=== PATIENT | female | born 1935 | race Asian ===

== ENCOUNTER → 2016-04-27 | Outpatient (CLI) | payer OTHER ==
[~2016-04-27] MED LIST: ACET325T96 PO; AMLO2.5T PO; ASPEC81 PO; CARB25TA12 PO; CHOL100010 PO; CYAN500T PO; DOCU-94 PO; FLNIN NAE; FLUT0.15 NAE; FURO20TA PO; METO50TA16 PO; MGCUDL400 PO; MULTTAB58 PO; NRN100 PO; OMEP20CA9 PO; PLV75 PO; POTA10CA28 PO; POTA1CAP53 PO; SIMV20TA2 PO; ZNTT/150 PO
== END | disposition home or self-care (01) ==
LOC: C.LAB1850 09:27
PROVIDERS: ATTEND Psychiatry & Neurology Neurology
DX: G20 Parkinson's disease (principal)

== ENCOUNTER → 2016-05-28 | Outpatient (CLI) | payer OTHER ==
[2016-05-28 09:57] LABS: ALT/SGPT 10 U/L (12-78); AST/SGOT 11 U/L (15-37); BLOOD UREA NITROGEN 20 mg/dl (7-18); BUN/CREATININE RATIO 14.3 (10-20); CALCIUM 9.6 mg/dl (8.5-10.1); CARBON DIOXIDE 34 mmol/L (21-32); CHLORIDE 103 mmol/L (98-107); GLUCOSE 124 mg/dl (70-99); POTASSIUM 4.1 mmol/L (3.5-5.1); SODIUM 142 mmol/L (136-145)
[2016-05-28 10:00] LABS: CHOLESTEROL 201 mg/dl (0-200); HDL CHOLESTEROL 101 mg/dl; LDL CHOLESTEROL CALCULATED 80 mg/dl; TRIGLYCERIDES 101 mg/dl (0-150); VERY LOW DENSITY LIPOPROT CALC 20 mg/dl
[2016-05-28 10:24] LABS: ESTIMATED AVERAGE GLUCOSE 140 mg/dl; HA1C FLAG Normal (Normal)
[2016-05-28 13:08] LABS: RATIO 26.7 mcg/mg (0-30.0)
== END | disposition home or self-care (01) ==
LOC: C.LAB1850 08:21
PROVIDERS: ATTEND Internal Medicine
DX: I10 Essential (primary) hypertension (principal); E11.9 Type 2 diabetes mellitus without complications; I25.10 Atherosclerotic heart disease of native coronary artery without angina pectoris

== ENCOUNTER → 2016-06-19 | Outpatient (CLI) | payer OTHER ==
--- NOTE | 2016-06-19 09:24 | DIAGNOSTIC IMAGING REPORT ---
RIGHT HIP 2 VIEWS HISTORY: M25.551 Right hip [id number] Right COMPARISON: Pelvis 05/27/2014. FINDINGS: There is no fracture or dislocation. Soft tissues are unremarkable. The visualized pelvic bones are intact. The bones are osteopenic. Cartilage spaces are maintained for age. Posterior fusion seen at the lumbar sacral spine. 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 IMPRESSION: No fracture or dislocation within the right hip. Osteopenia. Electronically signed by: Pardeep Neville M.D. 06/19/2016 9:23 AM Dictated Date/Time: 06/19/2016 9:21 AM
== END | disposition home or self-care (01) ==
LOC: C.RAD1850 09:10
PROVIDERS: ATTEND Physician Assistant
DX: M25.551 Pain in right hip (principal); M85.88 Other specified disorders of bone density and structure, other site

== ENCOUNTER 2016-07-31 17:34 | Inpatient (IN) | payer OTHER ==
[~2016-07-31] VITALS: Ht 160 cm; Wt 41.9 kg
[~2016-07-31 17:34] MED LIST changes: -AMLO2.5T PO; -CARB25TA12 PO; -CHOL100010 PO; -FLUT0.15 NAE; -MGCUDL400 PO; -NRN100 PO; -POTA1CAP53 PO; -ZNTT/150 PO
[2016-07-31] MEDS ORDERED: ONDANSETRON INJ 2 MG/ML 2 ML VIAL IV STA (18:20)
[2016-07-31] MEDS ORDERED: SODIUM CHLORIDE 0.9% 1000ML 1,000 ML IV STA (18:20)
[2016-07-31 18:39] LABS: BASO % 0.2 %; BASO ABS # 0.01 K/uL (0-0.2); COMPLETE YES; HEMATOCRIT 42.6 % (37-47); IG% 0.2 %; LYMPH % 17.4 %; LYMPH ABS # 1.01 K/uL (1.2-3.4); MEAN CELL VOLUME 92.2 fL (80-100); MEAN CORPUSCULAR HEMOGLOBIN 29.7 pg (25-34); MEAN CORPUSCULAR HGB CONC 32.2 g/dl (32-36); MEAN PLATELET VOLUME 11.2 fL (7.4-10.4); MONO % 5.4 %; NEUT % 75.8 %; PLATELET COUNT 122 K/uL (130-400); RED BLOOD COUNT 4.62 M/uL (4.2-5.4); WHITE BLOOD COUNT 5.79 K/uL (4.8-10.8)
[2016-07-31] MEDS ORDERED: CARB25TA12 PO (18:40)
[2016-07-31] MEDS ORDERED: CHOL100010 PO (18:40)
[2016-07-31] MEDS ORDERED: POTA1CAP53 PO (18:40)
[2016-07-31] MEDS ORDERED: ZNTT/150 PO (18:40)
[2016-07-31] MEDS ORDERED: FLUT0.15 NAE (18:40)
[2016-07-31 18:49] LABS: PARTIAL THROMBOPLASTIN RATIO 0.9; PROTHROMBIN TIME (PATIENT) 10.7 SECONDS (9.0-12.0)
[2016-07-31 18:50] LABS: BLOOD UREA NITROGEN 23 mg/dl (7-18); BUN/CREATININE RATIO 14.6 (10-20); CALCIUM 10.5 mg/dl (8.5-10.1); CARBON DIOXIDE 23 mmol/L (21-32); CHLORIDE 100 mmol/L (98-107); GLUCOSE 71 mg/dl (70-99); SODIUM 137 mmol/L (136-145)
[2016-07-31] MEDS ORDERED: NRN100 PO (18:51)
[2016-07-31] MEDS ORDERED: AMLO2.5T PO (18:51)
--- NOTE | 2016-07-31 18:53 | DIAGNOSTIC IMAGING REPORT ---
CHEST ONE VIEW PORTABLE HISTORY: Generalized ABDOMINAL PAIN/GI COMPARISON: Chest 09/27/2014. FINDINGS: The lungs are clear. Cardiac silhouette is normal in size. No pleural effusions. No pneumothorax. Poststernotomy changes. Lumbar spine fusion hardware. IMPRESSION: No acute process. Electronically signed by: Pardeep Neville M.D. 07/31/2016 6:52 PM Dictated Date/Time: 07/31/2016 6:50 PM
[2016-07-31 18:54] LABS: ALKALINE PHOSPHATASE 60 U/L (45-117); ALT/SGPT 10 U/L (12-78); AST/SGOT 15 U/L (15-37)
--- NOTE | 2016-07-31 19:17 | DIAGNOSTIC IMAGING REPORT ---
ABDOMEN AND PELVIS CT WITHOUT CONTRAST CT DOSE: 253.82 mGy.cm HISTORY: Generalized abdominal pain. TECHNIQUE: Multiaxial CT images of the abdomen and pelvis were performed without contrast. COMPARISON STUDY: Abdominal aortic ultrasound 05/23/2015. FINDINGS: Mild aneurysmal dilatation of the descending thoracic aorta measuring up to 3.1 cm. Poststernotomy changes. There are few punctate calcified granulomas within the left lung base. No pneumoperitoneum. No pneumatosis. L3-S1 posterior decompression and fusion with pedicle screws and rods. A 1.5 cm hypodense focus within the left hepatic lobe. This is incompletely characterize on this noncontrast study but may represent focal fat. The unenhanced gallbladder, pancreas, spleen, and adrenal glands are unremarkable. Atrophic right kidney. Normal left kidney. No hydronephrosis. No retroperitoneal lymphadenopathy. Tortuous abdominal aorta measuring up to 3.8 cm in diameter. A left retroaortic renal vein. Suboptimal evaluation for bowel pathology due to the lack of intravenous and oral contrast. However, there is no definite bowel wall thickening or obstruction. Normal appendix. 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 The bladder, uterus, bilateral adnexa are unremarkable. Colonic diverticulosis. Mild perianal fat stranding. This is best seen on image 374. No perianal abscess identified. IMPRESSION: 1. Mild perianal fat stranding likely due to an infectious or inflammatory process. No evidence for a perianal abscess. 2. Colonic diverticulosis. 3. No bowel wall thickening or obstruction. 4. Normal appendix. 5. Descending thoracic and abdominal aortic aneurysms as described above. Electronically signed by: Pardeep Neville M.D. 07/31/2016 7:16 PM Dictated Date/Time: 07/31/2016 7:05 PM
--- NOTE | 2016-07-31 21:35 | EMERGENCY ROOM VISIT NOTE ---
History Report prepared by Karen: Sheila Carbone Under the Supervision of: Dr. Andrez Hidalgo D.O. First contact with patient: 18:13 Chief Complaint: WEAKNESS Stated Complaint: HASN'T BEEN EATING OR DRINKING, VERY WEAK Nursing Triage Summary: Pt's daughter reports patient is weak, has not eaten or drank in 2 days "This has been going on for weeks" Pt c/o RLQ and epigastric pain History of Present Illness The patient is an 81 year old female who presents to the Emergency Room with complaints of persistent weakness starting 1 week ago. The patient's daughter reports that she has not eaten in the past 2 days and has only been eating a tablespoon of food at a time over the past week. Every time she is offered food she states that she might vomit. She also has not been drinking more than a pint of water a day. She has had intermittent abdominal pain. She has had an ulcer in the past. Source of History: patient, family Onset: 1 week ago Position: other (global) Quality: other (weakness) Timing: other (persistent) Associated Symptoms: + nausea, + abdominal pain Note: Pt is eating less, drinking less. Review of Systems See HPI for pertinent positives & negatives. A total of 10 systems reviewed and were otherwise negative. Past Medical & Surgical Medical Problems: (1) AORTOCORONARY BYPASS (2) CORON ATHEROSCLER NOS TYPE VESSEL, MANZANITA OR GRAFT (3) CVA (cerebral infarction) (4) HYPERLIPIDEMIA NEC/NOS (5) HYPERTENSION NOS (6) SPONDYLOLISTHESIS Family History Noncontributory secondary to age. Social History Smoking Status: Never Smoker Drug Use: none Marital Status: Housing Status: lives with family Current/Historical Medications Scheduled Acetaminophen Tab (Tylenol), 650 MG PO PRN Amlodipine Besylate (Norvasc), 2.5 MG PO QAM Carbidopa/Levodopa (Sinemet 25MG/100MG), 1 TAB PO TID Cholecalciferol (Vitamin D), 1,000 UNIT PO DAILY Clopidogrel Bisulfate (Clopidogrel), 75 MG PO DAILY Cyanocobalamin (Vitamin B-12), 500 MCG PO DAILY Fluticasone Propionate (Nasal) (Flonase Allergy Relief), 1-2 SPRAYS RENE DAILY Gabapentin (Gabapentin), 300 MG PO HS Metoprolol Tartrate (Lopressor) (Lopressor), 50 MG PO BID Omeprazole (Prilosec), 20 MG PO DAILY Potassium Chloride (Klor-Con Sprinkle), 20 MEQ PO BID Ranitidine (Zantac), 150 MG PO DAILY Simvastatin (Zocor), 20 MG PO QPM Scheduled PRN Multiple Vitamin (Multivitamin), 1 TAB PO DAILY PRN for SUPPLEMENT Allergies Coded Allergies: Celecoxib (Verified Allergy, Unknown, 02/03/14) Clarithromycin (Verified Allergy, Unknown, ?, 02/03/14) Erythromycin (Verified Allergy, Unknown, MYCINS, 02/03/14) Irbesartan (Verified Allergy, Unknown, Unknown rxn, 02/03/14) Pregabalin (Verified Allergy, Unknown, Unknown rxn, 02/03/14) Propoxyphene (Verified Allergy, Unknown, Unknown - Darvocet, 02/03/14) Codeine (Verified Adverse Reaction, Mild, ACUTE NAUSEA, 02/03/14) ROJAS Inhibitors (Verified Adverse Reaction, Unknown, ?, 02/03/14) Benzonatate (Verified Adverse Reaction, Unknown, UNKNOWN, 02/03/14) Hydralazine (Verified Adverse Reaction, Unknown, ?, 02/03/14) Losartan (Verified Adverse Reaction, Unknown, ?, 02/03/14) Tramadol (Verified Adverse Reaction, Unknown, didn't feel good, 02/03/14) Valsartan (Verified Adverse Reaction, Unknown, ?, 02/03/14) Uncoded Allergies: [id number] (Allergy, Mild, ACUTE NAUSEA, 02/22/15) [id number] (Allergy, Unknown, UNKNOWN, 02/22/15) [id number] (Allergy, Unknown, MYCINS, 02/22/15) [id number] (Allergy, Unknown, ?, 02/22/15) [id number] (Allergy, Unknown, Unknown - Darvocet, 02/22/15) [id number] (Allergy, Unknown, ?, 02/22/15) [id number] (Allergy, Unknown, didn't feel good, 02/22/15) [id number] (Allergy, Unknown, ?, 02/22/15) [id number] (Allergy, Unknown, ?, 02/22/15) [id number] (Allergy, Unknown, Unknown rxn, 02/22/15) [id number] (Allergy, Unknown, 02/22/15) [id number] (Allergy, Unknown, ?, 02/22/15) [id number] (Allergy, Unknown, Unknown rxn, 02/22/15) Physical Exam Vital Signs Date Time Temp Pulse Resp B/P (MAP) Pulse Ox O2 Delivery O2 Flow Rate FiO2 07/31/16 17:39 36.7 59 18 169/87 97 Room Air Physical Exam CONSTITUTIONAL/VITAL SIGNS: Reviewed / noted above. GENERAL: Non-toxic in appearance. INTEGUMENTARY: Warm, dry, and [place]. HEAD: Normocephalic. EYES: without scleral icterus or trauma. ENT/OROPHARYNX: clear and dry. smell of ketones on her breath. LYMPHADENOPATHY/NECK: Is supple without lymphadenopathy or meningismus. RESPIRATORY: Lungs clear and equal. CARDIOVASCULAR: Regular rate and rhythm. GI/ABDOMEN: Soft and nontender. No organomegaly or pulsatile mass. No rebound or guarding. Normal bowel sounds. RECTAL: No abnormality noted other than a healing sacral decubitus ulcer that is very small and has a small scab on it. EXTREMITIES: Warm and well perfused. BACK: No CVA tenderness. NEUROLOGICAL: Intact without focal deficits. PSYCHIATRIC: normal affect. MUSCULOSKELETAL: Normally developed with good muscle tone. Medical Decision & Procedures ER Provider Diagnostic Interpretation: X ray results and stated below per my interpretation and radiology interpretation. Radiology results as stated below per my review and radiologist interpretation: CHEST ONE VIEW PORTABLE HISTORY: Generalized ABDOMINAL PAIN/GI COMPARISON: Chest 09/27/2014. FINDINGS: The lungs are clear. Cardiac silhouette is normal in size. No pleural effusions. No pneumothorax. Poststernotomy changes. Lumbar spine fusion hardware. IMPRESSION: No acute process. Electronically signed by: Pardeep Neville M.D. 07/31/2016 6:52 PM Dictated Date/Time: 07/31/2016 6:50 PM ABDOMEN AND PELVIS CT WITHOUT CONTRAST CT DOSE: 253.82 mGy.cm HISTORY: Generalized abdominal pain. TECHNIQUE: Multiaxial CT images of the abdomen and pelvis were performed without contrast. COMPARISON STUDY: Abdominal aortic ultrasound 05/23/2015. FINDINGS: Mild aneurysmal dilatation of the descending thoracic aorta measuring up to 3.1 cm. Poststernotomy changes. There are few punctate calcified granulomas within the left lung base. No pneumoperitoneum. No pneumatosis. L3-S1 posterior decompression and fusion with pedicle screws and rods. A 1.5 cm hypodense focus within the left hepatic lobe. This is incompletely characterize on this noncontrast study but may represent focal fat. The unenhanced gallbladder, pancreas, spleen, and adrenal glands are unremarkable. Atrophic right kidney. Normal left kidney. No hydronephrosis. No retroperitoneal lymphadenopathy. Tortuous abdominal aorta measuring up to 3.8 cm in diameter. A left retroaortic renal vein. Suboptimal evaluation for bowel pathology due to the lack of intravenous and oral contrast. However, there is no definite bowel wall thickening or obstruction. Normal appendix. 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 The bladder, uterus, bilateral adnexa are unremarkable. Colonic diverticulosis. Mild perianal fat stranding. This is best seen on image 374. No perianal abscess identified. IMPRESSION: 1. Mild perianal fat stranding likely due to an infectious or inflammatory process. No evidence for a perianal abscess. 2. Colonic diverticulosis. 3. No bowel wall thickening or obstruction. 4. Normal appendix. 5. Descending thoracic and abdominal aortic aneurysms as described above. Electronically signed by: Pardeep Neville M.D. 07/31/2016 7:16 PM Dictated Date/Time: 07/31/2016 7:05 PM Laboratory Results 07/31/16 18:20 Red Blood Count 4.62, Mean Corpuscular Volume 92.2, Mean Corpuscular Hemoglobin 29.7, Mean Corpuscular Hemoglobin Concent 32.2, Mean Platelet Volume 11.2, Neutrophils (%) (Auto) 75.8, Lymphocytes (%) (Auto) 17.4, Monocytes (%) (Auto) 5.4, Eosinophils (%) (Auto) 1.0, Basophils (%) (Auto) 0.2, Neutrophils # (Auto) 4.39, Lymphocytes # (Auto) 1.01, Monocytes # (Auto) 0.31, Eosinophils # (Auto) 0.06, Basophils # (Auto) 0.01 07/31/16 18:20 Test 07/31/16 18:20 White Blood Count 5.79 K/uL (4.8-10.8) Red Blood Count 4.62 M/uL (4.2-5.4) Hemoglobin 13.7 g/dL (12.0-16.0) Hematocrit 42.6 % (37-47) Mean Corpuscular Volume 92.2 fL (80-100) Mean Corpuscular Hemoglobin 29.7 pg (25-34) Mean Corpuscular Hemoglobin Concent 32.2 g/dl (32-36) Platelet Count 122 K/uL (130-400) Mean Platelet Volume 11.2 fL (7.4-10.4) Neutrophils (%) (Auto) 75.8 % Lymphocytes (%) (Auto) 17.4 % Monocytes (%) (Auto) 5.4 % Eosinophils (%) (Auto) 1.0 % Basophils (%) (Auto) 0.2 % Neutrophils # (Auto) 4.39 K/uL (1.4-6.5) Lymphocytes # (Auto) 1.01 K/uL (1.2-3.4) Monocytes # (Auto) 0.31 K/uL (0.11-0.59) Eosinophils # (Auto) 0.06 K/uL (0-0.5) Basophils # (Auto) 0.01 K/uL (0-0.2) RDW Standard Deviation 44.5 fL (36.4-46.3) RDW Coefficient of Variation 13.5 % (11.5-14.5) Immature Granulocyte % (Auto) 0.2 % Immature Granulocyte # (Auto) 0.01 K/uL (0.00-0.02) Prothrombin Time 10.7 SECONDS (9.0-12.0) Prothromb Time International Ratio 1.0 (0.9-1.1) Activated Partial Thromboplast Time 24.0 SECONDS (21.0-31.0) Partial Thromboplastin Ratio 0.9 Anion Gap 14.0 mmol/L (3-11) Estimated GFR () 34.4 Estimated GFR (Non- 29.7 BUN/Creatinine Ratio 14.6 (10-20) Calcium Level 10.5 mg/dl (8.5-10.1) Total Bilirubin 1.5 mg/dl (0.2-1) Direct Bilirubin 0.6 mg/dl (0-0.2) Aspartate Amino Transf (AST/SGOT) 15 U/L (15-37) Alanine Aminotransferase (ALT/SGPT) 10 U/L (12-78) Alkaline Phosphatase 60 U/L (45-117) Total Protein 8.5 gm/dl (6.4-8.2) Albumin 4.5 gm/dl (3.4-5.0) Lipase 1459 U/L (73-393) Laboratory results as stated above per my review. Medications Administered Medications (Trade) Dose Ordered Sig/Graciela Route Start Time Stop Time Status Last Admin Dose Admin Sodium Chloride 1,000 ml @ 999 mls/hr Q1H1M STAT IV 07/31/16 18:20 07/31/16 19:20 DC 07/31/16 19:20 999 MLS/HR Ondansetron HCl (Zofran Inj) 4 mg NOW STAT IV 07/31/16 18:20 07/31/16 18:26 DC 07/31/16 19:20 4 MG ECG Indication: weakness Rate (beats per minute): 53 Rhythm: sinus bradycardia Findings: no ectopy, other (no acute injury) ED Course 1812: Previous medical records were reviewed. The patient was evaluated in room C1B. A complete history and physical examination was performed. 0: Zofran Inj 4 mg IV, NSS 1000 ml @ 999 mls/hr IV. 2115: On reevaluation, the patient is resting comfortably. I discussed the results and findings with her and her family. They verbalized agreement of the treatment plan. The patient will be evaluated for further management and care. 2123: I discussed the patient's case with Dr. Ely, [facility] hospitalist service. The patient will be evaluated for further treatment and disposition. Medical Decision Differential includes acute coronary syndrome, myocardial infarction, CVA, TIA, anemia, infection, pneumonia, UTI, pyelonephritis, poor nutrition, dehydration, electrolyte disturbance,hypoglycemia. Medication Reconciliation: I attest that I have personally reviewed the patient' s current medication list. Blood pressure Screening: Patient was found to have an elevated blood pressure and was referred to their primary doctor for recheck and further treatment. This is an 81-year-old female who presents to the ED with a chief complaint of nausea, intermittent abdominal pain, weight loss and dehydration as well as generalized weakness. The patient has had the symptoms for the past 2-3 weeks. The family is concerned because she is increasingly weak and becoming dehydrated. Physical exam is noted above. She had no specific abdominal tenderness at the time of exam. She does have a smell of ketones on her breath. EKG shows sinus bradycardia. CBC is normal. BUN is 23 and creatinine is 1.6. Lipase is [address] revealed some perianal stranding/ infection. Exam of the perianal and rectal area did not reveal any obvious acute infection. There is a healing sacral decubitus ulcer that has a scab on it. There is no evidence of acute infection with regards to this. A chest x- ray was negative for acute disease. The patient was treated with IV fluids and IV Zofran. She will be seen by the hospitalist service for further inpatient evaluation of her elevated lipase and symptoms. Consults Time Called: 2114 Consulting Physician: Dr. Ely [facility] hospitalist service Returned Call: [phone] Discussed the patient's case. The patient will be evaluated for further treatment and disposition. Impression Primary Impression: Pancreatitis Additional Impressions: Nausea Dehydration Scribe Attestation The scribe's documentation has been prepared under my direction and personally reviewed by me in its entirety. I confirm that the note above accurately reflects all work, treatment, procedures, and medical decision making performed by me. Departure Information Dispostion Being Evaluated By Hospitalist Referrals Jam Aguila M.D. (PCP) Patient Instructions My [facility] Problem Qualifiers
[2016-07-31] MEDS ORDERED: ALUMINUM/MAGNESIUM/SIMETH (MAALOX MAX) 30 ML UDC PO PRN (21:45)
[2016-07-31] MEDS ORDERED: ONDANSETRON INJ 2 MG/ML 2 ML VIAL IV PRN (21:45)
[2016-07-31] MEDS ORDERED: ACETAMINOPHEN 325 MG TAB PO PRN (21:45)
[2016-07-31 22:11] VITALS: BP 148/71; PULSE 54; TEMP 36.9; O2SAT 95
[2016-07-31] MEDS ORDERED: POLYETHYLENE (MIRALAX) 17 GM PACK PO PRN (22:15)
[2016-07-31 22:23] LABS: URINE APPEARANCE CLEAR (CLEAR); URINE BILIRUBIN NEG (NEG); URINE COLOR YELLOW; URINE EPITHELIAL CELL AUTO >30 /lpf (0-5); URINE NITRITE NEG (NEG); URINE PH 5.5 (4.5-7.5); URINE SPECIFIC GRAVITY 1.016 (1.000-1.030); UROBILINOGEN NEG (NEG); ZZUR CULT IF INDIC CLEAN CATCH NO
[2016-07-31 22:24] LABS: MANUAL MICROSCOPIC REQUIRED? NO; REVIEW REQ? NO
--- NOTE | 2016-07-31 22:58 | History and Physical ---
History & Physical Date & Time of Service: Jul 31, 2016 at 22:31 Chief Complaint: Hasn't Been Eating Or Drinking, Very Weak Primary Care Physician: Jam Aguila M.D. History of Present Illness Source: patient, family 81 y/o F CAD, CVA, HTN, Parkinson's - brought in by daughter for a chief complaint of refusing to eat or drink. She has not had an appetite for up to 2 months. She is exhibiting some weakness, lethargy and possibly progressive memory impairment. She denies nausea, however, her daughter states that she complains that she will throw up if she has any food or drink. When she does ask for something, she takes at most a single bite and can become very nauseous. The pt also describes occasional RUQ pain which is not present on admission. She denies fevers, CP, SOB, diarrhea or dysuria. Initial labs reveal acute kidney injury, mild acidosis and an elevated lipase. Her platelet count is also slightly low. A CT abdomen shows mild aneurysmal dilatation of the thoracic and abdominal aorta and mild perirectal inflammation. There is no evidence of pancreatitis. Past Medical/Surgical History Medical Problems: (1) AORTOCORONARY BYPASS 2011 Status: Resolved (2) CORON ATHEROSCLER NOS TYPE VESSEL, [employer] [place] [employer] Status: Chronic (3) CVA (cerebral infarction) Status: Resolved (4) HYPERLIPIDEMIA NEC/NOS Status: Chronic (5) HYPERTENSION NOS Status: Chronic (6) SPONDYLOLISTHESIS - Lumbar surgery 2012 Status: Resolved Family History Noncontributory due to pt age Social History Smoking Status: Former Smoker Drug Use: none Marital Status: Immunizations History of Influenza Vaccine: N/A Influenza Vaccine Date: Dec 12, 2004 History of Tetanus Vaccine?: Unknown History of Pneumococcal: Yes History of Hepatitis B Vaccine: No Multi-Drug Resistant Organisms History of MDRO: No Allergies Coded Allergies: Celecoxib (Verified Allergy, Unknown, 02/03/14) Clarithromycin (Verified Allergy, Unknown, ?, 02/03/14) Erythromycin (Verified Allergy, Unknown, MYCINS, 02/03/14) Irbesartan (Verified Allergy, Unknown, Unknown rxn, 02/03/14) Pregabalin (Verified Allergy, Unknown, Unknown rxn, 02/03/14) Propoxyphene (Verified Allergy, Unknown, Unknown - Darvocet, 02/03/14) Codeine (Verified Adverse Reaction, Mild, ACUTE NAUSEA, 02/03/14) ROJAS Inhibitors (Verified Adverse Reaction, Unknown, ?, 02/03/14) Benzonatate (Verified Adverse Reaction, Unknown, UNKNOWN, 02/03/14) Hydralazine (Verified Adverse Reaction, Unknown, ?, 02/03/14) Losartan (Verified Adverse Reaction, Unknown, ?, 02/03/14) Tramadol (Verified Adverse Reaction, Unknown, didn't feel good, 02/03/14) Valsartan (Verified Adverse Reaction, Unknown, ?, 02/03/14) Home Medications Scheduled Acetaminophen Tab (Tylenol), 650 MG PO PRN Amlodipine Besylate (Norvasc), 2.5 MG PO QAM Carbidopa/Levodopa (Sinemet 25MG/100MG), 1 TAB PO TID Cholecalciferol (Vitamin D), 1,000 UNIT PO DAILY Clopidogrel Bisulfate (Clopidogrel), 75 MG PO DAILY Cyanocobalamin (Vitamin B-12), 500 MCG PO DAILY Fluticasone Propionate (Nasal) (Flonase Allergy Relief), 1-2 SPRAYS RENE DAILY Gabapentin (Gabapentin), 300 MG PO HS Metoprolol Tartrate (Lopressor) (Lopressor), 50 MG PO BID Omeprazole (Prilosec), 20 MG PO DAILY Potassium Chloride (Klor-Con Sprinkle), 20 MEQ PO BID Ranitidine (Zantac), 150 MG PO DAILY Simvastatin (Zocor), 20 MG PO QPM Scheduled PRN Multiple Vitamin (Multivitamin), 1 TAB PO DAILY PRN for SUPPLEMENT Review of Systems Constitutional: + weight loss, + weakness, + fatigue, No fever, No chills, No sweats Eyes: No worsening of vision, No eye pain ENT: No hearing loss, No unusual epistaxis, No nasal symptoms Respiratory: No cough, No sputum, No wheezing Cardiovascular: No chest pain, No orthopnea, No PND Abdomen: + pain (Occasional RUQ pain), + nausea Musculoskeletal: No joint pain, No muscle pain Genitourinary - Female: No dysuria, No urinary frequency, No urinary urgency Neurologic: + memory loss, + weakness Psychiatric: + depression symptoms, + anhedonism Endocrine: + fatigue Hematologic / Lymphatic: No abnormal bleeding/bruising Integumentary: No rash Allergic / Immunologic: No environmental allergies Physical Exam Vital Signs Date Time Temp Pulse Resp B/P (MAP) Pulse Ox O2 Delivery O2 Flow Rate FiO2 07/31/16 22:00 62 16 149/63 96 Room Air 07/31/16 17:39 36.7 59 18 169/87 97 Room Air General Appearance: + pertinent finding (Thin elderly female with a flat affect ) Head: normocephalic, atraumatic Eyes: normal inspection ENT: normal ENT inspection, pharynx normal Neck: supple, no JVD Respiratory/Chest: chest non-tender, lungs clear, normal breath sounds Cardiovascular: regular rate, rhythm, no edema, no gallop, no JVD, no murmur, normal peripheral pulses Abdomen/GI: normal bowel sounds, non tender, soft Back: normal inspection, no CVA tenderness Extremities/Musculoskelatal: normal inspection, normal range of motion Neurologic/Psych: audit tech 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, no motor/sensory deficits, alert Skin: normal color, warm/dry, no rash Diagnostics Laboratory Results Results Past 24 Hours Test 07/31/16 18:20 07/31/16 21:55 Range/Units White Blood Count 5.79 4.8-10.8 K/uL Red Blood Count 4.62 4.2-5.4 M/uL Hemoglobin 13.7 12.0-16.0 g/dL Hematocrit 42.6 37-47 % Mean Corpuscular Volume 92.2 80-100 fL Mean Corpuscular Hemoglobin 29.7 25-34 pg Mean Corpuscular Hemoglobin Concent 32.2 32-36 g/dl Platelet Count 122 130-400 K/uL Mean Platelet Volume 11.2 7.4-10.4 fL Neutrophils (%) (Auto) 75.8 % Lymphocytes (%) (Auto) 17.4 % Monocytes (%) (Auto) 5.4 % Eosinophils (%) (Auto) 1.0 % Basophils (%) (Auto) 0.2 % Neutrophils # (Auto) 4.39 1.4-6.5 K/uL Lymphocytes # (Auto) 1.01 1.2-3.4 K/uL Monocytes # (Auto) 0.31 0.11-0.59 K/uL Eosinophils # (Auto) 0.06 0-0.5 K/uL Basophils # (Auto) 0.01 0-0.2 K/uL RDW Standard Deviation 44.5 36.4-46.3 fL RDW Coefficient of Variation 13.5 11.5-14.5 % Immature Granulocyte % (Auto) 0.2 % Immature Granulocyte # (Auto) 0.01 0.00-0.02 K/uL Prothrombin Time 10.7 9.0-12.0 SECONDS Prothromb Time International Ratio 1.0 0.9-1.1 Activated Partial Thromboplast Time 24.0 21.0-31.0 SECONDS Partial Thromboplastin Ratio 0.9 Sodium Level 137 136-145 mmol/L Potassium Level 5.0 3.5-5.1 mmol/L Chloride Level 100 98-107 mmol/L Carbon Dioxide Level 23 21-32 mmol/L Anion Gap 14.0 3-11 mmol/L Blood Urea Nitrogen 23 7-18 mg/dl Creatinine 1.60 0.60-1.20 mg/dl Estimated GFR () 34.4 Estimated GFR (Non- 29.7 BUN/Creatinine Ratio 14.6 10-20 Random Glucose 71 70-99 mg/dl Calcium Level 10.5 8.5-10.1 mg/dl Total Bilirubin 1.5 0.2-1 mg/dl Direct Bilirubin 0.6 0-0.2 mg/dl Aspartate Amino Transf (AST/SGOT) 15 15-37 U/L Alanine Aminotransferase (ALT/SGPT) 10 12-78 U/L Alkaline Phosphatase 60 45-117 U/L Total Protein 8.5 6.4-8.2 gm/dl Albumin 4.5 3.4-5.0 gm/dl Lipase 1459 73-393 U/L Urine Color YELLOW Urine Appearance CLEAR CLEAR Urine pH 5.5 4.5-7.5 Urine Specific [place] 1.016 1.000-1.030 Urine Protein NEG NEG Urine Glucose (UA) NEG NEG Urine Ketones 1+ NEG Urine Occult Blood NEG NEG Urine Nitrite NEG NEG Urine Bilirubin NEG NEG Urine Urobilinogen NEG NEG Urine Leukocyte Esterase MODERATE NEG Urine WBC (Auto) 5-10 0-5 /hpf Urine RBC (Auto) 0-4 0-4 /hpf Urine Hyaline Casts (Auto) 1-5 0-5 /lpf Urine Epithelial Cells (Auto) >30 0-5 /lpf Urine Bacteria (Auto) NEG NEG Diagnostic Radiology CT abdomen 1. Mild perianal fat stranding likely due to an infectious or inflammatory process. No evidence for a perianal abscess. 2. Colonic diverticulosis. 3. No bowel wall thickening or obstruction. 4. Normal appendix. 5. Descending thoracic and abdominal aortic aneurysms as described above. EKG Sinus maggy - no ischemic changes Impression Assessment and Plan 81 y/o F CAD, CVA, HTN, Parkinson's - brought in by daughter for a chief complaint of refusing to eat or drink. She has not had an appetite for up to 2 months. She is exhibiting some weakness, lethargy and possibly progressive memory impairment. Her daughter states that she complains that she will throw up if she has any food or drink. The pt also describes occasional RUQ pain which is not present on admission. Initial labs reveal acute kidney injury, mild acidosis and an elevated lipase. Her platelet count is also slightly low. A CT abdomen shows mild aneurysmal dilatation of the thoracic and abdominal aorta and mild perirectal inflammation. There is no evidence of pancreatitis. 1) Appetite loss - nausea - weakness and functional decline. She also has reported progressive memory impairment. Her lipase is elevated, however, clinically her presentation is not consistent with pancreatitis. Differential may include onset of dementia or depression and pseudodementia. Her diagnosis of Parkinson's and use of Sinemet are relatively recent and may coincide with her current symptoms as they are described with Sinemet use. We will obtain an ESR as this may point to an inflammatory process. We will consult GI as she may be having dysmotility and resultant phagophobia. We will repeat a lipase AM and keep her on clears pending evaluation. Lastly, if GI pathology or medication side effect is ruled out, we may want to consult mental health. 2) BHARATH - likely due to dehydration - will provide IVF and repeat AM labs 3) Platelets are borderline low and will be trended 4) CAD - cont Plavix, Statin - no evidence of ACS 5) HTN Cont Norvasc, Metoprolol 6) Parkinson's - again this is a recent diagnosis and she may not be tolerating her meds - we may need to consult her neurologist if it is determined to be responsible for her symptoms. She does not exhibit tremors on admission and we will not abruptly hold Sinemet for now. Full code - Heparin prophylaxis 'Total time for this admit including review of labs, meds, imaging, EKG, records - discussion with ER attending, pt and family - 37 min Level of Care Med/Surg Resuscitation Status FULL RESUSCITATION VTE Prophylaxis VTE Risk Assessment Done? Y/N: Yes Risk Level: Moderate Given or contraindicated: Unfractionated heparin SQ
[2016-08-01] VITALS: BP 149/63; PULSE 62; TEMP 36.7; Ht 160 cm; Wt 41.9 kg
[2016-08-01] MEDS: D5W AND NSS 1,000 ML IV SCH ×2 (00:16→05:38)
[2016-08-01] MEDS: CARBIDOPA/LEVODOPA 25/100MG TAB PO SCH ×4 (00:17→20:38)
[2016-08-01] MEDS: METOPROLOL TARTRATE 50 MG TAB PO SCH ×3 (00:17→20:38)
[2016-08-01] MEDS: GABAPENTIN 300 MG CAP PO SCH ×2 (00:17→20:38)
[2016-08-01] MEDS: SIMVASTATIN 20 MG TAB PO SCH ×2 (00:17→20:38)
[2016-08-01] MEDS ORDERED: HEPARIN SOD 5000 UNIT/0.5 ML CARP SQ SCH (06:00)
[2016-08-01 07:31] VITALS: BP 111/63; PULSE 48; TEMP 36.4; O2SAT 94
[2016-08-01] MEDS: FLUTICASONE PROPIONATE NA SPR 16 GM BTL NAE SCH (08:48)
[2016-08-01] MEDS: CLOPIDOGREL BISULFATE 75 MG TAB PO SCH (08:50)
[2016-08-01] MEDS: CYANOCOBALAMIN 500 MCG TAB (VIT B-12) PO SCH (08:50)
[2016-08-01] MEDS: RANITIDINE HCL 150 MG TAB PO SCH (08:50)
[2016-08-01] MEDS: AMLODIPINE BESYLATE 5 MG TAB PO SCH (08:50)
[2016-08-01 08:53] VITALS: PULSE 51
[2016-08-01] MEDS: SODIUM CHLORIDE 0.9% 1000ML 1,000 ML IV SCH ×2 (08:55→22:09)
[2016-08-01] MEDS ORDERED: PANTOprazole SOD 40 MG TAB PO SCH (09:00)
[2016-08-01 09:06] LABS: HEMATOCRIT 35.2 % (37-47); MEAN CELL VOLUME 90.7 fL (80-100); MEAN CORPUSCULAR HEMOGLOBIN 29.6 pg (25-34); MEAN CORPUSCULAR HGB CONC 32.7 g/dl (32-36); RED BLOOD COUNT 3.88 M/uL (4.2-5.4); WHITE BLOOD COUNT 3.78 K/uL (4.8-10.8)
[2016-08-01 09:54] LABS: BUN/CREATININE RATIO 11.7 (10-20); CREATININE 1.2 mg/dl (0.60-1.20); MAGNESIUM 1.9 mg/dl (1.8-2.4); PHOSPHORUS 1.9 mg/dl (2.5-4.9); POTASSIUM 3.5 mmol/L (3.5-5.1)
[2016-08-01 10:02] LABS: CALCIUM 9.3 mg/dl (8.5-10.1)
[2016-08-01 10:11] LABS: MEAN PLATELET VOLUME 11.6 fL (7.4-10.4); PLATELET COUNT 97 K/uL (130-400); PLT ESTIMATE DECREASED
--- NOTE | 2016-08-01 10:22 | Gastrointestinal Consultation ---
Gastrointestinal Consultation Date of Consultation: Aug 01, 2016 Attending Physician: Dr. Ely Consulting Physician: Dr. Mallory/GABRIELLA Calderon Reason for Consultation: Decreased oral intake, chronic nausea History of Present Illness Patient is a 81 year old female with a history of CAD, CVA, Parkinson's and HTN admitted with increased weakness, lethargy and decreased appetite over the past few months. The patient reports that she has no desire to eat. No foods are appealing to her. She has been noted to have intermittent nausea with vomiting per H&P all consistencies. The patient states she has not had any nausea or vomiting over the past 24 hours. he denies any abdominal pain, diarrhea, constipation, melena or hematochezia. She further denies any chest pain, palpitations, shortness of breath, or lower extremity edema. She has sustained a 6 pound weight loss since early June from review of outpatient records. Laboratory testing on arrival demonstrated mild renal impairment with elevated creatinine of 1.6 and BUN 23. Liver panel was normal but lipase was elevated at 1459. Lipase did drop to 438 today. Upon review of abdominopelvic CT imaging, there were no pancreatic abnormalities noted. Current treatment includes Pantoprazole 40 mg and Ranitidine 150 mg daily. She is not using any aspirin or NSAIDs. Past medical history is significant for prior episode of decreased appetite and weight loss in 2011. At that time, she did undergo an upper endoscopy which revealed a gastric ulcer. Past Medical/Surgical History Medical Problems: (1) Dehydration Status: Acute (2) Nausea Status: Acute (3) Pancreatitis Status: Acute Past Medical History: 1. AAA 2. Diabetes 3. Herpes zoster 4. Fall 5. As per HPI Past Surgical History: 1. CABG 2. EGD 3. Cardiac catheterization 4. D&C 5. Oral tooth extraction 6. Knee arthroscopy Family History Negative for GI malignancy or IBD Social History Smoking Status: Former Smoker Alcohol Use: none Drug Use: none Marital Status: Housing Status: lives with family Allergies Coded Allergies: Celecoxib (Verified Allergy, Unknown, 02/03/14) Clarithromycin (Verified Allergy, Unknown, ?, 02/03/14) Erythromycin (Verified Allergy, Unknown, MYCINS, 02/03/14) Irbesartan (Verified Allergy, Unknown, Unknown rxn, 02/03/14) Pregabalin (Verified Allergy, Unknown, Unknown rxn, 02/03/14) Propoxyphene (Verified Allergy, Unknown, Unknown - Darvocet, 02/03/14) Codeine (Verified Adverse Reaction, Mild, ACUTE NAUSEA, 02/03/14) ROJAS Inhibitors (Verified Adverse Reaction, Unknown, ?, 02/03/14) Benzonatate (Verified Adverse Reaction, Unknown, UNKNOWN, 02/03/14) Hydralazine (Verified Adverse Reaction, Unknown, ?, 02/03/14) Losartan (Verified Adverse Reaction, Unknown, ?, 02/03/14) Tramadol (Verified Adverse Reaction, Unknown, didn't feel good, 02/03/14) Valsartan (Verified Adverse Reaction, Unknown, ?, 02/03/14) Current Medications Home Meds and Scripts Medications Dose Route/Sig Max Daily Dose Days Date Category Norvasc (Amlodipine Besylate) 2.5 Mg Tab 2.5 Mg PO QAM 07/31/16 Reported Gabapentin 100 Mg Cap 300 Mg PO HS 07/31/16 Reported Vitamin D (Cholecalciferol) 1,000 Unit Tab 1,000 Unit PO DAILY 07/31/16 Reported Flonase Allergy Relief (Fluticasone Propionate (Nasal)) 50 Mcg/Act Spr 1-2 Sprays RENE DAILY 07/31/16 Reported Zantac (Ranitidine HCl) 150 Mg Tab 150 Mg PO DAILY 07/31/16 Reported Sinemet 25MG/100MG (Carbidopa/Levodopa) Tab 1 Tab PO TID 07/31/16 Reported Klor-Con Sprinkle (Potassium Chloride) 10 Meq Cap 20 Meq PO BID 07/31/16 Reported Vitamin B-12 (Cyanocobalamin) 500 Mcg Tab 500 Mcg PO DAILY 02/03/14 Reported Zocor (Simvastatin) 20 Mg Tab 20 Mg PO QPM 02/03/14 Reported Lopressor (Metoprolol Tartrate) 50 Mg Tab 50 Mg PO BID 02/03/14 Reported Clopidogrel (Clopidogrel Bisulfate) 75 Mg Tab 75 Mg PO DAILY 90 02/03/14 Reported Prilosec (Omeprazole) 20 Mg Cap 20 Mg PO DAILY 90 11/16/13 Reported Multivitamin (Multiple Vitamin) 1 Tab Tab 1 Tab PO DAILY PRN 03/10/12 Reported Tylenol (Acetaminophen) 325 Mg Tab 650 Mg PO PRN 02/25/12 Reported Review of Systems Constitutional: + see HPI, No fever, No chills Eyes: No problem reported ENT: No trouble swallowing, No pain on swallowing Respiratory: + see HPI Cardiac: + see HPI Abdomen: + see HPI Musculoskeletal: No joint pain Female : No problem reported Neuro: No problem reported Psych: No problem reported Skin: No problem reported Physical Exam Date Time Temp Pulse Resp B/P (MAP) Pulse Ox O2 Delivery O2 Flow Rate FiO2 08/01/16 08:53 51 08/01/16 08:00 Room Air 08/01/16 07:31 36.4 48 16 111/63 (79) 94 Room Air 08/01/16 00:00 36.7 62 16 149/63 Room Air 96 07/31/16 22:40 36.7 62 16 149/63 96 07/31/16 22:11 36.9 54 18 148/71 (96) 95 Room Air 07/31/16 22:00 62 16 149/63 96 Room Air 07/31/16 17:39 36.7 59 18 169/87 97 Room Air General Appearance: no apparent distress Eyes: EOMI ENT: hearing grossly normal Neck: supple Respiratory/Chest: lungs clear, normal breath sounds, no respiratory distress Cardiovascular: regular rate, rhythm, no gallop, no murmur Abdomen: normal bowel sounds, non tender, soft Extremities: no pedal edema Neurologic/Psych: alert, normal mood/affect, oriented x 3 Skin: warm/dry Laboratory Results Last 24 Hours Test 07/31/16 18:20 07/31/16 21:55 08/01/16 08:33 White Blood Count 5.79 K/uL 3.78 K/uL Red Blood Count 4.62 M/uL 3.88 M/uL Hemoglobin 13.7 g/dL 11.5 g/dL Hematocrit 42.6 % 35.2 % Mean Corpuscular Volume 92.2 fL 90.7 fL Mean Corpuscular Hemoglobin 29.7 pg 29.6 pg Mean Corpuscular Hemoglobin Concent 32.2 g/dl 32.7 g/dl Platelet Count 122 K/uL Mean Platelet Volume 11.2 fL Neutrophils (%) (Auto) 75.8 % Lymphocytes (%) (Auto) 17.4 % Monocytes (%) (Auto) 5.4 % Eosinophils (%) (Auto) 1.0 % Basophils (%) (Auto) 0.2 % Neutrophils # (Auto) 4.39 K/uL Lymphocytes # (Auto) 1.01 K/uL Monocytes # (Auto) 0.31 K/uL Eosinophils # (Auto) 0.06 K/uL Basophils # (Auto) 0.01 K/uL RDW Standard Deviation 44.5 fL 43.7 fL RDW Coefficient of Variation 13.5 % 13.1 % Immature Granulocyte % (Auto) 0.2 % Immature Granulocyte # (Auto) 0.01 K/uL Prothrombin Time 10.7 SECONDS Prothromb Time International Ratio 1.0 Activated Partial Thromboplast Time 24.0 SECONDS Partial Thromboplastin Ratio 0.9 Sodium Level 137 mmol/L 140 mmol/L Potassium Level 5.0 mmol/L 3.5 mmol/L Chloride Level 100 mmol/L 105 mmol/L Carbon Dioxide Level 23 mmol/L 27 mmol/L Anion Gap 14.0 mmol/L 8.0 mmol/L Blood Urea Nitrogen 23 mg/dl 14 mg/dl Creatinine 1.60 mg/dl 1.20 mg/dl Estimated GFR () 34.4 48.7 Estimated GFR (Non- 29.7 42.1 BUN/Creatinine Ratio 14.6 11.7 Random Glucose 71 mg/dl 199 mg/dl Calcium Level 10.5 mg/dl Total Bilirubin 1.5 mg/dl Direct Bilirubin 0.6 mg/dl Aspartate Amino Transf (AST/SGOT) 15 U/L Alanine Aminotransferase (ALT/SGPT) 10 U/L Alkaline Phosphatase 60 U/L Total Protein 8.5 gm/dl Albumin 4.5 gm/dl Lipase 1459 U/L 438 U/L Urine Color YELLOW Urine Appearance CLEAR Urine pH 5.5 Urine Specific [place] 1.016 Urine Protein NEG Urine Glucose (UA) NEG Urine Ketones 1+ Urine Occult Blood NEG Urine Nitrite NEG Urine Bilirubin NEG Urine Urobilinogen NEG Urine Leukocyte Esterase MODERATE Urine WBC (Auto) 5-10 /hpf Urine RBC (Auto) 0-4 /hpf Urine Hyaline Casts (Auto) 1-5 /lpf Urine Epithelial Cells (Auto) >30 /lpf Urine Bacteria (Auto) NEG Est Creatinine Clear Calc Drug Dose 22.9 ml/min Phosphorus Level 1.9 mg/dl Magnesium Level 1.9 mg/dl Thyroid Stimulating Hormone (TSH) 0.195 uIu/ml Impression Patient is a 81 year old female with a history of Parkinson's as well as PUD admitted with weakness, anorexia and nausea with vomiting in the setting of hyperlipasemia. Plan 1. Consider dietary advancement to clear liquids as lipase has dropped to 438 today. 2. Increase Protonix to 40 mg BID. 3. Continue Ranitidine 150 mg daily. 4. No plan for invasive GI work up at this time as she is not having any overt GIB at this time. 5. Continue supportive measures per primary team. Thank you for allowing us to participate in the care of this pleasant patient. If you have any questions or concerns, please do not hesitate to contact us. Agree with GABRIELLA Calderon as above Abd: Soft, NT, ND, +BS Continue current therapy
--- NOTE | 2016-08-01 12:49 | Progress Note ---
Subjective Date of Service: Aug 01, 2016. Subjective Pt evaluation today including: conversation w/ patient, chart review, lab review, review of studies, conversation w/ hr shared services consultant, review of inpatient medication list Nurse reported patient was feeling tired because last night not sleeping When I walking into the room patient was woken up for me Conversational, smiling, no acute distress Report has no appetite denies other complaint, Problem List Medical Problems: (1) Dehydration Status: Acute (2) Nausea Status: Acute (3) Pancreatitis Status: Acute Review of Systems Constitutional: + weakness, + fatigue, No fever, No chills, No sweats, No weight loss, No problem reported Eyes: No worsening of vision, No eye pain, No redness, No discharge, No diplopia ENT: No hearing loss, No unusual epistaxis, No nasal symptoms, No sore throat, No tinnitus, No dental problems, No trouble swallowing Respiratory: No cough, No sputum, No wheezing, No shortness of breath, No dyspnea on exertion, No dyspnea at rest, No hemoptysis Cardiac: No chest pain, No orthopnea, No PND, No edema, No claudication, No palpitations Abdomen: No pain, No nausea, No vomiting, No diarrhea, No constipation Musculoskeletal: No joint pain, No muscle pain, No swelling, No calf pain Female : No dysuria, No urinary frequency, No hematuria, No incontinence, No abnormal vaginal bleeding, No vaginal discharge Neurologic: No memory loss, No paralysis, No weakness, No numbness/tingling, No vertigo, No balance problems Psychiatric: No depression symptoms, No anhedonism, No anxiety, No insomnia, No substance abuse Heme: No abnormal bleeding/bruising, No clotting problems, No swollen lymph nodes, No night sweats Endo: No fatigue, No excessive thirst, No excessive urination Skin: No rash, No itch, No new/changing skin lesions, No color change, No bleeding Objective Vital Signs Date Time Temp Pulse Resp B/P (MAP) Pulse Ox O2 Delivery O2 Flow Rate FiO2 08/01/16 08:53 51 08/01/16 08:00 Room Air 08/01/16 07:31 36.4 48 16 111/63 (79) 94 Room Air 08/01/16 00:00 36.7 62 16 149/63 Room Air 96 07/31/16 22:40 36.7 62 16 149/63 96 07/31/16 22:11 36.9 54 18 148/71 (96) 95 Room Air 07/31/16 22:00 62 16 149/63 96 Room Air 07/31/16 17:39 36.7 59 18 169/87 97 Room Air Physical Exam General Appearance: WD/WN, no apparent distress, + thin Eyes: normal inspection, PERRL, EOMI, sclerae normal ENT: normal ENT inspection, hearing grossly normal, pharynx normal Neck: supple, no adenopathy, thyroid normal, no JVD, no carotid bruits, trachea midline Respiratory/Chest: chest non-tender, lungs clear, normal breath sounds, no respiratory distress, no accessory muscle use Cardiovascular: regular rate, rhythm, no edema, no gallop, no JVD, no murmur Abdomen: normal bowel sounds, non tender, soft, no organomegaly, no pulsatile mass Extremities: normal range of motion, non-tender, normal inspection, no pedal edema, no calf tenderness, normal capillary refill, pelvis stable 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, no motor/sensory deficits, alert, normal mood/affect, oriented x 3 Skin: normal color, warm/dry, no rash Lymphatic: no adenopathy Laboratory Results Last 24 Hours Test 07/31/16 18:20 07/31/16 21:55 08/01/16 08:33 08/01/16 12:22 White Blood Count 5.79 K/uL 3.78 K/uL Red Blood Count 4.62 M/uL 3.88 M/uL Hemoglobin 13.7 g/dL 11.5 g/dL Hematocrit 42.6 % 35.2 % Mean Corpuscular Volume 92.2 fL 90.7 fL Mean Corpuscular Hemoglobin 29.7 pg 29.6 pg Mean Corpuscular Hemoglobin Concent 32.2 g/dl 32.7 g/dl Platelet Count 122 K/uL 97 K/uL Mean Platelet Volume 11.2 fL 11.6 fL Neutrophils (%) (Auto) 75.8 % Lymphocytes (%) (Auto) 17.4 % Monocytes (%) (Auto) 5.4 % Eosinophils (%) (Auto) 1.0 % Basophils (%) (Auto) 0.2 % Neutrophils # (Auto) 4.39 K/uL Lymphocytes # (Auto) 1.01 K/uL Monocytes # (Auto) 0.31 K/uL Eosinophils # (Auto) 0.06 K/uL Basophils # (Auto) 0.01 K/uL RDW Standard Deviation 44.5 fL 43.7 fL RDW Coefficient of Variation 13.5 % 13.1 % Immature Granulocyte % (Auto) 0.2 % Immature Granulocyte # (Auto) 0.01 K/uL Prothrombin Time 10.7 SECONDS Prothromb Time International Ratio 1.0 Activated Partial Thromboplast Time 24.0 SECONDS Partial Thromboplastin Ratio 0.9 Sodium Level 137 mmol/L 140 mmol/L Potassium Level 5.0 mmol/L 3.5 mmol/L Chloride Level 100 mmol/L 105 mmol/L Carbon Dioxide Level 23 mmol/L 27 mmol/L Anion Gap 14.0 mmol/L 8.0 mmol/L Blood Urea Nitrogen 23 mg/dl 14 mg/dl Creatinine 1.60 mg/dl 1.20 mg/dl Estimated GFR () 34.4 48.7 Estimated GFR (Non- 29.7 42.1 BUN/Creatinine Ratio 14.6 11.7 Random Glucose 71 mg/dl 199 mg/dl Calcium Level 10.5 mg/dl 9.3 mg/dl Total Bilirubin 1.5 mg/dl Direct Bilirubin 0.6 mg/dl Aspartate Amino Transf (AST/SGOT) 15 U/L Alanine Aminotransferase (ALT/SGPT) 10 U/L Alkaline Phosphatase 60 U/L Total Protein 8.5 gm/dl Albumin 4.5 gm/dl Lipase 1459 U/L 438 U/L Urine Color YELLOW Urine Appearance CLEAR Urine pH 5.5 Urine Specific [place] 1.016 Urine Protein NEG Urine Glucose (UA) NEG Urine Ketones 1+ Urine Occult Blood NEG Urine Nitrite NEG Urine Bilirubin NEG Urine Urobilinogen NEG Urine Leukocyte Esterase MODERATE Urine WBC (Auto) 5-10 /hpf Urine RBC (Auto) 0-4 /hpf Urine Hyaline Casts (Auto) 1-5 /lpf Urine Epithelial Cells (Auto) >30 /lpf Urine Bacteria (Auto) NEG Platelet Estimate DECREASED Est Creatinine Clear Calc Drug Dose 22.9 ml/min Phosphorus Level 1.9 mg/dl Magnesium Level 1.9 mg/dl Thyroid Stimulating Hormone (TSH) 0.195 uIu/ml Assessment and Plan 81 y/o F CAD, CVA, HTN, Parkinson's admitted on 07/31/2016 with a chief complaint of refusing to eat or drink. Per report has not had an appetite for up to 2 months, asso with weakness, lethargy and possibly progressive memory impairment. Patient describes occasional RUQ pain which is not present on admission. initial labs reveal acute kidney injury, mild acidosis and an elevated lipase. Her platelet count is also slightly low. Appetite loss With elevated lipase, decreased TSH Will check T3-T4 Start clear liquid diet Dietitian consultation GI input appreciated they are not planning to have any procedure for now, Increase Protonix to 40 mg BID, Continue Ranitidine 150 mg daily. Generalized weakness weakness and functional decline. Etiology unknown Differential diagnosis include hypothyroidism , dementia or depression and pseudodementia. Parkinson's dz, continue Sinemet, and follow-up Elevated lipase at 1400, trends down at 438 this morning Pancreatitis or dehydration BHARATH - likely due to dehydration, creatinine improved from 1.6-1.2 after hydration Thrombocytopenia upon admission Platelets 112 to 97 today, we'll discontinue heparin per duct for DVT prophylaxis hx of CAD - cont Plavix, Statin hx of HTN Cont Norvasc, Metoprolol Has ordered SCD for DVT prophylaxis Continued [facility] stay due to: multiple IV medications needed Discharge planning: home
[2016-08-01 13:21] LABS: T3 TOTAL 0.39 ng/ml (0.60-1.81)
[2016-08-01 15:16] VITALS: BP 138/71; PULSE 49; TEMP 36.8; O2SAT 96
[2016-08-01 15:50] VITALS: PULSE 60
[2016-08-01 20:35] VITALS: BP 133/65; PULSE 58
[2016-08-01] MEDS: PANTOprazole SOD 40 MG TAB PO SCH (20:38)
[2016-08-02] VITALS (9 sets, daily range): BP systolic 113–146; BP diastolic 60–77; PULSE 48–62; TEMP 36.4–36.8; O2SAT 93–95
[2016-08-02 07:13] LABS: COMPLETE YES; EOS % 4.7 %; HEMATOCRIT 38.3 % (37-47); IG% 0.3 %; LYMPH % 20.7 %; LYMPH ABS # 0.79 K/uL (1.2-3.4); MEAN CELL VOLUME 91.8 fL (80-100); MEAN CORPUSCULAR HEMOGLOBIN 28.8 pg (25-34); MEAN CORPUSCULAR HGB CONC 31.3 g/dl (32-36); MEAN PLATELET VOLUME 10.7 fL (7.4-10.4); MONO % 8.4 %; NEUT % 65.9 %; PLATELET COUNT 100 K/uL (130-400); RED BLOOD COUNT 4.17 M/uL (4.2-5.4); WHITE BLOOD COUNT 3.82 K/uL (4.8-10.8)
[2016-08-02 07:52] LABS: BUN/CREATININE RATIO 6.3 (10-20); CALCIUM 8.3 mg/dl (8.5-10.1); CREATININE 0.93 mg/dl (0.60-1.20); MAGNESIUM 1.5 mg/dl (1.8-2.4); POTASSIUM 3.4 mmol/L (3.5-5.1)
[2016-08-02] MEDS: PANTOprazole SOD 40 MG TAB PO SCH ×2 (08:37→20:23)
[2016-08-02] MEDS: METOPROLOL TARTRATE 50 MG TAB PO SCH ×2 (08:37→20:22)
[2016-08-02] MEDS: RANITIDINE HCL 150 MG TAB PO SCH (08:38)
[2016-08-02] MEDS: CARBIDOPA/LEVODOPA 25/100MG TAB PO SCH ×3 (08:38→20:23)
[2016-08-02] MEDS: CYANOCOBALAMIN 500 MCG TAB (VIT B-12) PO SCH (08:39)
[2016-08-02] MEDS: AMLODIPINE BESYLATE 5 MG TAB PO SCH (08:39)
[2016-08-02] MEDS: CLOPIDOGREL BISULFATE 75 MG TAB PO SCH (08:39)
[2016-08-02] MEDS: FLUTICASONE PROPIONATE NA SPR 16 GM BTL NAE SCH (08:40)
[2016-08-02] MEDS ORDERED: MAGNESIUM SULFATE 1GM / D5W 1 GM in PREMIXED IN D5W 100 ML IV ONE (09:00)
[2016-08-02] MEDS ORDERED: POTASSIUM CHLORIDE 10 MEQ TABCR PO ONE (09:00)
[2016-08-02] MEDS: MAGNESIUM OXIDE 400 MG TAB PO SCH ×2 (09:29→20:23)
--- NOTE | 2016-08-02 09:57 | Gastroenterology Progress Note ---
Progress Note Date of Service: Aug 02, 2016 Subjective Pt evaluation today including: conversation w/ patient, physical exam, lab review, review of inpatient medication list Patient is tolerating clear liquid diet. Reports "my stomach is just a little wobbly". No significant nausea and no vomiting or abdominal pain. Continues Protonix 40 mg BID and Ranitidine 150 mg daily. H&H stable. Review of Systems Constitutional: No problem reported Abdomen: + see HPI Medications Current Inpatient Medications Medications (Trade) Dose Ordered Sig/Graciela Route Start Time Stop Time Status Last Admin Dose Admin Amlodipine Besylate (Norvasc Tab) 2.5 mg QAM PO 08/01/16 09:00 08/31/16 08:59 08/02/16 08:39 2.5 MG Carbidopa/Levodopa (Sinemet 25/ 100MG Tab) 1 tab TID PO 08/01/16 09:00 08/31/16 08:59 08/02/16 08:38 1 TAB Clopidogrel Bisulfate (plAVix TAB) 75 mg DAILY PO 08/01/16 09:00 08/31/16 08:59 08/02/16 08:39 75 MG Cyanocobalamin (Vitamin B-12 Tab) 500 mcg DAILY PO 08/01/16 09:00 08/31/16 08:59 08/02/16 08:39 500 MCG Fluticasone Propionate (Flonase Nasal [place]) 2 sprays DAILY RENE 08/01/16 09:00 08/31/16 08:59 08/02/16 08:40 2 SPRAYS Gabapentin (Neurontin Cap) 300 mg HS PO 08/01/16 21:00 08/31/16 20:59 08/01/16 20:38 300 MG Metoprolol Tartrate (Lopressor Tab) 50 mg BID PO 08/01/16 09:00 08/31/16 08:59 08/02/16 08:37 50 MG Ranitidine HCl (zANTac TAB) 150 mg DAILY PO 08/01/16 09:00 08/31/16 08:59 08/02/16 08:38 150 MG Simvastatin (Zocor Tab) 20 mg QPM PO 08/01/16 21:00 08/31/16 20:59 08/01/16 20:38 20 MG Acetaminophen (Tylenol Tab) 650 mg Q4H PRN PO 07/31/16 21:45 7/20/17 21:44 Al Hydrox/Mg Hydrox/Simethicone (Maalox Max Susp) 15 ml Q4H PRN PO 07/31/16 21:45 08/30/16 21:44 Magnesium Hydroxide (Milk Of Magnesia Susp) 30 ml Q6H PRN PO 07/31/16 21:45 08/30/16 21:44 Polyethylene (Miralax Powder Packet) 17 gm DAILY PRN PO 07/31/16 22:15 08/30/16 22:14 Ondansetron HCl (Zofran Inj) 4 mg Q6H PRN IV 07/31/16 21:45 08/30/16 21:44 Pantoprazole Sodium (Protonix Tab) 40 mg BID PO 08/01/16 21:00 08/31/16 08:59 08/02/16 08:37 40 MG Magnesium Sulfate 1 gm/Prmx 100 ml @ 100 mls/hr 0900 ONCE IV 08/02/16 09:00 08/02/16 09:59 08/02/16 09:30 100 MLS/HR Magnesium Oxide (Mag-Ox Tab) 400 mg BID PO 08/02/16 09:00 09/01/16 08:59 08/02/16 09:29 400 MG Cephalexin Monohydrate (Keflex Cap) 500 mg BID PO 08/02/16 10:00 08/07/16 09:59 Objective Vital Signs Date Time Temp Pulse Resp B/P (MAP) Pulse Ox O2 Delivery O2 Flow Rate FiO2 08/02/16 08:37 62 08/02/16 07:14 36.8 54 18 129/64 (85) 93 Room Air 08/02/16 00:08 36.4 54 20 113/69 (84) 94 Room Air 08/02/16 00:00 94 Room Air 08/01/16 20:35 58 133/65 (87) 08/01/16 15:50 60 08/01/16 15:16 36.8 49 16 138/71 (93) 96 Room Air Physical Exam General Appearance: no apparent distress Eyes: EOMI Respiratory/Chest: lungs clear, normal breath sounds, no respiratory distress Cardiovascular: regular rate, rhythm Abdomen: normal bowel sounds, non tender, soft Neurologic/Psych: alert, normal mood/affect, oriented x 3 Laboratory Results Last 24 Hours Test 08/01/16 12:22 08/02/16 06:53 Thyroxine (T4) 6.0 mcg/dl Total Triiodothyronine 0.39 ng/ml White Blood Count 3.82 K/uL Red Blood Count 4.17 M/uL Hemoglobin 12.0 g/dL Hematocrit 38.3 % Mean Corpuscular Volume 91.8 fL Mean Corpuscular Hemoglobin 28.8 pg Mean Corpuscular Hemoglobin Concent 31.3 g/dl Platelet Count 100 K/uL Mean Platelet Volume 10.7 fL Neutrophils (%) (Auto) 65.9 % Lymphocytes (%) (Auto) 20.7 % Monocytes (%) (Auto) 8.4 % Eosinophils (%) (Auto) 4.7 % Basophils (%) (Auto) 0.0 % Neutrophils # (Auto) 2.52 K/uL Lymphocytes # (Auto) 0.79 K/uL Monocytes # (Auto) 0.32 K/uL Eosinophils # (Auto) 0.18 K/uL Basophils # (Auto) 0.00 K/uL RDW Standard Deviation 43.5 fL RDW Coefficient of Variation 13.2 % Immature Granulocyte % (Auto) 0.3 % Immature Granulocyte # (Auto) 0.01 K/uL Sodium Level 142 mmol/L Potassium Level 3.4 mmol/L Chloride Level 106 mmol/L Carbon Dioxide Level 25 mmol/L Anion Gap 11.0 mmol/L Blood Urea Nitrogen 6 mg/dl Creatinine 0.93 mg/dl Est Creatinine Clear Calc Drug Dose 29.6 ml/min Estimated GFR () 66.3 Estimated GFR (Non- 57.2 BUN/Creatinine Ratio 6.3 Random Glucose 67 mg/dl Calcium Level 8.3 mg/dl Magnesium Level 1.5 mg/dl Assessment and Plan Patient is a 81 year old female with a history of Parkinson's as well as PUD admitted with weakness, anorexia and nausea with vomiting in the setting of hyperlipasemia. 1. Continue dietary advancement as tolerated. 2. Continue Protonix 40 mg BID and Ranitidine 150 mg daily. 3. Supportive care per primary team. Agree with GABRIELLA Calderon as above Abd: Soft, NT, ND, +BS Continue current therapy Advance diet as tolerated
[2016-08-02] MEDS: CEPHALEXIN MONOHYDRATE 500 MG CAP PO SCH ×2 (10:18→20:22)
--- NOTE | 2016-08-02 11:16 | Progress Note ---
Subjective Date of Service: Aug 02, 2016. Subjective Pt evaluation today including: conversation w/ patient, conversation w/ family , physical exam, chart review, lab review, review of studies, conversation w/ senior solutions workflow consultant, review of inpatient medication list Possible better oral intake, was finish up on the soup Smiling Pleasant No other complaints Problem List Medical Problems: (1) Dehydration Status: Acute (2) Nausea Status: Acute (3) Pancreatitis Status: Acute Review of Systems Constitutional: + weakness, + fatigue, No fever, No chills, No sweats, No weight loss, No problem reported Eyes: No worsening of vision, No eye pain, No redness, No discharge, No diplopia ENT: No hearing loss, No unusual epistaxis, No nasal symptoms, No sore throat, No tinnitus, No dental problems, No trouble swallowing Respiratory: No cough, No sputum, No wheezing, No shortness of breath, No dyspnea on exertion, No dyspnea at rest, No hemoptysis Cardiac: No chest pain, No orthopnea, No PND, No edema, No claudication, No palpitations Abdomen: + problem reported (decrease appetite), No pain, No nausea, No vomiting, No diarrhea, No constipation Musculoskeletal: No joint pain, No muscle pain, No swelling, No calf pain Female : No dysuria, No urinary frequency, No hematuria, No incontinence, No abnormal vaginal bleeding, No vaginal discharge Neurologic: No memory loss, No paralysis, No weakness, No numbness/tingling, No vertigo, No balance problems Psychiatric: No depression symptoms, No anhedonism, No anxiety, No insomnia, No substance abuse Heme: No abnormal bleeding/bruising, No clotting problems, No swollen lymph nodes, No night sweats Endo: No fatigue, No excessive thirst, No excessive urination Skin: No rash, No itch, No new/changing skin lesions, No color change, No bleeding Objective Vital Signs Date Time Temp Pulse Resp B/P (MAP) Pulse Ox O2 Delivery O2 Flow Rate FiO2 08/02/16 08:37 62 08/02/16 07:14 36.8 54 18 129/64 (85) 93 Room Air 08/02/16 00:08 36.4 54 20 113/69 (84) 94 Room Air 08/02/16 00:00 94 Room Air 08/01/16 20:35 58 133/65 (87) 08/01/16 15:50 60 08/01/16 15:16 36.8 49 16 138/71 (93) 96 Room Air Physical Exam General Appearance: WD/WN, no apparent distress, + thin, + pertinent finding ( pleasant) Eyes: normal inspection, PERRL, EOMI, sclerae normal ENT: normal ENT inspection, hearing grossly normal, pharynx normal Neck: supple, no adenopathy, thyroid normal, no JVD, no carotid bruits, trachea midline Respiratory/Chest: chest non-tender, lungs clear, normal breath sounds, no respiratory distress, no accessory muscle use, + decreased breath sounds Cardiovascular: regular rate, rhythm, no edema, no gallop, no JVD, no murmur Abdomen: normal bowel sounds, non tender, soft, no organomegaly, no pulsatile mass Extremities: normal range of motion, non-tender, normal inspection, no pedal edema, no calf tenderness, normal capillary refill, pelvis stable 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, no motor/sensory deficits, alert, normal mood/affect, oriented x 3 Skin: normal color, warm/dry, no rash Lymphatic: no adenopathy Laboratory Results Last 24 Hours Test 08/01/16 12:22 08/02/16 06:53 Thyroxine (T4) 6.0 mcg/dl Total Triiodothyronine 0.39 ng/ml White Blood Count 3.82 K/uL Red Blood Count 4.17 M/uL Hemoglobin 12.0 g/dL Hematocrit 38.3 % Mean Corpuscular Volume 91.8 fL Mean Corpuscular Hemoglobin 28.8 pg Mean Corpuscular Hemoglobin Concent 31.3 g/dl Platelet Count 100 K/uL Mean Platelet Volume 10.7 fL Neutrophils (%) (Auto) 65.9 % Lymphocytes (%) (Auto) 20.7 % Monocytes (%) (Auto) 8.4 % Eosinophils (%) (Auto) 4.7 % Basophils (%) (Auto) 0.0 % Neutrophils # (Auto) 2.52 K/uL Lymphocytes # (Auto) 0.79 K/uL Monocytes # (Auto) 0.32 K/uL Eosinophils # (Auto) 0.18 K/uL Basophils # (Auto) 0.00 K/uL RDW Standard Deviation 43.5 fL RDW Coefficient of Variation 13.2 % Immature Granulocyte % (Auto) 0.3 % Immature Granulocyte # (Auto) 0.01 K/uL Sodium Level 142 mmol/L Potassium Level 3.4 mmol/L Chloride Level 106 mmol/L Carbon Dioxide Level 25 mmol/L Anion Gap 11.0 mmol/L Blood Urea Nitrogen 6 mg/dl Creatinine 0.93 mg/dl Est Creatinine Clear Calc Drug Dose 29.6 ml/min Estimated GFR () 66.3 Estimated GFR (Non- 57.2 BUN/Creatinine Ratio 6.3 Random Glucose 67 mg/dl Calcium Level 8.3 mg/dl Magnesium Level 1.5 mg/dl Assessment and Plan 81 y/o F CAD, CVA, HTN, Parkinson's admitted on 07/31/2016 with a chief complaint of refusing to eat or drink. Per report has not had an appetite for up to 2 months, asso with weakness, lethargy and possibly progressive memory impairment. Patient describes occasional RUQ pain which is not present on admission. initial labs reveal acute kidney injury, mild acidosis and an elevated lipase. Her platelet count is also slightly low. Appetite loss, etiology unknown, possible because of UTI, With elevated lipase, possible from dehydration, which is resolved Possible subclinical hyperthyroidism , decreased TSH with normal total T4 and decreased T3, we'll continue follow-up, she need to follow-up with PCP to repeat a TSH of T3-T4 in 3-6 months, images studies of thyroid if needed Dietitian consultation, the [facility] input appreciated, they are not planning to have any procedure for now, Increase Protonix to 40 mg BID, Continue Ranitidine 150 mg daily. UTI was treated by antibiotics Generalized weakness weakness and functional decline, continue PT OT, and we want see if she need to rehabilitation or not Parkinson's dz, continue Sinemet, and follow-up Elevated lipase at 1400, trends down at 438 Pancreatitis or dehydration, encourage oral intake, will check right upper quadrant ultrasound and liver function test Acute kidney injury- likely due to dehydration, totally resolved Thrombocytopenia upon admission Platelets 112 to 97 today, has discontinued heparin , DVT prophylaxis, continue SCD hx of CAD - cont Plavix, Statin hx of HTN Cont Norvasc, Metoprolol Has ordered SCD for DVT prophylaxis Talk to the about patient's condition and care plan Possible discharge in day 1 or 2 Continued [facility] stay due to: home environment unsafe for pt Discharge planning: home
--- NOTE | 2016-08-02 12:03 | Clinical Documentation Query ---
CLINICAL DOCUMENTATION QUERY Dr. BANSAL, In your clinical opinion is this patient being managed for: (x ) possible Severe protein-calorie malnutrition ( ) Other explanation of clinical findings (Please Explain) ( ) Unable to determine (Please Define) ( ) Need to Discuss ( ) Not Agree The medical record reflects the following clinical findings, treatment, and risk factors. Clinical Indicators: 81 yo female presenting with anorexia, nausea and vomiting. Per social work professor consult, pt has evidence of muscle loss in the deltoid and clavicle region & severely reduced PO intake and a wt loss of >5% in 1 month Treatment: social work professor consult, send liquids 6 x day, consider enteral nutrition, add megace Risk Factors: refusing solid foods due to early satiety, vomiting Severe Malnutrition Criteria: (2 criteria needed) Energy intake: <50% of estimated energy requirement for > 5 days Wt loss: 1-2% in 1 wk, 5% in 1 month, or 7.5% in 3 months Body fat: moderate loss of SQ fat from the orbits, triceps or fat overlying the ribs Muscle mass: moderate muscle wasting at the temples, clavicles, shoulders, interosseous spaces, scapula, thigh, calf Fluid accumulation: moderate to severe localized or generalized edema of the extremities, vulva, scrotum-wt loss may be masked by edema Please clarify and document your clinical opinion in the progress notes and discharge summary. Terms such as "probable", "suspected", "likely", "questionable", "possible", or "still to be ruled out" are acceptable. IF IN AGREEMENT, YOU MUST DOCUMENT ABOVE DIAGNOSTIC STATEMENT IN DAILY PROGRESS NOTES AND DISCHARGE SUMMARY. This document is not part of the patient's record. Thank You, Marzena Hardy, RN [phone]
[2016-08-02] MEDS: SIMVASTATIN 20 MG TAB PO SCH (20:23)
[2016-08-02] MEDS: GABAPENTIN 300 MG CAP PO SCH (20:23)
[2016-08-03 07:29] LABS: HEMATOCRIT 35.9 % (37-47); MEAN CELL VOLUME 89.3 fL (80-100); MEAN CORPUSCULAR HEMOGLOBIN 30.3 pg (25-34); RED BLOOD COUNT 4.02 M/uL (4.2-5.4); WHITE BLOOD COUNT 3.84 K/uL (4.8-10.8)
[2016-08-03 07:41] VITALS: BP 126/65; PULSE 60; TEMP 36.8; O2SAT 97
[2016-08-03 07:54] LABS: BUN/CREATININE RATIO 5.7 (10-20); CALCIUM 8.6 mg/dl (8.5-10.1); CREATININE 0.88 mg/dl (0.60-1.20); MAGNESIUM 2.1 mg/dl (1.8-2.4); POTASSIUM 3.4 mmol/L (3.5-5.1)
[2016-08-03 08:00] LABS: MEAN PLATELET VOLUME 11.8 fL (7.4-10.4); PLATELET COUNT 94 K/uL (130-400)
[2016-08-03] MEDS: AMLODIPINE BESYLATE 5 MG TAB PO SCH (08:09)
[2016-08-03] MEDS: CLOPIDOGREL BISULFATE 75 MG TAB PO SCH (08:09)
[2016-08-03] MEDS: CYANOCOBALAMIN 500 MCG TAB (VIT B-12) PO SCH (08:09)
[2016-08-03] MEDS: CEPHALEXIN MONOHYDRATE 500 MG CAP PO SCH ×2 (08:10→20:30)
[2016-08-03] MEDS: MAGNESIUM OXIDE 400 MG TAB PO SCH ×2 (08:10→20:29)
[2016-08-03] MEDS: RANITIDINE HCL 150 MG TAB PO SCH (08:10)
[2016-08-03] MEDS: CARBIDOPA/LEVODOPA 25/100MG TAB PO SCH ×3 (08:11→20:28)
[2016-08-03] MEDS: FLUTICASONE PROPIONATE NA SPR 16 GM BTL NAE SCH (08:11)
[2016-08-03] MEDS: PANTOprazole SOD 40 MG TAB PO SCH ×2 (08:11→20:30)
[2016-08-03] MEDS: METOPROLOL TARTRATE 50 MG TAB PO SCH ×2 (08:12→20:30)
[2016-08-03] MEDS: MEGESTROL ACETATE 400 MG/10 ML UDP PO SCH (08:13)
[2016-08-03 08:48] LABS: COMPLETE YES; ECHINOCYTES 2+; EOS % 4.2 %; MONO % 10.4 %; NEUT % 59.4 %; PLT ESTIMATE DECREASED
[2016-08-03 15:09] VITALS: BP 117/73; PULSE 50; TEMP 36.3; O2SAT 94
[2016-08-03] MEDS ORDERED: POTASSIUM CHLORIDE 10 MEQ TABCR PO STA (15:56)
--- NOTE | 2016-08-03 17:15 | Progress Note ---
Subjective Date of Service: Aug 03, 2016. Subjective Pt evaluation today including: conversation w/ patient, conversation w/ family , physical exam, chart review, lab review, review of studies, conversation w/ cyber security consultant, review of inpatient medication list Report tired and decrease appetite, per nurse report patient heat 100% soup this morning and lunch Patient continue drinking water, but did not eat real food Problem List Medical Problems: (1) Dehydration Status: Acute (2) Nausea Status: Acute (3) Pancreatitis Status: Acute Review of Systems Constitutional: No fever, No chills, No sweats, No weight loss, No weakness, No fatigue, No problem reported Eyes: No worsening of vision, No eye pain, No redness, No discharge, No diplopia ENT: No hearing loss, No unusual epistaxis, No nasal symptoms, No sore throat, No tinnitus, No dental problems, No trouble swallowing Respiratory: No cough, No sputum, No wheezing, No shortness of breath, No dyspnea on exertion, No dyspnea at rest, No hemoptysis Cardiac: No chest pain, No orthopnea, No PND, No edema, No claudication, No palpitations Abdomen: No pain, No nausea, No vomiting, No diarrhea, No constipation Musculoskeletal: No joint pain, No muscle pain, No swelling, No calf pain Female : No dysuria, No urinary frequency, No hematuria, No incontinence, No abnormal vaginal bleeding, No vaginal discharge Neurologic: No memory loss, No paralysis, No weakness, No numbness/tingling, No vertigo, No balance problems Psychiatric: No depression symptoms, No anhedonism, No anxiety, No insomnia, No substance abuse Heme: No abnormal bleeding/bruising, No clotting problems, No swollen lymph nodes, No night sweats Endo: No fatigue, No excessive thirst, No excessive urination Skin: No rash, No itch, No new/changing skin lesions, No color change, No bleeding Objective Vital Signs Date Time Temp Pulse Resp B/P (MAP) Pulse Ox O2 Delivery O2 Flow Rate FiO2 08/03/16 16:00 Room Air 08/03/16 15:09 36.3 50 16 117/73 (88) 94 Room Air 08/03/16 08:00 Room Air 08/03/16 07:41 36.8 60 16 126/65 (85) 97 Room Air 08/03/16 00:00 Room Air 08/02/16 23:52 36.4 55 16 126/60 (82) 95 Room Air 08/02/16 20:19 58 146/72 (96) Physical Exam General Appearance: WD/WN, no apparent distress, + thin, + pertinent finding ( pleasant and conversational,) Eyes: normal inspection, PERRL, EOMI, sclerae normal ENT: normal ENT inspection, hearing grossly normal, pharynx normal Neck: supple, no adenopathy, thyroid normal, no JVD, no carotid bruits, trachea midline Respiratory/Chest: chest non-tender, lungs clear, normal breath sounds, no respiratory distress, no accessory muscle use Cardiovascular: regular rate, rhythm, no edema, no gallop, no JVD, no murmur Abdomen: normal bowel sounds, non tender, soft, no organomegaly, no pulsatile mass Extremities: normal range of motion, non-tender, normal inspection, no pedal edema, no calf tenderness, normal capillary refill, pelvis stable Neurologic/Psychiatric: family medicine physician 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, no motor/sensory deficits, alert, normal mood/affect, oriented x 3 Skin: normal color, warm/dry, no rash Lymphatic: no adenopathy Laboratory Results Last 24 Hours Test 08/03/16 07:09 White Blood Count 3.84 K/uL Red Blood Count 4.02 M/uL Hemoglobin 12.2 g/dL Hematocrit 35.9 % Mean Corpuscular Volume 89.3 fL Mean Corpuscular Hemoglobin 30.3 pg Mean Corpuscular Hemoglobin Concent 34.0 g/dl Platelet Count 94 K/uL Mean Platelet Volume 11.8 fL Neutrophils (%) (Auto) 59.4 % Lymphocytes (%) (Auto) 26.0 % Monocytes (%) (Auto) 10.4 % Eosinophils (%) (Auto) 4.2 % Basophils (%) (Auto) 0.0 % Neutrophils # (Auto) 2.28 K/uL Lymphocytes # (Auto) 1.00 K/uL Monocytes # (Auto) 0.40 K/uL Eosinophils # (Auto) 0.16 K/uL Basophils # (Auto) 0.00 K/uL RDW Standard Deviation 42.2 fL RDW Coefficient of Variation 12.9 % Immature Granulocyte % (Auto) 0.0 % Immature Granulocyte # (Auto) 0.00 K/uL Platelet Estimate DECREASED Echinocytes 2+ Sodium Level 140 mmol/L Potassium Level 3.4 mmol/L Chloride Level 103 mmol/L Carbon Dioxide Level 25 mmol/L Anion Gap 12.0 mmol/L Blood Urea Nitrogen 5 mg/dl Creatinine 0.88 mg/dl Est Creatinine Clear Calc Drug Dose 31.3 ml/min Estimated GFR () 70.9 Estimated GFR (Non- 61.2 BUN/Creatinine Ratio 5.7 Random Glucose 65 mg/dl Calcium Level 8.6 mg/dl Magnesium Level 2.1 mg/dl Assessment and Plan 81 y/o F CAD, CVA, HTN, Parkinson's admitted on 07/31/2016 with a chief complaint of refusing to eat or drink. Per report has not had an appetite for up to 2 months, asso with weakness, lethargy and possibly progressive memory impairment. Patient describes occasional RUQ pain which is not present on admission. initial labs reveal acute kidney injury, mild acidosis and an elevated lipase. Her platelet count is also slightly low. Appetite loss, etiology unknown, possible because of UTI, Seems appetite improved and little bit, she has been drunken soup and drinking water With elevated lipase, possible from dehydration, which is resolved Possible subclinical hyperthyroidism , decreased TSH with normal total T4 and decreased T3, Discussed with endocrinology , Possible euthyroid syndrome, Recommend check free T4 , and also recommend to follow-up with PCP as outpatient, and referral to and do if needed Dietitian consultation, done, will continue the [facility] input appreciated, they are not planning to have any procedure for now, Increase Protonix to 40 mg BID, Continue Ranitidine 150 mg daily. UTI was treated by antibiotics Generalized weakness and functional decline, physical therapist recommend may need care home rehabilitation, continue PT OT, and we will double check with therapist to see if patient need a rehabilitation or not, if patient need to go to care home rehabilitation Parkinson's dz, continue Sinemet, and follow-up Elevated lipase at 1400, trends down at 438 Pancreatitis or dehydration, encourage oral intake, will check right upper quadrant ultrasound and liver function test Acute kidney injury- likely due to dehydration, totally resolved Thrombocytopenia upon admission Platelets 112 to 97 today, has discontinued heparin , DVT prophylaxis, continue SCD hx of CAD - cont Plavix, Statin hx of HTN Cont Norvasc, Metoprolol Has ordered SCD for DVT prophylaxis Talk to the about patient's condition and care plan Possible discharge in day 1 or 2 Continued [facility] stay due to: ambulation difficulties Discharge planning: care home facility
[2016-08-03] MEDS: GABAPENTIN 300 MG CAP PO SCH (20:28)
[2016-08-03] MEDS: SIMVASTATIN 20 MG TAB PO SCH (20:29)
[2016-08-03 20:33] VITALS: BP 148/74; PULSE 61
[2016-08-03 23:01] VITALS: BP 144/73; PULSE 58; TEMP 36.2; O2SAT 97
[2016-08-04 06:54] LABS: HEMATOCRIT 36.5 % (37-47); MEAN CELL VOLUME 88.8 fL (80-100); MEAN CORPUSCULAR HEMOGLOBIN 30.4 pg (25-34); MEAN CORPUSCULAR HGB CONC 34.2 g/dl (32-36); RED BLOOD COUNT 4.11 M/uL (4.2-5.4); WHITE BLOOD COUNT 3.71 K/uL (4.8-10.8)
[2016-08-04 07:01] LABS: COMPLETE YES; EOS % 5.1 %; LYMPH % 24.3 %; MEAN PLATELET VOLUME 11.4 fL (7.4-10.4); NEUT % 60.6 %; PLATELET COUNT 91 K/uL (130-400)
[2016-08-04 07:21] VITALS: BP 143/81; PULSE 50; TEMP 36.7; O2SAT 96
[2016-08-04 07:43] LABS: BUN/CREATININE RATIO 5.6 (10-20); CALCIUM 9.1 mg/dl (8.5-10.1); CREATININE 0.98 mg/dl (0.60-1.20); MAGNESIUM 2.3 mg/dl (1.8-2.4); POTASSIUM 3.5 mmol/L (3.5-5.1)
[2016-08-04 08:48] VITALS: PULSE 52
[2016-08-04] MEDS: METOPROLOL TARTRATE 50 MG TAB PO SCH (08:48)
[2016-08-04] MEDS: CLOPIDOGREL BISULFATE 75 MG TAB PO SCH (08:49)
[2016-08-04] MEDS: CYANOCOBALAMIN 500 MCG TAB (VIT B-12) PO SCH (08:49)
[2016-08-04] MEDS: CEPHALEXIN MONOHYDRATE 500 MG CAP PO SCH ×2 (08:50→21:09)
[2016-08-04] MEDS: PANTOprazole SOD 40 MG TAB PO SCH ×2 (08:50→21:10)
[2016-08-04] MEDS: AMLODIPINE BESYLATE 5 MG TAB PO SCH (08:50)
[2016-08-04] MEDS: MAGNESIUM OXIDE 400 MG TAB PO SCH ×2 (08:50→21:09)
[2016-08-04] MEDS: RANITIDINE HCL 150 MG TAB PO SCH (08:50)
[2016-08-04] MEDS: CARBIDOPA/LEVODOPA 25/100MG TAB PO SCH ×4 (08:50→21:10)
[2016-08-04] MEDS: FLUTICASONE PROPIONATE NA SPR 16 GM BTL NAE SCH (08:51)
[2016-08-04] MEDS: MEGESTROL ACETATE 400 MG/10 ML UDP PO SCH (08:51)
[2016-08-04] MEDS ORDERED: NURSING VERBAL MED ORDER ONE (11:30)
--- NOTE | 2016-08-04 12:31 | Progress Note ---
Subjective Date of Service: Aug 04, 2016. Subjective Pt evaluation today including: conversation w/ patient, conversation w/ family , physical exam, chart review, lab review, review of studies, conversation w/ peoplesoft hcm consultant, review of inpatient medication list reported not sleeping well last night Nurse reported drinking all brooch , and drinking water, Patient reported she does not like food Otherwise doing okay Problem List Medical Problems: (1) Dehydration Status: Acute (2) Nausea Status: Acute (3) Pancreatitis Status: Acute Review of Systems Constitutional: No fever, No chills, No sweats, No weight loss, No weakness, No fatigue, No problem reported Eyes: No worsening of vision, No eye pain, No redness, No discharge, No diplopia ENT: No hearing loss, No unusual epistaxis, No nasal symptoms, No sore throat, No tinnitus, No dental problems, No trouble swallowing Respiratory: No cough, No sputum, No wheezing, No shortness of breath, No dyspnea on exertion, No dyspnea at rest, No hemoptysis Cardiac: No chest pain, No orthopnea, No PND, No edema, No claudication, No palpitations Abdomen: No pain, No nausea, No vomiting, No diarrhea, No constipation Musculoskeletal: No joint pain, No muscle pain, No swelling, No calf pain Female : No dysuria, No urinary frequency, No hematuria, No incontinence, No abnormal vaginal bleeding, No vaginal discharge Neurologic: No memory loss, No paralysis, No weakness, No numbness/tingling, No vertigo, No balance problems Psychiatric: No depression symptoms, No anhedonism, No anxiety, No insomnia, No substance abuse Heme: No abnormal bleeding/bruising, No clotting problems, No swollen lymph nodes, No night sweats Endo: No fatigue, No excessive thirst, No excessive urination Skin: No rash, No itch, No new/changing skin lesions, No color change, No bleeding Objective Vital Signs Date Time Temp Pulse Resp B/P (MAP) Pulse Ox O2 Delivery O2 Flow Rate FiO2 08/04/16 08:48 52 08/04/16 08:11 Room Air 08/04/16 07:21 36.7 50 16 143/81 (101) 96 Room Air 08/04/16 00:00 Room Air 08/03/16 23:01 36.2 58 18 144/73 (96) 97 Room Air 08/03/16 20:33 61 148/74 (98) 08/03/16 20:00 Room Air 08/03/16 16:00 Room Air 08/03/16 15:09 36.3 50 16 117/73 (88) 94 Room Air Physical Exam General Appearance: WD/WN, no apparent distress, + thin, + pertinent finding ( pleasant, awake and alert and orientated) Eyes: normal inspection, PERRL, EOMI, sclerae normal ENT: normal ENT inspection, hearing grossly normal, pharynx normal Neck: supple, no adenopathy, thyroid normal, no JVD, no carotid bruits, trachea midline Respiratory/Chest: chest non-tender, lungs clear, normal breath sounds, no respiratory distress, no accessory muscle use Cardiovascular: regular rate, rhythm, no edema, no gallop, no JVD, no murmur Abdomen: normal bowel sounds, non tender, soft, no organomegaly, no pulsatile mass Extremities: normal range of motion, non-tender, normal inspection, no pedal edema, no calf tenderness, normal capillary refill, pelvis stable Neurologic/Psychiatric: mud mixer 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, no motor/sensory deficits, alert, normal mood/affect, oriented x 3 Skin: normal color, warm/dry, no rash Lymphatic: no adenopathy Laboratory Results Last 24 Hours Test 08/03/16 17:49 08/04/16 06:40 Free Thyroxine 1.34 ng/dl White Blood Count 3.71 K/uL Red Blood Count 4.11 M/uL Hemoglobin 12.5 g/dL Hematocrit 36.5 % Mean Corpuscular Volume 88.8 fL Mean Corpuscular Hemoglobin 30.4 pg Mean Corpuscular Hemoglobin Concent 34.2 g/dl Platelet Count 91 K/uL Mean Platelet Volume 11.4 fL Neutrophils (%) (Auto) 60.6 % Lymphocytes (%) (Auto) 24.3 % Monocytes (%) (Auto) 10.0 % Eosinophils (%) (Auto) 5.1 % Basophils (%) (Auto) 0.0 % Neutrophils # (Auto) 2.25 K/uL Lymphocytes # (Auto) 0.90 K/uL Monocytes # (Auto) 0.37 K/uL Eosinophils # (Auto) 0.19 K/uL Basophils # (Auto) 0.00 K/uL RDW Standard Deviation 42.2 fL RDW Coefficient of Variation 13.1 % Immature Granulocyte % (Auto) 0.0 % Immature Granulocyte # (Auto) 0.00 K/uL Sodium Level 140 mmol/L Potassium Level 3.5 mmol/L Chloride Level 101 mmol/L Carbon Dioxide Level 28 mmol/L Anion Gap 11.0 mmol/L Blood Urea Nitrogen 6 mg/dl Creatinine 0.98 mg/dl Est Creatinine Clear Calc Drug Dose 28.1 ml/min Estimated GFR () 62.3 Estimated GFR (Non- 53.7 BUN/Creatinine Ratio 5.6 Random Glucose 84 mg/dl Calcium Level 9.1 mg/dl Magnesium Level 2.3 mg/dl Assessment and Plan 81 y/o F CAD, CVA, HTN, Parkinson's admitted on 07/31/2016 with a chief complaint of refusing to eat or drink, possible some minimal improvement Per report has not had an appetite for up to 2 months, asso with weakness, lethargy and possibly progressive memory impairment. Patient describes occasional RUQ pain which is not present on admission. initial labs reveal acute kidney injury, mild acidosis and an elevated lipase. Her platelet count is also slightly low. Appetite loss, etiology unknown, possible because of UTI, on new medicine for Parkinson's disease? Seems appetite improved and little bit, she has been drunken soup and drinking water With elevated lipase, possible from dehydration, which is resolved I'm checking Licea acid vitamin B12 levels, because daughter reported patient possible sometimes confused Possible subclinical hyperthyroidism , decreased TSH with normal total T4 and decreased T3, Discussed with endocrinology , Recommend check free T4 , which was done and is normal , and gem cutter recommend to follow-up with PCP as outpatient, and referral to and do if needed , I told patient's daughter about this Dietitian consultation, done, has added [facility] input appreciated, they are not planning to have any procedure for now, Increase Protonix to 40 mg BID, Continue Ranitidine 150 mg daily. UTI is treated by antibiotics Generalized weakness and functional decline, physical therapist recommend may need correction rehabilitation, continue PT OT, Discuss with patient's daughter about conditions and risk on the fall, I discussed with patient as well, patient really want to go home do not want to go to retirement rehabilitation I asked daughter to talk to the patient and give us final decision, daughter concerned about home safety as well, I recommend daughter to talk to family doctor, to have a home safety evaluation as well Parkinson's dz, continue Sinemet, and follow-up Elevated lipase at 1400, trends down at 438 Pancreatitis or dehydration, encourage oral intake, Acute kidney injury- likely due to dehydration, totally resolved Thrombocytopenia upon admission Platelets 112 to 97 today, has discontinued heparin , DVT prophylaxis, continue SCD hx of CAD - cont Plavix, Statin hx of HTN Cont Norvasc, Metoprolol Has ordered SCD for DVT prophylaxis Continued [facility] stay due to: ambulation difficulties, multiple IV medications needed Discharge planning: correction facility
--- NOTE | 2016-08-04 13:38 | DIAGNOSTIC IMAGING REPORT ---
ULTRASOUND RIGHT UPPER QUADRANT ABDOMEN CLINICAL HISTORY: Nausea and vomiting. COMPARISON STUDY: Abdominal CT dated 07/31/2016. TECHNIQUE: Real-time, grayscale, and color flow sonography of the right upper quadrant of the abdomen was performed. Images are reviewed in the transverse and longitudinal planes. The examination is suboptimal due to patient cachexia. FINDINGS: Liver: The liver is normal in size and slightly heterogeneous and echotexture. There is no intrahepatic biliary ductal dilatation. The main portal vein is patent. Gallbladder: The gallbladder is mildly distended and filled with sludge and probable tiny stones. Gallbladder wall is top normal in thickness measuring up to 3 mm. No pericholecystic fluid is identified. A sonographic Andersen's sign is reportedly absent. The common bile duct measures up to 1.1 cm in diameter. Pancreas: Not well visualized due to overlying bowel gas. Right kidney: Survey images of the right kidney show marked cortical atrophy. There is no hydronephrosis. Ascites: None. IMPRESSION: 1. The gallbladder is mildly distended and filled with biliary sludge and probable small stones. There is no convincing sonographic evidence of acute cholecystitis. If there is clinical concern for acute cholecystitis consider nuclear hepatobiliary scan for further assessment. 2. The pancreas was not visualized. 3. The right kidney is markedly atrophic. Electronically signed by: Raul Hawkins M.D. 08/04/2016 1:37 PM Dictated Date/Time: 08/04/2016 1:32 PM
[2016-08-04 15:26] VITALS: BP 125/80; TEMP 36.9; O2SAT 98
--- NOTE | 2016-08-04 15:55 | GASTROENTEROLOGY PROGRESS NOTE ---
DATE: 08/04/2016 DATE: 08/04/2016. SUBJECTIVE: I had the pleasure of seeing Duong Reina at her bedside today. She continues to complain of some general dyspepsia. She denies any heartburn per se and denies any abdominal pain, though she does complain of some bloating and nausea. She states that it has "stolen her appetite" and states that she has not eaten well in many weeks. She was on her way to having a right upper quadrant ultrasound performed. She denied any hematemesis, melena, hematochezia or other complaints overnight. REVIEW OF SYSTEMS: Negative x8 system review other than pertinent positives listed in the HPI. PHYSICAL EXAMINATION: VITAL SIGNS: Temp 36.9, pulse 52, respirations 16, blood pressure 125/80, pulse ox 98% on room air. GENERAL EXAMINATION: She is awake, cooperative, in no acute distress. CHEST: Clear to auscultation bilaterally. CARDIOVASCULAR SYSTEM: Regular rate and rhythm. ABDOMEN: Soft, nontender, nondistended. Positive bowel sounds. EXTREMITIES: No clubbing, cyanosis, or edema. LABORATORY STUDIES: From today include a white blood cell count of 3.71, hemoglobin 12.5, hematocrit 36.5, and a platelet count of 91. Her BMP was unremarkable. Right upper quadrant ultrasound today showed gallbladder with mild distention filled with biliary sludge and probable small stones. The pancreas was not visualized. The right kidney that was markedly atrophic. There was no convincing sonographic evidence of acute cholecystitis. IMPRESSION: This is an 81-year-old female with continued dyspepsia, anorexia and nausea with abnormal in right upper quadrant ultrasound showing gallstones and sludge. PLAN: At the present time, I would recommend that the patient be continued on Protonix 40 mg b.i.d. as well as ranitidine 150 mg daily. I would recommend that she undergo a HIDA scan for further evaluation of her symptoms. I will follow her clinical course and make further recommendations as needed. Once again, thanks for allowing me to participate in the care of this patient. If you have any further questions, please do not hesitate in contacting me.
[2016-08-04] MEDS: SIMVASTATIN 20 MG TAB PO SCH (21:09)
[2016-08-04] MEDS: GABAPENTIN 300 MG CAP PO SCH (21:11)
[2016-08-04 23:20] VITALS: BP 150/85; PULSE 68; TEMP 36.9; O2SAT 100
[2016-08-05 07:11] LABS: BUN/CREATININE RATIO 4.8 (10-20); CREATININE 0.87 mg/dl (0.60-1.20); MAGNESIUM 2.5 mg/dl (1.8-2.4); POTASSIUM 3.1 mmol/L (3.5-5.1)
[2016-08-05 07:24] LABS: PHOSPHORUS 1.6 mg/dl (2.5-4.9)
[2016-08-05 07:33] LABS: CALCIUM 8.8 mg/dl (8.5-10.1)
[2016-08-05 07:39] VITALS: BP 154/81; PULSE 61; TEMP 36.9; O2SAT 98
[2016-08-05] MEDS: CLOPIDOGREL BISULFATE 75 MG TAB PO SCH (08:00)
[2016-08-05] MEDS: THIAMINE HCL 100 MG TAB PO SCH (08:00)
[2016-08-05] MEDS: PANTOprazole SOD 40 MG TAB PO SCH ×2 (08:00→20:32)
[2016-08-05] MEDS: CYANOCOBALAMIN 500 MCG TAB (VIT B-12) PO SCH (08:00)
[2016-08-05] MEDS ORDERED: POTASSIUM PHOS 3 MMOL/1 ML INFUSION IV STA (08:00)
[2016-08-05] MEDS: RANITIDINE HCL 150 MG TAB PO SCH (08:01)
[2016-08-05] MEDS: AMLODIPINE BESYLATE 5 MG TAB PO SCH (08:01)
[2016-08-05] MEDS: MAGNESIUM OXIDE 400 MG TAB PO SCH ×2 (08:01→20:33)
[2016-08-05] MEDS: CARBIDOPA/LEVODOPA 25/100MG TAB PO SCH ×3 (08:01→20:33)
[2016-08-05] MEDS: CEPHALEXIN MONOHYDRATE 500 MG CAP PO SCH ×2 (08:01→20:32)
[2016-08-05] MEDS: FLUTICASONE PROPIONATE NA SPR 16 GM BTL NAE SCH (08:02)
[2016-08-05] MEDS: MEGESTROL ACETATE 400 MG/10 ML UDP PO SCH (08:02)
[2016-08-05] MEDS ORDERED: POTASSIUM PHOSPHATE INJ 30 MMOL in SODIUM CHLORIDE 0.9% 500ML 500 ML IV SCH (08:30)
[2016-08-05] MEDS: FoLIC ACID INJ 1 MG in SYRINGE 9.8 ML IV SCH (09:24)
--- NOTE | 2016-08-05 11:08 | Progress Note ---
Subjective Date of Service: Aug 05, 2016. Subjective Pt evaluation today including: conversation w/ patient, conversation w/ family , physical exam, chart review, lab review, review of studies, conversation w/ travel service consultant, review of inpatient medication list Still has poor appetite, however sitting up preparing to eat breakfast Pleasant, conversational, smiling Problem List Medical Problems: (1) Dehydration Status: Acute (2) Nausea Status: Acute (3) Pancreatitis Status: Acute Review of Systems Constitutional: No fever, No chills, No sweats, No weight loss, No weakness, No fatigue, No problem reported Eyes: No worsening of vision, No eye pain, No redness, No discharge, No diplopia ENT: No hearing loss, No unusual epistaxis, No nasal symptoms, No sore throat, No tinnitus, No dental problems, No trouble swallowing Respiratory: No cough, No sputum, No wheezing, No shortness of breath, No dyspnea on exertion, No dyspnea at rest, No hemoptysis Cardiac: No chest pain, No orthopnea, No PND, No edema, No claudication, No palpitations Abdomen: + nausea, No pain, No vomiting, No diarrhea, No constipation Musculoskeletal: No joint pain, No muscle pain, No swelling, No calf pain Female : No dysuria, No urinary frequency, No hematuria, No incontinence, No abnormal vaginal bleeding, No vaginal discharge Neurologic: No memory loss, No paralysis, No weakness, No numbness/tingling, No vertigo, No balance problems Psychiatric: No depression symptoms, No anhedonism, No anxiety, No insomnia, No substance abuse Heme: No abnormal bleeding/bruising, No clotting problems, No swollen lymph nodes, No night sweats Endo: No fatigue, No excessive thirst, No excessive urination Skin: No rash, No itch, No new/changing skin lesions, No color change, No bleeding Objective Vital Signs Date Time Temp Pulse Resp B/P (MAP) Pulse Ox O2 Delivery O2 Flow Rate FiO2 08/05/16 08:22 Room Air 08/05/16 07:39 36.9 61 16 154/81 (105) 98 Room Air 08/04/16 23:59 Room Air 08/04/16 23:20 36.9 68 18 150/85 (106) 100 Room Air 08/04/16 20:00 Room Air 08/04/16 17:30 Room Air 08/04/16 15:26 36.9 16 125/80 (95) 98 Room Air Physical Exam General Appearance: WD/WN, no apparent distress, + cachetic, + thin Eyes: normal inspection, PERRL, EOMI, sclerae normal ENT: normal ENT inspection, hearing grossly normal, pharynx normal Neck: supple, no adenopathy, thyroid normal, no JVD, no carotid bruits, trachea midline Respiratory/Chest: chest non-tender, lungs clear, normal breath sounds, no respiratory distress, no accessory muscle use Cardiovascular: regular rate, rhythm, no edema, no gallop, no JVD, no murmur Abdomen: normal bowel sounds, non tender, soft, no organomegaly, no pulsatile mass Extremities: normal range of motion, non-tender, normal inspection, no pedal edema, no calf tenderness, normal capillary refill, pelvis stable Neurologic/Psychiatric: fresh food manager 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, no motor/sensory deficits, alert, normal mood/affect, oriented x 3 Skin: normal color, warm/dry, no rash Lymphatic: no adenopathy Laboratory Results Last 24 Hours Test 08/04/16 12:32 08/04/16 20:29 08/05/16 06:20 Vitamin B12 Level 1859 pg/mL Folate 5.38 ng/mL Bedside Glucose 91 mg/dl Sodium Level 142 mmol/L Potassium Level 3.1 mmol/L Chloride Level 103 mmol/L Carbon Dioxide Level 32 mmol/L Anion Gap 7.0 mmol/L Blood Urea Nitrogen 4 mg/dl Creatinine 0.87 mg/dl Est Creatinine Clear Calc Drug Dose 31.6 ml/min Estimated GFR () 71.9 Estimated GFR (Non- 62.0 BUN/Creatinine Ratio 4.8 Random Glucose 89 mg/dl Calcium Level 8.8 mg/dl Phosphorus Level 1.6 mg/dl Magnesium Level 2.5 mg/dl Total Bilirubin 0.7 mg/dl Direct Bilirubin 0.2 mg/dl Aspartate Amino Transf (AST/SGOT) 11 U/L Alanine Aminotransferase (ALT/SGPT) 12 U/L Alkaline Phosphatase 45 U/L Total Protein 6.1 gm/dl Albumin 3.2 gm/dl Assessment and Plan 81 y/o F CAD, CVA, HTN, Parkinson's admitted on 07/31/2016 with a chief complaint of refusing to eat or drink, possible some minimal improvement Per report has not had an appetite for up to 2 months, asso with weakness, lethargy and possibly progressive memory impairment. Patient describes occasional RUQ pain which is not present on admission. initial labs reveal acute kidney injury, mild acidosis and an elevated lipase. Her platelet count is also slightly low. Possible acute cholecystitis per ultrasound studies, HIDA scan ordered, which is scheduled for tomorrow morning, GI on the case Possible pancreatitis upon admission with Elevated lipase at 1400, trends down at 438 , yesterday it was increased even after better hydration , therefore possible acute pancreatitis, other possible is because of dehydration, encourage oral intake, Right upper quadrant ultrasound was done, reports are in below:: 1. The gallbladder is mildly distended and filled with biliary sludge and probable small stones. There is no convincing sonographic evidence of acute cholecystitis. If there is clinical concern for acute cholecystitis consider nuclear hepatobiliary scan for further assessment. 2. The pancreas was not visualized. 3. The right kidney is markedly atrophic. Appetite loss for several months, etiology unknown, Sometimes right upper quadrant pain, Sometimes nausea Possible acute cholecystitis per ultrasound studies, HIDA scan ordered Decrease appetite, nausea possible because of acute cholecystitis , UTI, on new medicine for Parkinson's disease? Seems appetite improved and little bit, she has been drunken soup and drinking water With elevated lipase, possible from dehydration, which is resolved Licea acid was checked which shows insufficiency , has started supplement vitamin B12 levels, were normal Licea acid insufficiency, hypokinemia, hypophosphatemia, likely from poor oral intake, today's was replaced and continue to follow-up Possible subclinical hyperthyroidism , decreased TSH with normal total T4 and decreased T3, Discussed with endocrinology , Recommend check free T4 , which was done and is normal , and corrosion control engineer recommend to follow-up with PCP as outpatient, and referral to and do if needed , I told patient's daughter about this Dietitian consultation, done, has added Megace GI input appreciated, they are not planning to have any procedure for now, Increase Protonix to 40 mg BID, Continue Ranitidine 150 mg daily. UTI is treated by antibiotics Generalized weakness and functional decline, physical therapist recommend may need care home rehabilitation, continue PT OT, Discuss with patient's daughter about conditions and risk on the fall, I discussed with patient as well, patient really want to go home do not want to go to halfway rehabilitation I asked daughter to talk to the patient and give us final decision, daughter concerned about home safety as well, I recommend daughter to talk to family doctor, to have a home safety evaluation as well Parkinson's dz, continue Sinemet, and follow-up Acute kidney injury- likely due to dehydration, totally resolved Thrombocytopenia upon admission Platelets 112 to 97 today, has discontinued heparin , DVT prophylaxis, continue SCD hx of CAD - cont Plavix, Statin hx of HTN Cont Norvasc, Metoprolol Has ordered SCD for DVT prophylaxis I called to patient's daughter Janny, updated to her all the patient's conditions and care plan, answer all questions Continued [facility] stay due to: ambulation difficulties, multiple IV medications needed Discharge planning: care home facility
[2016-08-05] MEDS: D5W AND 1/2NSS + 20MEQ KCL 1,000 ML IV SCH ×2 (12:40→22:49)
--- NOTE | 2016-08-05 13:52 | GASTROENTEROLOGY PROGRESS NOTE ---
DATE: 08/05/2016 AGE: 81. SEX: Female. SUBJECTIVE: I had the pleasure of seeing Duong Reina at her bedside today. She states that she has had a poor appetite for many weeks and she denies any significant p.o. intake over the past 24 hours. She does deny any nausea, vomiting, hematemesis, melena, hematochezia, abdominal pain, fevers or chills. She has not had a bowel movement as of this time. PHYSICAL EXAMINATION: VITAL SIGNS: Include temp 36.9, pulse 61, respirations 16, blood pressure 154/81, and pulse ox 98% on room air. GENERAL: She is awake, cooperative, chronic ill appearing, in no acute distress. CHEST: Clear to auscultation bilaterally. CARDIOVASCULAR SYSTEM: Regular rate and rhythm. ABDOMEN: Soft, nontender, and nondistended. Positive bowel sounds. EXTREMITIES: No clubbing, cyanosis, or edema. LABORATORY STUDIES: From today include a sodium 142, potassium 3.1, chloride 103, bicarbonate 32, BUN 4, creatinine 0.87 and blood glucose level of 89. Her total bilirubin today is 0.7 with a direct bilirubin of 0.2. AST 11, ALT 12, and alkaline phosphatase 45. IMPRESSION: This is an 81-year-old female with continued poor appetite of unknown etiology and evidence of gallstones and sludge on gallbladder ultrasound. PLAN: At the present time, I would recommend continuing her on Protonix 40 mg p.o. b.i.d. as well as ranitidine 150 mg daily. She will undergo a HIDA scan tomorrow. I did inquire with the patient about depression as this can be a cause of anxiety, though the patient states that she has no symptoms of depression at this time. No further screening for this may be warranted as this is a common cause of decreased appetite in elderly. Once again, thanks for allowing me to participate in the care of this patient. If you have any further questions, please do not hesitate in contacting me.
[2016-08-05 15:39] VITALS: BP 121/87; PULSE 74; TEMP 36.6; O2SAT 94
[2016-08-05] MEDS: GABAPENTIN 300 MG CAP PO SCH (20:32)
[2016-08-05] MEDS: SIMVASTATIN 20 MG TAB PO SCH (20:32)
[2016-08-05 23:15] VITALS: BP 138/84; PULSE 63; TEMP 36.4; O2SAT 98
[2016-08-06 06:48] LABS: HEMATOCRIT 36.2 % (37-47); MEAN CELL VOLUME 88.7 fL (80-100); MEAN CORPUSCULAR HEMOGLOBIN 30.4 pg (25-34); MEAN CORPUSCULAR HGB CONC 34.3 g/dl (32-36); RED BLOOD COUNT 4.08 M/uL (4.2-5.4); WHITE BLOOD COUNT 3.99 K/uL (4.8-10.8)
[2016-08-06 06:49] LABS: MEAN PLATELET VOLUME 11.8 fL (7.4-10.4); PLATELET COUNT 98 K/uL (130-400)
[2016-08-06 07:15] LABS: COMPLETE YES; ECHINOCYTES 1+; EOS % 3.8 %; LYMPH % 25.6 %; LYMPH ABS # 1.02 K/uL (1.2-3.4); NEUT % 59.6 %
[2016-08-06 07:25] VITALS: BP 157/96; PULSE 124; TEMP 36.6; O2SAT 94
[2016-08-06 07:27] LABS: BUN/CREATININE RATIO 2.5 (10-20); CALCIUM 8.8 mg/dl (8.5-10.1); CREATININE 0.88 mg/dl (0.60-1.20); MAGNESIUM 2.4 mg/dl (1.8-2.4); PHOSPHORUS 1.7 mg/dl (2.5-4.9); POTASSIUM 3.1 mmol/L (3.5-5.1)
[2016-08-06] MEDS: D5W AND 1/2NSS + 20MEQ KCL 1,000 ML IV SCH ×2 (07:32→17:54)
[2016-08-06] MEDS: FoLIC ACID INJ 1 MG in SYRINGE 9.8 ML IV SCH (07:32)
[2016-08-06] MEDS: FLUTICASONE PROPIONATE NA SPR 16 GM BTL NAE SCH (07:32)
[2016-08-06 07:39] VITALS: BP 152/87; PULSE 64
[2016-08-06] MEDS: CYANOCOBALAMIN 500 MCG TAB (VIT B-12) PO SCH (09:00)
[2016-08-06] MEDS: CARBIDOPA/LEVODOPA 25/100MG TAB PO SCH ×3 (09:00→21:52)
[2016-08-06] MEDS ORDERED: POTASSIUM PHOS 3 MMOL/1 ML INFUSION IV STA (09:12)
[2016-08-06] MEDS ORDERED: POTASSIUM PHOSPHATE INJ 21 MMOL in SODIUM CHLORIDE 0.9% 500ML 500 ML IV SCH (10:00)
--- NOTE | 2016-08-06 11:23 | DIAGNOSTIC IMAGING REPORT ---
NUCLEAR HEPATOBILIARY SCAN CLINICAL HISTORY: Cholelithiasis. COMPARISON STUDY: Abdominal ultrasound dated 08/04/2016. TECHNIQUE: Dynamic images of the liver and anterior abdomen were obtained every 5 minutes for a total of 45 minutes following the IV administration of 5.7mCi of technetium 99m Choletec. Delayed imaging was also performed at 55 minutes, 60 minutes, 120 minutes, and at 4 hours. The forearm injury was obtained in the anterior and lateral projections. FINDINGS: The hepatobiliary scan shows prompt and homogeneous hepatic uptake. There is visualized activity within the intra and extrahepatic biliary tree at 10 minutes. Tracer is identified in the duodenum at 45 minutes. There is no definite gallbladder activity seen at 45 minutes or at one hour. There is likely faint activity within the gallbladder seen on the 4 hour delayed images. IMPRESSION: 1. There is no definite tracer identified within the gallbladder at 1 hour, and no definite gallbladder activity was seen on the 2 hour delayed images. 2. There is likely tracer within the gallbladder seen on the 4 hour delayed images. This suggests chronic cholecystitis. Clinical correlation will be required. Electronically signed by: Raul Hawkins M.D. 08/06/2016 2:55 PM Dictated Date/Time: 08/06/2016 11:20 AM
[2016-08-06] MEDS ORDERED: MoRPHine SULFATE 2 MG/ML CARP ONE (11:33)
[2016-08-06 13:05] VITALS: BP 135/91; PULSE 99
[2016-08-06] MEDS: RANITIDINE HCL 150 MG TAB PO SCH (13:05)
[2016-08-06] MEDS: PANTOprazole SOD 40 MG TAB PO SCH ×2 (13:06→21:55)
[2016-08-06] MEDS: CLOPIDOGREL BISULFATE 75 MG TAB PO SCH (13:06)
[2016-08-06] MEDS: MAGNESIUM OXIDE 400 MG TAB PO SCH ×2 (13:06→21:56)
[2016-08-06] MEDS: THIAMINE HCL 100 MG TAB PO SCH (13:06)
[2016-08-06] MEDS: CEPHALEXIN MONOHYDRATE 500 MG CAP PO SCH ×2 (13:08→21:52)
[2016-08-06] MEDS: AMLODIPINE BESYLATE 5 MG TAB PO SCH (13:08)
[2016-08-06] MEDS: MEGESTROL ACETATE 400 MG/10 ML UDP PO SCH (13:09)
[2016-08-06 15:10] VITALS: BP_SYST 109; PULSE 80; TEMP 36.8; O2SAT 97
--- NOTE | 2016-08-06 16:14 | Progress Note ---
Subjective Date of Service: Aug 06, 2016. Subjective Pt evaluation today including: conversation w/ patient, physical exam, lab review, review of studies, review of inpatient medication list Pain: denies pain PO Intake: poor Voiding: no voiding problems patient admits to being tired, poor sleep last night says she has no appetite, denies abdominal pain, admits to some intermittent nausea and weight loss HIDA reviewed - evidence of chronic cholecystitis likely the etiology of the change in appetite, vomiting, weight loss discussed with patient the results and plan for surgery consultation, she will discuss with her daughter Problem List Medical Problems: (1) Dehydration Status: Acute (2) Nausea Status: Acute (3) Pancreatitis Status: Acute Review of Systems Abdomen: + nausea, + problem reported (poor appetite, weight loss) All Other Systems: Reviewed and Negative Medications Current Inpatient Medications Medications (Trade) Dose Ordered Sig/Graciela Route Start Time Stop Time Status Last Admin Dose Admin Carbidopa/Levodopa (Sinemet 25/ 100MG Tab) 1 tab TID PO 08/01/16 09:00 08/31/16 08:59 08/06/16 13:06 1 TAB Clopidogrel Bisulfate (plAVix TAB) 75 mg DAILY PO 08/01/16 09:00 08/31/16 08:59 08/06/16 13:06 75 MG Cyanocobalamin (Vitamin B-12 Tab) 500 mcg DAILY PO 08/01/16 09:00 08/31/16 08:59 08/05/16 08:00 500 MCG Fluticasone Propionate (Flonase Nasal Clay) 2 sprays DAILY RENE 08/01/16 09:00 08/31/16 08:59 08/06/16 07:32 2 SPRAYS Gabapentin (Neurontin Cap) 300 mg HS PO 08/01/16 21:00 08/31/16 20:59 08/05/16 20:32 300 MG Ranitidine HCl (zANTac TAB) 150 mg DAILY PO 08/01/16 09:00 08/31/16 08:59 08/06/16 13:05 150 MG Simvastatin (Zocor Tab) 20 mg QPM PO 08/01/16 21:00 08/31/16 20:59 08/05/16 20:32 20 MG Acetaminophen (Tylenol Tab) 650 mg Q4H PRN PO 07/31/16 21:45 08/30/16 21:44 Al Hydrox/Mg Hydrox/Simethicone (Maalox Max Susp) 15 ml Q4H PRN PO 07/31/16 21:45 08/30/16 21:44 Magnesium Hydroxide (Milk Of Magnesia Susp) 30 ml Q6H PRN PO 07/31/16 21:45 08/30/16 21:44 Polyethylene (Miralax Powder Packet) 17 gm DAILY PRN PO 07/31/16 22:15 08/30/16 22:14 Ondansetron HCl (Zofran Inj) 4 mg Q6H PRN IV 07/31/16 21:45 08/30/16 21:44 Pantoprazole Sodium (Protonix Tab) 40 mg BID PO 08/01/16 21:00 08/31/16 08:59 08/06/16 13:06 40 MG Magnesium Oxide (Mag-Ox Tab) 400 mg BID PO 08/02/16 09:00 09/01/16 08:59 08/06/16 13:06 400 MG Cephalexin Monohydrate (Keflex Cap) 500 mg BID PO 08/02/16 10:00 08/07/16 09:59 08/06/16 13:08 500 MG Megestrol Acetate (Megace Susp) 400 mg QAM PO 08/03/16 09:00 09/02/16 08:59 08/06/16 13:09 400 MG Amlodipine Besylate (Norvasc Tab) 5 mg QAM PO 08/05/16 09:00 09/04/16 08:59 08/06/16 13:08 5 MG Thiamine HCl (Vitamin B-1 Tab) 100 mg QAM PO 08/05/16 09:00 09/04/16 08:59 08/06/16 13:06 100 MG Folic Acid 1 mg/ Syringe 10 ml @ 5 mls/min QAM IV 08/05/16 09:00 09/04/16 08:59 08/06/16 07:32 5 MLS/MIN Potassium Chloride/Dextrose/ Sod Cl 1,000 ml @ 100 mls/hr Q10H IV 08/05/16 11:30 09/04/16 11:29 08/06/16 07:32 100 MLS/HR Objective Vital Signs Date Time Temp Pulse Resp B/P (MAP) Pulse Ox O2 Delivery O2 Flow Rate FiO2 08/06/16 15:49 Room Air 08/06/16 15:10 36.8 80 16 109/ (36) 97 Room Air 08/06/16 13:05 99 135/91 (106) 08/06/16 08:00 Room Air 08/06/16 07:39 64 152/87 (108) 08/06/16 07:25 36.6 124 18 157/96 (116) 94 Room Air 08/06/16 00:00 Room Air 08/05/16 23:15 36.4 63 16 138/84 (102) 98 Room Air 08/05/16 20:00 Room Air Physical Exam General Appearance: no apparent distress, + thin Neck: supple, no adenopathy, no JVD, trachea midline Respiratory/Chest: chest non-tender, lungs clear, normal breath sounds, no respiratory distress, no accessory muscle use Cardiovascular: regular rate, rhythm, no edema, no gallop, no JVD, no murmur Abdomen: normal bowel sounds, non tender, soft, no organomegaly Extremities: normal range of motion, non-tender, normal inspection, no pedal edema, no calf tenderness Neurologic/Psychiatric: motor expert 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, no motor/sensory deficits, alert, normal mood/affect, oriented x 3 Skin: normal color, warm/dry, no rash Lymphatic: no adenopathy Laboratory Results Last 24 Hours Test 08/06/16 05:55 White Blood Count 3.99 K/uL Red Blood Count 4.08 M/uL Hemoglobin 12.4 g/dL Hematocrit 36.2 % Mean Corpuscular Volume 88.7 fL Mean Corpuscular Hemoglobin 30.4 pg Mean Corpuscular Hemoglobin Concent 34.3 g/dl Platelet Count 98 K/uL Mean Platelet Volume 11.8 fL Neutrophils (%) (Auto) 59.6 % Lymphocytes (%) (Auto) 25.6 % Monocytes (%) (Auto) 11.0 % Eosinophils (%) (Auto) 3.8 % Basophils (%) (Auto) 0.0 % Neutrophils # (Auto) 2.38 K/uL Lymphocytes # (Auto) 1.02 K/uL Monocytes # (Auto) 0.44 K/uL Eosinophils # (Auto) 0.15 K/uL Basophils # (Auto) 0.00 K/uL RDW Standard Deviation 43.6 fL RDW Coefficient of Variation 13.3 % Immature Granulocyte % (Auto) 0.0 % Immature Granulocyte # (Auto) 0.00 K/uL Echinocytes 1+ Sodium Level 142 mmol/L Potassium Level 3.1 mmol/L Chloride Level 104 mmol/L Carbon Dioxide Level 31 mmol/L Anion Gap 7.0 mmol/L Blood Urea Nitrogen 2 mg/dl Creatinine 0.88 mg/dl Est Creatinine Clear Calc Drug Dose 31.3 ml/min Estimated GFR () 70.9 Estimated GFR (Non- 61.2 BUN/Creatinine Ratio 2.5 Random Glucose 157 mg/dl Calcium Level 8.8 mg/dl Phosphorus Level 1.7 mg/dl Magnesium Level 2.4 mg/dl Lipase 598 U/L Assessment and Plan 81 y/o F CAD, CVA, HTN, Parkinson's admitted on 07/31/2016 with a chief complaint of refusing to eat or drink, possible some minimal improvement - Anorexia, weight loss, intermittent vomiting HIDA today, shows chronic cholecystitis, likely the etiology of her symptoms will consult general surgery US showed sludge and small stones in GB possible mild pancreatitis on admission, lipase trended down quickly with fluids, no abdominal pain - Hypokalemia: 3.1 today, K Phos ordered - Hypophosphatemia: 1.7 today, K Phos ordered - UTI: Keflex Parkinson's dz, continue Sinemet, and follow-up Acute kidney injury- likely due to dehydration, totally resolved Thrombocytopenia upon admission Platelets 112 to 97 today, has discontinued heparin , DVT prophylaxis, continue SCD hx of CAD - cont Plavix, Statin hx of HTN Cont Norvasc, Metoprolol Has ordered SCD for DVT prophylaxis Continued [facility] stay due to: ambulation difficulties, multiple IV medications needed Discharge planning: [facility] facility
--- NOTE | 2016-08-06 18:28 | PROGRESS NOTE ---
DATE: 08/06/2016 SUBJECTIVE: I had the pleasure of seeing Duong Reina today at her bedside. She states that she still feels "the same." She is reportedly picking at her food with little p.o. intake per nursing staff. She underwent a HIDA scan today with results showing findings consistent with chronic cholecystitis. I relayed these results to the patient and she is unsure as to whether she wants to go through with a cholecystectomy. She denies any abdominal pain, fevers, chills, nausea, vomiting, hematemesis, melena or hematochezia. PHYSICAL EXAMINATION: VITAL SIGNS: Temperature 36.8, pulse 80, respirations 16, blood pressure 109/36, pulse ox 97% on room air. GENERAL: She is awake, cooperative. ABDOMEN: Soft, nontender, nondistended. Positive bowel sounds. LABORATORY STUDIES: From today show white blood cell count 3.99, hemoglobin 12.4, hematocrit 36.2 and a platelet count of 98. Her sodium is 142, potassium 3.1, chloride 104, bicarbonate 31, BUN to creatinine 0.88, blood glucose level of 157 and a lipase level of 598. IMPRESSION: An 81-year-old female with general malaise and poor appetite with ultrasound showing gallbladder stones and sludge and HIDA scan showing evidence of chronic cholecystitis. PLAN: I would recommend that the patient be continued on her current therapy at this time. We will await general surgery's input as to the need for cholecystectomy. I will follow her clinical course and make further recommendations as needed. Once again, thanks for allowing me to participate in the care of this patient. If you have any further questions, please do not hesitate in contacting me.
[2016-08-06] MEDS: GABAPENTIN 300 MG CAP PO SCH (21:44)
[2016-08-06] MEDS: SIMVASTATIN 20 MG TAB PO SCH (21:52)
[2016-08-06 23:05] VITALS: BP 136/83; PULSE 75; TEMP 36.7; O2SAT 94
[2016-08-07] MEDS: D5W AND 1/2NSS + 20MEQ KCL 1,000 ML IV SCH ×3 (03:54→22:53)
[2016-08-07 07:20] VITALS: BP 181/94; PULSE 75; TEMP 36.8; O2SAT 97
--- NOTE | 2016-08-07 07:39 | Surgery Consultation ---
Consultation Date of Consultation: Aug 07, 2016. Attending Physician: Mango Ferguson D.O. History of Present Illness pt for several weeks to months now has been having a poor appetite, post prandial nausea, and occ RUQ pain. no desire to eat. she is unsure if she has lost weight b/c of this or not. pt describes that most of the time she has no pain. Past Medical/Surgical History Medical Problems: (1) Dehydration Status: Acute (2) Nausea Status: Acute (3) Pancreatitis Status: Acute Social History Smoking Status: Former Smoker Drug Use: none Marital Status: Housing Status: lives with family Allergies Coded Allergies: Celecoxib (Verified Allergy, Unknown, 02/03/14) Clarithromycin (Verified Allergy, Unknown, ?, 02/03/14) Erythromycin (Verified Allergy, Unknown, MYCINS, 02/03/14) Irbesartan (Verified Allergy, Unknown, Unknown rxn, 02/03/14) Pregabalin (Verified Allergy, Unknown, Unknown rxn, 02/03/14) Propoxyphene (Verified Allergy, Unknown, Unknown - Darvocet, 02/03/14) Codeine (Verified Adverse Reaction, Mild, ACUTE NAUSEA, 02/03/14) ROJAS Inhibitors (Verified Adverse Reaction, Unknown, ?, 02/03/14) Benzonatate (Verified Adverse Reaction, Unknown, UNKNOWN, 02/03/14) Hydralazine (Verified Adverse Reaction, Unknown, ?, 02/03/14) Losartan (Verified Adverse Reaction, Unknown, ?, 02/03/14) Morphine (Unverified Adverse Reaction, Unknown, GI SYMPTOMS, 08/06/16) States morphine made her sick for months, and ask to get it added to allergy list. Tramadol (Verified Adverse Reaction, Unknown, didn't feel good, 02/03/14) Valsartan (Verified Adverse Reaction, Unknown, ?, 02/03/14) Home Medications Scheduled Acetaminophen Tab (Tylenol), 650 MG PO PRN Amlodipine Besylate (Norvasc), 2.5 MG PO QAM Carbidopa/Levodopa (Sinemet 25MG/100MG), 1 TAB PO TID Cholecalciferol (Vitamin D), 1,000 UNIT PO DAILY Clopidogrel Bisulfate (Clopidogrel), 75 MG PO DAILY Cyanocobalamin (Vitamin B-12), 500 MCG PO DAILY Fluticasone Propionate (Nasal) (Flonase Allergy Relief), 1-2 SPRAYS RENE DAILY Gabapentin (Gabapentin), 300 MG PO HS Metoprolol Tartrate (Lopressor) (Lopressor), 50 MG PO BID Omeprazole (Prilosec), 20 MG PO DAILY Potassium Chloride (Klor-Con Sprinkle), 20 MEQ PO BID Ranitidine (Zantac), 150 MG PO DAILY Simvastatin (Zocor), 20 MG PO QPM Scheduled PRN Multiple Vitamin (Multivitamin), 1 TAB PO DAILY PRN for SUPPLEMENT Current Inpatient Medications Current Inpatient Medications Medications (Trade) Dose Ordered Sig/Graciela Route Start Time Stop Time Status Last Admin Dose Admin Carbidopa/Levodopa (Sinemet 25/ 100MG Tab) 1 tab TID PO 08/01/16 09:00 08/31/16 08:59 08/06/16 21:52 1 TAB Clopidogrel Bisulfate (plAVix TAB) 75 mg DAILY PO 08/01/16 09:00 08/31/16 08:59 08/06/16 13:06 75 MG Cyanocobalamin (Vitamin B-12 Tab) 500 mcg DAILY PO 08/01/16 09:00 08/31/16 08:59 08/05/16 08:00 500 MCG Fluticasone Propionate (Flonase Nasal [place]) 2 sprays DAILY RENE 08/01/16 09:00 08/31/16 08:59 08/06/16 07:32 2 SPRAYS Gabapentin (Neurontin Cap) 300 mg HS PO 08/01/16 21:00 08/31/16 20:59 08/06/16 21:44 300 MG Ranitidine HCl (zANTac TAB) 150 mg DAILY PO 08/01/16 09:00 08/31/16 08:59 08/06/16 13:05 150 MG Simvastatin (Zocor Tab) 20 mg QPM PO 08/01/16 21:00 08/31/16 20:59 08/06/16 21:52 20 MG Acetaminophen (Tylenol Tab) 650 mg Q4H PRN PO 07/31/16 21:45 08/30/16 21:44 Al Hydrox/Mg Hydrox/Simethicone (Maalox Max Susp) 15 ml Q4H PRN PO 07/31/16 21:45 08/30/16 21:44 Magnesium Hydroxide (Milk Of Magnesia Susp) 30 ml Q6H PRN PO 07/31/16 21:45 08/30/16 21:44 Polyethylene (Miralax Powder Packet) 17 gm DAILY PRN PO 07/31/16 22:15 08/30/16 22:14 Ondansetron HCl (Zofran Inj) 4 mg Q6H PRN IV 07/31/16 21:45 08/30/16 21:44 Pantoprazole Sodium (Protonix Tab) 40 mg BID PO 08/01/16 21:00 08/31/16 08:59 08/06/16 21:55 40 MG Magnesium Oxide (Mag-Ox Tab) 400 mg BID PO 08/02/16 09:00 09/01/16 08:59 08/06/16 21:56 400 MG Cephalexin Monohydrate (Keflex Cap) 500 mg BID PO 08/02/16 10:00 08/07/16 09:59 08/06/16 21:52 500 MG Megestrol Acetate (Megace Susp) 400 mg QAM PO 08/03/16 09:00 09/02/16 08:59 08/06/16 13:09 400 MG Amlodipine Besylate (Norvasc Tab) 5 mg QAM PO 08/05/16 09:00 09/04/16 08:59 08/06/16 13:08 5 MG Thiamine HCl (Vitamin B-1 Tab) 100 mg QAM PO 08/05/16 09:00 09/04/16 08:59 08/06/16 13:06 100 MG Folic Acid 1 mg/ Syringe 10 ml @ 5 mls/min QAM IV 08/05/16 09:00 09/04/16 08:59 08/06/16 07:32 5 MLS/MIN Potassium Chloride/Dextrose/ Sod Cl 1,000 ml @ 100 mls/hr Q10H IV 08/05/16 11:30 09/04/16 11:29 08/07/16 03:54 100 MLS/HR Review of Systems Abdomen: + pain, + nausea, + vomiting, + problem reported (decreased PO intake) Physical Exam Date Time Temp Pulse Resp B/P (MAP) Pulse Ox O2 Delivery O2 Flow Rate FiO2 08/07/16 07:20 36.8 75 18 181/94 (123) 97 Room Air 08/07/16 00:00 Room Air 08/06/16 23:05 36.7 75 16 136/83 (100) 94 Room Air 08/06/16 20:00 Room Air 08/06/16 15:49 Room Air 08/06/16 15:10 36.8 80 16 109/ (36) 97 Room Air 08/06/16 13:05 99 135/91 (106) 08/06/16 08:00 Room Air 08/06/16 07:39 64 152/87 (108) General Appearance: no apparent distress Head: normocephalic, atraumatic Eyes: EOMI, sclerae normal ENT: hearing grossly normal Respiratory/Chest: no respiratory distress, no accessory muscle use Abdomen/GI: non tender, soft Neurologic/Psych: alert, oriented x 3 Skin: warm/dry, no rash Assessment & Plan US showing sludge/stones and HIDA with poor gallbladder filling c/w chronic cholecystitis symptoms seem rather severe for just chronic cholecystitis however no other etiology is apparent discussed risks of surgery for her ( bleeding/infection/dvt/pe/mi/injury to another organ such as bile duct/bowel etc... questions answered will call her daughter this am to discuss. could do tomorrow if they wish.
[2016-08-07 08:00] VITALS: O2SAT 97
[2016-08-07] MEDS: FLUTICASONE PROPIONATE NA SPR 16 GM BTL NAE SCH (08:16)
[2016-08-07] MEDS: PANTOprazole SOD 40 MG TAB PO SCH ×2 (08:16→20:56)
[2016-08-07] MEDS: AMLODIPINE BESYLATE 5 MG TAB PO SCH (08:17)
[2016-08-07] MEDS: CARBIDOPA/LEVODOPA 25/100MG TAB PO SCH ×3 (08:17→20:57)
[2016-08-07] MEDS: THIAMINE HCL 100 MG TAB PO SCH (08:17)
[2016-08-07] MEDS: CYANOCOBALAMIN 500 MCG TAB (VIT B-12) PO SCH (08:17)
[2016-08-07] MEDS: CEPHALEXIN MONOHYDRATE 500 MG CAP PO SCH (08:17)
[2016-08-07] MEDS: MEGESTROL ACETATE 400 MG/10 ML UDP PO SCH (08:18)
[2016-08-07] MEDS: CLOPIDOGREL BISULFATE 75 MG TAB PO SCH (08:18)
[2016-08-07] MEDS: MAGNESIUM OXIDE 400 MG TAB PO SCH ×2 (08:18→20:56)
[2016-08-07] MEDS: RANITIDINE HCL 150 MG TAB PO SCH (08:19)
[2016-08-07] MEDS: FoLIC ACID INJ 1 MG in SYRINGE 9.8 ML IV SCH (08:23)
[2016-08-07 09:44] VITALS: BP 122/83; PULSE 85; TEMP 36.5; O2SAT 94
--- NOTE | 2016-08-07 13:41 | Gastroenterology Progress Note ---
Progress Note Date of Service: Aug 07, 2016 Subjective Pt evaluation today including: conversation w/ patient, physical exam, chart review, conversation w/ customer service consultant Still complains of poor appetite. No abdominal pain, fever, chills, nausea or vomiting. Medications Current Inpatient Medications Medications (Trade) Dose Ordered Sig/Graciela Route Start Time Stop Time Status Last Admin Dose Admin Carbidopa/Levodopa (Sinemet 25/ 100MG Tab) 1 tab TID PO 08/01/16 09:00 08/31/16 08:59 08/07/16 08:17 1 TAB Clopidogrel Bisulfate (plAVix TAB) 75 mg DAILY PO 08/01/16 09:00 08/31/16 08:59 08/07/16 08:18 75 MG Cyanocobalamin (Vitamin B-12 Tab) 500 mcg DAILY PO 08/01/16 09:00 08/31/16 08:59 08/07/16 08:17 500 MCG Fluticasone Propionate (Flonase Nasal [place]) 2 sprays DAILY RENE 08/01/16 09:00 08/31/16 08:59 08/07/16 08:16 2 SPRAYS Gabapentin (Neurontin Cap) 300 mg HS PO 08/01/16 21:00 08/31/16 20:59 08/06/16 21:44 300 MG Ranitidine HCl (zANTac TAB) 150 mg DAILY PO 08/01/16 09:00 08/31/16 08:59 08/07/16 08:19 150 MG Simvastatin (Zocor Tab) 20 mg QPM PO 08/01/16 21:00 08/31/16 20:59 08/06/16 21:52 20 MG Acetaminophen (Tylenol Tab) 650 mg Q4H PRN PO 07/31/16 21:45 08/30/16 21:44 Al Hydrox/Mg Hydrox/Simethicone (Maalox Max Susp) 15 ml Q4H PRN PO 07/31/16 21:45 08/30/16 21:44 Magnesium Hydroxide (Milk Of Magnesia Susp) 30 ml Q6H PRN PO 07/31/16 21:45 08/30/16 21:44 Polyethylene (Miralax Powder Packet) 17 gm DAILY PRN PO 07/31/16 22:15 08/30/16 22:14 Ondansetron HCl (Zofran Inj) 4 mg Q6H PRN IV 07/31/16 21:45 08/30/16 21:44 Pantoprazole Sodium (Protonix Tab) 40 mg BID PO 08/01/16 21:00 08/31/16 08:59 08/07/16 08:16 40 MG Magnesium Oxide (Mag-Ox Tab) 400 mg BID PO 08/02/16 09:00 09/01/16 08:59 08/07/16 08:18 400 MG Megestrol Acetate (Megace Susp) 400 mg QAM PO 08/03/16 09:00 09/02/16 08:59 08/07/16 08:18 400 MG Amlodipine Besylate (Norvasc Tab) 5 mg QAM PO 08/05/16 09:00 09/04/16 08:59 08/07/16 08:17 5 MG Thiamine HCl (Vitamin B-1 Tab) 100 mg QAM PO 08/05/16 09:00 09/04/16 08:59 08/07/16 08:17 100 MG Folic Acid 1 mg/ Syringe 10 ml @ 5 mls/min QAM IV 08/05/16 09:00 09/04/16 08:59 08/07/16 08:23 5 MLS/MIN Potassium Chloride/Dextrose/ Sod Cl 1,000 ml @ 100 mls/hr Q10H IV 08/05/16 11:30 09/04/16 11:29 08/07/16 13:17 100 MLS/HR Objective Vital Signs Date Time Temp Pulse Resp B/P (MAP) Pulse Ox O2 Delivery O2 Flow Rate FiO2 08/07/16 09:44 36.5 85 18 122/83 (96) 94 Room Air 08/07/16 08:00 97 Room Air 08/07/16 07:20 36.8 75 18 181/94 (123) 97 Room Air 08/07/16 00:00 Room Air 08/06/16 23:05 36.7 75 16 136/83 (100) 94 Room Air 08/06/16 20:00 Room Air 08/06/16 15:49 Room Air 08/06/16 15:10 36.8 80 16 109/ (36) 97 Room Air Physical Exam Respiratory/Chest: lungs clear Cardiovascular: regular rate, rhythm Abdomen: non tender, soft Assessment and Plan Impression: Patient is a 81 year old female with a history of Parkinson's as well as PUD admitted with continued decreased appetite, hyperlipasemia and chronic cholecystitis. Plan: NPO after midnight EGD in AM Continue Protonix and Zantac therapy
[2016-08-07 14:55] VITALS: BP 127/79; PULSE 83; TEMP 36.8; O2SAT 97
--- NOTE | 2016-08-07 16:18 | Progress Note ---
Subjective Date of Service: Aug 07, 2016. Subjective Pt evaluation today including: conversation w/ patient, physical exam, lab review, conversation w/ life skills consultant, review of inpatient medication list Pain: no pain PO Intake: poor Voiding: no voiding problems discussed plans of EGD and then possible lap shilo with patient she will discuss with daughter per specialist notes, plan for EGD tomorrow, surgery to discuss lap shilo with daughter as an option Problem List Medical Problems: (1) Dehydration Status: Acute (2) Nausea Status: Acute (3) Pancreatitis Status: Acute Review of Systems Constitutional: + fatigue Abdomen: + problem reported (anorexia) Neurologic: + weakness, + balance problems Psychiatric: + depression symptoms All Other Systems: Reviewed and Negative Medications Current Inpatient Medications Medications (Trade) Dose Ordered Sig/Graciela Route Start Time Stop Time Status Last Admin Dose Admin Carbidopa/Levodopa (Sinemet 25/ 100MG Tab) 1 tab TID PO 08/01/16 09:00 08/31/16 08:59 08/07/16 14:04 1 TAB Clopidogrel Bisulfate (plAVix TAB) 75 mg DAILY PO 08/01/16 09:00 08/31/16 08:59 08/07/16 08:18 75 MG Cyanocobalamin (Vitamin B-12 Tab) 500 mcg DAILY PO 08/01/16 09:00 08/31/16 08:59 08/07/16 08:17 500 MCG Fluticasone Propionate (Flonase Nasal [place]) 2 sprays DAILY RENE 08/01/16 09:00 08/31/16 08:59 08/07/16 08:16 2 SPRAYS Gabapentin (Neurontin Cap) 300 mg HS PO 08/01/16 21:00 08/31/16 20:59 08/06/16 21:44 300 MG Ranitidine HCl (zANTac TAB) 150 mg DAILY PO 08/01/16 09:00 08/31/16 08:59 08/07/16 08:19 150 MG Simvastatin (Zocor Tab) 20 mg QPM PO 08/01/16 21:00 08/31/16 20:59 08/06/16 21:52 20 MG Acetaminophen (Tylenol Tab) 650 mg Q4H PRN PO 07/31/16 21:45 08/30/16 21:44 Al Hydrox/Mg Hydrox/Simethicone (Maalox Max Susp) 15 ml Q4H PRN PO 07/31/16 21:45 08/30/16 21:44 Magnesium Hydroxide (Milk Of Magnesia Susp) 30 ml Q6H PRN PO 07/31/16 21:45 08/30/16 21:44 Polyethylene (Miralax Powder Packet) 17 gm DAILY PRN PO 07/31/16 22:15 08/30/16 22:14 Ondansetron HCl (Zofran Inj) 4 mg Q6H PRN IV 07/31/16 21:45 08/30/16 21:44 Pantoprazole Sodium (Protonix Tab) 40 mg BID PO 08/01/16 21:00 08/31/16 08:59 08/07/16 08:16 40 MG Magnesium Oxide (Mag-Ox Tab) 400 mg BID PO 08/02/16 09:00 09/01/16 08:59 08/07/16 08:18 400 MG Megestrol Acetate (Megace Susp) 400 mg QAM PO 08/03/16 09:00 09/02/16 08:59 08/07/16 08:18 400 MG Amlodipine Besylate (Norvasc Tab) 5 mg QAM PO 08/05/16 09:00 09/04/16 08:59 08/07/16 08:17 5 MG Thiamine HCl (Vitamin B-1 Tab) 100 mg QAM PO 08/05/16 09:00 09/04/16 08:59 08/07/16 08:17 100 MG Folic Acid 1 mg/ Syringe 10 ml @ 5 mls/min QAM IV 08/05/16 09:00 09/04/16 08:59 08/07/16 08:23 5 MLS/MIN Potassium Chloride/Dextrose/ Sod Cl 1,000 ml @ 100 mls/hr Q10H IV 08/05/16 11:30 09/04/16 11:29 08/07/16 13:17 100 MLS/HR Objective Vital Signs Date Time Temp Pulse Resp B/P (MAP) Pulse Ox O2 Delivery O2 Flow Rate FiO2 08/07/16 14:55 36.8 83 16 127/79 (95) 97 Room Air 08/07/16 09:44 36.5 85 18 122/83 (96) 94 Room Air 08/07/16 08:00 97 Room Air 08/07/16 07:20 36.8 75 18 181/94 (123) 97 Room Air 08/07/16 00:00 Room Air 08/06/16 23:05 36.7 75 16 136/83 (100) 94 Room Air 08/06/16 20:00 Room Air Physical Exam General Appearance: no apparent distress, + thin Eyes: normal inspection, EOMI, sclerae normal Neck: supple, no adenopathy, no JVD, trachea midline Respiratory/Chest: chest non-tender, lungs clear, normal breath sounds, no respiratory distress, no accessory muscle use Cardiovascular: regular rate, rhythm, no edema, no gallop, no JVD, no murmur Abdomen: normal bowel sounds, non tender, soft, no organomegaly Extremities: normal range of motion, non-tender, normal inspection, no pedal edema, no calf tenderness Neurologic/Psychiatric: blackjack supervisor 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, alert, normal mood/affect, oriented x 3, + motor weakness, + pertinent finding (lethargy) Skin: normal color, warm/dry, no rash Assessment and Plan 81 y/o F CAD, CVA, HTN, Parkinson's admitted on 07/31/2016 with a chief complaint of refusing to eat or drink, possible some minimal improvement - Anorexia, weight loss, intermittent vomiting HIDA yesterday, shows chronic cholecystitis, possibly the etiology of her symptoms will consult general surgery, will discuss with daughter about lap shlio GI plans for EGD tomorrow to r/o PUD disease US showed sludge and small stones in GB possible mild pancreatitis on admission, lipase trended down quickly with fluids, no abdominal pain - Hypokalemia: 3.1 yesterday, repeat labs tomorrow - Hypophosphatemia: 1.7 yesterday, repeat labs tomorrow - UTI: Keflex Parkinson's dz, continue Sinemet, and follow-up Acute kidney injury- likely due to dehydration, totally resolved Thrombocytopenia upon admission, stable hx of CAD - cont Plavix, Statin hx of HTN Cont Norvasc, Metoprolol Has ordered SCD for DVT prophylaxis plan for EGD tomorrow Continued [facility] stay due to: ambulation difficulties, multiple IV medications needed Discharge planning: [facility] facility
[2016-08-07] MEDS: GABAPENTIN 300 MG CAP PO SCH (20:57)
[2016-08-07] MEDS: SIMVASTATIN 20 MG TAB PO SCH (20:58)
[2016-08-07 23:18] VITALS: BP 151/77; PULSE 68; TEMP 36.6; O2SAT 96
[2016-08-08] VITALS (9 sets, daily range): BP systolic 120–164; BP diastolic 73–89; PULSE 61–93; TEMP 36.6–37.3; O2SAT 93–97
[2016-08-08] MEDS: PANTOprazole SOD 40 MG TAB PO SCH ×3 (08:24→20:22)
[2016-08-08] MEDS: THIAMINE HCL 100 MG TAB PO SCH ×2 (08:24→13:43)
[2016-08-08] MEDS: MAGNESIUM OXIDE 400 MG TAB PO SCH ×3 (08:24→20:22)
[2016-08-08] MEDS: CARBIDOPA/LEVODOPA 25/100MG TAB PO SCH ×4 (08:24→20:22)
[2016-08-08] MEDS: AMLODIPINE BESYLATE 5 MG TAB PO SCH ×2 (08:24→13:43)
[2016-08-08] MEDS: MEGESTROL ACETATE 400 MG/10 ML UDP PO SCH ×2 (08:24→13:42)
[2016-08-08] MEDS: CLOPIDOGREL BISULFATE 75 MG TAB PO SCH ×2 (08:24→13:43)
[2016-08-08] MEDS: FLUTICASONE PROPIONATE NA SPR 16 GM BTL NAE SCH ×2 (08:25→13:44)
[2016-08-08] MEDS: RANITIDINE HCL 150 MG TAB PO SCH ×2 (08:25→09:00)
[2016-08-08] MEDS: CYANOCOBALAMIN 500 MCG TAB (VIT B-12) PO SCH ×2 (08:25→13:42)
[2016-08-08] MEDS: FoLIC ACID INJ 1 MG in SYRINGE 9.8 ML IV SCH (08:43)
[2016-08-08] MEDS: D5W AND 1/2NSS + 20MEQ KCL 1,000 ML IV SCH ×2 (08:44→18:48)
[2016-08-08] MEDS ORDERED: LIDOCAINE HCL 2% 2 ML VIAL (20MG/ML) ONE (09:35)
[2016-08-08] MEDS ORDERED: PROPOFOL IV EMULSION 10 MG/ML 20 ML VIAL IV ONE (09:35)
--- NOTE | 2016-08-08 09:41 | Gastroenterology Progress Note ---
Progress Note Date of Service: Aug 08, 2016 Subjective Pt evaluation today including: conversation w/ patient, physical exam Still with poor appetite. No abdominal pain, nausea, vomiting or diarrhea. Medications Current Inpatient Medications Medications (Trade) Dose Ordered Sig/Graciela Route Start Time Stop Time Status Last Admin Dose Admin Carbidopa/Levodopa (Sinemet 25/ 100MG Tab) 1 tab TID PO 08/01/16 09:00 08/31/16 08:59 08/07/16 20:57 1 TAB Clopidogrel Bisulfate (plAVix TAB) 75 mg DAILY PO 08/01/16 09:00 08/31/16 08:59 08/07/16 08:18 75 MG Cyanocobalamin (Vitamin B-12 Tab) 500 mcg DAILY PO 08/01/16 09:00 08/31/16 08:59 08/07/16 08:17 500 MCG Fluticasone Propionate (Flonase Nasal [place]) 2 sprays DAILY RENE 08/01/16 09:00 08/31/16 08:59 08/07/16 08:16 2 SPRAYS Gabapentin (Neurontin Cap) 300 mg HS PO 08/01/16 21:00 08/31/16 20:59 08/07/16 20:57 300 MG Ranitidine HCl (zANTac TAB) 150 mg DAILY PO 08/01/16 09:00 08/31/16 08:59 08/07/16 08:19 150 MG Simvastatin (Zocor Tab) 20 mg QPM PO 08/01/16 21:00 08/31/16 20:59 08/07/16 20:58 20 MG Acetaminophen (Tylenol Tab) 650 mg Q4H PRN PO 07/31/16 21:45 08/30/16 21:44 Al Hydrox/Mg Hydrox/Simethicone (Maalox Max Susp) 15 ml Q4H PRN PO 07/31/16 21:45 08/30/16 21:44 Magnesium Hydroxide (Milk Of Magnesia Susp) 30 ml Q6H PRN PO 07/31/16 21:45 08/30/16 21:44 Polyethylene (Miralax Powder Packet) 17 gm DAILY PRN PO 07/31/16 22:15 08/30/16 22:14 Ondansetron HCl (Zofran Inj) 4 mg Q6H PRN IV 07/31/16 21:45 08/30/16 21:44 Pantoprazole Sodium (Protonix Tab) 40 mg BID PO 08/01/16 21:00 08/31/16 08:59 08/07/16 20:56 40 MG Magnesium Oxide (Mag-Ox Tab) 400 mg BID PO 08/02/16 09:00 09/01/16 08:59 08/07/16 20:56 400 MG Megestrol Acetate (Megace Susp) 400 mg QAM PO 08/03/16 09:00 09/02/16 08:59 08/07/16 08:18 400 MG Amlodipine Besylate (Norvasc Tab) 5 mg QAM PO 08/05/16 09:00 09/04/16 08:59 08/07/16 08:17 5 MG Thiamine HCl (Vitamin B-1 Tab) 100 mg QAM PO 08/05/16 09:00 09/04/16 08:59 08/07/16 08:17 100 MG Folic Acid 1 mg/ Syringe 10 ml @ 5 mls/min QAM IV 08/05/16 09:00 09/04/16 08:59 08/08/16 08:43 5 MLS/MIN Potassium Chloride/Dextrose/ Sod Cl 1,000 ml @ 100 mls/hr Q10H IV 08/05/16 11:30 09/04/16 11:29 08/08/16 08:44 100 MLS/HR Objective Vital Signs Date Time Temp Pulse Resp B/P (MAP) Pulse Ox O2 Delivery O2 Flow Rate FiO2 08/08/16 09:22 37.1 67 18 168/91 (116) 94 Room Air 08/08/16 08:58 36.8 85 18 150/89 (109) 93 Room Air 08/08/16 08:00 96 Room Air 08/08/16 07:16 37.2 83 18 152/84 (106) 96 08/08/16 05:31 36.8 85 16 150/89 93 Room Air 08/08/16 00:00 Room Air 08/07/16 23:18 36.6 68 14 151/77 (101) 96 Room Air 08/07/16 20:00 Room Air 08/07/16 16:30 Room Air 08/07/16 14:55 36.8 83 16 127/79 (95) 97 Room Air 08/07/16 09:44 36.5 85 18 122/83 (96) 94 Room Air Physical Exam General Appearance: no apparent distress Respiratory/Chest: lungs clear, normal breath sounds Cardiovascular: regular rate, rhythm Abdomen: non tender, soft Assessment and Plan Impression: Patient is a 81 year old female with a history of Parkinson's as well as PUD admitted with continued decreased appetite, hyperlipasemia and chronic cholecystitis. Plan: Proceed with EGD.
--- NOTE | 2016-08-08 10:00 | GI REPORT ---
Procedure Date: 08/08/2016 9:39 AM Procedure: Upper GI endoscopy Indications: Decreased appetite Medicines: Monitored Anesthesia Care Complications: No immediate complications. Estimated Blood Loss: Estimated blood loss: none. Procedure: Pre-Anesthesia Assessment: - Prior to the procedure, a History and Physical was performed, and patient medications and allergies were reviewed. The patient's tolerance of previous anesthesia was also reviewed. The risks and benefits of the procedure and the sedation options and risks were discussed with the patient. All questions were answered, and informed consent was obtained. Prior Anticoagulants: The patient has taken Plavix (clopidogrel), last dose was 1 day prior to procedure. ASA Grade Assessment: III - A patient with severe systemic disease. After reviewing the risks and benefits, the patient was deemed in satisfactory condition to undergo the procedure. After obtaining informed consent, the endoscope was passed under direct vision. Throughout the procedure, the patient's blood pressure, pulse, and oxygen saturations were monitored continuously. The On-site loaner was introduced through the mouth, and advanced to the second part of duodenum. The upper GI endoscopy was accomplished without difficulty. The patient tolerated the procedure well. Findings: The esophagus was normal. Localized mild inflammation characterized by erythema was found in the gastric antrum. Biopsies were taken with a cold forceps for histology. The examined duodenum was normal. Impression: - Normal esophagus. - Gastritis. Biopsied. - Normal examined duodenum. Recommendation: - Resume previous diet. - Continue present medications. - Await pathology results. - Return to GI clinic as previously scheduled. Dylan Mallory DO 08/08/2016 9:59:39 AM This report has been signed electronically. Note Initiated On: 08/08/2016 9:39 AM I attest to the content of the Intraoperative Record and orders documented therein, exceptions below
--- NOTE | 2016-08-08 10:42 | Anesthesiology Progress Note ---
Anesthesia Post Op Note Date & Time Aug 08, 2016 at 10:41 Vital Signs Pain Intensity: 0.0 Vital Signs Past 12 Hours Date Time Temp Pulse Resp B/P (MAP) Pulse Ox O2 Delivery O2 Flow Rate FiO2 08/08/16 10:25 58 18 148/84 (105) 100 Room Air 08/08/16 10:10 59 18 138/76 (96) 100 Room Air 08/08/16 09:56 56 18 121/66 (84) 94 Room Air 96 08/08/16 09:22 37.1 67 18 168/91 (116) 94 Room Air 08/08/16 08:58 36.8 85 18 150/89 (109) 93 Room Air 08/08/16 08:00 96 Room Air 08/08/16 07:16 37.2 83 18 152/84 (106) 96 08/08/16 05:31 36.8 85 16 150/89 93 Room Air 08/08/16 00:00 Room Air 08/07/16 23:18 36.6 68 14 151/77 (101) 96 Room Air Notes Mental Status: alert / awake / arousable, participated in evaluation Pt Amnestic to Procedure: Yes Nausea / Vomiting: adequately controlled Pain: adequately controlled Airway Patency, RR, SpO2: stable & adequate BP & HR: stable & adequate Hydration State: stable & adequate Anesthetic Complications: no major complications apparent
--- NOTE | 2016-08-08 10:57 | Surgery Progress Note ---
Surgery Progress Note Date of Service Aug 08, 2016. Subjective pt doing ok... egd today essentially negative. no changes clinically. Objective Vital Signs: Date Time Temp Pulse Resp B/P (MAP) Pulse Ox O2 Delivery O2 Flow Rate FiO2 08/08/16 10:40 36.6 73 16 164/73 (103) 94 Room Air 08/08/16 10:25 58 18 148/84 (105) 100 Room Air 08/08/16 10:10 59 18 138/76 (96) 100 Room Air 08/08/16 09:56 56 18 121/66 (84) 94 Room Air 96 08/08/16 09:22 37.1 67 18 168/91 (116) 94 Room Air 08/08/16 08:58 36.8 85 18 150/89 (109) 93 Room Air 08/08/16 08:00 96 Room Air 08/08/16 07:16 37.2 83 18 152/84 (106) 96 08/08/16 05:31 36.8 85 16 150/89 93 Room Air 08/08/16 00:00 Room Air 08/07/16 23:18 36.6 68 14 151/77 (101) 96 Room Air 08/07/16 20:00 Room Air 08/07/16 16:30 Room Air 08/07/16 14:55 36.8 83 16 127/79 (95) 97 Room Air General Appearance: no apparent distress Neck: supple, no JVD Respiratory/Chest: no respiratory distress, no accessory muscle use Abdomen: non tender, non distended, soft Extremities: non-tender, normal inspection Assessment & Plan 08/08/16 discussed option of lap shilo vs conservative tx again with her and her daughter as well as the Dr. Ferguson. no way of knowing if lap shilo will improve her symptoms. rediscussed risks ( bleeding/infection/dvt/pe/mi/injury to bile ducts /bowel etc...) daughter wants to talk to her siblings and then we will re-discuss regarding possible lap shilo tomorrow. questions answered.
--- NOTE | 2016-08-08 11:46 | Progress Note ---
Subjective Date of Service: Aug 08, 2016. Subjective Pt evaluation today including: conversation w/ patient, physical exam, review of studies, conversation w/ architecture consultant, review of inpatient medication list Pain: no pain PO Intake: clears, poor appetite Voiding: no voiding problems EGD today - normal discussed with Dr. Oscar, recommends indy lao, awaiting decision from daughter patient understands recommendation Problem List Medical Problems: (1) Dehydration Status: Acute (2) Nausea Status: Acute (3) Pancreatitis Status: Acute Review of Systems Constitutional: + weakness, + fatigue Abdomen: + problem reported (poor appetite) All Other Systems: Reviewed and Negative Medications Current Inpatient Medications Medications (Trade) Dose Ordered Sig/Graciela Route Start Time Stop Time Status Last Admin Dose Admin Carbidopa/Levodopa (Sinemet 25/ 100MG Tab) 1 tab TID PO 08/01/16 09:00 08/31/16 08:59 08/07/16 20:57 1 TAB Clopidogrel Bisulfate (plAVix TAB) 75 mg DAILY PO 08/01/16 09:00 08/31/16 08:59 08/07/16 08:18 75 MG Cyanocobalamin (Vitamin B-12 Tab) 500 mcg DAILY PO 08/01/16 09:00 08/31/16 08:59 08/07/16 08:17 500 MCG Fluticasone Propionate (Flonase Nasal [place]) 2 sprays DAILY RENE 08/01/16 09:00 08/31/16 08:59 08/07/16 08:16 2 SPRAYS Gabapentin (Neurontin Cap) 300 mg HS PO 08/01/16 21:00 08/31/16 20:59 08/07/16 20:57 300 MG Ranitidine HCl (zANTac TAB) 150 mg DAILY PO 08/01/16 09:00 08/31/16 08:59 08/07/16 08:19 150 MG Simvastatin (Zocor Tab) 20 mg QPM PO 08/01/16 21:00 08/31/16 20:59 08/07/16 20:58 20 MG Acetaminophen (Tylenol Tab) 650 mg Q4H PRN PO 07/31/16 21:45 08/30/16 21:44 Al Hydrox/Mg Hydrox/Simethicone (Maalox Max Susp) 15 ml Q4H PRN PO 07/31/16 21:45 08/30/16 21:44 Magnesium Hydroxide (Milk Of Magnesia Susp) 30 ml Q6H PRN PO 07/31/16 21:45 08/30/16 21:44 Polyethylene (Miralax Powder Packet) 17 gm DAILY PRN PO 07/31/16 22:15 08/30/16 22:14 Ondansetron HCl (Zofran Inj) 4 mg Q6H PRN IV 07/31/16 21:45 08/30/16 21:44 Pantoprazole Sodium (Protonix Tab) 40 mg BID PO 08/01/16 21:00 08/31/16 08:59 08/07/16 20:56 40 MG Magnesium Oxide (Mag-Ox Tab) 400 mg BID PO 08/02/16 09:00 09/01/16 08:59 08/07/16 20:56 400 MG Megestrol Acetate (Megace Susp) 400 mg QAM PO 08/03/16 09:00 09/02/16 08:59 08/07/16 08:18 400 MG Amlodipine Besylate (Norvasc Tab) 5 mg QAM PO 08/05/16 09:00 09/04/16 08:59 08/07/16 08:17 5 MG Thiamine HCl (Vitamin B-1 Tab) 100 mg QAM PO 08/05/16 09:00 09/04/16 08:59 08/07/16 08:17 100 MG Folic Acid 1 mg/ Syringe 10 ml @ 5 mls/min QAM IV 08/05/16 09:00 09/04/16 08:59 08/08/16 08:43 5 MLS/MIN Potassium Chloride/Dextrose/ Sod Cl 1,000 ml @ 100 mls/hr Q10H IV 08/05/16 11:30 09/04/16 11:29 08/08/16 08:44 100 MLS/HR Objective Vital Signs Date Time Temp Pulse Resp B/P (MAP) Pulse Ox O2 Delivery O2 Flow Rate FiO2 08/08/16 11:02 36.7 68 18 143/88 (106) 95 08/08/16 10:40 36.6 73 16 164/73 (103) 94 Room Air 08/08/16 10:25 58 18 148/84 (105) 100 Room Air 08/08/16 10:10 59 18 138/76 (96) 100 Room Air 08/08/16 09:56 56 18 121/66 (84) 94 Room Air 96 08/08/16 09:22 37.1 67 18 168/91 (116) 94 Room Air 08/08/16 08:58 36.8 85 18 150/89 (109) 93 Room Air 08/08/16 08:00 96 Room Air 08/08/16 07:16 37.2 83 18 152/84 (106) 96 08/08/16 05:31 36.8 85 16 150/89 93 Room Air 08/08/16 00:00 Room Air 08/07/16 23:18 36.6 68 14 151/77 (101) 96 Room Air 08/07/16 20:00 Room Air 08/07/16 16:30 Room Air 08/07/16 14:55 36.8 83 16 127/79 (95) 97 Room Air Physical Exam General Appearance: no apparent distress, + thin Eyes: normal inspection, EOMI, sclerae normal Respiratory/Chest: chest non-tender, lungs clear, normal breath sounds, no respiratory distress, no accessory muscle use Cardiovascular: regular rate, rhythm, no edema, no gallop, no JVD, no murmur Abdomen: normal bowel sounds, non tender, soft, no organomegaly Extremities: normal range of motion, non-tender, normal inspection, no pedal edema, no calf tenderness, pelvis stable Neurologic/Psychiatric: change number operator 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, no motor/sensory deficits, alert, normal mood/affect, oriented x 3 Skin: normal color, warm/dry, no rash Lymphatic: no adenopathy Assessment and Plan 81 y/o F CAD, CVA, HTN, Parkinson's admitted on 07/31/2016 with a chief complaint of refusing to eat or drink, possible some minimal improvement - Anorexia, weight loss, intermittent vomiting HIDA 08/06, showed chronic cholecystitis, possibly the etiology of her symptoms Dr. Oscar would like to go forward with lap shilo tomorrow if daughter of patient agrees, await a decision today EGD today, normal US showed sludge and small stones in GB possible mild pancreatitis on admission, lipase trended down quickly with fluids, no abdominal pain - Hypokalemia: check labs today - Hypophosphatemia: check labs today - UTI: Keflex Parkinson's dz, continue Sinemet, and follow-up Acute kidney injury- likely due to dehydration, totally resolved Thrombocytopenia upon admission, stable hx of CAD - cont Plavix, Statin hx of HTN Cont Norvasc, Metoprolol Has ordered SCD for DVT prophylaxis await decision on indy lao to go to [place] once medically stable for extra care, rehab Continued [facility] stay due to: ambulation difficulties, multiple IV medications needed Discharge planning: group home facility
[2016-08-08 14:09] LABS: BUN/CREATININE RATIO 2.7 (10-20); CREATININE 0.95 mg/dl (0.60-1.20); MAGNESIUM 2.4 mg/dl (1.8-2.4); PHOSPHORUS 2.3 mg/dl (2.5-4.9); POTASSIUM 3.9 mmol/L (3.5-5.1)
[2016-08-08] MEDS: GABAPENTIN 300 MG CAP PO SCH (20:21)
[2016-08-08] MEDS: SIMVASTATIN 20 MG TAB PO SCH (20:21)
[2016-08-09] VITALS (9 sets, daily range): BP systolic 122–157; BP diastolic 67–80; PULSE 59–69; TEMP 36.6–37.1; O2SAT 92–98
[2016-08-09] MEDS: D5W AND 1/2NSS + 20MEQ KCL 1,000 ML IV SCH ×2 (04:00→16:17)
[2016-08-09] MEDS ORDERED: CEFAZOLIN 1000MG/55 ML D5W 55 ML IV SCH (06:00)
[2016-08-09] MEDS ORDERED: FENTANYL CITRATE INJ 50 MCG/1 ML 2 ML VIAL ONE (07:12)
[2016-08-09] MEDS ORDERED: ONDANSETRON INJ 2 MG/ML 2 ML VIAL ONE (07:12)
[2016-08-09] MEDS ORDERED: NEOSTIGMINE METHYLSULFATE 5 MG/5 ML SYR ONE (07:12)
[2016-08-09] MEDS ORDERED: PROPOFOL IV EMULSION 10 MG/ML 20 ML VIAL IV ONE (07:12)
[2016-08-09] MEDS ORDERED: GLYCOPYRROLATE INJ 0.2 MG/ML VIAL ONE ×2 (07:12→07:15)
[2016-08-09] MEDS ORDERED: LIDOCAINE HCL 2% 2 ML VIAL (20MG/ML) ONE (07:12)
[2016-08-09] MEDS ORDERED: MIDAZOLAM HCL 1 MG/ML 2ML VIAL ONE (07:12)
[2016-08-09] MEDS ORDERED: DEXAMETHASONE SOD INJ 4 MG/ML VIAL ONE (07:12)
[2016-08-09] MEDS ORDERED: ROCURONIUM BROMIDE 10 MG/ML 5 ML VIAL ONE (07:12)
[2016-08-09] MEDS ORDERED: CEFAZOLIN SOD 1000MG/55 ML D5W IV ONE (07:59)
[2016-08-09] MEDS ORDERED: NURSING VERBAL MED ORDER ONE (08:00)
--- NOTE | 2016-08-09 08:05 | History & Physical Bridge Note ---
H&P Re-Evaluation Bridge Note: I have examined the patient, reviewed the History & Physical and in the interval since the performance of the History & Physical I have noted the following changes of clinical significance: pt decided to proceed with surgery. discussed again with her and her daughter. discussed risks of surgery ( bleeding /infection/dvt/pe/mi/injury to bile ducts or bowel etc...). questions answered. ok to proceed.
[2016-08-09] MEDS ORDERED: BUPIVACAINE/EPINEPHRINE 0.5% MPF 1:200,000 10 ML VIAL ONE (08:15)
[2016-08-09] MEDS ORDERED: PHENYLEPHRINE 100MCG/ML 5ML SYR ONE (08:31)
[2016-08-09] MEDS: FLUTICASONE PROPIONATE NA SPR 16 GM BTL NAE SCH ×2 (08:56→13:50)
[2016-08-09] MEDS: MEGESTROL ACETATE 400 MG/10 ML UDP PO SCH ×2 (08:56→13:50)
[2016-08-09] MEDS: MAGNESIUM OXIDE 400 MG TAB PO SCH ×3 (08:56→21:53)
[2016-08-09] MEDS: PANTOprazole SOD 40 MG TAB PO SCH ×3 (08:57→21:54)
[2016-08-09] MEDS: CARBIDOPA/LEVODOPA 25/100MG TAB PO SCH ×3 (08:57→21:54)
[2016-08-09] MEDS: FoLIC ACID INJ 1 MG in SYRINGE 9.8 ML IV SCH ×2 (08:57→13:51)
[2016-08-09] MEDS ORDERED: ATROPINE SULFATE 0.1 MG/ML 5ML SYR IV PRN (10:00)
[2016-08-09] MEDS ORDERED: ACETAMINOPHEN 325 MG TAB PO SCH (10:00)
[2016-08-09] MEDS ORDERED: EpHEDrine SULFATE INJ 50 MG/ML AMP IV PRN (10:00)
[2016-08-09] MEDS ORDERED: ACETAMINOPHEN IV 650 MG in EMPTY BAG 0 ML IV PRN (10:00)
[2016-08-09] MEDS ORDERED: ONDANSETRON INJ 2 MG/ML 2 ML VIAL IV PRN ×2 (10:00→10:30)
[2016-08-09] MEDS ORDERED: MULTIVITAMIN TAB PO PRN (10:00)
[2016-08-09] MEDS ORDERED: PHENYLEPHRINE 100MCG/ML 5ML SYR IV PRN (10:00)
[2016-08-09] MEDS ORDERED: HYDROCODONE/ACETAMOPHEN 5/325MG TAB PO PRN (10:00)
[2016-08-09] MEDS ORDERED: HYDROmorphone INJ 2 MG/ML SYR/VIAL IV PRN (10:00)
--- NOTE | 2016-08-09 10:08 | Medical Student: [facility] ---
Immediate Operative Summary Operative Date Aug 09, 2016. Pre-Operative Diagnosis Chronic Cholecystitis Post-Operative Diagnosis Chronic Cholecystitis Procedure(s) Performed Laproscopic cholecysectomy Surgeon Dr. Oscar Supervisor Color Making Surgeon(s) Doris Shane Estimated Blood Loss 15cc Findings Chronic cholecystitis, small hiatal hernia, incidental rib fracture finding Fluids (cc crystalloids) 400mL Specimens Gallbladder Drains none Anesthesia general Complication(s) None Disposition Recovery Room / PACU
--- NOTE | 2016-08-09 10:11 | [facility] Operative Report ---
Operative Report Operative Date Aug 09, 2016. Pre-Operative Diagnosis symptomatic gallstones Post-Operative Diagnosis symptomatic gallstones; small hiatal hernia Procedure(s) Performed indy womacke Surgeon Dr. Oscar Project/Production Manager Imaging Surgeon(s) El Shane PA-C Estimated Blood Loss 15 cc Findings small hiatal hernia; ? fracture rib on right cage. floppy gallbladder without acute inflammation Specimens A: gallbladder Complication(s) None Disposition Recovery Room / PACU Description of Procedure After informed consent was obtained the patient was taken to the operating suite placed in a supine position. After successful intubation the abdomen was sterilely prepped and draped in usual fashion. A periumbilical incision was made with an 11 blade scalpel and carried down through the soft tissue using electrocautery. The anterior rectus fascia was opened using the electrocautery and 2 #0 Vicryl stay sutures were placed. Peritoneum was entered using blunt finger penetration and a finger sweep was performed. A 12 mm Amaro trocar was placed and the abdomen was insufflated to 18 mmHg. Laparoscope was inserted the abdomen was examined 360. There was an abnormal appearance to the right rib cage. One of the ribs appeared to be possibly fractured with an abnormal angulation. The gallbladder itself was rather floppy with no acute inflammation. We did look under the left lobe of the liver and there was a small hiatal hernia. We placed a subxiphoid 5 mm port and 2 midabdominal 5 mm ports under direct vision. Eventually we would have to place a left midabdominal trocar as well. The gallbladder was grasped and elevated superiorly and laterally. Again it was quite floppy. Because of this I added an extra trocar to help with tension and retraction. Eventually I was able skeletonize the neck of the gallbladder down to the cystic duct. The cystic duct was clipped twice proximal and once distally and transected. We were able to identify the cystic artery and clipped and divided it as well. There is also a small lateral branch that we clipped and cut as well. The gallbladder was then removed from the gallbladder fossa using electrocautery. It was removed intact and placed into an Endo Catch bag. A final look around the abdomen showed no other abnormalities. Several small bleeding points on the gallbladder fossa were controlled using electrocautery. Thorough irrigation was performed. At the end of the procedure there was adequate hemostasis and no evidence of any bile leaks. The gallbladder was removed from the camera port site. All trochars were removed and the abdomen was desufflated. The fascia camera port was closed using 0 Vicryl in a [id number] fashion. All wounds were irrigated and closed using 4-0 Monocryl. After percent Marcaine was injected around for postoperative analgesia and skin were used as a dressing. The patient was awake and extubated and transferred to recovery in stable condition. I attest to the content of the Intraoperative Record and any orders documented therein. Any exceptions are noted below.
--- NOTE | 2016-08-09 11:07 | Anesthesiology Progress Note ---
Anesthesia Post Op Note Date & Time Aug 09, 2016 at 11:07 Vital Signs Pain Intensity: 0 Vital Signs Past 12 Hours Date Time Temp Pulse Resp B/P (MAP) Pulse Ox O2 Delivery O2 Flow Rate FiO2 08/09/16 10:53 67 25 08/09/16 10:53 67 25 99 08/09/16 10:51 155/76 08/09/16 10:48 69 16 100 08/09/16 10:48 69 16 08/09/16 10:46 157/81 08/09/16 10:43 71 16 100 08/09/16 10:43 71 16 08/09/16 10:42 69 19 100 08/09/16 10:42 69 19 08/09/16 10:41 158/84 08/09/16 10:37 74 16 08/09/16 10:37 74 16 100 08/09/16 10:36 157/85 08/09/16 10:32 85 13 100 08/09/16 10:32 85 13 08/09/16 10:31 150/87 08/09/16 10:27 80 16 08/09/16 10:27 82 16 100 08/09/16 10:26 153/89 08/09/16 10:25 82 16 08/09/16 10:25 81 16 100 08/09/16 10:21 151/89 08/09/16 10:20 83 16 100 08/09/16 10:20 84 16 08/09/16 10:16 155/90 08/09/16 10:15 84 26 08/09/16 10:15 84 26 99 08/09/16 10:11 144/83 08/09/16 10:10 84 24 08/09/16 10:10 36.4 82 24 144/83 99 T-piece 50 08/09/16 10:10 84 24 99 08/09/16 07:33 37.1 67 16 128/73 (91) 96 Room Air 08/09/16 07:33 96 Room Air 08/09/16 00:00 Room Air 08/08/16 23:30 36.7 72 16 147/84 (105) 97 Room Air Notes Mental Status: alert / awake / arousable, participated in evaluation Pt Amnestic to Procedure: Yes Nausea / Vomiting: adequately controlled Pain: adequately controlled Airway Patency, RR, SpO2: stable & adequate BP & HR: stable & adequate Hydration State: stable & adequate Anesthetic Complications: no major complications apparent
[2016-08-09] MEDS: THIAMINE HCL 100 MG TAB PO SCH (13:50)
[2016-08-09] MEDS: AMLODIPINE BESYLATE 5 MG TAB PO SCH (13:50)
[2016-08-09] MEDS: CLOPIDOGREL BISULFATE 75 MG TAB PO SCH (13:51)
[2016-08-09] MEDS: CYANOCOBALAMIN 500 MCG TAB (VIT B-12) PO SCH (13:51)
[2016-08-09] MEDS: RANITIDINE HCL 150 MG TAB PO SCH (13:51)
--- NOTE | 2016-08-09 14:04 | Progress Note ---
Subjective Date of Service: Aug 09, 2016. Subjective Pt evaluation today including: conversation w/ patient, conversation w/ family (daughter at the [facility]), physical exam, conversation w/ compensation consultant, review of inpatient medication list Pain: no pain PO Intake: clears Voiding: no voiding problems patient tolerated lap shilo today, floppy gall bladder, no signs of acute inflammation tired afterwards daughter asked about Sinemet contributing to GI symptoms discussed case with Dr. Del Rosario (neurology) and he doubted that Sinemet would lead to the anorexia, weight loss Problem List Medical Problems: (1) Dehydration Status: Acute (2) Nausea Status: Acute (3) Pancreatitis Status: Acute Review of Systems Constitutional: + weakness, + fatigue Abdomen: + pain All Other Systems: Reviewed and Negative Medications Current Inpatient Medications Medications (Trade) Dose Ordered Sig/Graciela Route Start Time Stop Time Status Last Admin Dose Admin Carbidopa/Levodopa (Sinemet 25/ 100MG Tab) 1 tab TID PO 08/01/16 09:00 08/31/16 08:59 08/08/16 20:22 1 TAB Clopidogrel Bisulfate (plAVix TAB) 75 mg DAILY PO 08/01/16 09:00 08/31/16 08:59 08/08/16 13:43 75 MG Cyanocobalamin (Vitamin B-12 Tab) 500 mcg DAILY PO 08/01/16 09:00 08/31/16 08:59 08/08/16 13:42 500 MCG Fluticasone Propionate (Flonase Nasal [place]) 2 sprays DAILY RENE 08/01/16 09:00 08/31/16 08:59 08/08/16 13:44 2 SPRAYS Gabapentin (Neurontin Cap) 300 mg HS PO 08/01/16 21:00 08/31/16 20:59 08/08/16 20:21 300 MG Ranitidine HCl (zANTac TAB) 150 mg DAILY PO 08/01/16 09:00 08/31/16 08:59 08/07/16 08:19 150 MG Simvastatin (Zocor Tab) 20 mg QPM PO 08/01/16 21:00 08/31/16 20:59 08/08/16 20:21 20 MG Al Hydrox/Mg Hydrox/Simethicone (Maalox Max Susp) 15 ml Q4H PRN PO 07/31/16 21:45 08/30/16 21:44 Magnesium Hydroxide (Milk Of Magnesia Susp) 30 ml Q6H PRN PO 07/31/16 21:45 08/30/16 21:44 Polyethylene (Miralax Powder Packet) 17 gm DAILY PRN PO 07/31/16 22:15 08/30/16 22:14 Pantoprazole Sodium (Protonix Tab) 40 mg BID PO 08/01/16 21:00 08/31/16 08:59 08/08/16 20:22 40 MG Magnesium Oxide (Mag-Ox Tab) 400 mg BID PO 08/02/16 09:00 09/01/16 08:59 08/08/16 20:22 400 MG Megestrol Acetate (Megace Susp) 400 mg QAM PO 08/03/16 09:00 09/02/16 08:59 08/08/16 13:42 400 MG Amlodipine Besylate (Norvasc Tab) 5 mg QAM PO 08/05/16 09:00 09/04/16 08:59 08/08/16 13:43 5 MG Thiamine HCl (Vitamin B-1 Tab) 100 mg QAM PO 08/05/16 09:00 09/04/16 08:59 08/08/16 13:43 100 MG Folic Acid 1 mg/ Syringe 10 ml @ 5 mls/min QAM IV 08/05/16 09:00 09/04/16 08:59 08/08/16 08:43 5 MLS/MIN Potassium Chloride/Dextrose/ Sod Cl 1,000 ml @ 100 mls/hr Q10H IV 08/05/16 11:30 09/04/16 11:29 08/09/16 04:00 100 MLS/HR Cefazolin Sodium 55 ml @ 110 mls/hr PREOP IV 08/09/16 06:00 08/09/16 14:00 Hydromorphone HCl (Dilaudid Inj) 0.5 mg Q5M PRN IV 08/09/16 10:00 08/09/16 15:00 Ondansetron HCl (Zofran Inj) 4 mg ONE PRN IV 08/09/16 10:00 08/09/16 15:00 Ephedrine Sulfate (EpHEDrine SULFATE INJ) 5 mg Q5M PRN IV 08/09/16 10:00 08/09/16 15:00 Atropine Sulfate (Atropine Sulfate 0.1MG/Ml Inj) 0.5 mg Q1M PRN IV 08/09/16 10:00 08/09/16 15:00 Phenylephrine HCl (Reynaldo-Synephrine 500MCG/5ML Syr) 100 mcg Q5M PRN IV 08/09/16 10:00 08/09/16 15:00 Acetaminophen 650 mg/Empty Bag 65 ml @ 260 mls/hr Q6H PRN IV 08/09/16 10:00 09/08/16 09:59 Acetaminophen/ Hydrocodone Bitart ([place] 5/325 Tab) 1 tab Q4H PRN PO 08/09/16 10:00 08/23/16 09:59 Multivitamins (Multivitamin Tab) 1 tab DAILY PRN PO 08/09/16 10:00 09/08/16 09:59 Potassium Chloride (Klor-Con Tab) 20 meq BID PO 08/09/16 21:00 09/08/16 20:59 Ondansetron HCl (Zofran Inj) 4 mg Q6H PRN IV 08/09/16 10:30 09/08/16 10:29 Objective Vital Signs Date Time Temp Pulse Resp B/P (MAP) Pulse Ox O2 Delivery O2 Flow Rate FiO2 08/09/16 13:03 36.7 64 16 148/77 (100) 93 Room Air 08/09/16 12:15 36.6 60 18 154/75 (101) 92 Room Air 08/09/16 12:00 36.6 63 18 154/75 (101) 93 Oxymask 2.0 08/09/16 11:45 36.6 59 18 157/78 (104) 98 Oxymask 2.0 08/09/16 11:17 62 15 98 08/09/16 11:17 62 15 08/09/16 11:16 145/74 08/09/16 11:15 36.4 08/09/16 11:12 64 19 08/09/16 11:12 64 19 99 08/09/16 11:11 152/79 08/09/16 11:07 60 20 08/09/16 11:07 60 20 99 08/09/16 11:06 152/73 08/09/16 11:04 68 16 08/09/16 11:04 68 16 98 08/09/16 11:01 151/79 08/09/16 10:59 66 16 98 08/09/16 10:59 65 16 08/09/16 10:56 153/76 08/09/16 10:54 64 18 08/09/16 10:54 64 18 99 08/09/16 10:53 67 25 08/09/16 10:53 67 25 99 08/09/16 10:51 155/76 08/09/16 10:48 69 16 100 08/09/16 10:48 69 16 08/09/16 10:46 157/81 08/09/16 10:43 71 16 100 08/09/16 10:43 71 16 08/09/16 10:42 69 19 100 08/09/16 10:42 69 19 08/09/16 10:41 158/84 08/09/16 10:37 74 16 08/09/16 10:37 74 16 100 08/09/16 10:36 157/85 08/09/16 10:32 85 13 100 08/09/16 10:32 85 13 08/09/16 10:31 150/87 08/09/16 10:27 80 16 08/09/16 10:27 82 16 100 08/09/16 10:26 153/89 08/09/16 10:25 82 16 08/09/16 10:25 81 16 100 08/09/16 10:21 151/89 08/09/16 10:20 83 16 100 08/09/16 10:20 84 16 08/09/16 10:16 155/90 08/09/16 10:15 84 26 08/09/16 10:15 84 26 99 08/09/16 10:11 144/83 08/09/16 10:10 84 24 08/09/16 10:10 36.4 82 24 144/83 99 T-piece 50 08/09/16 10:10 84 24 99 08/09/16 07:33 37.1 67 16 128/73 (91) 96 Room Air 08/09/16 07:33 96 Room Air 08/09/16 00:00 Room Air 08/08/16 23:30 36.7 72 16 147/84 (105) 97 Room Air 08/08/16 16:00 95 Room Air 08/08/16 15:53 37.3 93 18 120/78 (92) 94 Room Air Physical Exam General Appearance: no apparent distress, + thin Neck: supple, no adenopathy, no JVD, trachea midline Respiratory/Chest: chest non-tender, lungs clear, normal breath sounds, no respiratory distress, no accessory muscle use Cardiovascular: regular rate, rhythm, no edema, no gallop, no JVD, no murmur Abdomen: normal bowel sounds, soft, no organomegaly, + tenderness (surgical incision sites) Extremities: normal range of motion, non-tender, normal inspection, no pedal edema, no calf tenderness, pelvis stable Neurologic/Psychiatric: investments manager 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, no motor/sensory deficits, alert, normal mood/affect, oriented x 3 Skin: normal color, warm/dry, no rash Assessment and Plan 81 y/o F CAD, CVA, HTN, Parkinson's admitted on 07/31/2016 with a chief complaint of refusing to eat or drink, possible some minimal improvement - Anorexia, weight loss, intermittent vomiting HIDA 08/06, showed chronic cholecystitis, possibly the etiology of her symptoms lap shilo on 08/09, tolerated well, no complications, no signs of acute inflammation of gall bladder on inspection EGD 08/08, normal US showed sludge and small stones in GB possible mild pancreatitis on admission, lipase trended down quickly with fluids, no abdominal pain - Hypokalemia: resolved - Hypophosphatemia: resolved - UTI: Keflex Parkinson's dz, continue Sinemet discussed with Dr. Del Rosario over the phone, Sinemet can cause nausea, but her weight loss/anorexia was present prior to initiation doubt it would be causing all of her symptoms Acute kidney injury- likely due to dehydration, totally resolved Thrombocytopenia upon admission, stable hx of CAD - cont Plavix, Statin hx of HTN Cont Norvasc, Metoprolol Has ordered SCD for DVT prophylaxis recover from Lap shilo, to [place] once cleared by surgery Continued [facility] stay due to: ambulation difficulties, multiple IV medications needed Discharge planning: care home facility
[2016-08-09] MEDS: GABAPENTIN 300 MG CAP PO SCH (21:53)
[2016-08-09] MEDS: POTASSIUM CHLORIDE 20 MEQ TABCR PO SCH (21:53)
[2016-08-09] MEDS: SIMVASTATIN 20 MG TAB PO SCH (21:54)
[2016-08-10] MEDS: D5W AND 1/2NSS + 20MEQ KCL 1,000 ML IV SCH ×2 (01:38→15:22)
[2016-08-10 07:16] VITALS: BP 127/72; PULSE 80; TEMP 37; O2SAT 95
--- NOTE | 2016-08-10 07:37 | Surgery Progress Note ---
Surgery Progress Note Date of Service Aug 10, 2016. Subjective Post OP Day: 1 + feeling well, + pain controlled, + nausea (some this AM), + diet (clears) Objective Vital Signs: Date Time Temp Pulse Resp B/P (MAP) Pulse Ox O2 Delivery O2 Flow Rate FiO2 08/10/16 07:16 37.0 80 17 127/72 (90) 95 Room Air 08/10/16 00:00 Room Air 08/09/16 23:26 37.0 68 18 132/73 (92) 94 Room Air 08/09/16 16:03 36.8 68 16 122/67 (85) 93 Room Air 08/09/16 16:00 94 Room Air 08/09/16 14:01 36.7 69 18 153/80 (104) 94 Room Air 08/09/16 13:03 36.7 64 16 148/77 (100) 93 Room Air 08/09/16 12:15 36.6 60 18 154/75 (101) 92 Room Air 08/09/16 12:00 36.6 63 18 154/75 (101) 93 Oxymask 2.0 08/09/16 11:45 36.6 59 18 157/78 (104) 98 Oxymask 2.0 08/09/16 11:17 62 15 98 08/09/16 11:17 62 15 08/09/16 11:16 145/74 08/09/16 11:15 36.4 08/09/16 11:12 64 19 08/09/16 11:12 64 19 99 08/09/16 11:11 152/79 08/09/16 11:07 60 20 08/09/16 11:07 60 20 99 08/09/16 11:06 152/73 08/09/16 11:04 68 16 08/09/16 11:04 68 16 98 08/09/16 11:01 151/79 08/09/16 10:59 66 16 98 08/09/16 10:59 65 16 08/09/16 10:56 153/76 08/09/16 10:54 64 18 08/09/16 10:54 64 18 99 08/09/16 10:53 67 25 08/09/16 10:53 67 25 99 08/09/16 10:51 155/76 08/09/16 10:48 69 16 100 08/09/16 10:48 69 16 08/09/16 10:46 157/81 08/09/16 10:43 71 16 100 08/09/16 10:43 71 16 08/09/16 10:42 69 19 100 08/09/16 10:42 69 19 08/09/16 10:41 158/84 08/09/16 10:37 74 16 08/09/16 10:37 74 16 100 08/09/16 10:36 157/85 08/09/16 10:32 85 13 100 08/09/16 10:32 85 13 08/09/16 10:31 150/87 08/09/16 10:27 80 16 08/09/16 10:27 82 16 100 08/09/16 10:26 153/89 08/09/16 10:25 82 16 08/09/16 10:25 81 16 100 08/09/16 10:21 151/89 08/09/16 10:20 83 16 100 08/09/16 10:20 84 16 08/09/16 10:16 155/90 08/09/16 10:15 84 26 08/09/16 10:15 84 26 99 08/09/16 10:11 144/83 08/09/16 10:10 84 24 08/09/16 10:10 36.4 82 24 144/83 99 T-piece 50 08/09/16 10:10 84 24 99 Abdomen: non tender, non distended, soft Assessment & Plan s/p lap shilo stable post op, advance diet as rashad may need to stay another day or two IV decreased to 50 cc/hr seen with Dr. Oscar
--- NOTE | 2016-08-10 07:37 | Surgery Progress Note ---
Surgery Progress Note Date of Service Aug 10, 2016. Subjective Post OP Day: 1 + feeling well looks great pod #1. denies pain . smiling. no complaints. Objective Vital Signs: Date Time Temp Pulse Resp B/P (MAP) Pulse Ox O2 Delivery O2 Flow Rate FiO2 08/10/16 07:16 37.0 80 17 127/72 (90) 95 Room Air 08/10/16 00:00 Room Air 08/09/16 23:26 37.0 68 18 132/73 (92) 94 Room Air 08/09/16 16:03 36.8 68 16 122/67 (85) 93 Room Air 08/09/16 16:00 94 Room Air 08/09/16 14:01 36.7 69 18 153/80 (104) 94 Room Air 08/09/16 13:03 36.7 64 16 148/77 (100) 93 Room Air 08/09/16 12:15 36.6 60 18 154/75 (101) 92 Room Air 08/09/16 12:00 36.6 63 18 154/75 (101) 93 Oxymask 2.0 08/09/16 11:45 36.6 59 18 157/78 (104) 98 Oxymask 2.0 08/09/16 11:17 62 15 98 08/09/16 11:17 62 15 08/09/16 11:16 145/74 08/09/16 11:15 36.4 08/09/16 11:12 64 19 08/09/16 11:12 64 19 99 08/09/16 11:11 152/79 08/09/16 11:07 60 20 08/09/16 11:07 60 20 99 08/09/16 11:06 152/73 08/09/16 11:04 68 16 08/09/16 11:04 68 16 98 08/09/16 11:01 151/79 08/09/16 10:59 66 16 98 08/09/16 10:59 65 16 08/09/16 10:56 153/76 08/09/16 10:54 64 18 08/09/16 10:54 64 18 99 08/09/16 10:53 67 25 08/09/16 10:53 67 25 99 08/09/16 10:51 155/76 08/09/16 10:48 69 16 100 08/09/16 10:48 69 16 08/09/16 10:46 157/81 08/09/16 10:43 71 16 100 08/09/16 10:43 71 16 08/09/16 10:42 69 19 100 08/09/16 10:42 69 19 08/09/16 10:41 158/84 08/09/16 10:37 74 16 08/09/16 10:37 74 16 100 08/09/16 10:36 157/85 08/09/16 10:32 85 13 100 08/09/16 10:32 85 13 08/09/16 10:31 150/87 08/09/16 10:27 80 16 08/09/16 10:27 82 16 100 08/09/16 10:26 153/89 08/09/16 10:25 82 16 08/09/16 10:25 81 16 100 08/09/16 10:21 151/89 08/09/16 10:20 83 16 100 08/09/16 10:20 84 16 08/09/16 10:16 155/90 08/09/16 10:15 84 26 08/09/16 10:15 84 26 99 08/09/16 10:11 144/83 08/09/16 10:10 84 24 08/09/16 10:10 36.4 82 24 144/83 99 T-piece 50 08/09/16 10:10 84 24 99 General Appearance: no apparent distress Respiratory/Chest: no respiratory distress, no accessory muscle use Abdomen: non distended, soft Incision(s): clean, dry, intact Assessment & Plan 08/10/16 Doing well. will advance diet today and see how she does ok for d/c when ok with primary service. Dr. Yu covering for weekend. 08/08/16 discussed option of lap shilo vs conservative tx again with her and her daughter as well as the Dr. Ferguson. no way of knowing if lap shilo will improve her symptoms. rediscussed risks ( bleeding/infection/dvt/pe/mi/injury to bile ducts /bowel etc...) daughter wants to talk to her siblings and then we will re-discuss regarding possible lap shilo tomorrow. questions answered. 08/08/16 discussed option of lap shilo vs conservative tx again with her and her daughter as well as the Dr. Ferguson. no way of knowing if lap shilo will improve her symptoms. rediscussed risks ( bleeding/infection/dvt/pe/mi/injury to bile ducts /bowel etc...) daughter wants to talk to her siblings and then we will re-discuss regarding possible lap shilo tomorrow. questions answered.
[2016-08-10 07:45] VITALS: O2SAT 95
[2016-08-10] MEDS: PANTOprazole SOD 40 MG TAB PO SCH ×2 (07:56→21:31)
[2016-08-10] MEDS: FLUTICASONE PROPIONATE NA SPR 16 GM BTL NAE SCH (07:56)
[2016-08-10] MEDS: RANITIDINE HCL 150 MG TAB PO SCH (07:56)
[2016-08-10] MEDS: CYANOCOBALAMIN 500 MCG TAB (VIT B-12) PO SCH (07:57)
[2016-08-10] MEDS: CARBIDOPA/LEVODOPA 25/100MG TAB PO SCH ×3 (07:57→21:31)
[2016-08-10] MEDS: MEGESTROL ACETATE 400 MG/10 ML UDP PO SCH (07:57)
[2016-08-10] MEDS: POTASSIUM CHLORIDE 20 MEQ TABCR PO SCH ×2 (07:57→21:31)
[2016-08-10] MEDS: MAGNESIUM OXIDE 400 MG TAB PO SCH ×2 (07:57→21:31)
[2016-08-10] MEDS: CLOPIDOGREL BISULFATE 75 MG TAB PO SCH (07:57)
[2016-08-10] MEDS: AMLODIPINE BESYLATE 5 MG TAB PO SCH (07:57)
[2016-08-10] MEDS: THIAMINE HCL 100 MG TAB PO SCH (08:01)
--- NOTE | 2016-08-10 10:12 | Progress Note ---
Subjective Date of Service: Aug 10, 2016. Subjective Pt evaluation today including: conversation w/ patient, physical exam, lab review, conversation w/ client insights consultant, review of inpatient medication list Pain: mild RUQ pain after surgery PO Intake: tolerating clears Voiding: no voiding problems patient resting in bed, just finished with OT, they said she is weaker compared to before surgery minimal pain, episode of nausea and vomiting last night but none this AM discussed plan to recover from surgery, to rehab early next week relayed details of my conversation with Dr. Del Rosario, doubtful that Sinemet causing symptoms denies chest pain, shortness of breath Problem List Medical Problems: (1) Dehydration Status: Acute (2) Nausea Status: Acute (3) Pancreatitis Status: Acute Review of Systems Abdomen: + pain, + nausea, + vomiting Neurologic: + memory loss, + weakness, + balance problems All Other Systems: Reviewed and Negative Medications Current Inpatient Medications Medications (Trade) Dose Ordered Sig/Graciela Route Start Time Stop Time Status Last Admin Dose Admin Carbidopa/Levodopa (Sinemet 25/ 100MG Tab) 1 tab TID PO 08/01/16 09:00 08/31/16 08:59 08/10/16 07:57 1 TAB Clopidogrel Bisulfate (plAVix TAB) 75 mg DAILY PO 08/01/16 09:00 08/31/16 08:59 08/10/16 07:57 75 MG Cyanocobalamin (Vitamin B-12 Tab) 500 mcg DAILY PO 08/01/16 09:00 08/31/16 08:59 08/10/16 07:57 500 MCG Fluticasone Propionate (Flonase Nasal [place]) 2 sprays DAILY RENE 08/01/16 09:00 08/31/16 08:59 08/10/16 07:56 2 SPRAYS Gabapentin (Neurontin Cap) 300 mg HS PO 08/01/16 21:00 08/31/16 20:59 08/09/16 21:53 300 MG Ranitidine HCl (zANTac TAB) 150 mg DAILY PO 08/01/16 09:00 08/31/16 08:59 08/10/16 07:56 150 MG Simvastatin (Zocor Tab) 20 mg QPM PO 08/01/16 21:00 08/31/16 20:59 08/09/16 21:54 20 MG Al Hydrox/Mg Hydrox/Simethicone (Maalox Max Susp) 15 ml Q4H PRN PO 07/31/16 21:45 08/30/16 21:44 Magnesium Hydroxide (Milk Of Magnesia Susp) 30 ml Q6H PRN PO 07/31/16 21:45 08/30/16 21:44 Polyethylene (Miralax Powder Packet) 17 gm DAILY PRN PO 07/31/16 22:15 08/30/16 22:14 Pantoprazole Sodium (Protonix Tab) 40 mg BID PO 08/01/16 21:00 08/31/16 08:59 08/10/16 07:56 40 MG Magnesium Oxide (Mag-Ox Tab) 400 mg BID PO 08/02/16 09:00 09/01/16 08:59 08/10/16 07:57 400 MG Megestrol Acetate (Megace Susp) 400 mg QAM PO 08/03/16 09:00 09/02/16 08:59 08/10/16 07:57 400 MG Amlodipine Besylate (Norvasc Tab) 5 mg QAM PO 08/05/16 09:00 09/04/16 08:59 08/10/16 07:57 5 MG Thiamine HCl (Vitamin B-1 Tab) 100 mg QAM PO 08/05/16 09:00 09/04/16 08:59 08/10/16 08:01 100 MG Folic Acid 1 mg/ Syringe 10 ml @ 5 mls/min QAM IV 08/05/16 09:00 09/04/16 08:59 08/09/16 13:51 5 MLS/MIN Potassium Chloride/Dextrose/ Sod Cl 1,000 ml @ 50 mls/hr Q20H IV 08/05/16 11:30 09/04/16 11:29 08/10/16 01:38 100 MLS/HR Acetaminophen 650 mg/Empty Bag 65 ml @ 260 mls/hr Q6H PRN IV 08/09/16 10:00 09/08/16 09:59 Acetaminophen/ Hydrocodone Bitart ([place] 5/325 Tab) 1 tab Q4H PRN PO 08/09/16 10:00 08/23/16 09:59 08/09/16 13:55 1 TAB Multivitamins (Multivitamin Tab) 1 tab DAILY PRN PO 08/09/16 10:00 09/08/16 09:59 Potassium Chloride (Klor-Con Tab) 20 meq BID PO 08/09/16 21:00 09/08/16 20:59 08/10/16 07:57 20 MEQ Ondansetron HCl (Zofran Inj) 4 mg Q6H PRN IV 08/09/16 10:30 09/08/16 10:29 08/09/16 22:40 4 MG Objective Vital Signs Date Time Temp Pulse Resp B/P (MAP) Pulse Ox O2 Delivery O2 Flow Rate FiO2 08/10/16 07:45 95 Room Air 08/10/16 07:16 37.0 80 17 127/72 (90) 95 Room Air 08/10/16 00:00 Room Air 08/09/16 23:26 37.0 68 18 132/73 (92) 94 Room Air 08/09/16 16:03 36.8 68 16 122/67 (85) 93 Room Air 08/09/16 16:00 94 Room Air 08/09/16 14:01 36.7 69 18 153/80 (104) 94 Room Air 08/09/16 13:03 36.7 64 16 148/77 (100) 93 Room Air 08/09/16 12:15 36.6 60 18 154/75 (101) 92 Room Air 08/09/16 12:00 36.6 63 18 154/75 (101) 93 Oxymask 2.0 08/09/16 11:45 36.6 59 18 157/78 (104) 98 Oxymask 2.0 08/09/16 11:17 62 15 98 08/09/16 11:17 62 15 08/09/16 11:16 145/74 08/09/16 11:15 36.4 08/09/16 11:12 64 19 08/09/16 11:12 64 19 99 08/09/16 11:11 152/79 08/09/16 11:07 60 20 08/09/16 11:07 60 20 99 08/09/16 11:06 152/73 08/09/16 11:04 68 16 08/09/16 11:04 68 16 98 08/09/16 11:01 151/79 08/09/16 10:59 66 16 98 08/09/16 10:59 65 16 08/09/16 10:56 153/76 08/09/16 10:54 64 18 08/09/16 10:54 64 18 99 08/09/16 10:53 67 25 08/09/16 10:53 67 25 99 08/09/16 10:51 155/76 08/09/16 10:48 69 16 100 08/09/16 10:48 69 16 08/09/16 10:46 157/81 08/09/16 10:43 71 16 100 08/09/16 10:43 71 16 08/09/16 10:42 69 19 100 08/09/16 10:42 69 19 08/09/16 10:41 158/84 08/09/16 10:37 74 16 08/09/16 10:37 74 16 100 08/09/16 10:36 157/85 08/09/16 10:32 85 13 100 08/09/16 10:32 85 13 08/09/16 10:31 150/87 08/09/16 10:27 80 16 08/09/16 10:27 82 16 100 08/09/16 10:26 153/89 08/09/16 10:25 82 16 08/09/16 10:25 81 16 100 08/09/16 10:21 151/89 08/09/16 10:20 83 16 100 08/09/16 10:20 84 16 08/09/16 10:16 155/90 08/09/16 10:15 84 26 08/09/16 10:15 84 26 99 08/09/16 10:11 144/83 08/09/16 10:10 84 24 08/09/16 10:10 36.4 82 24 144/83 99 T-piece 50 08/09/16 10:10 84 24 99 Physical Exam General Appearance: no apparent distress, + thin Neck: supple, no adenopathy, no JVD, no carotid bruits Respiratory/Chest: chest non-tender, lungs clear, normal breath sounds, no respiratory distress, no accessory muscle use Cardiovascular: regular rate, rhythm, no edema, no gallop, no JVD, no murmur Abdomen: normal bowel sounds, soft, no organomegaly, + tenderness (RUQ, no rebound or rigidity) Extremities: normal range of motion, non-tender, normal inspection, no pedal edema, no calf tenderness 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, alert, normal mood/affect, oriented x 3, + motor weakness (generalized) Skin: normal color, warm/dry, no rash Assessment and Plan 81 y/o F CAD, CVA, HTN, Parkinson's admitted on 07/31/2016 with a chief complaint of refusing to eat or drink, possible some minimal improvement - Anorexia, weight loss, intermittent vomiting HIDA 08/06, showed chronic cholecystitis, possibly the etiology of her symptoms lap shilo on 08/09, tolerated well, no complications, no signs of acute inflammation of gall bladder on inspection tolerating clears, + bowel sounds, + flatus, no BM EGD 08/08, normal US showed sludge and small stones in GB possible mild pancreatitis on admission, lipase trended down quickly with fluids, no abdominal pain - Hypokalemia: resolved, check labs tomorrow AM - Hypophosphatemia: resolving, check labs tomorrow AM - UTI: Keflex, treatment completed Parkinson's dz, continue Sinemet discussed with Dr. Del Rosario over the phone on 08/09, Sinemet can cause nausea, but her weight loss/anorexia was present prior to initiation doubt it would be causing all of her symptoms Acute kidney injury- likely due to dehydration, totally resolved Thrombocytopenia upon admission, stable hx of CAD - cont Plavix, Statin hx of HTN Cont Norvasc, Metoprolol Has ordered SCD for DVT prophylaxis recover from Lap shilo, to [place] once cleared by surgery, will be here over the weekend Continued [facility] stay due to: ambulation difficulties, multiple IV medications needed Discharge planning: halfway facility
[2016-08-10 16:00] VITALS: O2SAT 95
[2016-08-10 16:19] VITALS: BP 143/86; PULSE 81; TEMP 36.9; O2SAT 92
[2016-08-10] MEDS: GABAPENTIN 300 MG CAP PO SCH (21:31)
[2016-08-10] MEDS: SIMVASTATIN 20 MG TAB PO SCH (21:32)
[2016-08-10 23:10] VITALS: BP 147/77; PULSE 76; TEMP 36.8; O2SAT 94
[2016-08-11] VITALS: O2SAT 95
[2016-08-11 06:52] LABS: HEMATOCRIT 30.4 % (37-47); MEAN CELL VOLUME 89.7 fL (80-100); MEAN CORPUSCULAR HEMOGLOBIN 31.3 pg (25-34); MEAN CORPUSCULAR HGB CONC 34.9 g/dl (32-36); RED BLOOD COUNT 3.39 M/uL (4.2-5.4); WHITE BLOOD COUNT 7.03 K/uL (4.8-10.8)
[2016-08-11 07:15] LABS: MEAN PLATELET VOLUME 10.6 fL (7.4-10.4); PLATELET COUNT 97 K/uL (130-400)
[2016-08-11 07:32] LABS: BUN/CREATININE RATIO 9.1 (10-20); CALCIUM 9.1 mg/dl (8.5-10.1); MAGNESIUM 2.3 mg/dl (1.8-2.4); PHOSPHORUS 2.5 mg/dl (2.5-4.9); POTASSIUM 4.8 mmol/L (3.5-5.1)
[2016-08-11 07:33] LABS: COMPLETE YES; ECHINOCYTES 1+; EOS % 1.4 %; IG% 0.1 %; LYMPH % 14.7 %; LYMPH ABS # 1.03 K/uL (1.2-3.4); MONO % 14.4 %; NEUT % 69.4 %
[2016-08-11 08:02] VITALS: BP 152/75; PULSE 67; TEMP 36.7; O2SAT 96
[2016-08-11] MEDS: MAGNESIUM HYDROXIDE SUSP 30 ML UDC PO PRN (08:36)
[2016-08-11] MEDS: D5W AND 1/2NSS + 20MEQ KCL 1,000 ML IV SCH (08:36)
[2016-08-11] MEDS: FLUTICASONE PROPIONATE NA SPR 16 GM BTL NAE SCH (08:37)
[2016-08-11] MEDS: POTASSIUM CHLORIDE 20 MEQ TABCR PO SCH ×2 (08:37→21:38)
[2016-08-11] MEDS: PANTOprazole SOD 40 MG TAB PO SCH ×2 (08:38→21:37)
[2016-08-11] MEDS: CARBIDOPA/LEVODOPA 25/100MG TAB PO SCH ×3 (08:38→21:37)
[2016-08-11] MEDS: CLOPIDOGREL BISULFATE 75 MG TAB PO SCH (08:39)
[2016-08-11] MEDS: CYANOCOBALAMIN 500 MCG TAB (VIT B-12) PO SCH (08:39)
[2016-08-11] MEDS: AMLODIPINE BESYLATE 5 MG TAB PO SCH (08:39)
[2016-08-11] MEDS: MAGNESIUM OXIDE 400 MG TAB PO SCH ×2 (08:40→21:37)
[2016-08-11] MEDS: MEGESTROL ACETATE 400 MG/10 ML UDP PO SCH (08:40)
[2016-08-11] MEDS: RANITIDINE HCL 150 MG TAB PO SCH (08:41)
[2016-08-11] MEDS: THIAMINE HCL 100 MG TAB PO SCH (08:41)
--- NOTE | 2016-08-11 10:23 | Surgery Progress Note ---
Surgery Progress Note Date of Service Aug 11, 2016. Subjective Post OP Day: 2 + pain controlled, + diet (Toleerating soft diet, appetite not returned as yet) , No bowel movement, No flatus, No nausea, No vomiting Incisional discomfort only Feels weak today Objective Vital Signs: Date Time Temp Pulse Resp B/P (MAP) Pulse Ox O2 Delivery O2 Flow Rate FiO2 08/11/16 08:02 36.7 67 16 152/75 (100) 96 Room Air 08/11/16 08:00 Room Air 08/11/16 00:00 95 Room Air 08/10/16 23:10 36.8 76 18 147/77 (100) 94 Room Air 08/10/16 16:19 36.9 81 16 143/86 (105) 92 Room Air 08/10/16 16:00 95 Room Air Laboratory Results: Results Past 24 Hours Test 08/11/16 06:32 Range/Units White Blood Count 7.03 4.8-10.8 K/uL Red Blood Count 3.39 4.2-5.4 M/uL Hemoglobin 10.6 12.0-16.0 g/dL Hematocrit 30.4 37-47 % Mean Corpuscular Volume 89.7 80-100 fL Mean Corpuscular Hemoglobin 31.3 25-34 pg Mean Corpuscular Hemoglobin Concent 34.9 32-36 g/dl Platelet Count 97 130-400 K/uL Mean Platelet Volume 10.6 7.4-10.4 fL Neutrophils (%) (Auto) 69.4 % Lymphocytes (%) (Auto) 14.7 % Monocytes (%) (Auto) 14.4 % Eosinophils (%) (Auto) 1.4 % Basophils (%) (Auto) 0.0 % Neutrophils # (Auto) 4.88 1.4-6.5 K/uL Lymphocytes # (Auto) 1.03 1.2-3.4 K/uL Monocytes # (Auto) 1.01 0.11-0.59 K/uL Eosinophils # (Auto) 0.10 0-0.5 K/uL Basophils # (Auto) 0.00 0-0.2 K/uL RDW Standard Deviation 46.0 36.4-46.3 fL RDW Coefficient of Variation 13.9 11.5-14.5 % Immature Granulocyte % (Auto) 0.1 % Immature Granulocyte # (Auto) 0.01 0.00-0.02 K/uL Echinocytes 1+ Sodium Level 138 136-145 mmol/L Potassium Level 4.8 3.5-5.1 mmol/L Chloride Level 105 98-107 mmol/L Carbon Dioxide Level 28 21-32 mmol/L Anion Gap 5.0 3-11 mmol/L Blood Urea Nitrogen 9 7-18 mg/dl Creatinine 1.00 0.60-1.20 mg/dl Est Creatinine Clear Calc Drug Dose 28.7 ml/min Estimated GFR () 60.8 Estimated GFR (Non- 52.4 BUN/Creatinine Ratio 9.1 10-20 Random Glucose 92 70-99 mg/dl Calcium Level 9.1 8.5-10.1 mg/dl Phosphorus Level 2.5 2.5-4.9 mg/dl Magnesium Level 2.3 1.8-2.4 mg/dl Assessment & Plan S/P lap shilo Stable Cathartics were ordered Increase activity.
--- NOTE | 2016-08-11 12:03 | Progress Note ---
Subjective Date of Service: Aug 11, 2016. Subjective Pt evaluation today including: conversation w/ patient, physical exam, lab review, conversation w/ technical services consultant, review of inpatient medication list Pain: mild soreness at incision sites, no severe pain PO Intake: poor appetite, no nausea Voiding: no voiding problems patient sleeping, woke easily just says that she is tired, no appetite, minimal pain, no nausea belching but no flatus or BM she was not eating much prior to surgery so likely not going to have a BM for some time Problem List Medical Problems: (1) Dehydration Status: Acute (2) Nausea Status: Acute (3) Pancreatitis Status: Acute Review of Systems Constitutional: + weakness, + fatigue Abdomen: + problem reported (no appetite) Neurologic: + weakness, + balance problems All Other Systems: Reviewed and Negative Medications Current Inpatient Medications Medications (Trade) Dose Ordered Sig/Graciela Route Start Time Stop Time Status Last Admin Dose Admin Carbidopa/Levodopa (Sinemet 25/ 100MG Tab) 1 tab TID PO 08/01/16 09:00 08/31/16 08:59 08/11/16 08:38 1 TAB Clopidogrel Bisulfate (plAVix TAB) 75 mg DAILY PO 08/01/16 09:00 08/31/16 08:59 08/11/16 08:39 75 MG Cyanocobalamin (Vitamin B-12 Tab) 500 mcg DAILY PO 08/01/16 09:00 08/31/16 08:59 08/11/16 08:39 500 MCG Fluticasone Propionate (Flonase Nasal [place]) 2 sprays DAILY RENE 08/01/16 09:00 08/31/16 08:59 08/11/16 08:37 2 SPRAYS Gabapentin (Neurontin Cap) 300 mg HS PO 08/01/16 21:00 08/31/16 20:59 08/10/16 21:31 300 MG Ranitidine HCl (zANTac TAB) 150 mg DAILY PO 08/01/16 09:00 08/31/16 08:59 08/11/16 08:41 150 MG Simvastatin (Zocor Tab) 20 mg QPM PO 08/01/16 21:00 08/31/16 20:59 08/10/16 21:32 20 MG Al Hydrox/Mg Hydrox/Simethicone (Maalox Max Susp) 15 ml Q4H PRN PO 07/31/16:45 08/30/16 21:44 Magnesium Hydroxide (Milk Of Magnesia Susp) 30 ml Q6H PRN PO 07/31/16 21:45 08/30/16 21:44 08/11/16 08:36 30 ML Polyethylene (Miralax Powder Packet) 17 gm DAILY PRN PO 07/31/16 22:15 08/30/16 22:14 08/11/16 08:43 17 GM Pantoprazole Sodium (Protonix Tab) 40 mg BID PO 08/01/16 21:00 08/31/16 08:59 08/11/16 08:38 40 MG Magnesium Oxide (Mag-Ox Tab) 400 mg BID PO 08/02/16 09:00 09/01/16 08:59 08/11/16 08:40 400 MG Megestrol Acetate (Megace Susp) 400 mg QAM PO 08/03/16 09:00 09/02/16 08:59 08/11/16 08:40 400 MG Amlodipine Besylate (Norvasc Tab) 5 mg QAM PO 08/05/16 09:00 09/04/16 08:59 08/11/16 08:39 5 MG Thiamine HCl (Vitamin B-1 Tab) 100 mg QAM PO 08/05/16 09:00 09/04/16 08:59 08/11/16 08:41 100 MG Potassium Chloride/Dextrose/ Sod Cl 1,000 ml @ 50 mls/hr Q20H IV 08/05/16 11:30 09/04/16 11:29 08/11/16 08:36 50 MLS/HR Acetaminophen 650 mg/Empty Bag 65 ml @ 260 mls/hr Q6H PRN IV 08/09/16 10:00 09/08/16 09:59 Acetaminophen/ Hydrocodone Bitart ([place] 5/325 Tab) 1 tab Q4H PRN PO 08/09/16 10:00 08/23/16 09:59 08/09/16 13:55 1 TAB Multivitamins (Multivitamin Tab) 1 tab DAILY PRN PO 08/09/16 10:00 09/08/16 09:59 Potassium Chloride (Klor-Con Tab) 20 meq BID PO 08/09/16 21:00 09/08/16 20:59 08/11/16 08:37 20 MEQ Ondansetron HCl (Zofran Inj) 4 mg Q6H PRN IV 08/09/16 10:30 09/08/16 10:29 08/09/16 22:40 4 MG Objective Vital Signs Date Time Temp Pulse Resp B/P (MAP) Pulse Ox O2 Delivery O2 Flow Rate FiO2 08/11/16 08:02 36.7 67 16 152/75 (100) 96 Room Air 08/11/16 08:00 Room Air 08/11/16 00:00 95 Room Air 08/10/16 23:10 36.8 76 18 147/77 (100) 94 Room Air 08/10/16 16:19 36.9 81 16 143/86 (105) 92 Room Air 08/10/16 16:00 95 Room Air Physical Exam General Appearance: no apparent distress, + thin Eyes: normal inspection, EOMI, sclerae normal ENT: normal ENT inspection, hearing grossly normal, pharynx normal Neck: supple, no adenopathy, no JVD, trachea midline Respiratory/Chest: chest non-tender, lungs clear, normal breath sounds, no respiratory distress, no accessory muscle use Cardiovascular: regular rate, rhythm, no edema, no gallop, no JVD, no murmur Abdomen: normal bowel sounds, soft, no organomegaly, + tenderness (mild around incision sites) Extremities: normal range of motion, non-tender, normal inspection, no pedal edema, no calf tenderness, pelvis stable 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, alert, normal mood/affect, oriented x 3, + motor weakness (generalized) Skin: normal color, warm/dry, no rash Laboratory Results Last 24 Hours Test 08/11/16 06:32 White Blood Count 7.03 K/uL Red Blood Count 3.39 M/uL Hemoglobin 10.6 g/dL Hematocrit 30.4 % Mean Corpuscular Volume 89.7 fL Mean Corpuscular Hemoglobin 31.3 pg Mean Corpuscular Hemoglobin Concent 34.9 g/dl Platelet Count 97 K/uL Mean Platelet Volume 10.6 fL Neutrophils (%) (Auto) 69.4 % Lymphocytes (%) (Auto) 14.7 % Monocytes (%) (Auto) 14.4 % Eosinophils (%) (Auto) 1.4 % Basophils (%) (Auto) 0.0 % Neutrophils # (Auto) 4.88 K/uL Lymphocytes # (Auto) 1.03 K/uL Monocytes # (Auto) 1.01 K/uL Eosinophils # (Auto) 0.10 K/uL Basophils # (Auto) 0.00 K/uL RDW Standard Deviation 46.0 fL RDW Coefficient of Variation 13.9 % Immature Granulocyte % (Auto) 0.1 % Immature Granulocyte # (Auto) 0.01 K/uL Echinocytes 1+ Sodium Level 138 mmol/L Potassium Level 4.8 mmol/L Chloride Level 105 mmol/L Carbon Dioxide Level 28 mmol/L Anion Gap 5.0 mmol/L Blood Urea Nitrogen 9 mg/dl Creatinine 1.00 mg/dl Est Creatinine Clear Calc Drug Dose 28.7 ml/min Estimated GFR () 60.8 Estimated GFR (Non- 52.4 BUN/Creatinine Ratio 9.1 Random Glucose 92 mg/dl Calcium Level 9.1 mg/dl Phosphorus Level 2.5 mg/dl Magnesium Level 2.3 mg/dl Assessment and Plan 81 y/o F CAD, CVA, HTN, Parkinson's admitted on 07/31/2016 with a chief complaint of refusing to eat or drink, possible some minimal improvement - Anorexia, weight loss, intermittent vomiting HIDA 08/06, showed chronic cholecystitis, possibly the etiology of her symptoms lap shilo on 08/09, tolerated well, no complications, no signs of acute inflammation of gall bladder on inspection tolerating clears, + bowel sounds, + flatus, no BM EGD 08/08, normal US showed sludge and small stones in GB possible mild pancreatitis on admission, lipase trended down quickly with fluids, no abdominal pain - Hypokalemia: resolved, labs today show that K is still normal - Hypophosphatemia: resolved, labs today show Phos is normal - UTI: Keflex, treatment completed Parkinson's dz, continue Sinemet discussed with Dr. Del Rosario over the phone on 08/09, Sinemet can cause nausea, but her weight loss/anorexia was present prior to initiation doubt it would be causing all of her symptoms Acute kidney injury- likely due to dehydration, totally resolved Thrombocytopenia upon admission, stable hx of CAD - cont Plavix, Statin hx of HTN Cont Norvasc, Metoprolol Has ordered SCD for DVT prophylaxis recover from Lap shilo, to [place] once cleared by surgery, will be here over the weekend Continued [facility] stay due to: ambulation difficulties, multiple IV medications needed Discharge planning: detention facility
[2016-08-11 15:29] VITALS: BP 133/77; PULSE 78; TEMP 37; O2SAT 96
[2016-08-11] MEDS: SIMVASTATIN 20 MG TAB PO SCH (21:39)
[2016-08-11] MEDS: GABAPENTIN 300 MG CAP PO SCH (21:39)
[2016-08-12] VITALS: O2SAT 95
[2016-08-12] MEDS: D5W AND 1/2NSS + 20MEQ KCL 1,000 ML IV SCH (04:57)
[2016-08-12 07:27] VITALS: BP 139/77; PULSE 71; TEMP 37; O2SAT 96
[2016-08-12] MEDS: CLOPIDOGREL BISULFATE 75 MG TAB PO SCH (08:37)
[2016-08-12] MEDS: CYANOCOBALAMIN 500 MCG TAB (VIT B-12) PO SCH (08:37)
[2016-08-12] MEDS: FLUTICASONE PROPIONATE NA SPR 16 GM BTL NAE SCH (08:37)
[2016-08-12] MEDS: MAGNESIUM HYDROXIDE SUSP 30 ML UDC PO PRN (08:37)
[2016-08-12] MEDS: AMLODIPINE BESYLATE 5 MG TAB PO SCH (08:37)
[2016-08-12] MEDS: RANITIDINE HCL 150 MG TAB PO SCH (08:38)
[2016-08-12] MEDS: THIAMINE HCL 100 MG TAB PO SCH (08:38)
[2016-08-12] MEDS: CARBIDOPA/LEVODOPA 25/100MG TAB PO SCH ×3 (08:38→20:58)
[2016-08-12] MEDS: MAGNESIUM OXIDE 400 MG TAB PO SCH ×2 (08:39→20:58)
[2016-08-12] MEDS: PANTOprazole SOD 40 MG TAB PO SCH ×2 (08:39→20:58)
[2016-08-12] MEDS: MEGESTROL ACETATE 400 MG/10 ML UDP PO SCH (08:40)
[2016-08-12] MEDS: POTASSIUM CHLORIDE 20 MEQ TABCR PO SCH ×2 (08:40→20:57)
--- NOTE | 2016-08-12 11:42 | Surgery Progress Note ---
Surgery Progress Note Date of Service Aug 12, 2016. Subjective Post OP Day: 3 + diet (tolerated lear liquids), No nausea, No vomiting Mild incisional discomfort Objective Vital Signs: Date Time Temp Pulse Resp B/P (MAP) Pulse Ox O2 Delivery O2 Flow Rate FiO2 08/12/16 08:00 Room Air 08/12/16 07:27 37.0 71 16 139/77 (97) 96 Room Air 08/12/16 00:00 95 Room Air 08/11/16 16:00 Room Air 08/11/16 15:29 37.0 78 16 133/77 (95) 96 Room Air Abdomen: normal bowel sounds, non tender, non distended, soft Incision(s): clean, dry, intact Assessment & Plan S/P lap shilo Stable Had bm Advance diet
[2016-08-12] MEDS ORDERED: NURSING VERBAL MED ORDER ONE (13:15)
--- NOTE | 2016-08-12 13:58 | Progress Note ---
Subjective Date of Service: Aug 12, 2016. Subjective Pt evaluation today including: conversation w/ patient, physical exam, review of inpatient medication list Pain: no pain PO Intake: improving slowly Voiding: no voiding problems patient eating a little more today, no nausea or vomiting, + flatus, no BM appreciate nutrition note, will add Boost Breeze plan to try for Bipin tomorrow, patient agrees Problem List Medical Problems: (1) Dehydration Status: Acute (2) Nausea Status: Acute (3) Pancreatitis Status: Acute Review of Systems Constitutional: + weakness, + fatigue Abdomen: + problem reported (poor appetite, chronic, no change yeat after choleycstectomy) All Other Systems: Reviewed and Negative Medications Current Inpatient Medications Medications (Trade) Dose Ordered Sig/Graciela Route Start Time Stop Time Status Last Admin Dose Admin Carbidopa/Levodopa (Sinemet 25/ 100MG Tab) 1 tab TID PO 08/01/16 09:00 08/31/16 08:59 08/12/16 13:08 1 TAB Clopidogrel Bisulfate (plAVix TAB) 75 mg DAILY PO 08/01/16 09:00 08/31/16 08:59 08/12/16 08:37 75 MG Cyanocobalamin (Vitamin B-12 Tab) 500 mcg DAILY PO 08/01/16 09:00 08/31/16 08:59 08/12/16 08:37 500 MCG Fluticasone Propionate (Flonase Nasal [place]) 2 sprays DAILY RENE 08/01/16 09:00 08/31/16 08:59 08/12/16 08:37 2 SPRAYS Gabapentin (Neurontin Cap) 300 mg HS PO 08/01/16 21:00 08/31/16 20:59 08/11/16 21:39 300 MG Ranitidine HCl (zANTac TAB) 150 mg DAILY PO 08/01/16 09:00 08/31/16 08:59 08/12/16 08:38 150 MG Simvastatin (Zocor Tab) 20 mg QPM PO 08/01/16 21:00 08/31/16 20:59 08/11/16 21:39 20 MG Al Hydrox/Mg Hydrox/Simethicone (Maalox Max Susp) 15 ml Q4H PRN PO 07/31/16 21:45 08/30/16 21:44 Magnesium Hydroxide (Milk Of Magnesia Susp) 30 ml Q6H PRN PO 07/31/16 21:45 08/30/16 21:44 08/12/16 08:37 30 ML Polyethylene (Miralax Powder Packet) 17 gm DAILY PRN PO 07/31/16 22:15 08/30/16 22:14 08/11/16 08:43 17 GM Pantoprazole Sodium (Protonix Tab) 40 mg BID PO 08/01/16 21:00 08/31/16 08:59 08/12/16 08:39 40 MG Magnesium Oxide (Mag-Ox Tab) 400 mg BID PO 08/02/16 09:00 09/01/16 08:59 08/12/16 08:39 400 MG Megestrol Acetate (Megace Susp) 400 mg QAM PO 08/03/16 09:00 09/02/16 08:59 08/12/16 08:40 400 MG Amlodipine Besylate (Norvasc Tab) 5 mg QAM PO 08/05/16 09:00 09/04/16 08:59 08/12/16 08:37 5 MG Thiamine HCl (Vitamin B-1 Tab) 100 mg QAM PO 08/05/16 09:00 09/04/16 08:59 08/12/16 08:38 100 MG Acetaminophen 650 mg/Empty Bag 65 ml @ 260 mls/hr Q6H PRN IV 08/09/16 10:00 09/08/16 09:59 Acetaminophen/ Hydrocodone Bitart ([place] 5/325 Tab) 1 tab Q4H PRN PO 08/09/16 10:00 08/23/16 09:59 08/09/16 13:55 1 TAB Multivitamins (Multivitamin Tab) 1 tab DAILY PRN PO 08/09/16 10:00 09/08/16 09:59 Potassium Chloride (Klor-Con Tab) 20 meq BID PO 08/09/16 21:00 09/08/16 20:59 08/12/16 08:40 20 MEQ Ondansetron HCl (Zofran Inj) 4 mg Q6H PRN IV 08/09/16 10:30 09/08/16 10:29 08/09/16 22:40 4 MG Objective Vital Signs Date Time Temp Pulse Resp B/P (MAP) Pulse Ox O2 Delivery O2 Flow Rate FiO2 08/12/16 08:00 Room Air 7/2/17 07:27 37.0 71 16 139/77 (97) 96 Room Air 08/12/16 00:00 95 Room Air 08/11/16 16:00 Room Air 08/11/16 15:29 37.0 78 16 133/77 (95) 96 Room Air Physical Exam General Appearance: no apparent distress, + thin Eyes: normal inspection, EOMI, sclerae normal ENT: normal ENT inspection, hearing grossly normal, pharynx normal Neck: supple, no adenopathy, no JVD, trachea midline Respiratory/Chest: chest non-tender, lungs clear, normal breath sounds, no respiratory distress, no accessory muscle use Cardiovascular: regular rate, rhythm, no edema, no gallop, no JVD, no murmur Abdomen: normal bowel sounds, non tender, soft, no organomegaly Extremities: normal range of motion, non-tender, normal inspection, no pedal edema, no calf tenderness, pelvis stable 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, alert, normal mood/affect, oriented x 3, + motor weakness Skin: normal color, warm/dry, no rash Assessment and Plan 81 y/o F CAD, CVA, HTN, Parkinson's admitted on 07/31/2016 with a chief complaint of refusing to eat or drink, possible some minimal improvement - Anorexia, weight loss, intermittent vomiting HIDA 08/06, showed chronic cholecystitis, possibly the etiology of her symptoms lap shilo on 08/09, tolerated well, no complications, no signs of acute inflammation of gall bladder on inspection tolerating regular consistency foods, appetite still sub-optimal, + bowel sounds, + flatus, no BM Boost breeze added, can continue this TID with meals on discharge EGD 08/08, normal - Hypokalemia: resolved - Hypophosphatemia: resolved - UTI: Keflex, treatment completed Parkinson's dz, continue Sinemet discussed with Dr. Del Rosario over the phone on 08/09, Sinemet can cause nausea, but her weight loss/anorexia was present prior to initiation doubt it would be causing all of her symptoms Acute kidney injury- likely due to dehydration, totally resolved Thrombocytopenia upon admission, stable hx of CAD - cont Plavix, Statin hx of HTN Cont Norvasc, Metoprolol Has ordered SCD for DVT prophylaxis anticipate d/c to [facility] tomorrow as long as there is a bed and insurance authorized, CM knows to apply for auth Continued [facility] stay due to: ambulation difficulties, multiple IV medications needed Discharge planning: jail facility
[2016-08-12 15:47] VITALS: BP 149/87; PULSE 80; TEMP 36.7; O2SAT 98
[2016-08-12] MEDS: SIMVASTATIN 20 MG TAB PO SCH (20:58)
[2016-08-12] MEDS: GABAPENTIN 300 MG CAP PO SCH (20:58)
--- NOTE | 2016-08-13 07:26 | Surgery Progress Note ---
Surgery Progress Note Date of Service Aug 13, 2016. Subjective Post OP Day: 4 + feeling well, + bowel movement, + flatus, + pain controlled, No complaints, No nausea, No vomiting Patient sitting up in bed- reports that she is doing well, is able to ambulate with walker. Tolerated regular diet yesterday. Objective Vital Signs: Date Time Temp Pulse Resp B/P (MAP) Pulse Ox O2 Delivery O2 Flow Rate FiO2 08/13/16 00:00 Room Air 08/12/16 20:00 Room Air 08/12/16 15:47 36.7 80 16 149/87 (107) 98 Room Air 08/12/16 08:00 Room Air 08/12/16 07:27 37.0 71 16 139/77 (97) 96 Room Air General Appearance: WD/WN, no apparent distress Abdomen: normal bowel sounds, non tender, non distended, soft Incision(s): clean, dry, intact Assessment & Plan POD #4- s/p Lap Cholecystectomy Pain is controlled, tolerating regular diet. Spoke with nurse- patient to be discharged to [place], still awaiting insurance authorization to go through- may not be discharged until after holiday , will await update. 08/13/16- I examined the pt and she is doing well from her surgery d/c when bed available
[2016-08-13 07:46] VITALS: BP 148/80; PULSE 70; TEMP 37.2; O2SAT 97
[2016-08-13] MEDS: AMLODIPINE BESYLATE 5 MG TAB PO SCH (09:00)
[2016-08-13] MEDS: MAGNESIUM OXIDE 400 MG TAB PO SCH ×2 (09:01→21:06)
[2016-08-13] MEDS: PANTOprazole SOD 40 MG TAB PO SCH ×2 (09:01→21:08)
[2016-08-13] MEDS: RANITIDINE HCL 150 MG TAB PO SCH (09:01)
[2016-08-13] MEDS: THIAMINE HCL 100 MG TAB PO SCH (09:01)
[2016-08-13] MEDS: POTASSIUM CHLORIDE 20 MEQ TABCR PO SCH ×2 (09:01→21:07)
[2016-08-13] MEDS: CARBIDOPA/LEVODOPA 25/100MG TAB PO SCH ×3 (09:01→21:06)
[2016-08-13] MEDS: CYANOCOBALAMIN 500 MCG TAB (VIT B-12) PO SCH (09:01)
[2016-08-13] MEDS: CLOPIDOGREL BISULFATE 75 MG TAB PO SCH (09:01)
[2016-08-13] MEDS: MEGESTROL ACETATE 400 MG/10 ML UDP PO SCH (09:02)
[2016-08-13] MEDS: FLUTICASONE PROPIONATE NA SPR 16 GM BTL NAE SCH (09:02)
[2016-08-13 15:32] VITALS: BP 155/87; PULSE 83; TEMP 36.9; O2SAT 95
[2016-08-13] MEDS ORDERED: MGCUDL400 PO (17:50)
--- NOTE | 2016-08-13 17:58 | Discharge Instructions ---
Discharge Instructions Date of Service Aug 13, 2016. Admission Reason for Admission: Nausea And Vomiting,Pancreatitis Discharge Discharge Diagnosis / Problem: Acute cholecystitis Discharge Goals Goal(s): Improve function, Increase independence Activity Recommendations Activity Limitations: resume your previous activity . Instructions / Follow-Up Instructions / Follow-Up Dr. Oscar in [address] Aguila in 1 week Current Hospital Diet Patient's current hospital diet: Low Fiber Diet Discharge Diet Recommended Diet: Low Sodium Diet (2gm Na) Procedures Procedures Performed: Laparoscopic cholecystectomy Pending Studies Studies pending at discharge: no Laboratory Results Hemoglobin A1c Test 05/28/16 08:27 Range/Units Estimated Average Glucose 140 mg/dl Hemoglobin A1c 6.5 H 4.5-5.6 % Lipid Panel Test 05/28/16 08:27 Range/Units Triglycerides Level 101 0-150 mg/dl Cholesterol Level 201 H 0-200 mg/dl HDL Cholesterol 101 mg/dl Cholesterol/HDL Ratio 2.0 LDL Cholesterol, Calculated 80 mg/dl Medical Emergencies . Who to Call and When: Medical Emergencies: If at any time you feel your situation is an emergency, please call 911 immediately. . Non-Emergent Contact Non-Emergency issues call your: Primary Care Provider . Past History Medical & Surgical History: (1) Cholecystitis, chronic (2) CORON ATHEROSCLER NOS TYPE VESSEL, [place] OR GRAFT (3) HYPERLIPIDEMIA NEC/NOS (4) HYPERTENSION NOS (5) CVA (cerebral infarction) (6) Pancreatitis . "Provider Documentation" section prepared by Jean Claude Boyd. . VTE Core Measure Inpt VTE Proph given/why not?: Unfractionated heparin SQ
[2016-08-13 19:32] LABS: HEMATOCRIT 34.1 % (37-47); MEAN CELL VOLUME 87.4 fL (80-100); MEAN CORPUSCULAR HEMOGLOBIN 29.7 pg (25-34); MEAN PLATELET VOLUME 10.1 fL (7.4-10.4); PLATELET COUNT 166 K/uL (130-400); WHITE BLOOD COUNT 6.66 K/uL (4.8-10.8)
--- NOTE | 2016-08-13 20:40 | Hospitalist Progress Note ---
Hospitalist Progress Note Date of Service Aug 13, 2016. Subjective Patient feeling better no complaints All Other Systems: Reviewed and Negative Objective Vital Signs Date Time Temp Pulse Resp B/P (MAP) Pulse Ox O2 Delivery O2 Flow Rate FiO2 08/13/16 16:33 Room Air 08/13/16 15:32 36.9 83 15 155/87 (109) 95 Room Air 08/13/16 08:30 Room Air 08/13/16 07:46 37.2 70 16 148/80 (102) 97 Room Air 08/13/16 00:00 Room Air Physical Exam General Appearance: no apparent distress Eyes: normal inspection ENT: hearing grossly normal Neck: supple Respiratory/Chest: lungs clear Cardiovascular: regular rate, rhythm Abdomen: normal bowel sounds Extremities: normal inspection Skin: normal color Laboratory Results Last 24 Hours Test 08/13/16 19:15 White Blood Count 6.66 K/uL Red Blood Count 3.90 M/uL Hemoglobin 11.6 g/dL Hematocrit 34.1 % Mean Corpuscular Volume 87.4 fL Mean Corpuscular Hemoglobin 29.7 pg Mean Corpuscular Hemoglobin Concent 34.0 g/dl RDW Standard Deviation 44.3 fL RDW Coefficient of Variation 13.9 % Platelet Count 166 K/uL Mean Platelet Volume 10.1 fL Assessment and Plan (1) AORTOCORONARY BYPASS (2) CVA (cerebral infarction) (3) Pancreatitis Assessment & Plan: Resolved (4) Cholecystitis, chronic Assessment & Plan: Status post cholecystectomy
[2016-08-13] MEDS: SIMVASTATIN 20 MG TAB PO SCH (21:07)
[2016-08-13] MEDS: GABAPENTIN 300 MG CAP PO SCH (21:07)
[2016-08-13 23:38] VITALS: BP 148/77; PULSE 76; TEMP 36.7; O2SAT 96
[2016-08-14 07:10] VITALS: BP 132/73; PULSE 68; TEMP 37; O2SAT 95
[2016-08-14] MEDS: MAGNESIUM OXIDE 400 MG TAB PO SCH (08:20)
[2016-08-14] MEDS: POTASSIUM CHLORIDE 20 MEQ TABCR PO SCH (08:20)
[2016-08-14] MEDS: MEGESTROL ACETATE 400 MG/10 ML UDP PO SCH (08:20)
[2016-08-14] MEDS: AMLODIPINE BESYLATE 5 MG TAB PO SCH (08:20)
[2016-08-14] MEDS: THIAMINE HCL 100 MG TAB PO SCH (08:20)
[2016-08-14] MEDS: CYANOCOBALAMIN 500 MCG TAB (VIT B-12) PO SCH (08:20)
[2016-08-14] MEDS: PANTOprazole SOD 40 MG TAB PO SCH (08:20)
[2016-08-14] MEDS: RANITIDINE HCL 150 MG TAB PO SCH (08:20)
[2016-08-14] MEDS: CLOPIDOGREL BISULFATE 75 MG TAB PO SCH (08:20)
[2016-08-14] MEDS: CARBIDOPA/LEVODOPA 25/100MG TAB PO SCH ×2 (08:20→13:25)
[2016-08-14] MEDS: FLUTICASONE PROPIONATE NA SPR 16 GM BTL NAE SCH (08:20)
[2016-08-14 09:58] LABS: HEMATOCRIT 36.5 % (37-47); MEAN CELL VOLUME 88.4 fL (80-100); MEAN CORPUSCULAR HEMOGLOBIN 28.6 pg (25-34); MEAN PLATELET VOLUME 9.4 fL (7.4-10.4); PLATELET COUNT 180 K/uL (130-400); RED BLOOD COUNT 4.13 M/uL (4.2-5.4); WHITE BLOOD COUNT 5.99 K/uL (4.8-10.8)
[2016-08-14 10:00] LABS: MEAN CORPUSCULAR HGB CONC 32.3 g/dl (32-36)
[2016-08-14 11:46] VITALS: BP 132/73; PULSE 68; TEMP 37; O2SAT 95
--- NOTE | 2016-08-14 19:24 | Discharge Summary ---
Discharge Summary Date of Service Aug 14, 2016. Discharge Summary Admission Date: Jul 31, 2016 at 21:50 Discharge Date: Aug 14, 2016 Discharge Disposition: Home with services Principal Diagnosis: chronic cholecystitis Problems/Secondary Diagnoses: Pancreatitis Immunizations: Have You Had Influenza Vaccine: N/A Influenza Vaccine Date: Dec 12, 2004 History of Tetanus Vaccine?: Unknown History of Pneumococcal: Yes History of Hepatitis B Vaccine: No Consultations: Dr. Oscar Medication Reconciliation New Medications: Megestrol Acetate (Megestrol Acetate) 400 Mg/10 Ml Susp 400 MG PO QAM for 30 Days, #1 BTL 0 Refills Continued Medications: Acetaminophen Tab (Tylenol) 325 Mg Tab 650 MG PO PRN, TAB Amlodipine Besylate (Norvasc) 2.5 Mg Tab 2.5 MG PO QAM, #90 Carbidopa/Levodopa (Sinemet 25MG/100MG) Tab 1 TAB PO TID, TAB Cholecalciferol (Vitamin D) 1,000 Unit Tab 1000 UNIT PO DAILY Clopidogrel Bisulfate (Clopidogrel) 75 Mg Tab 75 MG PO DAILY for 90 Days Cyanocobalamin (Vitamin B-12) 500 Mcg Tab 500 MCG PO DAILY, TAB Fluticasone Propionate (Nasal) (Flonase Allergy Relief) 50 Mcg/Act Spr 1-2 SPRAYS RENE DAILY Gabapentin (Gabapentin) 100 Mg Cap 300 MG PO HS, #270 Metoprolol Tartrate (Lopressor) (Lopressor) 50 Mg Tab 25 MG PO BID, TAB Multiple Vitamin (Multivitamin) 1 Tab Tab 1 TAB PO DAILY PRN for SUPPLEMENT, TAB Omeprazole (Prilosec) 20 Mg Cap 20 MG PO DAILY for 90 Days Potassium Chloride (Klor-Con Sprinkle) 10 Meq Cap 20 MEQ PO BID, #180 Ranitidine (Zantac) 150 Mg Tab 150 MG PO DAILY, TAB Simvastatin (Zocor) 20 Mg Tab 20 MG PO QPM, TAB Referrals At Discharge Follow up Referrals: Surgery Referral - Within 2 Weeks with Lex Oscar D.O. Hospital Course (1) Cholecystitis, chronic The patient is an 81-year-old who presented unable to eat the hospital for further evaluation. She was seen in consultation by gastroenterology and general surgery. Ultimately decided that she had chronic cholecystitis and she underwent total laparoscopic cholecystectomy by Dr. Oscar. She also had an upper endoscopy which showed mild gastritis. Biopsies were taken and follow-up with gastroenterology. Also been asked to follow up with general surgery and her primary care doctor.US showing sludge/stones and HIDA with poor gallbladder filling c/w chronic cholecystitis symptoms seem rather severe for just chronic cholecystitis is what led to the patient going to the OR for laparoscopic cholecystectomy. She tolerated this procedure without complications. She is discharged home in stable condition and will have home health follow. (2) AORTOCORONARY BYPASS (3) CVA (cerebral infarction) (4) Advance care planning After her surgery the patient's wishes were discussed in detail with her and daughter present. A POLST form was reviewed in detail for the entire family. The patient is clear that she does not want to be resuscitated and her CODE STATUS was changed to reflect her wishes. She also would not like a feeding tube. I explained the importance of having a power of energy attorney and they will pursue power of energy attorney paperwork for her daughter. Total Time Spent: Greater than 30 minutes This includes examination of the patient, discharge planning, medication reconciliation, and communication with other providers. Discharge Instructions Please refer to the electronic Patient Visit Report (Discharge Instructions) for additional information. Follow-Up Primary care physician in one week
--- NOTE | 2016-08-17 14:32 | Pharmacy Progress Note ---
ED Pharmacist Progress Note Date of Service: Aug 17, 2016. Received call from [facility] requesting clarification on megestrol prescription. Confirmed the following: Megestrol 400mg/10mL 400 mg po daily Dispense: 1 bottle
== END 2016-08-14 13:45 | disposition home health service (06) | DRG 417 ==
LOC: C.EDB 17:36 → C.MS2W 21:50 → ENRESERV 22:18 → CANBEDREQ 08-09 11:15
PROVIDERS: ADMIT Internal Medicine; ATTEND Internal Medicine
PROC: 0DB68ZX Excision of Stomach, Via Natural or Artificial Opening Endoscopic, Diagnostic (ICD-10-PCS; 2016-08-08)
PROC: 0FT44ZZ Resection of Gallbladder, Percutaneous Endoscopic Approach (ICD-10-PCS; principal; 2016-08-09 08:15)
DX: K80.10 Calculus of gallbladder with chronic cholecystitis without obstruction (principal); N17.9 Acute kidney failure, unspecified; K85.90 Acute pancreatitis without necrosis or infection, unspecified; N39.0 Urinary tract infection, site not specified; Z95.1 Presence of aortocoronary bypass graft; I25.10 Atherosclerotic heart disease of native coronary artery without angina pectoris; Z86.73 Personal history of transient ischemic attack (TIA), and cerebral infarction without residual deficits; E78.5 Hyperlipidemia, unspecified; I10 Essential (primary) hypertension; E86.0 Dehydration; G20 Parkinson's disease; Z87.891 Personal history of nicotine dependence; D69.6 Thrombocytopenia, unspecified; E87.6 Hypokalemia; E83.39 Other disorders of phosphorus metabolism; K29.70 Gastritis, unspecified, without bleeding; K44.9 Diaphragmatic hernia without obstruction or gangrene

== ENCOUNTER → 2016-08-31 | Outpatient (CLI) | payer OTHER ==
[~2016-08-31] MED LIST changes: +AMLO2.5T PO; -ASPEC81 PO; +CARB25TA12 PO; +CHOL100010 PO; -DOCU-94 PO; -FLNIN NAE; +FLUT0.15 NAE; -FURO20TA PO; +MGCUDL400 PO; +NRN100 PO; -POTA10CA28 PO; +POTA1CAP53 PO; +ZNTT/150 PO
--- NOTE | 2016-08-31 11:17 | DIAGNOSTIC IMAGING REPORT ---
CERVICAL SPINE 2 OR 3 VIEWS CLINICAL HISTORY: 81 years-old Female presenting with NECK PAIN. TECHNIQUE: Frontal, lateral, and open-mouth odontoid views of the cervical spine were obtained. COMPARISON: 11/16/2013. FINDINGS: Slight reversal of normal cervical lordosis in the lower cervical spine, where there is multilevel degenerative change. Vertebral body heights maintained. Minimal anterolisthesis of C3 on C4. Disc osteophyte complexes from C4-5 through C6-7. No predental interval widening. Lateral masses of C1 articulate normally with C2. No radiographic evidence of acute fracture or subluxation. No prevertebral soft tissue swelling. Visualized portions of the hemithorax demonstrate median sternotomy wires and mediastinal surgical clips as well as aortic arch atherosclerosis. Lung apices clear. IMPRESSION: Multilevel degenerative changes primarily in the lower cervical spine from C4-5 through C6-7. Electronically signed by: Jean-Claude Wolf M.D. 08/31/2016 11:15 AM Dictated Date/Time: 08/31/2016 11:13 AM
[2016-08-31 14:00] LABS: BASO % 0.2 %; BASO ABS # 0.01 K/uL (0-0.2); COMPLETE YES; EOS % 2.1 %; HEMATOCRIT 36.8 % (37-47); IG% 0.2 %; LYMPH ABS # 1.59 K/uL (1.2-3.4); MEAN CELL VOLUME 94.1 fL (80-100); MEAN CORPUSCULAR HEMOGLOBIN 29.7 pg (25-34); MEAN CORPUSCULAR HGB CONC 31.5 g/dl (32-36); MEAN PLATELET VOLUME 10.9 fL (7.4-10.4); MONO % 8.5 %; PLATELET COUNT 156 K/uL (130-400); RED BLOOD COUNT 3.91 M/uL (4.2-5.4); WHITE BLOOD COUNT 4.68 K/uL (4.8-10.8)
[2016-08-31 14:01] LABS: ALT/SGPT 9 U/L (12-78); AST/SGOT 16 U/L (15-37); BLOOD UREA NITROGEN 16 mg/dl (7-18); BUN/CREATININE RATIO 10.2 (10-20); CARBON DIOXIDE 29 mmol/L (21-32); CHLORIDE 106 mmol/L (98-107); GLUCOSE 84 mg/dl (70-99); POTASSIUM 3.9 mmol/L (3.5-5.1); SODIUM 141 mmol/L (136-145)
[2016-08-31 14:03] LABS: ALB/GLOB RATIO 1.1 (0.9-2); ALKALINE PHOSPHATASE 44 U/L (45-117); AMYLASE 131 U/L (25-115)
== END | disposition home or self-care (01) ==
LOC: C.RADBC 10:34
PROVIDERS: ATTEND Physician Assistant
DX: M54.2 Cervicalgia (principal)

== ENCOUNTER → 2016-10-12 | Outpatient (CLI) | payer OTHER ==
[2016-10-12 17:59] LABS: AMYLASE 178 U/L (25-115); BLOOD UREA NITROGEN 25 mg/dl (7-18); BUN/CREATININE RATIO 15.9 (10-20); CARBON DIOXIDE 26 mmol/L (21-32); CHLORIDE 108 mmol/L (98-107); GLUCOSE 129 mg/dl (70-99); POTASSIUM 3.8 mmol/L (3.5-5.1); SODIUM 142 mmol/L (136-145)
[2016-10-12 18:02] LABS: ALKALINE PHOSPHATASE 59 U/L (45-117); ALT/SGPT < 6 U/L (12-78); AST/SGOT 12 U/L (15-37)
== END | disposition home or self-care (01) ==
LOC: C.LAB1850 17:01
PROVIDERS: ATTEND Internal Medicine
DX: G20 Parkinson's disease (principal); K85.90 Acute pancreatitis without necrosis or infection, unspecified

== ENCOUNTER → 2016-10-24 | Outpatient (CLI) | payer OTHER ==
--- NOTE | 2016-10-24 08:57 | DIAGNOSTIC IMAGING REPORT ---
BILIARY ABDOMEN LIMITED CLINICAL HISTORY: 81 years-old Female presenting with ELEVATED PANCREATIC Enzyme; hx OF CHOLECYSTECTOMY. TECHNIQUE: Real-time grayscale and limited color Doppler ultrasound imaging of the abdomen limited to the right upper quadrant was performed. COMPARISON: 08/04/2016. FINDINGS: Pancreas: Pancreatic parenchyma may be atrophic. Liver: Normal echogenicity and echotexture. The liver measures 12.5 cm in maximal sagittal dimension. No sonographic evidence of hepatic mass. Biliary: No intrahepatic biliary ductal dilatation. Common bile duct measures up to 6 mm in diameter. Gallbladder: Surgically absent. Right kidney: Normal in appearance. No hydronephrosis. Ascites: None. Other: Prominence of the abdominal aorta with aneurysmal dilatation best appreciated on recent CT from 07/31/2016. IMPRESSION: 1. Postsurgical changes of cholecystectomy. 2. Suspected atrophic pancreatic parenchyma. If there is continuing clinical concern for pancreatitis, cross-sectional imaging with CT or MR could be obtained. 3. Aneurysmal dilatation of the abdominal aorta best appreciated on recent CT from 07/31/2016. Electronically signed by: Jean-Claude Wolf M.D. 10/24/2016 8:55 AM Dictated Date/Time: 10/24/2016 8:52 AM
== END | disposition home or self-care (01) ==
LOC: C.ULTR 07:41
PROVIDERS: ATTEND Registered Nurse
DX: R74.8 Abnormal levels of other serum enzymes (principal); I77.811 Abdominal aortic ectasia; Z90.49 Acquired absence of other specified parts of digestive tract

== ENCOUNTER → 2016-11-21 | Outpatient (CLI) | payer OTHER ==
--- NOTE | 2016-11-21 14:11 | DIAGNOSTIC IMAGING REPORT ---
MRI OF THE BRAIN WITHOUT CONTRAST CLINICAL HISTORY: M62.81 Muscle [id number] Memory [id number] Parkinsonism COMPARISON STUDY: 02/22/2015 FINDINGS: Sagittal T1, axial diffusion, proton density and T2 weighted axial, coronal FLAIR, and axial T1-weighted images were acquired. No intra or extra-axial mass lesions are visualized Axial diffusion-weighted images reveal no evidence of acute or subacute infarction. There is mild particular prominence in keeping with volume loss. 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 Unchanged the prior study. Proton density T2-weighted and FLAIR images reveal extensive foci of increased T2 signal within the white matter, likely on a small vessel basis. This is minimally progressive when compared the preceding study. There is an old left cerebellar infarct. There are scattered small lacunar infarcts. There is corpus callosum thinning.. There are no abnormal flow voids. IMPRESSION: 1. No acute intracranial findings 2. No evidence of acute or subacute infarction 3. No evidence of intracranial mass on this noncontrast study 4. Old infarcts, and extensive white matter disease, minimally progressive when compared the preceding study. Electronically signed by: Toro Moura M.D. 11/21/2016 2:10 PM Dictated Date/Time: 11/21/2016 2:06 PM
[2016-11-21 17:27] LABS: BLOOD UREA NITROGEN 26 mg/dl (7-18); BUN/CREATININE RATIO 19.9 (10-20)
== END | disposition home or self-care (01) ==
LOC: C.MRIBC 12:46
PROVIDERS: ATTEND Psychiatry & Neurology Neurology
DX: Z01.812 Encounter for preprocedural laboratory examination (principal); G20 Parkinson's disease; M62.81 Muscle weakness (generalized); R41.3 Other amnesia

== ENCOUNTER → 2016-11-30 | Outpatient (CLI) | payer OTHER ==
[2016-11-30 18:22] LABS: BLOOD UREA NITROGEN 33 mg/dl (7-18); CREATININE 1.56 mg/dl (0.60-1.20)
[2016-11-30 18:32] LABS: THYROID STIMULATING HORMONE 0.371 uIu/ml (0.300-4.500)
[2016-11-30 19:34] LABS: BASO % 0.2 %; BASO ABS # 0.01 K/uL (0-0.2); COMPLETE YES; EOS % 1.8 %; HEMATOCRIT 33.1 % (37-47); IG% 0.2 %; LYMPH % 19.8 %; LYMPH ABS # 1.12 K/uL (1.2-3.4); MEAN CELL VOLUME 97.4 fL (80-100); MEAN CORPUSCULAR HEMOGLOBIN 32.4 pg (25-34); MEAN CORPUSCULAR HGB CONC 33.2 g/dl (32-36); MEAN PLATELET VOLUME 10.1 fL (7.4-10.4); MONO % 9.9 %; NEUT % 68.1 %; PLATELET COUNT 145 K/uL (130-400); WHITE BLOOD COUNT 5.67 K/uL (4.8-10.8)
== END | disposition home or self-care (01) ==
LOC: C.LAB1850 16:05
PROVIDERS: ATTEND Psychiatry & Neurology Neurology
DX: Z00.00 Encounter for general adult medical examination without abnormal findings (principal); R41.3 Other amnesia; R26.9 Unspecified abnormalities of gait and mobility; G62.9 Polyneuropathy, unspecified; R53.83 Other fatigue; G20 Parkinson's disease; M62.81 Muscle weakness (generalized); E11.9 Type 2 diabetes mellitus without complications

== ENCOUNTER → 2017-01-08 | Outpatient (CLI) | payer OTHER ==
[2017-01-08 14:39] LABS: HEMATOCRIT 37.2 % (37-47); MEAN CELL VOLUME 94.7 fL (80-100); MEAN CORPUSCULAR HEMOGLOBIN 30.8 pg (25-34); MEAN CORPUSCULAR HGB CONC 32.5 g/dl (32-36); MEAN PLATELET VOLUME 9.7 fL (7.4-10.4); PLATELET COUNT 174 K/uL (130-400); RED BLOOD COUNT 3.93 M/uL (4.2-5.4); WHITE BLOOD COUNT 7.03 K/uL (4.8-10.8)
[2017-01-08 15:10] LABS: ALT/SGPT 7 U/L (12-78); BLOOD UREA NITROGEN 24 mg/dl (7-18); BUN/CREATININE RATIO 16.4 (10-20); CALCIUM 9.4 mg/dl (8.5-10.1); CARBON DIOXIDE 28 mmol/L (21-32); CHLORIDE 102 mmol/L (98-107); CHOLESTEROL 172 mg/dl (0-200); CREATININE 1.46 mg/dl (0.60-1.20); GLUCOSE 104 mg/dl (70-99); POTASSIUM 3.4 mmol/L (3.5-5.1); SODIUM 138 mmol/L (136-145); TRIGLYCERIDES 94 mg/dl (0-150); VERY LOW DENSITY LIPOPROT CALC 19 mg/dl
[2017-01-08 15:13] LABS: ALB/GLOB RATIO 0.9 (0.9-2); ALKALINE PHOSPHATASE 64 U/L (45-117); AST/SGOT 15 U/L (15-37); CHOLESTEROL/HDL RATIO 1.8; HDL CHOLESTEROL 96 mg/dl; LDL CHOLESTEROL CALCULATED 57 mg/dl
[2017-01-09 06:56] LABS: ESTIMATED AVERAGE GLUCOSE 126 mg/dl; HA1C FLAG Normal (Normal)
== END | disposition home or self-care (01) ==
LOC: C.LAB1850 13:51
PROVIDERS: ATTEND Internal Medicine
DX: E53.8 Deficiency of other specified B group vitamins (principal); G20 Parkinson's disease; E11.9 Type 2 diabetes mellitus without complications

== ENCOUNTER 2017-01-21 16:55 | Emergency (ER) | payer OTHER ==
[~2017-01-21] VITALS: Ht 160 cm; Wt 46.0 kg
[2017-01-21 16:58] VITALS: Ht 160 cm; Wt 46.0 kg
[2017-01-21 17:41] LABS: BASO % 0.2 %; BASO ABS # 0.01 K/uL (0-0.2); COMPLETE YES; EOS % 0.6 %; HEMATOCRIT 38.7 % (37-47); IG% 0.2 %; LYMPH % 13.4 %; LYMPH ABS # 0.88 K/uL (1.2-3.4); MEAN CELL VOLUME 92.8 fL (80-100); MEAN CORPUSCULAR HEMOGLOBIN 31.7 pg (25-34); MEAN CORPUSCULAR HGB CONC 34.1 g/dl (32-36); MEAN PLATELET VOLUME 9.9 fL (7.4-10.4); MONO % 8.4 %; NEUT % 77.2 %; PLATELET COUNT 166 K/uL (130-400); RED BLOOD COUNT 4.17 M/uL (4.2-5.4); WHITE BLOOD COUNT 6.57 K/uL (4.8-10.8)
--- NOTE | 2017-01-21 17:48 | DIAGNOSTIC IMAGING REPORT ---
CHEST ONE VIEW PORTABLE CLINICAL HISTORY: Illness. Evaluate for pneumonia. COMPARISON STUDY: Chest radiograph July 31, 2016. FINDINGS: Median sternotomy wires and mediastinal surgical clips are noted. Cardiomediastinal silhouette is stable. There are cholecystectomy clips and lumbar spine fusion hardware. No pneumothorax or pleural effusion is present. There is no consolidation to suggest pneumonia. Pulmonary vascularity is normal. Exam is mildly compromised due to difficulty positioning. IMPRESSION: No acute cardiopulmonary findings. Electronically signed by: Wellington Atwood M.D. 01/21/2017 5:47 PM Dictated Date/Time: 01/21/2017 5:45 PM
[2017-01-21 18:17] LABS: ALKALINE PHOSPHATASE 73 U/L (45-117); ALT/SGPT 18 U/L (12-78); AST/SGOT 16 U/L (15-37); BLOOD UREA NITROGEN 29 mg/dl (7-18); BUN/CREATININE RATIO 17.9 (10-20); CALCIUM 9.9 mg/dl (8.5-10.1); CARBON DIOXIDE 27 mmol/L (21-32); CHLORIDE 104 mmol/L (98-107); GLUCOSE 112 mg/dl (70-99); POTASSIUM 3.6 mmol/L (3.5-5.1); SODIUM 139 mmol/L (136-145); THYROID STIMULATING HORMONE 0.341 uIu/ml (0.300-4.500)
[2017-01-21 18:34] LABS: URINE APPEARANCE CLEAR (CLEAR); URINE COLOR DK YELLOW; URINE EPITHELIAL CELL AUTO 0-5 /lpf (0-5); URINE NITRITE NEG (NEG); URINE SPECIFIC GRAVITY 1.023 (1.000-1.030); UROBILINOGEN NEG (NEG)
[2017-01-21 18:40] LABS: MANUAL MICROSCOPIC REQUIRED? NO; REVIEW REQ? NO; URINE BILIRUBIN NEG (NEG)
[2017-01-21 18:57] LABS: PARTIAL THROMBOPLASTIN RATIO 0.9; PROTHROMBIN TIME (PATIENT) 10.8 SECONDS (9.0-12.0)
--- NOTE | 2017-01-21 19:19 | EMERGENCY ROOM VISIT NOTE ---
History Report prepared by Karen: Anselmo Begum Under the Supervision of: Dr. Marty Erickson M.D. First contact with patient: 16:58 Chief Complaint: ILLNESS Stated Complaint: GENERAL ILLNESS History of Present Illness The patient is a 82 year old female who presents to the Emergency Room with complaints of persistent generalized weakness beginning three weeks ago. She has a history of dementia. Per nursing staff, the patient was seen by a social work nurse today and was referred to the ED to receive watermelon inspector placement. He denies the patient having any nausea, vomiting, diarrhea, or fevers. Per , the patient has had declining mental status over the past 4-5 years. He states that she has been on a physical decline since a gallbladder surgery 5 months ago, and has been very "sleepy" over the past three weeks. He states that he has not been able to get his to eat or take her medication over the past few days. He notes that she is scheduled for an ultrasound next week due to abdominal pain which has been present since the gallbladder surgery. They were concerned about pancreatitis. The patient's denies any recent falls. He states that her bowel movements have been normal. He notes that he and his daughter take care of the patient at their home. Recently she has had trouble walking with her walker. Source of History: patient, spouse/significant other (), nursing staff History Limited By: dementia Onset: three weeks ago Position: other (generalized ) Quality: other (weakness) Timing: other (persistent) Associated Symptoms: No fevers, No nausea, No vomiting, No diarrhea Review of Systems See HPI for pertinent positives & negatives. A total of 10 systems reviewed and were otherwise negative. Past Medical & Surgical Medical Problems: (1) Advance care planning (2) AORTOCORONARY BYPASS (3) Cholecystitis, chronic (4) CORON ATHEROSCLER NOS TYPE VESSEL, [place] OR GRAFT (5) CVA (cerebral infarction) (6) HYPERLIPIDEMIA NEC/NOS (7) HYPERTENSION NOS (8) Nausea and vomiting (9) SPONDYLOLISTHESIS Family History No pertinent family history stated. Social History Smoking Status: Never Smoker Alcohol Use: none Drug Use: none Marital Status: Housing Status: lives with family Current/Historical Medications Scheduled Acetaminophen Tab (Tylenol), 650 MG PO PRN Amlodipine Besylate (Norvasc), 2.5 MG PO QAM Carbidopa/Levodopa (Sinemet 25MG/100MG), 1 TAB PO TID Cholecalciferol (Vitamin D), 1,000 UNIT PO DAILY Clopidogrel Bisulfate (Clopidogrel), 75 MG PO DAILY Cyanocobalamin (Vitamin B-12), 500 MCG PO DAILY Fluticasone Propionate (Nasal) (Flonase Allergy Relief), 1-2 SPRAYS RENE DAILY Gabapentin (Gabapentin), 300 MG PO HS Megestrol Acetate (Megestrol Acetate), 400 MG PO QAM Metoprolol Tartrate (Lopressor) (Lopressor), 25 MG PO BID Omeprazole (Prilosec), 20 MG PO DAILY Potassium Chloride (Klor-Con Sprinkle), 20 MEQ PO BID Ranitidine (Zantac), 150 MG PO DAILY Simvastatin (Zocor), 20 MG PO QPM Scheduled PRN Multiple Vitamin (Multivitamin), 1 TAB PO DAILY PRN for SUPPLEMENT Allergies Coded Allergies: Celecoxib (Verified Allergy, Unknown, 02/03/14) Clarithromycin (Verified Allergy, Unknown, ?, 02/03/14) Erythromycin (Verified Allergy, Unknown, MYCINS, 02/03/14) Irbesartan (Verified Allergy, Unknown, Unknown rxn, 02/03/14) Pregabalin (Verified Allergy, Unknown, Unknown rxn, 02/03/14) Propoxyphene (Verified Allergy, Unknown, Unknown - Darvocet, 02/03/14) Codeine (Verified Adverse Reaction, Mild, ACUTE NAUSEA, 02/03/14) ROJAS Inhibitors (Verified Adverse Reaction, Unknown, ?, 02/03/14) Benzonatate (Verified Adverse Reaction, Unknown, UNKNOWN, 02/03/14) Hydralazine (Verified Adverse Reaction, Unknown, ?, 02/03/14) Losartan (Verified Adverse Reaction, Unknown, ?, 02/03/14) Morphine (Unverified Adverse Reaction, Unknown, GI SYMPTOMS, 08/06/16) States morphine made her sick for months, and ask to get it added to allergy list. Tramadol (Verified Adverse Reaction, Unknown, didn't feel good, 02/03/14) Valsartan (Verified Adverse Reaction, Unknown, ?, 02/03/14) Physical Exam Vital Signs Date Time Temp Pulse Resp B/P (MAP) Pulse Ox O2 Delivery O2 Flow Rate FiO2 01/21/17 20:26 98 18 171/81 98 Room Air 01/21/17 18:45 98 18 150/95 98 Room Air 01/21/17 16:58 37.5 100 18 169/109 96 Room Air Physical Exam Constitutional: Vital signs reviewed. Eyes: Pupils are equal round reactive to light. Conjunctiva are noninjected. ENT: Pharynx is clear without erythema or exudate. Mucous membranes are dry. Neck supple without meningeal signs. Respiratory: Clear to auscultation bilaterally. Breath sounds are equal bilaterally. Cardiovascular: Regular rate and rhythm. No rubs or gallops. GI: Soft, nondistended and nontender. Bowel sounds are present. Musculoskeletal: No peripheral edema. No lower extremity tenderness. Integumentary: No cyanosis. Neurological: The patient is awake and alert. No focal deficits. Psychiatric: Difficult to assess. Medical Decision & Procedures ER Provider Diagnostic Interpretation: Radiology results as stated below per my review and the radiologist's interpretation: CHEST ONE VIEW PORTABLE FINDINGS: Median sternotomy wires and mediastinal surgical clips are noted. Cardiomediastinal silhouette is stable. There are cholecystectomy clips and lumbar spine fusion hardware. No pneumothorax or pleural effusion is present. There is no consolidation to suggest pneumonia. Pulmonary vascularity is normal. Exam is mildly compromised due to difficulty positioning. IMPRESSION: No acute cardiopulmonary findings. Electronically signed by: Wellington Atwood M.D. 01/21/2017 5:47 PM Laboratory Results 01/21/17 17:25 Red Blood Count 4.17, Mean Corpuscular Volume 92.8, Mean Corpuscular Hemoglobin 31.7, Mean Corpuscular Hemoglobin Concent 34.1, Mean Platelet Volume 9.9, Neutrophils (%) (Auto) 77.2, Lymphocytes (%) (Auto) 13.4, Monocytes (%) (Auto) 8.4, Eosinophils (%) (Auto) 0.6, Basophils (%) (Auto) 0.2, Neutrophils # (Auto) 5.08, Lymphocytes # (Auto) 0.88, Monocytes # (Auto) 0.55, Eosinophils # (Auto) 0.04, Basophils # (Auto) 0.01 01/21/17 17:25 Test 01/21/17 17:25 01/21/17 18:15 01/21/17 18:32 White Blood Count 6.57 K/uL (4.8-10.8) Red Blood Count 4.17 M/uL (4.2-5.4) Hemoglobin 13.2 g/dL (12.0-16.0) Hematocrit 38.7 % (37-47) Mean Corpuscular Volume 92.8 fL (80-100) Mean Corpuscular Hemoglobin 31.7 pg (25-34) Mean Corpuscular Hemoglobin Concent 34.1 g/dl (32-36) Platelet Count 166 K/uL (130-400) Mean Platelet Volume 9.9 fL (7.4-10.4) Neutrophils (%) (Auto) 77.2 % Lymphocytes (%) (Auto) 13.4 % Monocytes (%) (Auto) 8.4 % Eosinophils (%) (Auto) 0.6 % Basophils (%) (Auto) 0.2 % Neutrophils # (Auto) 5.08 K/uL (1.4-6.5) Lymphocytes # (Auto) 0.88 K/uL (1.2-3.4) Monocytes # (Auto) 0.55 K/uL (0.11-0.59) Eosinophils # (Auto) 0.04 K/uL (0-0.5) Basophils # (Auto) 0.01 K/uL (0-0.2) RDW Standard Deviation 43.9 fL (36.4-46.3) RDW Coefficient of Variation 13.0 % (11.5-14.5) Immature Granulocyte % (Auto) 0.2 % Immature Granulocyte # (Auto) 0.01 K/uL (0.00-0.02) Anion Gap 8.0 mmol/L (3-11) Est Creatinine Clear Calc Drug Dose 19.3 ml/min Estimated GFR () 34.2 Estimated GFR (Non- 29.5 BUN/Creatinine Ratio 17.9 (10-20) Calcium Level 9.9 mg/dl (8.5-10.1) Total Bilirubin 1.1 mg/dl (0.2-1) Direct Bilirubin mg/dl (0-0.2) Aspartate Amino Transf (AST/SGOT) 16 U/L (15-37) Alanine Aminotransferase (ALT/SGPT) 18 U/L (12-78) Alkaline Phosphatase 73 U/L (45-117) Troponin I < 0.015 ng/ml (0-0.045) Total Protein 8.0 gm/dl (6.4-8.2) Albumin 3.8 gm/dl (3.4-5.0) Lipase 260 U/L (73-393) Thyroid Stimulating Hormone (TSH) 0.341 uIu/ml (0.300-4.500) Urine Color DK YELLOW Urine Appearance CLEAR (CLEAR) Urine pH 5.0 (4.5-7.5) Urine Specific [place] 1.023 (1.000-1.030) Urine Protein 1+ (NEG) Urine Glucose (UA) NEG (NEG) Urine Ketones TRACE (NEG) Urine Occult Blood NEG (NEG) Urine Nitrite NEG (NEG) Urine Bilirubin NEG (NEG) Urine Urobilinogen NEG (NEG) Urine Leukocyte Esterase NEG (NEG) Urine WBC (Auto) 0 /hpf (0-5) Urine RBC (Auto) 0-4 /hpf (0-4) Urine Hyaline Casts (Auto) 1-5 /lpf (0-5) Urine Epithelial Cells (Auto) 0-5 /lpf (0-5) Urine Bacteria (Auto) NEG (NEG) Prothrombin Time 10.8 SECONDS (9.0-12.0) Prothromb Time International Ratio 1.0 (0.9-1.1) Activated Partial Thromboplast Time 23.6 SECONDS (21.0-31.0) Partial Thromboplastin Ratio 0.9 Laboratory results as reviewed by me. ECG Indication: weakness Rate (beats per minute): 86 Rhythm: normal sinus Findings: Q waves (3-south), RBBB (incomplete), no ectopy ED Course 165: The patient was evaluated in room C10. A complete history and physical exam was performed. 175: I discussed the patient's case with the behavioral health case manager. 2030: The patient was accepted at [facility]. She will be transferred to [facility]. Medical Decision This is an 82-year-old female who presents with generalized weakness. Differential diagnosis includes failure to thrive, dehydration, malnutrition, infection, UTI, pneumonia, metabolic derangement, cardiac. I did perform a limited focused review of portions of the patient's old chart on the electronic medical record. The patient has had no recent pertinent visits to this hospital. I did evaluate the patient as noted above. I did obtain history from the patient as well as her due to her dementia. He states that she has had a functional decline over the past several months, worsening over the past 3 weeks. She is not eating very well and sleeping frequently. She has gotten so weak that she cannot walk with her walker as she normally does. She was seen by her social work nurse today who told her to go to the hospital for further evaluation. She stated that the patient may need long-term placement. IV access was established. The patient was placed on a continuous health service worker. I did order and personally review the patient's 12-lead EKG and chest x-ray as described above. I did order and review the patient's blood work as noted in the electronic medical record. Her labs are unremarkable. Her creatinine is slightly elevated at 1.6. Likely due to decreased oral intake of fluids. Urinalysis did not show signs of infection. I did speak to the behavioral health case manager who spoke to the patient's family. They were happy with the patient being sent to [facility]. Referrals were made to [facility] and she was accepted for transfer there. The patient was transferred in good condition. Medication Reconcilliation Current Medication List: was personally reviewed by me Blood Pressure Screening Patient's blood pressure: Elevated blood pressure Blood pressure disposition: Referred to PCP Impression Primary Impression: Generalized weakness Additional Impression: Adult failure to thrive Scribe Attestation The scribe's documentation has been prepared under my direct and personally reviewed by me in its entirety. I confirm that the note above accurately reflects all work, treatment, procedures, and medical decision making performed by me. Departure Information Dispostion Rehab Inpatient Facility Referrals ProJam M.D. (PCP) Patient Instructions My [facility] Problem Qualifiers
[2017-01-21 21:43] VITALS: BP 169/74; PULSE 95; O2SAT 98
== END 2017-01-21 21:45 ==
LOC: EDBD 16:55 → C.EDC 16:56
DX: R53.1 Weakness (principal); R62.7 Adult failure to thrive; F03.90 Unspecified dementia, unspecified severity, without behavioral disturbance, psychotic disturbance, mood disturbance, and anxiety; Z95.1 Presence of aortocoronary bypass graft; Z86.73 Personal history of transient ischemic attack (TIA), and cerebral infarction without residual deficits; E78.5 Hyperlipidemia, unspecified; I10 Essential (primary) hypertension; M43.10 Spondylolisthesis, site unspecified; I25.10 Atherosclerotic heart disease of native coronary artery without angina pectoris; Z79.899 Other long term (current) drug therapy

== ENCOUNTER 2017-02-05 15:25 | Emergency (ER) | payer OTHER ==
[~2017-02-05] VITALS: Ht 160 cm; Wt 45.3 kg
[2017-02-05 15:46] VITALS: TEMP 36.4; Ht 160 cm; Wt 45.3 kg
[2017-02-05] MEDS ORDERED: SODIUM CHLORIDE 0.9% 1000ML 1,000 ML IV STA (16:09)
--- NOTE | 2017-02-05 16:55 | DIAGNOSTIC IMAGING REPORT ---
CHEST ONE VIEW PORTABLE CLINICAL HISTORY: Weakness. Altered mental status. COMPARISON STUDY: Chest radiograph January 21, 2017. FINDINGS: Median sternotomy wires are noted. Patient is rotated. Prominence for the contour of the descending thoracic aorta is accentuated by patient rotation. There is no evidence of pulmonary edema. There is no consolidation to suggest pneumonia. No pneumothorax or pleural effusion is present. Cholecystectomy clips are noted. IMPRESSION: 1. No acute cardiopulmonary findings. 2. Increased prominence for the contour of the descending thoracic aorta. This apparent interval change is likely related to patient rotation. The findings suggest dilatation/tortuosity of the descending thoracic aorta. Electronically signed by: Wellington Atwood M.D. 02/05/2017 4:54 PM Dictated Date/Time: 02/05/2017 4:49 PM
[2017-02-05 17:02] LABS: ALKALINE PHOSPHATASE 87 U/L (45-117); ALT/SGPT 6 U/L (12-78); BLOOD UREA NITROGEN 24 mg/dl (7-18); BUN/CREATININE RATIO 18.2 (10-20); CARBON DIOXIDE 26 mmol/L (21-32); CHLORIDE 103 mmol/L (98-107); CREATININE 1.32 mg/dl (0.60-1.20); GLUCOSE 96 mg/dl (70-99); SODIUM 135 mmol/L (136-145); THYROID STIMULATING HORMONE 0.358 uIu/ml (0.300-4.500)
[2017-02-05 17:38] LABS: BASO % 0.1 %; BASO ABS # 0.01 K/uL (0-0.2); COMPLETE YES; EOS % 0.8 %; HEMATOCRIT 39.1 % (37-47); IG% 0.3 %; LYMPH % 8.8 %; LYMPH ABS # 1.04 K/uL (1.2-3.4); MEAN CELL VOLUME 91.8 fL (80-100); MEAN CORPUSCULAR HEMOGLOBIN 30.8 pg (25-34); MEAN CORPUSCULAR HGB CONC 33.5 g/dl (32-36); MEAN PLATELET VOLUME 9.7 fL (7.4-10.4); MONO % 4.5 %; NEUT % 85.5 %; PLATELET COUNT 201 K/uL (130-400); RED BLOOD COUNT 4.26 M/uL (4.2-5.4); WHITE BLOOD COUNT 11.84 K/uL (4.8-10.8)
[2017-02-05 17:51] LABS: POTASSIUM 4.7 mmol/L (3.5-5.1)
[2017-02-05 17:59] LABS: MAGNESIUM 2.3 mg/dl (1.8-2.4)
[2017-02-05 17:59] LABS: PARTIAL THROMBOPLASTIN RATIO 0.9; PROTHROMBIN TIME (PATIENT) 10.7 SECONDS (9.0-12.0)
--- NOTE | 2017-02-05 18:24 | DIAGNOSTIC IMAGING REPORT ---
CT OF THE HEAD WITHOUT CONTRAST CLINICAL HISTORY: Altered mental status. Weakness. COMPARISON STUDY: Head CT November 16, 2013 and MRI of the brain November 21, 2016. CT DOSE: 614.27 mGy.cm TECHNIQUE: Helical axial images of the head were obtained without IV contrast. Automated exposure control was utilized for the study. A dose lowering technique was utilized adhering to the principles of ALARA. FINDINGS: No acute intracranial hemorrhage, midline shift or mass effect is present. Ventricular system is stable. Basilar cisterns are patent. There are no extra-axial collections. White matter hypodensity suggests small vessel disease. Old infarct within left cerebellar hemisphere are unchanged. There are no CT findings to suggest acute dural sinus thrombosis or acute territorial infarct. There are no significant calvarial abnormalities. Visualized portions of the sinuses and mastoid air cells are clear. IMPRESSION: No acute intracranial findings. No change since previous exam. Electronically signed by: Wellington Atwood M.D. 02/05/2017 6:22 PM Dictated Date/Time: 02/05/2017 6:15 PM
--- NOTE | 2017-02-05 19:15 | EMERGENCY ROOM VISIT NOTE ---
History Report prepared by Karen: Delvis Price Under the Supervision of: Dr. Andrez Hidalgo D.O. First contact with patient: 15:48 Chief Complaint: WEAKNESS Stated Complaint: LETHARGIC History of Present Illness The patient is an 82 year old female who presents to the Emergency Room with complaints of constant weakness beginning three days ago. The patient's daughter states the patient was brought to the ED two weeks ago for similar symptoms. She reports the patient was sent straight to [facility] and was there from the to the . The daughter notes she woke up the , and the patient was still in her chair from the night before. She states she went out and ran errands, and when she returned in the afternoon, the patient was still asleep in her chair. The daughter reports she tried to change the patient' s diaper. She notes she was able to get the diaper off, but she could not get another diaper on because the patient was in too much pain. The daughter states the patient was not like this before [facility], and she was not eating much when she was there. She reports the patient ate soup for the past two days and this morning. The daughter notes the patient took her medication regularly up until this morning when she was not able to. She states the patient has not been drinking fluids either, and she keeps sliding down her chair to the foot rest. The daughter reports the patient takes her blood pressure medication and a potassium pill. bile duct is inflamed Source of History: family (daughter) Onset: three days ago Position: other (global) Quality: other (weakness) Timing: constant Note: Associated symptoms: decreased fluid intake, generalized discomfort, tiredness Review of Systems See HPI for pertinent positives & negatives. A total of 10 systems reviewed and were otherwise negative. Past Medical & Surgical Medical Problems: (1) Advance care planning (2) AORTOCORONARY BYPASS (3) Cholecystitis, chronic (4) CORON ATHEROSCLER NOS TYPE VESSEL, YSLETA DEL SUR OR GRAFT (5) CVA (cerebral infarction) (6) HYPERLIPIDEMIA NEC/NOS (7) HYPERTENSION NOS (8) Nausea and vomiting (9) SPONDYLOLISTHESIS Family History Patient reports no known family medical history. Social History Smoking Status: Former Smoker Alcohol Use: none Drug Use: none Marital Status: Housing Status: lives with family Current/Historical Medications Scheduled Acetaminophen Tab (Tylenol), 650 MG PO PRN Amlodipine Besylate (Norvasc), 2.5 MG PO QAM Carbidopa/Levodopa (Sinemet 25MG/100MG), 1 TAB PO TID Cholecalciferol (Vitamin D), 1,000 UNIT PO DAILY Clopidogrel Bisulfate (Clopidogrel), 75 MG PO DAILY Cyanocobalamin (Vitamin B-12), 500 MCG PO DAILY Fluticasone Propionate (Nasal) (Flonase Allergy Relief), 1-2 SPRAYS RENE DAILY Gabapentin (Gabapentin), 300 MG PO HS Megestrol Acetate (Megestrol Acetate), 400 MG PO QAM Metoprolol Tartrate (Lopressor) (Lopressor), 25 MG PO BID Omeprazole (Prilosec), 20 MG PO DAILY Potassium Chloride (Klor-Con Sprinkle), 20 MEQ PO BID Ranitidine (Zantac), 150 MG PO DAILY Simvastatin (Zocor), 20 MG PO QPM Scheduled PRN Multiple Vitamin (Multivitamin), 1 TAB PO DAILY PRN for SUPPLEMENT Allergies Coded Allergies: Celecoxib (Verified Allergy, Unknown, 02/03/14) Clarithromycin (Verified Allergy, Unknown, ?, 02/03/14) Erythromycin (Verified Allergy, Unknown, MYCINS, 02/03/14) Irbesartan (Verified Allergy, Unknown, Unknown rxn, 02/03/14) Pregabalin (Verified Allergy, Unknown, Unknown rxn, 02/03/14) Propoxyphene (Verified Allergy, Unknown, Unknown - Darvocet, 02/03/14) Codeine (Verified Adverse Reaction, Mild, ACUTE NAUSEA, 02/03/14) ROJAS Inhibitors (Verified Adverse Reaction, Unknown, ?, 02/03/14) Benzonatate (Verified Adverse Reaction, Unknown, UNKNOWN, 02/03/14) Hydralazine (Verified Adverse Reaction, Unknown, ?, 02/03/14) Losartan (Verified Adverse Reaction, Unknown, ?, 02/03/14) Morphine (Unverified Adverse Reaction, Unknown, GI SYMPTOMS, 08/06/16) States morphine made her sick for months, and ask to get it added to allergy list. Tramadol (Verified Adverse Reaction, Unknown, didn't feel good, 02/03/14) Valsartan (Verified Adverse Reaction, Unknown, ?, 12/24/14) Physical Exam Vital Signs Date Time Temp Pulse Resp B/P (MAP) Pulse Ox O2 Delivery O2 Flow Rate FiO2 02/05/17 17:25 70 14 172/100 99 Room Air 02/05/17 16:21 67 02/05/17 15:46 36.4 74 20 199/106 96 Room Air Physical Exam CONSTITUTIONAL/VITAL SIGNS: Reviewed / noted above. GENERAL: Non-toxic in appearance. INTEGUMENTARY: Warm, dry, and [place]. HEAD: Normocephalic. EYES: without scleral icterus or trauma. ENT/OROPHARYNX: clear and moist. LYMPHADENOPATHY/NECK: Is supple without lymphadenopathy or meningismus. RESPIRATORY: Lungs clear and equal. CARDIOVASCULAR: Regular rate and rhythm. GI/ABDOMEN: Soft and nontender. No organomegaly or pulsatile mass. No rebound or guarding. Normal bowel sounds. EXTREMITIES: Warm and well perfused. BACK: No CVA tenderness. NEUROLOGICAL: Nonverbal. Does not follow commands. Appears generally weak. PSYCHIATRIC: normal affect. MUSCULOSKELETAL: Normally developed with good muscle tone. Medical Decision & Procedures ER Provider Diagnostic Interpretation: Radiology results as stated below per my review and radiologist interpretation: CT OF THE HEAD WITHOUT CONTRAST CLINICAL HISTORY: Altered mental status. Weakness. COMPARISON STUDY: Head CT November 16, 2013 and MRI of the brain November 21, 2016. CT DOSE: 614.27 mGy.cm TECHNIQUE: Helical axial images of the head were obtained without IV contrast. Automated exposure control was utilized for the study. A dose lowering technique was utilized adhering to the principles of ALARA. FINDINGS: No acute intracranial hemorrhage, midline shift or mass effect is present. Ventricular system is stable. Basilar cisterns are patent. There are no extra-axial collections. White matter hypodensity suggests small vessel disease. Old infarct within left cerebellar hemisphere are unchanged. There are no CT findings to suggest acute dural sinus thrombosis or acute territorial infarct. There are no significant calvarial abnormalities. Visualized portions of the sinuses and mastoid air cells are clear. IMPRESSION: No acute intracranial findings. No change since previous exam. Electronically signed by: Wellington Atwood M.D. 02/05/2017 6:22 PM Dictated Date/Time: 02/05/2017 6:15 PM CHEST ONE VIEW PORTABLE CLINICAL HISTORY: Weakness. Altered mental status. COMPARISON STUDY: Chest radiograph January 21, 2017. FINDINGS: Median sternotomy wires are noted. Patient is rotated. Prominence for the contour of the descending thoracic aorta is accentuated by patient rotation. There is no evidence of pulmonary edema. There is no consolidation to suggest pneumonia. No pneumothorax or pleural effusion is present. Cholecystectomy clips are noted. IMPRESSION: 1. No acute cardiopulmonary findings. 2. Increased prominence for the contour of the descending thoracic aorta. This apparent interval change is likely related to patient rotation. The findings suggest dilatation/tortuosity of the descending thoracic aorta. Electronically signed by: Wellington Atwood M.D. 02/05/2017 4:54 PM Dictated Date/Time: 02/05/2017 4:49 PM Laboratory Results 02/05/17 17:07 Red Blood Count 4.26, Mean Corpuscular Volume 91.8, Mean Corpuscular Hemoglobin 30.8, Mean Corpuscular Hemoglobin Concent 33.5, Mean Platelet Volume 9.7, Neutrophils (%) (Auto) 85.5, Lymphocytes (%) (Auto) 8.8, Monocytes (%) (Auto) 4.5, Eosinophils (%) (Auto) 0.8, Basophils (%) (Auto) 0.1, Neutrophils # (Auto) 10.13, Lymphocytes # (Auto) 1.04, Monocytes # (Auto) 0.53, Eosinophils # (Auto) 0.09, Basophils # (Auto) 0.01 02/05/17 16:10 02/05/17 17:22 Test 02/05/17 16:09 02/05/17 16:10 02/05/17 17:07 02/05/17 17:22 Creatine Kinase MB Ratio (0-3.0) Anion Gap 6.0 mmol/L (3-11) Est Creatinine Clear Calc Drug Dose 23.1 ml/min Estimated GFR () 43.1 Estimated GFR (Non- 37.2 BUN/Creatinine Ratio 18.2 (10-20) Calcium Level 10.0 mg/dl (8.5-10.1) Total Bilirubin 1.4 mg/dl (0.2-1) Alanine Aminotransferase (ALT/SGPT) 6 U/L (12-78) Alkaline Phosphatase 87 U/L (45-117) Creatine Kinase MB 0.9 ng/ml (0.5-3.6) Troponin I < 0.015 ng/ml (0-0.045) Total Protein 9.2 gm/dl (6.4-8.2) Albumin 4.1 gm/dl (3.4-5.0) Lipase 435 U/L (73-393) Thyroid Stimulating Hormone (TSH) 0.358 uIu/ml (0.300-4.500) White Blood Count 11.84 K/uL (4.8-10.8) Red Blood Count 4.26 M/uL (4.2-5.4) Hemoglobin 13.1 g/dL (12.0-16.0) Hematocrit 39.1 % (37-47) Mean Corpuscular Volume 91.8 fL (80-100) Mean Corpuscular Hemoglobin 30.8 pg (25-34) Mean Corpuscular Hemoglobin Concent 33.5 g/dl (32-36) Platelet Count 201 K/uL (130-400) Mean Platelet Volume 9.7 fL (7.4-10.4) Neutrophils (%) (Auto) 85.5 % Lymphocytes (%) (Auto) 8.8 % Monocytes (%) (Auto) 4.5 % Eosinophils (%) (Auto) 0.8 % Basophils (%) (Auto) 0.1 % Neutrophils # (Auto) 10.13 K/uL (1.4-6.5) Lymphocytes # (Auto) 1.04 K/uL (1.2-3.4) Monocytes # (Auto) 0.53 K/uL (0.11-0.59) Eosinophils # (Auto) 0.09 K/uL (0-0.5) Basophils # (Auto) 0.01 K/uL (0-0.2) RDW Standard Deviation 43.5 fL (36.4-46.3) RDW Coefficient of Variation 13.0 % (11.5-14.5) Immature Granulocyte % (Auto) 0.3 % Immature Granulocyte # (Auto) 0.04 K/uL (0.00-0.02) Prothrombin Time 10.7 SECONDS (9.0-12.0) Prothromb Time International Ratio 1.0 (0.9-1.1) Activated Partial Thromboplast Time 23.7 SECONDS (21.0-31.0) Partial Thromboplastin Ratio 0.9 Magnesium Level 2.3 mg/dl (1.8-2.4) Direct Bilirubin 0.4 mg/dl (0-0.2) Aspartate Amino Transf (AST/SGOT) 8 U/L (15-37) Total Creatine Kinase 122 U/L (26-192) Laboratory results as stated above per my review. Medications Administered Medications (Trade) Dose Ordered Sig/Graciela Route Start Time Stop Time Status Last Admin Dose Admin Sodium Chloride 1,000 ml @ 999 mls/hr Q1H1M STAT IV 02/05/17 16:09 02/05/17 17:09 DC 02/05/17 16:09 999 MLS/HR ECG Indication: weakness Rate (beats per minute): 74 Rhythm: normal sinus Findings: RBBB, no acute ischemic change, no ectopy Comparison ECG Date: 01/21/2017 Change: no significant change ED Course 1600: Previous medical records were reviewed. The patient was evaluated in room B06. A complete history and physical examination was performed. 1609: Ordered Sodium Chloride 1000 ml @ 999 mls/hr IV 1900: On reevaluation, the patient is more alert after fluids. I discussed the results and findings with the patient. She verbalized agreement of the treatment plan. The patient was discharged home. Medical Decision Differentials include: Acute coronary syndrome, myocardial infarction, CVA, TIA , anemia, infection, pneumonia, UTI, pyelonephritis, poor nutrition, dehydration , electrolyte disturbance, and hypoglycemia. This is an 82-year-old female who presents to the ED with a chief complaint of weakness, per family. The patient was at [facility] for 2 weeks. She was discharged back to her home on Saturday. The patient's family reports that the patient is too weak to do anything. She could not swallow all of her pills this morning. She's had decreased by mouth intake. She has been sitting in her chair since arriving home. Her physical exam was that of chronic debilitation. She appears to be chronically bedbound. The patient did not speak but did open her eyes. She is in no distress. She did not provide any information. The patient's chest x-ray did not show acute process. CT scan of brain did not show acute process. CBC and complete metabolic panel were unremarkable. The BUN is 24. Troponin was negative. TSH was normal. EKG shows a sinus rhythm. The patient was hydrated with IV fluids. On reevaluation , she is more alert. The patient is felt to be stable for discharge. Medication Reconcilliation Current Medication List: was personally reviewed by me Blood Pressure Screening Patient's blood pressure: Elevated blood pressure Blood pressure disposition: Referred to PCP Impression Primary Impression: Dehydration Scribe Attestation The scribe's documentation has been prepared under my direction and personally reviewed by me in its entirety. I confirm that the note above accurately reflects all work, treatment, procedures, and medical decision making performed by me. Departure Information Dispostion Home / Self-Care Referrals Jam Aguila M.D. (PCP) Forms HOME CARE DOCUMENTATION FORM, IMPORTANT VISIT INFORMATION Patient Instructions [facility] Additional Instructions Encourage increase fluids. Follow-up with your doctor for further care and evaluation in 1-2 days. Return to the emergency department for worsening or new symptoms or any concerns. You have been examined and treated today on an emergency basis only. This is not a substitute for, or an effort to provide, complete comprehensive medical care. It is impossible to recognize and treat all injuries or illnesses in a single emergency department visit. It is therefore important that you follow up closely with your doctor. Call as soon as possible for an appointment.
[2017-02-05 20:49] VITALS: BP 167/98; PULSE 67; O2SAT 99
== END 2017-02-05 20:51 | disposition home or self-care (01) ==
LOC: C.EDB 15:25 → EDBD 15:25 → C.EDB 20:51
DX: E86.0 Dehydration (principal); Z95.1 Presence of aortocoronary bypass graft; I25.10 Atherosclerotic heart disease of native coronary artery without angina pectoris; Z86.73 Personal history of transient ischemic attack (TIA), and cerebral infarction without residual deficits; E78.5 Hyperlipidemia, unspecified; I10 Essential (primary) hypertension; M43.10 Spondylolisthesis, site unspecified; K81.1 Chronic cholecystitis; Z87.891 Personal history of nicotine dependence; Z79.899 Other long term (current) drug therapy

== ENCOUNTER 2017-03-07 18:23 | Inpatient (IN) | payer OTHER ==
[~2017-03-07] VITALS: Ht 152.4 cm; Wt 38.9 kg
[2017-03-07] MEDS ORDERED: SODIUM CHLORIDE 0.9% 1000ML 1,000 ML IV STA (18:37)
[2017-03-07 19:58] LABS: BASO % 0.1 %; BASO ABS # 0.01 K/uL (0-0.2); EOS % 0.4 %; EOS ABS # 0.03 K/uL (0-0.5); HEMATOCRIT 38.8 % (37-47); HEMOGLOBIN 13.1 g/dL (12.0-16.0); IG# 0.02 K/uL (0.00-0.02); LYMPH % 13.6 %; MEAN CELL VOLUME 89.2 fL (80-100); MEAN CORPUSCULAR HEMOGLOBIN 30.1 pg (25-34); MEAN CORPUSCULAR HGB CONC 33.8 g/dl (32-36); MEAN PLATELET VOLUME 10.3 fL (7.4-10.4); MONO % 6.9 %; MONO ABS # 0.51 K/uL (0.11-0.59); NEUT % 78.7 %; NEUT ABS # 5.78 K/uL (1.4-6.5); PLATELET COUNT 181 K/uL (130-400); RED CELL DISTRIBUTION WIDTH CV 13.2 % (11.5-14.5); RED CELL DISTRIBUTION WIDTH SD 43.2 fL (36.4-46.3); WHITE BLOOD COUNT 7.35 K/uL (4.8-10.8)
[2017-03-07 20:21] LABS: ALBUMIN 3.1 gm/dl (3.4-5.0); ALT/SGPT 9 U/L (12-78); AST/SGOT 8 U/L (15-37); BLOOD UREA NITROGEN 19 mg/dl (7-18); CARBON DIOXIDE 26 mmol/L (21-32); CREATININE 0.77 mg/dl (0.60-1.20); GLUCOSE 104 mg/dl (70-99); POTASSIUM 3.2 mmol/L (3.5-5.1); SODIUM 135 mmol/L (136-145)
[2017-03-07 20:32] LABS: ALKALINE PHOSPHATASE 53 U/L (45-117); CKMB 0.6 ng/ml (0.5-3.6); TOTAL PROTEIN 7.9 gm/dl (6.4-8.2)
[2017-03-07 20:37] LABS: INFLUENZA B ANTIGEN Neg for Influ B (NEG)
[2017-03-07] MEDS: POTASSIUM CHLORIDE 20 MEQ/15 ML UDC PO STA ×2 (20:43→21:01)
--- NOTE | 2017-03-07 20:59 | DIAGNOSTIC IMAGING REPORT ---
HEAD WITHOUT CONTRAST (CT) CLINICAL HISTORY: 82 years-old Female with Pt c/o weakness. Acute weakness TECHNIQUE: Multiple axial CT images of the head were obtained without contrast. A dose lowering technique was utilized adhering to the principles of ALARA. CT DOSE: 614.27 mGy.cm COMPARISON: CT head 02/05/2017. FINDINGS: Exam is limited secondary to patient positioning mild motion. Moderate atrophy with extensive chronic microvascular ischemic changes, unchanged. Mild encephalomalacia related to remote infarction of the periventricular right frontal lobe. Extensive vascular calcifications are seen at the level of the skull base. Encephalomalacia from remote infarction is again seen involving the mid left cerebellar hemisphere. Multiple remote lacunar infarctions of the basal ganglia. No acute intracranial hemorrhage, midline shift, intracranial mass, hydrocephalus, territorial ischemia or abnormal extra-axial collection. The calvarium is intact. The paranasal sinuses, mastoid air cells, and middle ear cavities are clear. IMPRESSION: No acute intracranial abnormality. The above report was generated using voice recognition software. It may contain grammatical, syntax or spelling errors. Electronically signed by: Kam Arnold M.D. 03/07/2017 8:58 PM Dictated Date/Time: 03/07/2017 8:54 PM
[2017-03-07] MEDS ORDERED: FRS/40 PO (21:27)
[2017-03-07] MEDS ORDERED: CARB25TA12 PO (21:27)
[2017-03-07] MEDS ORDERED: DOCU100C31 PO (21:28)
--- NOTE | 2017-03-07 21:45 | History and Physical ---
History & Physical Date & Time of Service: Mar 07, 2017 at 21:40 Chief Complaint: Lethargic Primary Care Physician: Jam Aguila M.D. History of Present Illness Source: family, hospital records This is an 82 yo f with a h/o severe parkinson's , CVA, CAD, aortocoronary bypass that is presenting to us by her daughter for FTT. The patient was recently admitted in July with recent symptoms and diagnosed with chronic cholecystitis and a lap shilo was performed. As she had similar symptoms and was not eating she was also treated for refeeding syndrome. Today she returns for refraining from eating for approx a month. She has been pocketing her food and pills and has become more withdrawn. The did note that for her whole life she had peculiar eating habits and was picky and believes this may be an element of her old habits. Her PCP had ordered IVF a few days prior to be administered at home however the home health employee was not comfortable and when asking the patient to come to the ED for the IVF she refused. Patient has had significant decline since that time and daughter was concerned and brought the patient in for evaluation. According to the daughter the patient was doing well after the surgery with general functional decline that started in december. She did see neurology in January where her sinemet rx was increased. the daughter notes she was a very functional individual until she was diagnosed in April with parkinsons and a general decline started then. She has refused anti parkinsonian meds x approx 2 weeks with the "random" dose taken. When asked about potential depression the daughter states she had been assessed for it in the rehab center but no rx given. Family is very adamant that she "needs to get pumped up and she will be able to eat again and feel better". Extensive discussion was had regarding the progression of Parkinson's, potential for depression attributing to this and ultimate goals of the patient ( NG vs feeding tube vs hospice). Family believes that "hospice is a sentence". I also discussed that the patient when assessed was oriented x3 and can make decisions for care and family understood. Patient made the decision for full code. Patient is otherwise withdrawn and denies pain. Past Medical/Surgical History Medical Problems: (1) AORTOCORONARY BYPASS Status: Resolved (2) CORON ATHEROSCLER NOS TYPE VESSEL, [place] Status: Chronic (3) CVA (cerebral infarction) Status: Resolved (4) HYPERLIPIDEMIA NEC/NOS Status: Chronic (5) HYPERTENSION NOS Status: Chronic (6) SPONDYLOLISTHESIS Status: Resolved Family History Patient reports no known family medical history. Social History Smoking Status: Never Smoker Smokeless Tobacco Use: No Alcohol Use: none Drug Use: none Marital Status: Housing status: lives with family Immunizations History of Influenza Vaccine: N/A Influenza Vaccine Date: Dec 12, 2004 History of Tetanus Vaccine?: Unknown History of Pneumococcal: Yes History of Hepatitis B Vaccine: No Multi-Drug Resistant Organisms History of MDRO: No Allergies Coded Allergies: Celecoxib (Verified Allergy, Unknown, 03/07/17) Clarithromycin (Verified Allergy, Unknown, ?, 03/07/17) Erythromycin (Verified Allergy, Unknown, MYCINS, 03/07/17) Irbesartan (Verified Allergy, Unknown, Unknown rxn, 02/03/14) Pregabalin (Verified Allergy, Unknown, Unknown rxn, 03/07/17) Propoxyphene (Verified Allergy, Unknown, Unknown - Darvocet, 03/07/17) Codeine (Verified Adverse Reaction, Mild, ACUTE NAUSEA, 03/07/17) ROJAS Inhibitors (Verified Adverse Reaction, Unknown, ?, 03/07/17) Benzonatate (Verified Adverse Reaction, Unknown, UNKNOWN, 03/07/17) Hydralazine (Verified Adverse Reaction, Unknown, ?, 03/07/17) Losartan (Verified Adverse Reaction, Unknown, ?, 03/07/17) Morphine (Unverified Adverse Reaction, Unknown, GI SYMPTOMS, 03/07/17) States morphine made her sick for months, and ask to get it added to allergy list. Tramadol (Verified Adverse Reaction, Unknown, didn't feel good, 03/07/17) Valsartan (Verified Adverse Reaction, Unknown, ?, 03/07/17) Home Medications Scheduled Acetaminophen Tab (Tylenol), 650 MG PO PRN Amlodipine Besylate (Norvasc), 2.5 MG PO QAM Carbidopa/Levodopa (Sinemet 25MG/100MG), 2 TAB PO BID Carbidopa/Levodopa (Sinemet 25MG/100MG), 1.5 TAB PO LUNCH Cholecalciferol (Vitamin D), 1,000 UNIT PO DAILY Clopidogrel Bisulfate (Clopidogrel), 75 MG PO DAILY Cyanocobalamin (Vitamin B-12), 500 MCG PO DAILY Docusate Sodium (Docusate Sodium), 100 MG PO QAM Fluticasone Propionate (Nasal) (Flonase Allergy Relief), 1-2 [place] DAILY Furosemide (Lasix), 20 MG PO BID Gabapentin (Gabapentin), 300 MG PO HS Megestrol Acetate (Megestrol Acetate), 400 MG PO QAM Metoprolol Tartrate (Lopressor) (Lopressor), 50 MG PO BID Potassium Chloride (Klor-Con Sprinkle), 10 MEQ PO BID Ranitidine (Zantac), 150 MG PO DAILY Simvastatin (Zocor), 20 MG PO QPM Review of Systems Unable to obtain meaningful ROS as patient is with drawn with minimal responses Physical Exam Vital Signs Date Time Temp Pulse Resp B/P (MAP) Pulse Ox O2 Delivery O2 Flow Rate FiO2 03/07/17 21:17 102 17 197/156 97 Room Air 03/07/17 20:23 94 19 204/142 98 Room Air 03/07/17 19:53 84 21 172/112 98 Room Air 03/07/17 19:26 83 26 181/108 98 Room Air 03/07/17 19:15 37.1 82 20 181/108 98 Room Air 03/07/17 19:13 97 Room Air 03/07/17 19:13 84 03/07/17 18:59 97 Room Air General Appearance: no apparent distress, + cachetic Head: normocephalic, atraumatic Eyes: normal inspection ENT: normal ENT inspection, + pertinent finding (dry mucus membranes) Neck: no JVD, trachea midline Respiratory/Chest: no respiratory distress, no accessory muscle use, + decreased breath sounds (bilat bases) Cardiovascular: regular rate, rhythm, no murmur, normal peripheral pulses Abdomen/GI: normal bowel sounds, non tender, soft Back: normal inspection, no CVA tenderness, normal range of motion, + pertinent finding (no spinal tenderness) Extremities/Musculoskelatal: normal inspection, no calf tenderness, no pedal edema, + pertinent finding (patient is in a position with slow and stiff movements of all extremities and + for cogwheel rigidity in bilat UE ) Neurologic/Psych: alert, oriented x 3, + pertinent finding (Flat affect) Skin: normal color, warm/dry, no rash Lymphatic: no adenopathy Diagnostics Laboratory Results Results Past 24 Hours Test 03/07/17 19:30 03/07/17 19:33 Range/Units White Blood Count 7.35 4.8-10.8 K/uL Red Blood Count 4.35 4.2-5.4 M/uL Hemoglobin 13.1 12.0-16.0 g/dL Hematocrit 38.8 37-47 % Mean Corpuscular Volume 89.2 80-100 fL Mean Corpuscular Hemoglobin 30.1 25-34 pg Mean Corpuscular Hemoglobin Concent 33.8 32-36 g/dl Platelet Count 181 130-400 K/uL Mean Platelet Volume 10.3 7.4-10.4 fL Neutrophils (%) (Auto) 78.7 % Lymphocytes (%) (Auto) 13.6 % Monocytes (%) (Auto) 6.9 % Eosinophils (%) (Auto) 0.4 % Basophils (%) (Auto) 0.1 % Neutrophils # (Auto) 5.78 1.4-6.5 K/uL Lymphocytes # (Auto) 1.00 1.2-3.4 K/uL Monocytes # (Auto) 0.51 0.11-0.59 K/uL Eosinophils # (Auto) 0.03 0-0.5 K/uL Basophils # (Auto) 0.01 0-0.2 K/uL RDW Standard Deviation 43.2 36.4-46.3 fL RDW Coefficient of Variation 13.2 11.5-14.5 % Immature Granulocyte % (Auto) 0.3 % Immature Granulocyte # (Auto) 0.02 0.00-0.02 K/uL Sodium Level 135 136-145 mmol/L Potassium Level 3.2 3.5-5.1 mmol/L Chloride Level 102 98-107 mmol/L Carbon Dioxide Level 26 21-32 mmol/L Anion Gap 7.0 3-11 mmol/L Blood Urea Nitrogen 19 7-18 mg/dl Creatinine 0.77 0.60-1.20 mg/dl Est Creatinine Clear Calc Drug Dose 39.8 ml/min Estimated GFR () 82.8 Estimated GFR (Non- 71.4 BUN/Creatinine Ratio 24.3 10-20 Random Glucose 104 70-99 mg/dl Calcium Level 10.0 8.5-10.1 mg/dl Total Bilirubin 1.5 0.2-1 mg/dl Direct Bilirubin 0.5 0-0.2 mg/dl Aspartate Amino Transf (AST/SGOT) 8 15-37 U/L Alanine Aminotransferase (ALT/SGPT) 9 12-78 U/L Alkaline Phosphatase 53 45-117 U/L Total Creatine Kinase 15 26-192 U/L Creatine Kinase MB 0.6 0.5-3.6 ng/ml Creatine Kinase MB Ratio 4.0 0-3.0 Troponin I < 0.015 0-0.045 ng/ml Total Protein 7.9 6.4-8.2 gm/dl Albumin 3.1 3.4-5.0 gm/dl Thyroid Stimulating Hormone (TSH) 0.185 0.300-4.500 uIu/ml Influenza Type A Antigen Neg for Influ A NEG Influenza Type B Antigen Neg for Influ B NEG Diagnostic Radiology [~ rep ct add3]] HEAD WITHOUT CONTRAST (CT) CLINICAL HISTORY: 82 years-old Female with Pt c/o weakness. Acute weakness TECHNIQUE: Multiple axial CT images of the head were obtained without contrast. A dose lowering technique was utilized adhering to the principles of ALARA. CT DOSE: 614.27 mGy.cm COMPARISON: CT head 02/05/2017. FINDINGS: Exam is limited secondary to patient positioning mild motion. Moderate atrophy with extensive chronic microvascular ischemic changes, unchanged. Mild encephalomalacia related to remote infarction of the periventricular right frontal lobe. Extensive vascular calcifications are seen at the level of the skull base. Encephalomalacia from remote infarction is again seen involving the mid left cerebellar hemisphere. Multiple remote lacunar infarctions of the basal ganglia. No acute intracranial hemorrhage, midline shift, intracranial mass, hydrocephalus, territorial ischemia or abnormal extra-axial collection. The calvarium is intact. The paranasal sinuses, mastoid air cells, and middle ear cavities are clear. IMPRESSION: No acute intracranial abnormality. HISTORY: 82 years-old Female Pt c/o dehydration acute dehydration COMPARISON: Chest extensive radiograph 02/05/2017 TECHNIQUE: PA view of the chest with left lateral decubitus and supine views of the abdomen FINDINGS: Cardiac silhouette is again mildly enlarged. Tortuosity of the descending thoracic aorta redemonstrated along with atherosclerosis. Prior median sternotomy with surgical clips projecting over the left mediastinal border. No pneumothorax, pleural effusion, focal airspace consolidation or overt pulmonary edema. Mild right hemidiaphragmatic elevation is unchanged. Bones appear osteoporotic. Advanced degenerative changes of the spine and shoulders. No pneumoperitoneum identified. No pneumatosis. Posterior darrian and screw fusion hardware of the lumbar spine. Surgical clips are seen within the right upper abdomen suggesting prior cholecystectomy. The bowel gas pattern is nonobstructive. No urolith identified. Vascular calcifications are noted. IMPRESSION: 1. No acute process of the chest. 2. Nonobstructive bowel gas pattern without pneumoperitoneum. Impression Assessment and Plan This is an 82 yo f with advanced Parkinson's that presents to us with FTT FTT secondary to progression of Parkinson's with attributing factors such as possible depression and poor compliance with medications - med surg admission - neuro consult - We did discuss tube feeding and discussed that this is highly not recommended as she had made it clear on previous admission she would not like this - we discussed NG tube however this will be deferred until reassessment in am - speech as failed dysphagia screen, currently NPO - IVF overnight NSS with 20 KCL @ 100cc/h - repeat labs in am - patient did NOT sign POLST that was filled on previous admission and NO POA assigned officially per daughter Hypokalemia/ hyponatremia secondary to FTT/ dehydration; at risk for refeeding syndrome - IVF as above, recheck levels in am CAD/ HTN/CVA/HLD - patient is refusing all PO medications at this time - Lopressor 5 mg IV for sys > 180 q 6h prn - plavix, amlodipine 2.5 mg, Metoprolol 50 mg bid held - Zocor 20 mg daily, lasix 20 mg bid held GERD/Gastroparesis? Ranitidine to IV form TSH low - free T4 in am Full code Attending addendum: I have physically seen this patient, have supervised the medical residents activities, and agree with the H&P unless as otherwise noted. Assessment and Plan: Failure to thrive/progressive Parkinson's disease/depression/noncompliance-- Admit to medical surgical floor Keep nothing by mouth, since she failed the dysphagia screen in the ED NSS plus KCl 20 mEq at 100 ML's per hour Repeat CBC with differential, BMP and magnesium level in the a.m. Consult nursing home social worker to help address long-term living situation CAD/hypertension/hypokalemia/hyponatremia-- Nothing by mouth Lopressor 5 mg IV every 4 hours when necessary systolic blood pressure greater than 160 All other medications on hold Level of Care Med/Surg Advanced Directives Existing Advance Directive: No Existing Living Will: No Existing Power of Interior Design Teacher: No Resuscitation Status FULL RESUSCITATION VTE Prophylaxis VTE Risk Assessment Done? Y/N: Yes Risk Level: Moderate Given or contraindicated: Unfractionated heparin SQ, SCD's Note Total Time: Critical Care 30 - 74 minutes Additional Copies To Jam Aguila M.D.
[2017-03-07 21:53] LABS: PHOSPHORUS 2.5 mg/dl (2.5-4.9)
--- NOTE | 2017-03-07 22:02 | DIAGNOSTIC IMAGING REPORT ---
ABDOMEN 2VIEW W/PA CHEST RTN HISTORY: 82 years-old Female Pt c/o dehydration acute dehydration COMPARISON: Chest extensive radiograph 02/05/2017 TECHNIQUE: PA view of the chest with left lateral decubitus and supine views of the abdomen FINDINGS: Cardiac silhouette is again mildly enlarged. Tortuosity of the descending thoracic aorta redemonstrated along with atherosclerosis. Prior median sternotomy with surgical clips projecting over the left mediastinal border. No pneumothorax, pleural effusion, focal airspace consolidation or overt pulmonary edema. Mild right hemidiaphragmatic elevation is unchanged. Bones appear osteoporotic. Advanced degenerative changes of the spine and shoulders. No pneumoperitoneum identified. No pneumatosis. Posterior darrian and screw fusion hardware of the lumbar spine. Surgical clips are seen within the right upper abdomen suggesting prior cholecystectomy. The bowel gas pattern is nonobstructive. No urolith identified. Vascular calcifications are noted. IMPRESSION: 1. No acute process of the chest. 2. Nonobstructive bowel gas pattern without pneumoperitoneum. The above report was generated using voice recognition software. It may contain grammatical, syntax or spelling errors. Electronically signed by: Kam Arnold M.D. 03/07/2017 10:01 PM Dictated Date/Time: 03/07/2017 9:58 PM
[2017-03-07] MEDS ORDERED: METOPROLOL TARTRATE 1 MG/ML VIAL IV STA (23:10)
[2017-03-07] MEDS ORDERED: ONDANSETRON INJ 2 MG/ML 2 ML VIAL IV PRN (23:15)
[2017-03-07] MEDS ORDERED: FAMOTIDINE IV INJ 20 MG in DEXTROSE 5% 100ML 100 ML IV SCH (23:15)
[2017-03-08 00:40] VITALS: BP 158/92; PULSE 90; TEMP 37.1; O2SAT 94; BMI 16.7
[2017-03-08 00:53] VITALS: BP 158/92; PULSE 71; TEMP 37.1; O2SAT 94
--- NOTE | 2017-03-08 01:26 | EMERGENCY ROOM VISIT NOTE ---
History Report prepared by Karen: Sheila Carbone Under the Supervision of: Dr. Andrez Waddell M.D. First contact with patient: 18:31 Stated Complaint: LETHARGIC History of Present Illness The patient is an 82 year old female who presents to the Emergency Room with complaints of persistent decreased appetite starting 1 month ago. The patient's family sent the patient to the ED because she has not been eating since [place]. She has been losing weight. The patient denies having any pain. The history is limited due to the patient's dementia. Source of History: patient, nursing staff History Limited By: dementia Onset: 1 month ago Position: other (global) Quality: other (decreased appetite) Timing: other (persistent) Note: Pt has had weight loss. Review of Systems See HPI for pertinent positives & negatives. A total of 10 systems reviewed and were otherwise negative. Past Medical & Surgical Medical Problems: (1) Advance care planning (2) AORTOCORONARY BYPASS (3) Cholecystitis, chronic (4) CORON ATHEROSCLER NOS TYPE VESSEL, UPPER [place] OR GRAFT (5) CVA (cerebral infarction) (6) Failure to thrive (7) HYPERLIPIDEMIA NEC/NOS (8) HYPERTENSION NOS (9) Hypokalemia (10) Nausea and vomiting (11) Parkinson disease, symptomatic (12) SPONDYLOLISTHESIS Family History Patient reports no known family medical history. Social History Smoking Status: Former Smoker Alcohol Use: none Drug Use: none Marital Status: Housing Status: lives with family Current/Historical Medications Scheduled Acetaminophen Tab (Tylenol), 650 MG PO PRN Amlodipine Besylate (Norvasc), 2.5 MG PO QAM Carbidopa/Levodopa (Sinemet 25MG/100MG), 2 TAB PO BID Carbidopa/Levodopa (Sinemet 25MG/100MG), 1.5 TAB PO LUNCH Cholecalciferol (Vitamin D), 1,000 UNIT PO DAILY Clopidogrel Bisulfate (Clopidogrel), 75 MG PO DAILY Cyanocobalamin (Vitamin B-12), 500 MCG PO DAILY Docusate Sodium (Docusate Sodium), 100 MG PO QAM Fluticasone Propionate (Nasal) (Flonase Allergy Relief), 1-2 SPRAYS [place] DAILY Furosemide (Lasix), 20 MG PO BID Gabapentin (Gabapentin), 300 MG PO HS Megestrol Acetate (Megestrol Acetate), 400 MG PO QAM Metoprolol Tartrate (Lopressor) (Lopressor), 50 MG PO BID Potassium Chloride (Klor-Con Sprinkle), 10 MEQ PO BID Ranitidine (Zantac), 150 MG PO DAILY Simvastatin (Zocor), 20 MG PO QPM Allergies Coded Allergies: Celecoxib (Verified Allergy, Unknown, 03/07/17) Clarithromycin (Verified Allergy, Unknown, ?, 03/07/17) Erythromycin (Verified Allergy, Unknown, MYCINS, 03/07/17) Irbesartan (Verified Allergy, Unknown, Unknown rxn, 02/03/14) Pregabalin (Verified Allergy, Unknown, Unknown rxn, 03/07/17) Propoxyphene (Verified Allergy, Unknown, Unknown - Darvocet, 03/07/17) Codeine (Verified Adverse Reaction, Mild, ACUTE NAUSEA, 03/07/17) ROJAS Inhibitors (Verified Adverse Reaction, Unknown, ?, 03/07/17) Benzonatate (Verified Adverse Reaction, Unknown, UNKNOWN, 03/07/17) Hydralazine (Verified Adverse Reaction, Unknown, ?, 03/07/17) Losartan (Verified Adverse Reaction, Unknown, ?, 03/07/17) Morphine (Unverified Adverse Reaction, Unknown, GI SYMPTOMS, 03/07/17) States morphine made her sick for months, and ask to get it added to allergy list. Tramadol (Verified Adverse Reaction, Unknown, didn't feel good, 03/07/17) Valsartan (Verified Adverse Reaction, Unknown, ?, 03/07/17) Physical Exam Vital Signs Date Time Temp Pulse Resp B/P (MAP) Pulse Ox O2 Delivery O2 Flow Rate FiO2 03/07/17 22:17 83 20 173/125 96 Room Air 03/07/17 21:47 100 22 180/158 96 Room Air 03/07/17 21:17 102 17 197/156 97 Room Air 03/07/17 20:23 94 19 204/142 98 Room Air 03/07/17 19:53 84 21 172/112 98 Room Air 03/07/17 19:26 83 26 181/108 98 Room Air 03/07/17 19:15 37.1 82 20 181/108 98 Room Air 03/07/17 19:13 97 Room Air 03/07/17 19:13 84 03/07/17 18:59 97 Room Air Physical Exam GENERAL: Patient is a cachectic appearing female, mumbles HEAD: Normocephalic atraumatic EYES: Ocular movements intact pupils equal and react to light OROPHARYNX mucous membranes are moist no exudates present no erythema or edema present NECK: Supple no nuchal rigidity CHEST: Good equal expansion LUNGS: Clear and equal to auscultation CARDIAC: Normal S1 and S2 ABDOMEN: Soft nontender no guarding BACK: No CVA tenderness EXTREMITIES: No pain upon palpation normal muscle strength in all groups no clubbing cyanosis or edema NEURO: Patient is following commands and answering questions appropriately. Alert and oriented x3 Cranial Nerves 2-12 grossly intact Medical Decision & Procedures ER Provider Diagnostic Interpretation: X-ray results as stated below per interpretation by me and the radiologist. Radiology results as stated below per my review and radiologist interpretation: ABDOMEN 2VIEW W/PA CHEST RTN HISTORY: 82 years-old Female Pt c/o dehydration acute dehydration COMPARISON: Chest extensive radiograph 02/05/2017 TECHNIQUE: PA view of the chest with left lateral decubitus and supine views of the abdomen FINDINGS: Cardiac silhouette is again mildly enlarged. Tortuosity of the descending thoracic aorta redemonstrated along with atherosclerosis. Prior median sternotomy with surgical clips projecting over the left mediastinal border. No pneumothorax, pleural effusion, focal airspace consolidation or overt pulmonary edema. Mild right hemidiaphragmatic elevation is unchanged. Bones appear osteoporotic. Advanced degenerative changes of the spine and shoulders. No pneumoperitoneum identified. No pneumatosis. Posterior darrian and screw fusion hardware of the lumbar spine. Surgical clips are seen within the right upper abdomen suggesting prior cholecystectomy. The bowel gas pattern is nonobstructive. No urolith identified. Vascular calcifications are noted. IMPRESSION: 1. No acute process of the chest. 2. Nonobstructive bowel gas pattern without pneumoperitoneum. The above report was generated using voice recognition software. It may contain grammatical, syntax or spelling errors. Electronically signed by: Kam Arnold M.D. 03/07/2017 10:01 PM Dictated Date/Time: 03/07/2017 9:58 PM HEAD WITHOUT CONTRAST (CT) CLINICAL HISTORY: 82 years-old Female with Pt c/o weakness. Acute weakness TECHNIQUE: Multiple axial CT images of the head were obtained without contrast. A dose lowering technique was utilized adhering to the principles of ALARA. CT DOSE: 614.27 mGy.cm COMPARISON: CT head 02/05/2017. FINDINGS: Exam is limited secondary to patient positioning mild motion. Moderate atrophy with extensive chronic microvascular ischemic changes, unchanged. Mild encephalomalacia related to remote infarction of the periventricular right frontal lobe. Extensive vascular calcifications are seen at the level of the skull base. Encephalomalacia from remote infarction is again seen involving the mid left cerebellar hemisphere. Multiple remote lacunar infarctions of the basal ganglia. No acute intracranial hemorrhage, midline shift, intracranial mass, hydrocephalus, territorial ischemia or abnormal extra-axial collection. The calvarium is intact. The paranasal sinuses, mastoid air cells, and middle ear cavities are clear. IMPRESSION: No acute intracranial abnormality. The above report was generated using voice recognition software. It may contain grammatical, syntax or spelling errors. Electronically signed by: Kam Arnold M.D. 03/07/2017 8:58 PM Dictated Date/Time: 03/07/2017 8:54 PM Laboratory Results Test 03/07/17 19:30 03/07/17 19:33 Direct Bilirubin 0.5 mg/dl (0-0.2) Total Creatine Kinase 15 U/L (26-192) Creatine Kinase MB 0.6 ng/ml (0.5-3.6) Creatine Kinase MB Ratio 4.0 (0-3.0) Troponin I < 0.015 ng/ml (0-0.045) Amylase Level 61 U/L (25-115) Lipase 288 U/L (73-393) Thyroid Stimulating Hormone (TSH) 0.185 uIu/ml (0.300-4.500) Influenza Type A Antigen Neg for Influ A (NEG) Influenza Type B Antigen Neg for Influ B (NEG) Labs reviewed by ED physician. Medications Administered Medications (Trade) Dose Ordered Sig/Graciela Route Start Time Stop Time Status Last Admin Dose Admin Sodium Chloride 1,000 ml @ 999 mls/hr Q1H1M STAT IV 03/07/17 18:37 03/07/17 19:37 DC 03/07/17 19:39 999 MLS/HR Metoprolol Tartrate (Lopressor Iv) 2.5 mg NOW STAT IV 03/07/17 23:10 03/07/17 23:22 DC 03/07/17 23:46 2.5 MG ECG Indication: weakness Rate (beats per minute): 79 Rhythm: normal sinus Findings: no acute ischemic change, no ectopy Change: Patient's electrocardiogram per my interpretation. ED Course 1835: Past medical records reviewed. The patient was evaluated in room A9B. A complete history and physical examination was performed. 1836: NSS 1000 ml @ 999 mls/hr IV. 2029: I reevaluated the patient. She is stable. I spoke with the patient's family and they would like everything to be done for the patient. I discussed results and treatment plan with the patient. They verbalize agreement and understanding. The patient will be evaluated for further management. 2105: I discussed the patient's case with MONSE Gamboa hospitalist. She has agreed to evaluate the patient for further management and care. Medical Decision Differential diagnosis: Etiologies such as metabolic, infection, hypo/hyperglycemia, electrolyte abnormalities, cardiac sources, intracerebral event, toxicologic, neurologic, as well as others were entertained. This is an 82-year-old female who presents emergency department complaining of weakness. An IV was established, patient given normal saline bolus. Family does not wish to make this patient a hospice patient wants everything done the can be done. She was given normal saline bolus here in emergency department discussed with the hospitalist service who agreed to admit the patient. Medication Reconcilliation Current Medication List: was personally reviewed by me Blood Pressure Screening Patient's blood pressure: Elevated blood pressure Referred to hospitalist. Consults Time Called: 2099 Consulting Physician: MONSE Gamboa hospitalist Returned Call: 2105 I discussed the patient's case with her. She has agreed to evaluate the patient for further management and care. Impression Primary Impression: Weakness Scribe Attestation The scribe's documentation has been prepared under my direction and personally reviewed by me in its entirety. I confirm that the note above accurately reflects all work, treatment, procedures, and medical decision making performed by me. Departure Information Dispostion Being Evaluated By Hospitalist Referrals Jam Aguila M.D. (PCP)
[2017-03-08] MEDS: NSS + 20MEQ KCL 1000ML 1,000 ML IV SCH ×3 (01:47→22:25)
[2017-03-08] MEDS: FAMOTIDINE IV INJ 20 MG in SYRINGE 3 ML IV SCH ×2 (01:48→13:32)
[2017-03-08] MEDS ORDERED: MoRPHine SULFATE 2 MG/ML CARP IV STA (03:08)
[2017-03-08 03:26] VITALS: BP_SYST 182; BP_DIAS 106; BP_DIAS 112
[2017-03-08] MEDS ORDERED: ACETAMINOPHEN IV 650 MG in EMPTY BAG 0 ML IV PRN (03:30)
[2017-03-08] MEDS ORDERED: METOPROLOL TARTRATE 1 MG/ML VIAL IV. PRN (04:15)
[2017-03-08] MEDS: HydrALAZINE HCL 20 MG/ML VIAL IV. PRN ×2 (05:24→23:17)
[2017-03-08 06:39] LABS: BASO % 0.2 %; BASO ABS # 0.01 K/uL (0-0.2); EOS % 0.5 %; EOS ABS # 0.03 K/uL (0-0.5); HEMATOCRIT 37.6 % (37-47); HEMOGLOBIN 12.8 g/dL (12.0-16.0); IG# 0.02 K/uL (0.00-0.02); LYMPH % 10.5 %; LYMPH ABS # 0.65 K/uL (1.2-3.4); MEAN CELL VOLUME 89.5 fL (80-100); MEAN CORPUSCULAR HEMOGLOBIN 30.5 pg (25-34); MEAN PLATELET VOLUME 10.4 fL (7.4-10.4); MONO % 8.5 %; MONO ABS # 0.53 K/uL (0.11-0.59); NEUT ABS # 4.96 K/uL (1.4-6.5); PLATELET COUNT 173 K/uL (130-400); RED CELL DISTRIBUTION WIDTH CV 13.4 % (11.5-14.5); RED CELL DISTRIBUTION WIDTH SD 43.7 fL (36.4-46.3)
[2017-03-08 07:06] LABS: ALBUMIN 2.7 gm/dl (3.4-5.0); CALCIUM 9.2 mg/dl (8.5-10.1); CREATININE 0.58 mg/dl (0.60-1.20); POTASSIUM 3.1 mmol/L (3.5-5.1)
[2017-03-08 07:11] LABS: PHOSPHORUS 1.6 mg/dl (2.5-4.9); TOTAL PROTEIN 7.1 gm/dl (6.4-8.2)
[2017-03-08 07:25] VITALS: BP 150/85; PULSE 72; TEMP 36.7; O2SAT 96
[2017-03-08] MEDS ORDERED: POTASSIUM PHOS 3 MMOL/1 ML INFUSION IV STA (08:56)
[2017-03-08] MEDS ORDERED: MAGNESIUM SULFATE 1GM / D5W 1 GM in PREMIXED IN D5W 100 ML IV ONE (09:30)
[2017-03-08] MEDS ORDERED: POTASSIUM PHOSPHATE INJ 24 MMOL in SODIUM CHLORIDE 0.9% 500ML 500 ML IV ONE (09:30)
[2017-03-08] MEDS: CEFTRIAXONE SOD INJ 1 GM in DEXTROSE 5% ADD-VANTAGE 50ML 50 ML IV SCH (10:08)
--- NOTE | 2017-03-08 10:13 | Neurology Consultation ---
Neurology Consultation Date of Consultation: Mar 08, 2017. Attending Physician: Michael Nuñez MD Primary Care Physician: Jam Aguila M.D. Reason for Consultation: Parkinsonism and failure to thrive History of Present Illness Source: patient, clinic records, hospital records This is a 82-year-old female who presents with failure to thrive symptoms. Patient has been followed in neurology clinic by Dr. Del Rosario and her physician technical services assistant. She's been seen by Dr. Del Rosario in October and our physician technical services assistant in December and January. History was reviewed. The patient has a history of multiple strokes including left corpus callosum stroke in 2005 with right-sided weakness, right frontal ischemic changes, and discussed the use small vessel ischemic changes and lacunar infarcts. Patient has vascular dementia and parkinsonism because of this. She does not appear to have idiopathic Parkinson' s. Patient has been tried on Sinemet but does not appear to have had a robust response. Discussions in clinic have been that they do not want to go up on Sinemet due to concerns for increased confusion. Patient is supposed to be on Plavix for stroke prevention. Aricept has been considered although Aricept does not tend to be very effective in vascular dementia and would not necessarily improve her current situation. Overall the patient appears to have presented because of failure to thrive and not eating. The patient reports that she doesn't have an appetite. She denies any trouble with swallowing or pain with swallowing. Patient denies any pain. History is somewhat limited due to cognitive status. Labs this admission were reviewed and TSH is noted to be low at 0.185 MRI of the brain report and images from November 2016 were reviewed by myself. The patient does have severe and extensive small vessel ischemic changes in the subcortical white matter bilaterally. Also noted to have significant diffuse atrophy. Past Medical/Surgical History Medical Problems: (1) Adult failure to thrive Status: Acute (2) Dehydration Status: Acute (3) Dehydration Status: Acute (4) Generalized weakness Status: Acute (5) Nausea Status: Acute (6) Pancreatitis Status: Acute (7) Weakness Status: Acute Multiple lacunar infarcts and small vessel ischemic disease with a history of right hemiplegia in 2005 Lumbar stenosis with bilateral S1 radiculopathy status post lumbar decompression and fusion CAD status post bypass Hypertension Dyslipidemia Pressure ulcers Family History Family history CAD and hypertension Social History Patient is living with her daughter. Appears to be mostly bed bound and dependent on others for her activities of daily living. Smoking Status: Former smoker Smokeless Tobacco Use: No Alcohol Use: none Drug Use: none Marital Status: Housing Status: lives with family Allergies Coded Allergies: Celecoxib (Verified Allergy, Unknown, 03/07/17) Clarithromycin (Verified Allergy, Unknown, ?, 03/07/17) Erythromycin (Verified Allergy, Unknown, MYCINS, 03/07/17) Irbesartan (Verified Allergy, Unknown, Unknown rxn, 02/03/14) Pregabalin (Verified Allergy, Unknown, Unknown rxn, 03/07/17) Propoxyphene (Verified Allergy, Unknown, Unknown - Darvocet, 03/07/17) Codeine (Verified Adverse Reaction, Mild, ACUTE NAUSEA, 03/07/17) ROJAS Inhibitors (Verified Adverse Reaction, Unknown, ?, 03/07/17) Benzonatate (Verified Adverse Reaction, Unknown, UNKNOWN, 03/07/17) Hydralazine (Verified Adverse Reaction, Unknown, ?, 03/07/17) Losartan (Verified Adverse Reaction, Unknown, ?, 03/07/17) Morphine (Unverified Adverse Reaction, Unknown, GI SYMPTOMS, 03/07/17) States morphine made her sick for months, and ask to get it added to allergy list. Tramadol (Verified Adverse Reaction, Unknown, didn't feel good, 03/07/17) Valsartan (Verified Adverse Reaction, Unknown, ?, 03/07/17) Current Inpatient Medications Current Inpatient Medications Medications (Trade) Dose Ordered Sig/Graciela Route Start Time Stop Time Status Last Admin Dose Admin Ondansetron HCl (Zofran Inj) 4 mg Q6H PRN IV 03/07/17 23:15 04/06/17 23:14 Heparin Sodium (Porcine) (Heparin Sq 5000 Unit/0.5ml) 5,000 unit Q12H SQ 03/08/17 09:00 04/07/17 08:59 Potassium Chloride/Sodium Chloride 1,000 ml @ 100 mls/hr Q10H IV 03/08/17 01:00 04/07/17 00:59 03/08/17 01:47 100 MLS/HR Famotidine 20 mg/ Syringe 5 ml @ 2.5 mls/min Q12H IV 03/08/17 01:00 04/07/17 00:59 03/08/17 01:48 2.5 MLS/MIN Acetaminophen 650 mg/Empty Bag 65 ml @ 260 mls/hr Q6H PRN IV 03/08/17 03:30 04/07/17 03:29 03/08/17 04:08 260 MLS/HR Hydralazine HCl (HydrALAZINE INJ) 5 mg Q6H PRN IV. 03/08/17 04:45 04/07/17 04:44 03/08/17 05:24 5 MG Ceftriaxone Sodium 1 gm/ Dextrose 50 ml @ 100 mls/hr Q24H IV 03/08/17 10:00 03/18/17 09:59 Magnesium Sulfate 1 gm/Prmx 100 ml @ 100 mls/hr NOW ONCE IV 03/08/17 09:30 03/08/17 10:29 Potassium Phosphate 24 mmol/ Sodium Chloride 508 ml @ 100 mls/hr ONE ONCE IV 03/08/17 09:30 03/08/17 14:34 Review of Systems Review of systems was somewhat limited by mental status but otherwise appeared to be negative with the exception of what was noted in history of present illness Physical Exam Vital Signs (Past 24 Hrs): Date Time Temp Pulse Resp B/P (MAP) Pulse Ox O2 Delivery O2 Flow Rate FiO2 03/08/17 07:25 36.7 72 20 150/85 (106) 96 Room Air 03/08/17 07:20 Room Air 03/08/17 03:26 182/112 (135) 182/106 (131) 03/08/17 00:53 37.1 71 16 158/92 (114) 94 03/08/17 00:40 94 Room Air 03/08/17 00:40 37.1 90 16 158/92 94 Room Air 03/07/17 23:48 81 19 185/114 100 RA 03/07/17 23:46 86 164/108 03/07/17 23:42 75 20 183/114 99 03/07/17 23:30 83 20 164/108 100 Room Air 03/07/17 22:17 83 20 173/125 96 Room Air 03/07/17 21:47 100 22 180/158 96 Room Air 03/07/17 21:17 102 17 197/156 97 Room Air 03/07/17 20:23 94 19 204/142 98 Room Air 03/07/17 19:53 84 21 172/112 98 Room Air 03/07/17 19:26 83 26 181/108 98 Room Air 03/07/17 19:15 37.1 82 20 181/108 98 Room Air 03/07/17 19:13 97 Room Air 03/07/17 19:13 84 03/07/17 18:59 97 Room Air Gen.: Patient is alert in no acute distress lying in bed. Appears mal nourished Heart: Regular rate and rhythm Extremities: No gross deformities or rashes noted. Bandages on bilateral heels and knee noted Neurological examination: Mental status: Patient is alert and oriented to person and place, but not time. History is limited due to mental status. Attention concentration normal for the situation. Remote and recent memory impaired Speech is sparse but no dysarthria or specific aphasia noted Cranial nerves: Funduscopic examination was limited 2nd to cooperation. Pupils equally round and reactive to light. Cranial nerve examination limited by mental status but appeared to be able to look in all directions. No facial symmetry at rest. Facial sensation likely intact. Hearing grossly intact voice. Strength: Patient appeared to be able to move all extremities but did not participate in formal strength examination. Patient was noted to have cogwheel rigidity in the right greater than left upper extremity. No resting tremors were noted. Sensation: Grossly intact to light touch in all extremities Deep tendon reflexes: +1 in bilateral biceps and patellar. Toes are downgoing to plantar stimulation bilaterally Coordination: Not able to assess due to mental status Station within the bed is normal. Laboratory Results Past 24 Hours: 03/08/17 05:57 Red Blood Count 4.20, Mean Corpuscular Volume 89.5, Mean Corpuscular Hemoglobin 30.5, Mean Corpuscular Hemoglobin Concent 34.0, Mean Platelet Volume 10.4, Neutrophils (%) (Auto) 80.0, Lymphocytes (%) (Auto) 10.5, Monocytes (%) (Auto) 8.5, Eosinophils (%) (Auto) 0.5, Basophils (%) (Auto) 0.2, Neutrophils # (Auto) 4.96, Lymphocytes # (Auto) 0.65, Monocytes # (Auto) 0.53, Eosinophils # (Auto) 0.03, Basophils # (Auto) 0.01 03/08/17 05:57 Test 03/07/17 19:30 1/25/18 19:33 03/08/17 05:20 03/08/17 05:57 Direct Bilirubin 0.5 mg/dl (0-0.2) Total Creatine Kinase 15 U/L (26-192) Creatine Kinase MB 0.6 ng/ml (0.5-3.6) Creatine Kinase MB Ratio 4.0 (0-3.0) Troponin I < 0.015 ng/ml (0-0.045) Amylase Level 61 U/L (25-115) Lipase 288 U/L (73-393) Thyroid Stimulating Hormone (TSH) 0.185 uIu/ml (0.300-4.500) Influenza Type A Antigen Neg for Influ A (NEG) Influenza Type B Antigen Neg for Influ B (NEG) Urine Color YELLOW Urine Appearance CLOUDY (CLEAR) Urine pH 8.0 (4.5-7.5) Urine Specific [place] 1.017 (1.000-1.030) Urine Protein TRACE (NEG) Urine Glucose (UA) NEG (NEG) Urine Ketones TRACE (NEG) Urine Occult Blood 1+ (NEG) Urine Nitrite POS (NEG) Urine Bilirubin NEG (NEG) Urine Urobilinogen NEG (NEG) Urine Leukocyte Esterase SMALL (NEG) Urine WBC (Auto) >30 /hpf (0-5) Urine RBC (Auto) 0-4 /hpf (0-4) Urine Hyaline Casts (Auto) 5-10 /lpf (0-5) Urine Epithelial Cells (Auto) 0-5 /lpf (0-5) Urine Bacteria (Auto) 4+ (NEG) White Blood Count 6.20 K/uL (4.8-10.8) Red Blood Count 4.20 M/uL (4.2-5.4) Hemoglobin 12.8 g/dL (12.0-16.0) Hematocrit 37.6 % (37-47) Mean Corpuscular Volume 89.5 fL (80-100) Mean Corpuscular Hemoglobin 30.5 pg (25-34) Mean Corpuscular Hemoglobin Concent 34.0 g/dl (32-36) Platelet Count 173 K/uL (130-400) Mean Platelet Volume 10.4 fL (7.4-10.4) Neutrophils (%) (Auto) 80.0 % Lymphocytes (%) (Auto) 10.5 % Monocytes (%) (Auto) 8.5 % Eosinophils (%) (Auto) 0.5 % Basophils (%) (Auto) 0.2 % Neutrophils # (Auto) 4.96 K/uL (1.4-6.5) Lymphocytes # (Auto) 0.65 K/uL (1.2-3.4) Monocytes # (Auto) 0.53 K/uL (0.11-0.59) Eosinophils # (Auto) 0.03 K/uL (0-0.5) Basophils # (Auto) 0.01 K/uL (0-0.2) RDW Standard Deviation 43.7 fL (36.4-46.3) RDW Coefficient of Variation 13.4 % (11.5-14.5) Immature Granulocyte % (Auto) 0.3 % Immature Granulocyte # (Auto) 0.02 K/uL (0.00-0.02) Prothrombin Time 11.0 SECONDS (9.0-12.0) Prothromb Time International Ratio 1.0 (0.9-1.1) Anion Gap 7.0 mmol/L (3-11) Est Creatinine Clear Calc Drug Dose 45.1 ml/min Estimated GFR () 98.8 Estimated GFR (Non- 85.2 BUN/Creatinine Ratio 26.0 (10-20) Calcium Level 9.2 mg/dl (8.5-10.1) Phosphorus Level 1.6 mg/dl (2.5-4.9) Magnesium Level 1.7 mg/dl (1.8-2.4) Total Bilirubin 1.5 mg/dl (0.2-1) Aspartate Amino Transf (AST/SGOT) 10 U/L (15-37) Alanine Aminotransferase (ALT/SGPT) 6 U/L (12-78) Alkaline Phosphatase 49 U/L (45-117) Total Protein 7.1 gm/dl (6.4-8.2) Albumin 2.7 gm/dl (3.4-5.0) Globulin 4.4 gm/dl (2.5-4.0) Albumin/Globulin Ratio 0.6 (0.9-2) Free Thyroxine 1.46 ng/dl (0.80-1.60) Impression This is a 82-year-old female with advanced vascular dementia and vascular parkinsonism. Vascular and stroke workup has been done in the past. Vascular risk factors include CAD, hypertension, dyslipidemia, and previous multiple lacunar strokes and small vessel ischemic disease. Plan Continue patient's home medications without change (this includes Plavix and Sinemet) Unfortunately I really do not have anything to offer this patient in terms of her failure to thrive. Adjusting Parkinson's medications for parkinsonism ( which tends not to respond to dopamine medications) or trying to add on dementia medications will not improve her current situation. Patient may continue to follow up in neurology clinic with Dr. Del Rosario for management of vascular dementia and vascular parkinsonism. Follow-up PT/OT and speech therapies Vascular risk factor modifications and recommendations: Blood pressure recommendations 130/80-110/70 Total cholesterol goal 100- 200 and LDL goal less than 100 Hemoglobin A1c goal less than 7 I do think that it would be worthwhile to consult palliative care to help with goals of care, although per previous notes it seems that the daughter is very resistant to this idea. If there is any questions or concerns, feel free to call/page me.
[2017-03-08] MEDS: HEPARIN SOD 5000 UNIT/0.5 ML CARP SQ SCH ×2 (10:14→22:32)
--- NOTE | 2017-03-08 12:30 | Hospitalist Progress Note ---
Hospitalist Progress Note Date of Service Mar 08, 2017. (Julieta Henriquez ., PA-C) Subjective Pt evaluation today including: conversation w/ patient, physical exam, lab review, review of studies, review of inpatient medication list Voiding: incontinence Patient resting quietly in bed. No s/s of distress. Disoriented to person/place/time. When asked patient if she was in any pain, shakes her head "no" Stated she wasn't eating because she just isn't hungry. When asked about her code status, states wants DNR and no tube feeding. ? reliability due to disorientation- however, per last visit, these were patient' s wishes. Complete ROS cannot be completed due to mental status. Talked with family/patient- patient ONLY wants CPR, no cardioversion or intubation. Discussed need for possible feeding tube vs palliative care. Family does not want to consider palliative care at this time and would like to pursue options for feeding. (Julieta Henriquez ., PA-C) Medications Current Inpatient Medications Medications (Trade) Dose Ordered Sig/Graciela Route Start Time Stop Time Status Last Admin Dose Admin Ondansetron HCl (Zofran Inj) 4 mg Q6H PRN IV 03/07/17 23:15 04/06/17 23:14 Heparin Sodium (Porcine) (Heparin Sq 5000 Unit/0.5ml) 5,000 unit Q12H SQ 03/08/17 09:00 04/07/17 08:59 03/08/17 10:14 5,000 UNIT Potassium Chloride/Sodium Chloride 1,000 ml @ 100 mls/hr Q10H IV 03/08/17 01:00 04/07/17 00:59 03/08/17 11:34 100 MLS/HR Famotidine 20 mg/ Syringe 5 ml @ 2.5 mls/min Q12H IV 03/08/17 01:00 04/07/17 00:59 03/08/17 01:48 2.5 MLS/MIN Acetaminophen 650 mg/Empty Bag 65 ml @ 260 mls/hr Q6H PRN IV 03/08/17 03:30 04/07/17 03:29 03/08/17 04:08 260 MLS/HR Hydralazine HCl (HydrALAZINE INJ) 5 mg Q6H PRN IV. 03/08/17 04:45 04/07/17 04:44 03/08/17 05:24 5 MG Ceftriaxone Sodium 1 gm/ Dextrose 50 ml @ 100 mls/hr Q24H IV 03/08/17 10:00 03/18/17 09:59 03/08/17 10:08 100 MLS/HR Potassium Phosphate 24 mmol/ Sodium Chloride 508 ml @ 100 mls/hr ONE ONCE IV 03/08/17 09:30 03/08/17 14:34 03/08/17 10:51 100 MLS/HR (Julieta Henriquez, CUCO-C) Objective Vital Signs Date Time Temp Pulse Resp B/P (MAP) Pulse Ox O2 Delivery O2 Flow Rate FiO2 03/08/17 07:25 36.7 72 20 150/85 (106) 96 Room Air 03/08/17 07:20 Room Air 03/08/17 03:26 182/112 (135) 182/106 (131) 03/08/17 00:53 37.1 71 16 158/92 (114) 94 03/08/17 00:40 94 Room Air 03/08/17 00:40 37.1 90 16 158/92 94 Room Air 03/07/17 23:48 81 19 185/114 100 RA 03/07/17 23:46 86 164/108 03/07/17 23:42 75 20 183/114 99 03/07/17 23:30 83 20 164/108 100 Room Air 03/07/17 22:17 83 20 173/125 96 Room Air 03/07/17 21:47 100 22 180/158 96 Room Air 03/07/17 21:17 102 17 197/156 97 Room Air 03/07/17 20:23 94 19 204/142 98 Room Air 03/07/17 19:53 84 21 172/112 98 Room Air 03/07/17 19:26 83 26 181/108 98 Room Air 03/07/17 19:15 37.1 82 20 181/108 98 Room Air 03/07/17 19:13 97 Room Air 03/07/17 19:13 84 03/07/17 18:59 97 Room Air (Julieta Henriquez, CUCO-C) Physical Exam General Appearance: no apparent distress, + cachetic, + thin Eyes: normal inspection, PERRL ENT: hearing grossly normal Neck: supple Respiratory/Chest: no respiratory distress, no accessory muscle use, + decreased breath sounds (throughout all lung arauz ) Cardiovascular: regular rate, rhythm, + systolic murmur Abdomen: normal bowel sounds, non tender, soft Extremities: no pedal edema, no calf tenderness Neurologic/Psychiatric: alert, + depressed affect, + disoriented Skin: normal color, warm/dry, no rash (Julieta Henriquez, PA-C) Laboratory Results Last 24 Hours Test 03/07/17 19:30 03/07/17 19:33 03/08/17 05:20 03/08/17 05:57 White Blood Count 7.35 K/uL 6.20 K/uL Red Blood Count 4.35 M/uL 4.20 M/uL Hemoglobin 13.1 g/dL 12.8 g/dL Hematocrit 38.8 % 37.6 % Mean Corpuscular Volume 89.2 fL 89.5 fL Mean Corpuscular Hemoglobin 30.1 pg 30.5 pg Mean Corpuscular Hemoglobin Concent 33.8 g/dl 34.0 g/dl Platelet Count 181 K/uL 173 K/uL Mean Platelet Volume 10.3 fL 10.4 fL Neutrophils (%) (Auto) 78.7 % 80.0 % Lymphocytes (%) (Auto) 13.6 % 10.5 % Monocytes (%) (Auto) 6.9 % 8.5 % Eosinophils (%) (Auto) 0.4 % 0.5 % Basophils (%) (Auto) 0.1 % 0.2 % Neutrophils # (Auto) 5.78 K/uL 4.96 K/uL Lymphocytes # (Auto) 1.00 K/uL 0.65 K/uL Monocytes # (Auto) 0.51 K/uL 0.53 K/uL Eosinophils # (Auto) 0.03 K/uL 0.03 K/uL Basophils # (Auto) 0.01 K/uL 0.01 K/uL RDW Standard Deviation 43.2 fL 43.7 fL RDW Coefficient of Variation 13.2 % 13.4 % Immature Granulocyte % (Auto) 0.3 % 0.3 % Immature Granulocyte # (Auto) 0.02 K/uL 0.02 K/uL Sodium Level 135 mmol/L 140 mmol/L Potassium Level 3.2 mmol/L 3.1 mmol/L Chloride Level 102 mmol/L 106 mmol/L Carbon Dioxide Level 26 mmol/L 27 mmol/L Anion Gap 7.0 mmol/L 7.0 mmol/L Blood Urea Nitrogen 19 mg/dl 15 mg/dl Creatinine 0.77 mg/dl 0.58 mg/dl Est Creatinine Clear Calc Drug Dose 39.8 ml/min 45.1 ml/min Estimated GFR () 82.8 98.8 Estimated GFR (Non- 71.4 85.2 BUN/Creatinine Ratio 24.3 26.0 Random Glucose 104 mg/dl 89 mg/dl Calcium Level 10.0 mg/dl 9.2 mg/dl Phosphorus Level 2.5 mg/dl 1.6 mg/dl Magnesium Level 2.0 mg/dl 1.7 mg/dl Total Bilirubin 1.5 mg/dl 1.5 mg/dl Direct Bilirubin 0.5 mg/dl Aspartate Amino Transf (AST/SGOT) 8 U/L 10 U/L Alanine Aminotransferase (ALT/SGPT) 9 U/L 6 U/L Alkaline Phosphatase 53 U/L 49 U/L Total Creatine Kinase 15 U/L Creatine Kinase MB 0.6 ng/ml Creatine Kinase MB Ratio 4.0 Troponin I < 0.015 ng/ml Total Protein 7.9 gm/dl 7.1 gm/dl Albumin 3.1 gm/dl 2.7 gm/dl Amylase Level 61 U/L Lipase 288 U/L Thyroid Stimulating Hormone (TSH) 0.185 uIu/ml Influenza Type A Antigen Neg for Influ A Influenza Type B Antigen Neg for Influ B Urine Color YELLOW Urine Appearance CLOUDY Urine pH 8.0 Urine Specific Henry 1.017 Urine Protein TRACE Urine Glucose (UA) NEG Urine Ketones TRACE Urine Occult Blood 1+ Urine Nitrite POS Urine Bilirubin NEG Urine Urobilinogen NEG Urine Leukocyte Esterase SMALL Urine WBC (Auto) >30 /hpf Urine RBC (Auto) 0-4 /hpf Urine Hyaline Casts (Auto) 5-10 /lpf Urine Epithelial Cells (Auto) 0-5 /lpf Urine Bacteria (Auto) 4+ Prothrombin Time 11.0 SECONDS Prothromb Time International Ratio 1.0 Globulin 4.4 gm/dl Albumin/Globulin Ratio 0.6 Free Thyroxine 1.46 ng/dl (Julieta Henriquez, DARBYC) Assessment and Plan This is an 82 yo f with advanced Parkinson's that presents to us with FTT Failure to thrive: - Admitted to med/surg - NPO pending speech evaluation - IVF + KCL @ 100 ml/hr - Influenza negative - Megestrol held due to NPO status - Head CT unremarkable; chest x-ray w/out signs of acute infectious process - Neurology consulted- no further recommendations Hypophosphatemia: Replace IV Phosphate, follow phosphate level and replace PRN Hypokalemia: Replace w/ IV supplement, follow PRP and replace PRN Hypomagnesemia: Replace w/ IV Mag, follow mag level and replace PRN Abnormal UA: IV Rocephin pending UCx TSH low, T4 WNL Vascular Parkinson's disease/dementia: Sinemet and Plavix held due to NPO status CAD, HTN, CVA, HLD: - Plavix, Amlodipine 2.5 mg, Metoprolol 50 mg BID, Zocor 20 mg daily, Lasix 20 mg BID held due to NPO status - IV Hydralazine PRN GERD: IV Pepcid DVT prophylaxis: Heparin SQ BID Code status: LEVEL IV, FULL NO VENT/CARDIOVERSION Dispo: Discharge uncertain- PT/OT and CM consulted (Julieta Henriquez, TERRENCE) I personally interviewed and examined the patient. I agree with history of present illness and physical exam mentioned above, I also performed my own history taking and examination. Past medical history and review of system has been obtained by myself I reviewed all pertinent labs and studies Reviewed current medications I discussed and formulated of the assessment and plan mentioned above. Please refer to the Summary mentioned below. 82 yo f with advanced Parkinson's , almost bedbound presented to the ED with severe failure to thrive and decrease in oral intake Neurology consult was appreciated, unfortunately there is nothing to offer at this point for her mental status. Family would like the patient to be DO NOT RESUSCITATE/DO NOT INTUBATE but they would like to have gastric tube for nutrition. Plavix should be held until gastric tube placement GI consulted General Appearance: Cachectic Eyes: normal Sclerae, extraocular muscle intact ENT: hearing decreased Neck: supple Respiratory/Chest: normal air entry bilateral ,no respiratory distress, no accessory muscle use Cardiovascular: regular rate, rhythm, no murmur Abdomen: non tender, soft, no masses Extremities: no edema Neurologic/Psychiatric: Lethargic but can follow simple commands Skin: normal color, warm/dry, no rash Michael Little MD, [facility] (Michael Nuñez MD)
[2017-03-08 13:25] VITALS: Ht 152.4 cm; Wt 38.9 kg
[2017-03-08 15:54] VITALS: BP 162/92; PULSE 70; TEMP 36.3; O2SAT 98
[2017-03-09 00:26] VITALS: BP 184/101; PULSE 86; TEMP 37.1; O2SAT 97
[2017-03-09] MEDS: FAMOTIDINE IV INJ 20 MG in SYRINGE 3 ML IV SCH ×2 (00:59→12:22)
[2017-03-09 01:08] VITALS: BP 170/87; PULSE 79
[2017-03-09 07:26] VITALS: BP 141/82; PULSE 79; TEMP 36.7; O2SAT 96
[2017-03-09 07:28] LABS: CALCIUM 8.5 mg/dl (8.5-10.1); CREATININE 0.4 mg/dl (0.60-1.20); PHOSPHORUS 1.8 mg/dl (2.5-4.9); POTASSIUM 3.4 mmol/L (3.5-5.1)
[2017-03-09] MEDS: NSS + 20MEQ KCL 1000ML 1,000 ML IV SCH ×2 (07:45→17:13)
[2017-03-09] MEDS: HEPARIN SOD 5000 UNIT/0.5 ML CARP SQ SCH ×2 (07:49→21:15)
[2017-03-09] MEDS ORDERED: POTASSIUM PHOS 3 MMOL/1 ML INFUSION IV STA (09:48)
[2017-03-09] MEDS ORDERED: MAGNESIUM SULFATE 1GM / D5W 1 GM in PREMIXED IN D5W 100 ML IV SCH (10:15)
[2017-03-09] MEDS: CEFTRIAXONE SOD INJ 1 GM in DEXTROSE 5% ADD-VANTAGE 50ML 50 ML IV SCH (10:25)
[2017-03-09] MEDS ORDERED: POTASSIUM PHOSPHATE INJ 24 MMOL in SODIUM CHLORIDE 0.9% 500ML 500 ML IV ONE (11:15)
[2017-03-09] MEDS ORDERED: CARBIDOPA/LEVODOPA 25/100MG TAB PO SCH ×2 (12:00→21:00)
[2017-03-09 15:08] VITALS: BP 164/89; PULSE 69; TEMP 36.9; O2SAT 100
[2017-03-09] MEDS ORDERED: ACETAMINOPHEN 325 MG TAB PO PRN (16:45)
[2017-03-09] MEDS: CARBIDOPA/LEVODOPA 25/100MG TAB PO SCH (21:11)
[2017-03-09] MEDS: SIMVASTATIN 20 MG TAB PO SCH (21:11)
[2017-03-09] MEDS: METOPROLOL TARTRATE 50 MG TAB PO SCH (21:12)
[2017-03-09] MEDS: POTASSIUM CHLORIDE 10 MEQ TABCR PO SCH (21:13)
[2017-03-09] MEDS: GABAPENTIN 300 MG CAP PO SCH (21:13)
--- NOTE | 2017-03-09 23:12 | Hospitalist Progress Note ---
Hospitalist Progress Note Date of Service Mar 09, 2017. Subjective Pt evaluation today including: conversation w/ patient, conversation w/ family Pt would not answer most of my questions, but was awake and alert. Daughter reports that pt won't answer tough questions and always defers to the daughter to answer for her. Had a 45 min conversation with daughter and pt about her decline in the last 6 months, worse in the last 6-8 weeks with poor po intake, increasing weakness. Daughter insists that pt wants to eat, but then if she gets food in her mouth, she pockets it or chews and spits. Sometimes pt says she has no appetite. When asked if pt wants a feeding tube for nutrition, she does not reply. Daughter states "I will not let her starve to ." Pt has lost 2 more kg of weight as per our scales here since 07/2016 RN reports pt says she won't take her pills, but then after RN places them in front of her, she takes them. SHe did eat a few bites of food today after Speech evaluation. Additional Comments: Pt denies pain, but won't answer any other questions All Other Systems: Reviewed and Negative Objective Vital Signs Date Time Temp Pulse Resp B/P (MAP) Pulse Ox O2 Delivery O2 Flow Rate FiO2 03/09/17 16:30 Room Air 03/09/17 15:08 36.9 69 18 164/89 (114) 100 Room Air 03/09/17 08:00 Room Air 03/09/17 07:26 36.7 79 20 141/82 (101) 96 Room Air 03/09/17 01:08 79 170/87 (114) 03/09/17 00:26 37.1 86 19 184/101 (128) 97 Room Air 03/09/17 00:00 Room Air Physical Exam General Appearance: no apparent distress, + cachetic (lying in a position on bed) Eyes: normal inspection, sclerae normal ENT: hearing grossly normal Neck: trachea midline Respiratory/Chest: lungs clear, normal breath sounds, no respiratory distress, no accessory muscle use Cardiovascular: regular rate, rhythm, no edema, no gallop, no murmur Abdomen: normal bowel sounds, non tender, soft, no organomegaly Extremities: no pedal edema, no calf tenderness, + pertinent finding ( sarcopenia) Neurologic/Psychiatric: alert Skin: normal color, warm/dry, no rash Laboratory Results Last 24 Hours Test 03/09/17 06:27 Sodium Level 139 mmol/L Potassium Level 3.4 mmol/L Chloride Level 107 mmol/L Carbon Dioxide Level 23 mmol/L Anion Gap 9.0 mmol/L Blood Urea Nitrogen 6 mg/dl Creatinine 0.40 mg/dl Est Creatinine Clear Calc Drug Dose 65.4 ml/min Estimated GFR () 111.6 Estimated GFR (Non- 96.3 BUN/Creatinine Ratio 16.0 Random Glucose 74 mg/dl Calcium Level 8.5 mg/dl Phosphorus Level 1.8 mg/dl Magnesium Level 1.6 mg/dl Assessment and Plan This is an 82 yo female with a h/o vascular dementia with Parkinsonism, CAD, HTN , CVA, HLD, and GERD, that presents to us with FTT. Failure to thrive: very poor po intake and secondary metabolic encephalopathy- likely secondary to progressing vascular dementia. Pt will not decide on if she wants PEG tube placement, defers to daughter. Daughter wants to proceed and thinks this is what patient would want. She continues to decline any further Palliative Care discussion, and does not like to discuss "Quality of Life" topic. Cites pt saying that she recently told a Psychiatrist that she would not want to commit suicide- daughter relates this to the equivalent of pt not wanting to "starve to ." No evidence of infection except likely asymptomatic bacteriuria, influenza negative. Head CT with evidence of numerous chest x-ray w/out signs of acute infectious process - Neurology consulted- no further recommendations - Admitted to med/surg -treating presumed UTI with Rocephin - had speech evaluation and is on pureed diet but has little desire to eat -continue IVF + KCL @ 100 ml/hr, continue replacing electrolytes - continue Megestrol -Awaiting GI input for possible PEG tube placement, but may need to place Corsafe to begin feeding soon -consult Dietary appreciated and recommended consideration for enteral feeding if consistent with goals of care Hypophosphatemia: Replace IV Phosphate, follow phosphate level and replace PRN Hypokalemia: Replace w/ IV supplement, follow PRP and replace PRN Hypomagnesemia: Replace w/ IV Mag, follow mag level and replace PRN Abnormal UA/Suspected UTI: growing GNRs x 2 on Ur cx, unclear if symptomatic or not but given worsening status, will treat -continue IV Rocephin pending UCx ID Advanced vascular dementia and vascular parkinsonism. : Neurology consulted and said to continue Sinemet and Plavix although not much benefit typically with Sinemet in this situation. No further treatment, and recommended Palliative Care Consult -restarted Sinemet and will continue to hold Plavix in case of PEG tube placement CAD, HTN, CVA, HLD-stable but BPs elevated -holding Plavix as above -restart Amlodipine 2.5 mg, Metoprolol 50 mg BID, Zocor 20 mg daily - IV Hydralazine PRN -hold lasix GERD: switch back to po H2 junior DVT prophylaxis: Heparin SQ BID Code status: LEVEL IV, FULL NO VENT/CARDIOVERSION Dispo: Discharge uncertain- PT/OT and CM consulted
[2017-03-10] MEDS: NSS + 20MEQ KCL 1000ML 1,000 ML IV SCH (06:16)
[2017-03-10 07:44] VITALS: BP 183/94; PULSE 57; TEMP 36.3; O2SAT 96
[2017-03-10 08:00] LABS: ALBUMIN 2.4 gm/dl (3.4-5.0); ALT/SGPT < 6 U/L (12-78); AST/SGOT 14 U/L (15-37); BLOOD UREA NITROGEN 3 mg/dl (7-18); CALCIUM 8.4 mg/dl (8.5-10.1); CARBON DIOXIDE 23 mmol/L (21-32); CREATININE 0.48 mg/dl (0.60-1.20); GLUCOSE 86 mg/dl (70-99); SODIUM 135 mmol/L (136-145)
[2017-03-10 08:04] VITALS: PULSE 60
[2017-03-10] MEDS: DOCUSATE SODIUM 100 MG CAP PO SCH (08:09)
[2017-03-10] MEDS: METOPROLOL TARTRATE 50 MG TAB PO SCH ×2 (08:09→21:42)
[2017-03-10] MEDS: CARBIDOPA/LEVODOPA 25/100MG TAB PO SCH ×3 (08:09→21:44)
[2017-03-10] MEDS: AMLODIPINE BESYLATE 5 MG TAB PO SCH (08:09)
[2017-03-10] MEDS: CHOLECALCIFEROL 1000 INTER.UNIT TAB PO SCH (08:09)
[2017-03-10] MEDS: CYANOCOBALAMIN 500 MCG TAB (VIT B-12) PO SCH (08:09)
[2017-03-10] MEDS: FLUTICASONE PROPIONATE NA SPR 16 GM BTL NAE SCH (08:09)
[2017-03-10] MEDS: MEGESTROL ACETATE SUSP 400 MG/10 ML UDC PO SCH (08:09)
[2017-03-10] MEDS: RANITIDINE HCL 150 MG TAB PO SCH (08:10)
[2017-03-10 08:14] LABS: ALKALINE PHOSPHATASE 43 U/L (45-117); CHOLESTEROL 141 mg/dl (0-200); LDL CHOLESTEROL CALCULATED 87 mg/dl; PHOSPHORUS 1.5 mg/dl (2.5-4.9); TOTAL PROTEIN 6.2 gm/dl (6.4-8.2)
[2017-03-10] MEDS: HEPARIN SOD 5000 UNIT/0.5 ML CARP SQ SCH ×2 (08:14→21:50)
[2017-03-10] MEDS: POTASSIUM CHLORIDE 10 MEQ TABCR PO SCH (08:16)
[2017-03-10] MEDS ORDERED: CLOPIDOGREL BISULFATE 75 MG TAB PO SCH ×2 (09:00)
[2017-03-10] MEDS ORDERED: SODIUM PHOSPHATE 3 MMOL/1 ML INFUSION IV STA (09:09)
[2017-03-10] MEDS ORDERED: SODIUM PHOSPHATE INJ 24 MMOL in SODIUM CHLORIDE 0.9% 500ML 500 ML IV ONE (10:00)
[2017-03-10] MEDS: CEFTRIAXONE SOD INJ 1 GM in DEXTROSE 5% ADD-VANTAGE 50ML 50 ML IV SCH (10:07)
[2017-03-10] MEDS: MAGNESIUM SULFATE 1GM / D5W 1 GM in PREMIXED IN D5W 100 ML IV SCH ×2 (10:07→11:27)
[2017-03-10 13:29] VITALS: BP 147/88
--- NOTE | 2017-03-10 13:49 | Hospitalist Progress Note ---
Hospitalist Progress Note Date of Service Mar 10, 2017. Subjective Pt evaluation today including: conversation w/ patient, conversation w/ family Pt has been sleeping all day, did wake up during turning to get cleaned and took AM pills but refused noon time pills. Family all on board today with starting Coresafe tube for feeds today. She has not eaten all day. Pt did wake up for me and after explaining process and purpose of Coresafe, pt says she is ok with having it placed. Additional Comments: cannot give ROS due to dementia Objective Vital Signs Date Time Temp Pulse Resp B/P (MAP) Pulse Ox O2 Delivery O2 Flow Rate FiO2 03/10/17 13:29 147/88 (107) 03/10/17 08:04 60 03/10/17 08:00 Room Air 03/10/17 07:44 36.3 57 20 183/94 (123) 96 Room Air 03/10/17 00:00 Room Air 03/09/17 16:30 Room Air 03/09/17 15:08 36.9 69 18 164/89 (114) 100 Room Air Physical Exam General Appearance: + cachetic Eyes: normal inspection, sclerae normal ENT: hearing grossly normal Neck: trachea midline Respiratory/Chest: lungs clear, normal breath sounds, no respiratory distress, no accessory muscle use Cardiovascular: regular rate, rhythm, no edema, no murmur Abdomen: normal bowel sounds, non tender, soft Extremities: no pedal edema, no calf tenderness, + pertinent finding ( sarcopenia) Neurologic/Psychiatric: + pertinent finding (sleeping, but woke up briefly and answered questions in very soft voice) Skin: normal color, warm/dry, no rash Laboratory Results Last 24 Hours Test 03/10/17 06:59 Sodium Level 135 mmol/L Potassium Level 4.0 mmol/L Chloride Level 104 mmol/L Carbon Dioxide Level 23 mmol/L Anion Gap 7.0 mmol/L Blood Urea Nitrogen 3 mg/dl Creatinine 0.48 mg/dl Est Creatinine Clear Calc Drug Dose 54.5 ml/min Estimated GFR () 105.1 Estimated GFR (Non- 90.7 BUN/Creatinine Ratio 6.1 Random Glucose 86 mg/dl Calcium Level 8.4 mg/dl Phosphorus Level 1.5 mg/dl Magnesium Level 1.6 mg/dl Total Bilirubin 0.7 mg/dl Direct Bilirubin 0.2 mg/dl Aspartate Amino Transf (AST/SGOT) 14 U/L Alanine Aminotransferase (ALT/SGPT) < 6 U/L Alkaline Phosphatase 43 U/L Total Protein 6.2 gm/dl Albumin 2.4 gm/dl Prealbumin 8.8 mg/dl Triglycerides Level 98 mg/dl Cholesterol Level 141 mg/dl HDL Cholesterol 34 mg/dl LDL Cholesterol, Calculated 87 mg/dl VLDL Cholesterol, Calculated 20 mg/dl Cholesterol/HDL Ratio 4.1 25-Hydroxy Vitamin D Total 30.8 ng/ml Assessment and Plan This is an 82 yo female with a h/o vascular dementia with Parkinsonism, CAD, HTN , CVA, HLD, and GERD, that presents to us with FTT. Failure to thrive/Severe protein calorie malnutrition: very poor po intake and secondary metabolic encephalopathy- likely secondary to progressing vascular dementia. Pt and family agreeable to Coresafe/enteral feeds to start today No evidence of infection except likely asymptomatic bacteriuria, influenza negative. Head CT with evidence of numerous chest x-ray w/out signs of acute infectious process - Neurology consulted- no further recommendations - Admitted to med/surg -treating presumed UTI with Rocephin - had speech evaluation and is on pureed diet but has little desire to eat -continue IVF + KCL @ 100 ml/hr, continue replacing electrolytes -repeat lytes now -place Coresafe and appreciate Dietary recs for enteral feeds---> high risk for refeeding syndrome -follow lytes, LFTs - continue Megestrol -Awaiting GI input for possible PEG tube placement -Family not contemplating Palliative Care at this time Hypophosphatemia: Replace IV Phosphate, follow phosphate level and replace PRN Hypokalemia: Replace w/ IV supplement, follow PRP and replace PRN Hypomagnesemia: Replace w/ IV Mag, follow mag level and replace PRN Abnormal UA/Suspected UTI: growing GNRs x 2 on Ur cx, unclear if symptomatic or not but given worsening status, will treat -continue IV Rocephin pending UCx ID--> E. coli pansensitive Advanced vascular dementia and vascular parkinsonism. : Neurology consulted and said to continue Sinemet and Plavix although not much benefit typically with Sinemet in this situation. No further treatment, and recommended Palliative Care Consult -restarted Sinemet and will continue to hold Plavix in case of PEG tube placement CAD, HTN, CVA, HLD-stable but BPs elevated still today -holding Plavix as above -restart Amlodipine 2.5 mg, Metoprolol 50 mg BID, Zocor 20 mg daily - IV Hydralazine PRN -holding lasix GERD: switch back to po H2 junior po DVT prophylaxis: Heparin SQ BID Code status: LEVEL IV, FULL NO VENT/CARDIOVERSION Dispo: Discharge uncertain- PT/OT and CM consulted
[2017-03-10] MEDS ORDERED: THIAMINE HCL INJ 100 MG in SYRINGE 9 ML IV ONE (14:30)
--- NOTE | 2017-03-10 14:48 | DIAGNOSTIC IMAGING REPORT ---
SARAH CLINICAL HISTORY: coresafe placed COMPARISON STUDY: Abdominal series March 07, 2017. FINDINGS: Multilevel lumbosacral fusion, cholecystectomy clips and median sternotomy wires are noted. The tip of the feeding tube projects over the left lower mediastinum and is slightly coiled. The bowel gas pattern is normal. IMPRESSION: 1. Tip of feeding tube projects over the left lower mediastinum and is slightly coiled. Tip likely coiled within the distal esophagus. 2. No evidence for a bowel obstruction. Electronically signed by: Wellington Atwood M.D. 03/10/2017 2:47 PM Dictated Date/Time: 03/10/2017 2:44 PM
[2017-03-10 15:21] VITALS: BP 147/72; PULSE 74; TEMP 36.5; O2SAT 92
[2017-03-10 15:56] LABS: CREATININE 0.34 mg/dl (0.60-1.20); POTASSIUM 5.5 mmol/L (3.5-5.1)
[2017-03-10 15:57] LABS: PHOSPHORUS 3.4 mg/dl (2.5-4.9)
--- NOTE | 2017-03-10 16:23 | DIAGNOSTIC IMAGING REPORT ---
KUB HISTORY: Feeding tube placement. coresafe placement check COMPARISON: KUB 03/10/2017. FINDINGS: The feeding tube is been advanced and now overlies was the mid stomach. The bowel gas pattern is unremarkable. No bowel obstruction. Lumbar spinal fusion hardware and poststernotomy changes are again noted. Prior cholecystectomy. No renal calculi. No ureteral calculi. No pneumoperitoneum or pneumatosis. IMPRESSION: The feeding tube is located within the mid stomach. Electronically signed by: Pardeep Neville M.D. 03/10/2017 4:22 PM Dictated Date/Time: 03/10/2017 4:21 PM
[2017-03-10] MEDS: SODIUM CHLORIDE 0.45% 1000ML 1,000 ML IV SCH (18:19)
[2017-03-10] MEDS ORDERED: PEPTAMEN INTENSE VHP 1000ML BAG NG SCH (19:00)
[2017-03-10] MEDS: SIMVASTATIN 20 MG TAB PO SCH (21:47)
[2017-03-10] MEDS: GABAPENTIN 300 MG CAP PO SCH (21:47)
[2017-03-11] MEDS: [UNRECOGNIZED DRUG - REMARK] SCH (00:18)
[2017-03-11 00:33] VITALS: BP 157/88; PULSE 60; TEMP 36.3; O2SAT 97
[2017-03-11] MEDS: SODIUM CHLORIDE 0.45% 1000ML 1,000 ML IV SCH (07:27)
[2017-03-11] MEDS: CHOLECALCIFEROL 1000 INTER.UNIT TAB PO SCH (07:34)
[2017-03-11] MEDS: RANITIDINE HCL 150 MG TAB PO SCH (07:34)
[2017-03-11] MEDS: DOCUSATE SODIUM 100 MG CAP PO SCH (07:34)
[2017-03-11] MEDS: AMLODIPINE BESYLATE 5 MG TAB PO SCH (07:34)
[2017-03-11] MEDS: CARBIDOPA/LEVODOPA 25/100MG TAB PO SCH ×3 (07:34→21:36)
[2017-03-11] MEDS: METOPROLOL TARTRATE 50 MG TAB PO SCH ×2 (07:34→21:33)
[2017-03-11] MEDS: CYANOCOBALAMIN 500 MCG TAB (VIT B-12) PO SCH (07:34)
[2017-03-11] MEDS: FLUTICASONE PROPIONATE NA SPR 16 GM BTL NAE SCH (07:34)
[2017-03-11] MEDS: MEGESTROL ACETATE SUSP 400 MG/10 ML UDC PO SCH (07:34)
[2017-03-11] MEDS: HEPARIN SOD 5000 UNIT/0.5 ML CARP SQ SCH ×2 (07:35→21:00)
[2017-03-11 07:56] LABS: HEMATOCRIT 39.8 % (37-47); HEMOGLOBIN 13.5 g/dL (12.0-16.0); MEAN CELL VOLUME 87.7 fL (80-100); MEAN CORPUSCULAR HEMOGLOBIN 29.7 pg (25-34); MEAN CORPUSCULAR HGB CONC 33.9 g/dl (32-36); MEAN PLATELET VOLUME 10.3 fL (7.4-10.4); PLATELET COUNT 199 K/uL (130-400); RED CELL DISTRIBUTION WIDTH CV 13.1 % (11.5-14.5); RED CELL DISTRIBUTION WIDTH SD 42.2 fL (36.4-46.3); WHITE BLOOD COUNT 5.23 K/uL (4.8-10.8)
[2017-03-11 08:12] VITALS: BP 167/123; PULSE 57; TEMP 36.2; O2SAT 95
[2017-03-11 08:40] LABS: ALBUMIN 2.4 gm/dl (3.4-5.0); ALKALINE PHOSPHATASE 47 U/L (45-117); ALT/SGPT < 6 U/L (12-78); AST/SGOT 13 U/L (15-37); BLOOD UREA NITROGEN 2 mg/dl (7-18); CALCIUM 8.8 mg/dl (8.5-10.1); CARBON DIOXIDE 24 mmol/L (21-32); CREATININE 0.47 mg/dl (0.60-1.20); GLUCOSE 74 mg/dl (70-99); POTASSIUM 3.1 mmol/L (3.5-5.1); SODIUM 133 mmol/L (136-145); TOTAL PROTEIN 6.8 gm/dl (6.4-8.2)
[2017-03-11] MEDS ORDERED: THIAMINE HCL INJ 100 MG in SYRINGE 9 ML IV SCH (09:00)
[2017-03-11] MEDS: CEFTRIAXONE SOD INJ 1 GM in DEXTROSE 5% ADD-VANTAGE 50ML 50 ML IV SCH (10:14)
--- NOTE | 2017-03-11 10:48 | Hospitalist Progress Note ---
Hospitalist Progress Note Date of Service Mar 11, 2017. Subjective Pt evaluation today including: conversation w/ patient, conversation w/ family , conversation w/ enrollment consultant (GI) Pt pulled out Coresafe tube last night after being in for a couple hours and did not want it replaced. No tube feeds were administered. Pt very lethargic, but does answer "no" when I ask her if she has pain. Daughter and in room and still want to pursue PEG tube placement Additional Comments: unobtainable Objective Vital Signs Date Time Temp Pulse Resp B/P (MAP) Pulse Ox O2 Delivery O2 Flow Rate FiO2 03/11/17 08:12 36.2 57 18 167/123 (138) 95 Room Air 03/11/17 08:00 Room Air 03/11/17 00:33 36.3 60 19 157/88 (111) 97 Room Air 03/11/17 00:00 Room Air 03/10/17 16:00 Room Air 03/10/17 15:21 36.5 74 20 147/72 (97) 92 Room Air 03/10/17 13:29 147/88 (107) Physical Exam General Appearance: + cachetic Eyes: sclerae normal ENT: hearing grossly normal, pharynx normal Neck: trachea midline Respiratory/Chest: lungs clear, normal breath sounds, no respiratory distress, no accessory muscle use Cardiovascular: no edema, no murmur, + bradycardia (with reg rhythm) Abdomen: non tender, soft, no organomegaly, + abnormal bowel sounds (hypoactive ) Extremities: no pedal edema, no calf tenderness, + pertinent finding ( sarcopenia, in flexion all four extremities, with increased tone in left upper ext and left lower ext) Neurologic/Psychiatric: + pertinent finding (lethargic but does wake up and follows some commands; +psychomotor retardation) Skin: normal color, warm/dry, no rash Lymphatic: no adenopathy Laboratory Results Last 24 Hours Test 03/10/17 15:19 03/11/17 07:23 03/11/17 07:55 Sodium Level 137 mmol/L 133 mmol/L Potassium Level 5.5 mmol/L 3.1 mmol/L Chloride Level 108 mmol/L 98 mmol/L Carbon Dioxide Level 23 mmol/L 24 mmol/L Anion Gap 6.0 mmol/L 11.0 mmol/L Blood Urea Nitrogen 2 mg/dl 2 mg/dl Creatinine 0.34 mg/dl 0.47 mg/dl Est Creatinine Clear Calc Drug Dose 77.0 ml/min 55.7 ml/min Estimated GFR () 117.8 105.9 Estimated GFR (Non- 101.6 91.3 BUN/Creatinine Ratio 7.0 4.5 Random Glucose 83 mg/dl 74 mg/dl Calcium Level 7.0 mg/dl 8.8 mg/dl Phosphorus Level 3.4 mg/dl Magnesium Level 2.0 mg/dl 2.0 mg/dl White Blood Count 5.23 K/uL Red Blood Count 4.54 M/uL Hemoglobin 13.5 g/dL Hematocrit 39.8 % Mean Corpuscular Volume 87.7 fL Mean Corpuscular Hemoglobin 29.7 pg Mean Corpuscular Hemoglobin Concent 33.9 g/dl RDW Standard Deviation 42.2 fL RDW Coefficient of Variation 13.1 % Platelet Count 199 K/uL Mean Platelet Volume 10.3 fL Total Bilirubin 0.8 mg/dl Direct Bilirubin 0.2 mg/dl Aspartate Amino Transf (AST/SGOT) 13 U/L Alanine Aminotransferase (ALT/SGPT) < 6 U/L Alkaline Phosphatase 47 U/L Total Protein 6.8 gm/dl Albumin 2.4 gm/dl Prothrombin Time 10.7 SECONDS Prothromb Time International Ratio 1.0 Assessment and Plan This is an 82 yo female with a h/o severe vascular dementia with Parkinsonism, previous CVAs, CAD, HTN, CVA, HLD, and GERD, that presents to us with FTT. Failure to thrive/Severe protein calorie malnutrition: very poor po intake and secondary metabolic encephalopathy- likely secondary to progressing vascular dementia. Pt and family were agreeable to Coresafe/enteral feeds but pt pulled out Coresafe after 2 hours. Does not want it replaced No evidence of infection except likely asymptomatic bacteriuria, influenza negative. Received Rocephin x 4 days and will stop now Head CT with evidence of numerous old CVAs; chest x-ray w/out signs of acute infectious process - Neurology consulted- no further recommendations except Palliative consult, continue Sinemet and Plavix -treated presumed UTI with Rocephin-now will dc - had speech evaluation and is on pureed diet but has little desire to eat -continue IVF + 20 meqKCL @ 75 ml/hr, continue replacing electrolytes as needed -follow PRP, Mg, Phos -replacing empirically with thiamine 100mg IV bid -Discussed case with GI about PEG tube placement---> high risk for refeeding syndrome after feeds begin - continue Megestrol -Family NOT contemplating Palliative Care at this time after lengthy discussion Hypophosphatemia: Replace IV Phosphate as needed, follow phosphate level Hypokalemia: Replace w/ IV supplement, follow PRP and replace PRN Hypomagnesemia: Replace w/ IV Mag as needed, follow mag level Abnormal UA/Suspected UTI: growing roteus nad E. coli pansensitive on Ur cx, unclear if symptomatic or not but given worsening status, was treated -discontinue IV Rocephin now-completed course Advanced vascular dementia and vascular parkinsonism. : Neurology consulted and said to continue Sinemet and Plavix although not much benefit typically with Sinemet in this situation. No further treatment, and recommended Palliative Care Consult -restarted Sinemet and will continue to hold Plavix in case of PEG tube placement CAD, HTN, CVA, HLD-stable but BPs elevated still today somewhat -holding Plavix as above -restart Amlodipine 2.5 mg, Metoprolol 50 mg BID, Zocor 20 mg daily - IV Hydralazine PRN -holding lasix GERD: continue po H2 junior DVT prophylaxis: Heparin SQ BID -hold for PEG tube placement if occurring soon Code status: LEVEL IV, FULL NO VENT/CARDIOVERSION Dispo: Discharge uncertain- PT/OT and CM consulted
[2017-03-11] MEDS: SODIUM CHLOR 0.45% + 20MEQ KCL 1,000 ML IV SCH (11:02)
[2017-03-11 12:40] VITALS: BP 130/83
[2017-03-11 15:57] VITALS: BP_SYST 168; BP_SYST 173; BP_DIAS 102; BP_DIAS 91; PULSE 53; TEMP 36.2; O2SAT 96
[2017-03-11 21:31] VITALS: PULSE 70
[2017-03-11] MEDS: GABAPENTIN 300 MG CAP PO SCH (21:33)
[2017-03-11] MEDS: SIMVASTATIN 20 MG TAB PO SCH (21:35)
[2017-03-11] MEDS: THIAMINE HCL INJ 100 MG in SYRINGE 9 ML IV SCH (21:38)
[2017-03-12] MEDS: [UNRECOGNIZED DRUG - REMARK] SCH (00:09)
[2017-03-12] MEDS: SODIUM CHLOR 0.45% + 20MEQ KCL 1,000 ML IV SCH ×2 (00:09→13:33)
[2017-03-12 00:25] VITALS: BP 118/71; PULSE 58; TEMP 36.4; O2SAT 97
[2017-03-12] MEDS: CYANOCOBALAMIN 500 MCG TAB (VIT B-12) PO SCH (07:44)
[2017-03-12] MEDS: DOCUSATE SODIUM 100 MG CAP PO SCH (07:44)
[2017-03-12] MEDS: CHOLECALCIFEROL 1000 INTER.UNIT TAB PO SCH (07:45)
[2017-03-12] MEDS: AMLODIPINE BESYLATE 5 MG TAB PO SCH (07:46)
[2017-03-12] MEDS: RANITIDINE HCL 150 MG TAB PO SCH (07:46)
[2017-03-12] MEDS: MEGESTROL ACETATE SUSP 400 MG/10 ML UDC PO SCH (07:46)
[2017-03-12] MEDS: CARBIDOPA/LEVODOPA 25/100MG TAB PO SCH ×3 (07:47→20:51)
[2017-03-12] MEDS: METOPROLOL TARTRATE 50 MG TAB PO SCH ×2 (07:48→20:51)
[2017-03-12] MEDS: FLUTICASONE PROPIONATE NA SPR 16 GM BTL NAE SCH (07:49)
[2017-03-12 07:51] VITALS: BP 181/68; PULSE 62; TEMP 37; O2SAT 96
[2017-03-12] MEDS: HEPARIN SOD 5000 UNIT/0.5 ML CARP SQ SCH ×2 (07:51→21:00)
[2017-03-12] MEDS: THIAMINE HCL INJ 100 MG in SYRINGE 9 ML IV SCH ×2 (07:53→20:51)
[2017-03-12 08:00] VITALS: O2SAT 96
--- NOTE | 2017-03-12 08:09 | GASTROINTESTINAL CONSULTATION ---
DATE OF CONSULTATION: 03/11/2017 ATTENDING PHYSICIAN: Dr. Gregory. CONSULTING PHYSICIAN: Dr. Mallory. REASON FOR CONSULTATION: Malnutrition, questionable feeding tube placement. HISTORY OF PRESENT ILLNESS: Duong Reina is an 82-year-old female who presented to the Department of Emergency Medicine on 03/08/2017 with decreased appetite since [place] and continued weight loss. The patient has progressive dementia for which she was seen by Dr. Dean on this visit and it is related to advanced vascular as well as parkinsonism. At the time that Dr. Dean saw the patient, she felt that palliative care consultation would be appropriate; however, at that time the daughter was resistant. There was an attempt made at feeding the patient via NG tube; however, the patient pulled this after approximately 2 hours and stated that she did not want a feeding tube per both the patient's daughter and per the patient's . The time that I saw the patient, the patient was extremely lethargic. She was unable to open her eyes even to strong sternal rub. I was unable to obtain any history from the patient at all. The patient's daughter does state that she has had a small amount of p.o. intake in the past 4 weeks and does have concerns about having a PEG tube placed as the patient does still have periods of wakefulness and has pulled her Coresafe tube previously and the family is unsure whether she would leave a PEG tube in place. I did question both the patient's daughter and as to whether they had any previous conversation with the patient in regard to whether or not she would want a feeding tube and neither the daughter or was able to definitively say that they had addressed this with the patient previously. PAST MEDICAL HISTORY: Includes advanced dementia secondary to parkinsonism as well as vascular dementia, lumbar stenosis, coronary artery disease, hypertension, dyslipidemia, history of decubitus ulcers, pancreatitis, nausea, generalized weakness, dehydration, adult failure to thrive. PAST SURGICAL HISTORY: Includes coronary artery bypass grafting. ALLERGIES: TO CELEBREX, BIAXIN, ERYTHROMYCIN, IRBESARTAN, PREGABALIN, PROPOXYPHENE, CODEINE, ROJAS INHIBITORS, BENZONATATE, HYDRALAZINE, LOSARTAN, MORPHINE, TRAMADOL, VALSARTAN. MEDICATIONS AT PRESENT: Thiamine 100 mg IV b.i.d., carbidopa/levodopa 25/100 one and a half tablets p.o. daily, Norvasc 2.5 mg p.o. q.a.m., vitamin D 1000 International Units p.o. daily, vitamin B12 500 mcg p.o. daily, Colace 100 mg p.o. q.a.m., Flonase 2 sprays via each nostril daily, Megace 400 mg p.o. q.a.m., Zantac 150 mg p.o. daily, Neurontin 300 mg p.o. at bedtime, Lopressor 50 mg p.o. b.i.d., Zocor 20 mg p.o. q.p.m., carbidopa/levodopa 25/100 two tabs p.o. b.i.d., Tylenol 650 mg p.o. q. 6 p.r.n. pain or fever, heparin 5000 units subcu q. 12 hours, hydralazine 5 mg IV q. 6 p.r.n. systolic blood pressure greater than 180, Zofran 4 mg IV q. 6 p.r.n. nausea. SOCIAL HISTORY: She lives with her . No tobacco, alcohol or illicit drug use. FAMILY HISTORY: Negative for GI malignancy or inflammatory bowel disease. REVIEW OF SYSTEMS: Unobtainable secondary to the patient's dementia. PHYSICAL EXAMINATION: GENERAL: She is lethargic, not arousable to sternal rub. CHEST: Clear to auscultation in the anterior lung arauz. Decreased breath sounds bilateral bases. CARDIOVASCULAR: Regular rate and rhythm. ABDOMEN: Soft, nontender, nondistended. Positive bowel sounds. EXTREMITIES: No clubbing, cyanosis or edema. LABORATORY STUDIES: Reviewed. Her liver panel was unremarkable. Her sodium today was 133, potassium 3.1, chloride 98, bicarbonate 24, BUN 2, creatinine 0.47, blood glucose 74. AST 13, ALT 6. Total bilirubin 0.8, direct bilirubin 0.2. IMPRESSION: This is an 82-year-old female with adult failure to thrive and advanced dementia. PLAN: I had a long discussion with the family and I did inform them that in patients with advanced dementia, there is a very good clinical evidence to show that a PEG tube has very little to add in the care of the patient. There is no mortality benefit. It does not extend life and I did tell them that I felt the better option for them at this time would be for palliative care evaluation. I also discussed with them other options including TPN which again I do not feel is appropriate for the long-term care of this patient. I did discuss this with Dr. Gregory. 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 I relayed this information to Dr. Gregory and will discuss with her further over the next few days. Once again, thanks for allowing me to participate in the care of this patient. If you have any further questions, please do not hesitate in contacting me.
[2017-03-12 09:00] LABS: CALCIUM 8.3 mg/dl (8.5-10.1); CREATININE 0.43 mg/dl (0.60-1.20); PHOSPHORUS 2.2 mg/dl (2.5-4.9)
[2017-03-12 15:06] VITALS: BP 114/78; PULSE 66; TEMP 37.1; O2SAT 95
--- NOTE | 2017-03-12 20:42 | Hospitalist Progress Note ---
Hospitalist Progress Note Date of Service Mar 12, 2017. Subjective Pt evaluation today including: conversation w/ patient, conversation w/ family Pt more alert today, denies problems. Ate a slice of strawberry and some whipped cream today, drank some milk with her pills. Is making urine, no BM. Palliative Care unfortunately was not able to see her today. Daughter interested in hearing other Hospice options All Other Systems: Reviewed and Negative Objective Vital Signs Date Time Temp Pulse Resp B/P (MAP) Pulse Ox O2 Delivery O2 Flow Rate FiO2 03/12/17 16:00 Room Air 03/12/17 15:06 37.1 66 17 114/78 (90) 95 03/12/17 08:00 96 Room Air 03/12/17 07:51 37.0 62 16 181/68 (105) 96 Room Air 03/12/17 00:25 36.4 58 18 118/71 (87) 97 Room Air 03/12/17 00:00 Room Air 03/11/17 21:31 70 Physical Exam General Appearance: no apparent distress, + cachetic (and alert today, answering some questions) Eyes: normal inspection, sclerae normal ENT: hearing grossly normal Neck: trachea midline Respiratory/Chest: lungs clear, normal breath sounds, no respiratory distress, no accessory muscle use Cardiovascular: regular rate, rhythm, no edema, no murmur Abdomen: normal bowel sounds, non tender, soft Extremities: no calf tenderness Neurologic/Psychiatric: alert Skin: no rash Laboratory Results Last 24 Hours Test 03/12/17 08:26 Sodium Level 134 mmol/L Potassium Level 4.0 mmol/L Chloride Level 104 mmol/L Carbon Dioxide Level 23 mmol/L Anion Gap 7.0 mmol/L Blood Urea Nitrogen 3 mg/dl Creatinine 0.43 mg/dl Est Creatinine Clear Calc Drug Dose 60.9 ml/min Estimated GFR () 109.0 Estimated GFR (Non- 94.1 BUN/Creatinine Ratio 6.3 Random Glucose 75 mg/dl Calcium Level 8.3 mg/dl Phosphorus Level 2.2 mg/dl Magnesium Level 1.8 mg/dl Assessment and Plan This is an 82 yo female with a h/o severe vascular dementia with Parkinsonism, previous CVAs, CAD, HTN, CVA, HLD, and GERD, that presents to us with FTT. Failure to thrive/Severe protein calorie malnutrition: very poor po intake and secondary metabolic encephalopathy- likely secondary to progressing vascular dementia. Pt and family were agreeable to Coresafe/enteral feeds but pt pulled out Coresafe after 2 hours. Does not want it replaced No evidence of infection except likely asymptomatic bacteriuria, influenza negative. Received Rocephin x 4 days and then stopped Head CT with evidence of numerous old CVAs; chest x-ray w/out signs of acute infectious process - Neurology consulted- no further recommendations except Palliative consult, continue Sinemet and Plavix - had speech evaluation and is on pureed diet but has little desire to eat--> Nutrition recommended advancing diet to allow more food options today -continue IVF + 20 meqKCL @ 75 ml/hr, continue replacing electrolytes as needed -follow PRP, Mg, Phos -replacing empirically with thiamine 100mg IV bid -Discussed case with GI about PEG tube placement---> high risk for refeeding syndrome after feeds begin - continue Megestrol -Daughter now wishing to pursue Hospice Care at home--> awaiting Palliative Care consult and CM to assist with Hospice referral Hypophosphatemia: Replace IV Phosphate as needed, follow phosphate level Hypokalemia: Replace w/ IV supplement, follow PRP and replace PRN Hypomagnesemia: Replace w/ IV Mag as needed, follow mag level Abnormal UA/Suspected UTI: growing Proteus and E. coli pansensitive on Ur cx, unclear if symptomatic or not but given worsening status, was treated -discontinued IV Rocephin now-completed course Advanced vascular dementia and vascular parkinsonism. : Neurology consulted and said to continue Sinemet and Plavix although not much benefit typically with Sinemet in this situation. No further treatment, and recommended Palliative Care Consult -restarted Sinemet and will restart Plavix in AM as there will be no PEG tube placement CAD, HTN, CVA, HLD-stable but BPs elevated still today somewhat -restart Plavix as above -continue Amlodipine 2.5 mg, Metoprolol 50 mg BID, Zocor 20 mg daily - IV Hydralazine PRN -holding lasix GERD: continue po H2 junior DVT prophylaxis: Heparin SQ Code status: LEVEL IV, FULL NO VENT/CARDIOVERSION Dispo: Discharge uncertain- CM consulted for Hospice referrals, Palliative Care consult pending for POLST and goals of care discussion
[2017-03-12] MEDS: SIMVASTATIN 20 MG TAB PO SCH (20:52)
[2017-03-12] MEDS: GABAPENTIN 300 MG CAP PO SCH (20:52)
[2017-03-12] MEDS ORDERED: NURSING VERBAL MED ORDER ONE (21:15)
[2017-03-13 00:20] VITALS: O2SAT 96
[2017-03-13 00:37] VITALS: BP 145/81; PULSE 56; TEMP 36.8; O2SAT 97
[2017-03-13] MEDS: SODIUM CHLOR 0.45% + 20MEQ KCL 1,000 ML IV SCH ×3 (02:40→15:27)
[2017-03-13] MEDS: [UNRECOGNIZED DRUG - REMARK] SCH (07:00)
[2017-03-13 07:27] VITALS: BP 174/82; PULSE 60; TEMP 36.8; O2SAT 94
[2017-03-13] MEDS: THIAMINE HCL INJ 100 MG in SYRINGE 9 ML IV SCH (07:36)
[2017-03-13] MEDS: METOPROLOL TARTRATE 50 MG TAB PO SCH ×2 (07:37→21:30)
[2017-03-13] MEDS: CLOPIDOGREL BISULFATE 75 MG TAB PO SCH (07:37)
[2017-03-13] MEDS: CARBIDOPA/LEVODOPA 25/100MG TAB PO SCH ×3 (07:37→17:51)
[2017-03-13] MEDS: FLUTICASONE PROPIONATE NA SPR 16 GM BTL NAE SCH (07:38)
[2017-03-13] MEDS: DOCUSATE SODIUM 100 MG CAP PO SCH (07:38)
[2017-03-13] MEDS: CYANOCOBALAMIN 500 MCG TAB (VIT B-12) PO SCH (07:38)
[2017-03-13] MEDS: RANITIDINE HCL 150 MG TAB PO SCH (07:38)
[2017-03-13] MEDS: MEGESTROL ACETATE SUSP 400 MG/10 ML UDC PO SCH (07:38)
[2017-03-13] MEDS: AMLODIPINE BESYLATE 5 MG TAB PO SCH (07:39)
[2017-03-13] MEDS: HEPARIN SOD 5000 UNIT/0.5 ML CARP SQ SCH (07:39)
[2017-03-13] MEDS: CHOLECALCIFEROL 1000 INTER.UNIT TAB PO SCH (07:39)
[2017-03-13 08:00] VITALS: O2SAT 94
[2017-03-13 09:26] LABS: EOS % 1.2 %; EOS ABS # 0.06 K/uL (0-0.5); HEMATOCRIT 37.7 % (37-47); HEMOGLOBIN 12.8 g/dL (12.0-16.0); IG# 0.02 K/uL (0.00-0.02); LYMPH ABS # 1.17 K/uL (1.2-3.4); MEAN CELL VOLUME 88.5 fL (80-100); MEAN PLATELET VOLUME 10.1 fL (7.4-10.4); MONO % 7.8 %; MONO ABS # 0.38 K/uL (0.11-0.59); NEUT % 66.6 %; NEUT ABS # 3.25 K/uL (1.4-6.5); PLATELET COUNT 197 K/uL (130-400); RED CELL DISTRIBUTION WIDTH CV 13.3 % (11.5-14.5); RED CELL DISTRIBUTION WIDTH SD 43.1 fL (36.4-46.3); WHITE BLOOD COUNT 4.88 K/uL (4.8-10.8)
[2017-03-13 09:54] LABS: CALCIUM 9.2 mg/dl (8.5-10.1); CREATININE 0.55 mg/dl (0.60-1.20); POTASSIUM 4.1 mmol/L (3.5-5.1)
[2017-03-13 09:55] LABS: PHOSPHORUS 2.2 mg/dl (2.5-4.9)
--- NOTE | 2017-03-13 13:03 | Palliative Care Consultation ---
Consultation Date of Consultation: Mar 13, 2017. Requesting Physician: Dr. Gregory Attending Physician: Dr. Gregory Reason for Consultation: Goals of care, hospice History of Present Illness This 82 year old female with PMH severe vascular dementia with Parkinsonism, previous CVAs, CAD, HTN, CVA, HLD, and GERD, that presented to us with failure to thrive and altered mental status. Patient refuses to eat/drink or take medicines at times per her daughter, who is her caregiver at home. CT head negative, CXR showed nothing acute. Neurology was consulted who had no further recommendations other than a palliative consult given patient's advanced age and end-stage dementia. Patient has been receiving IVF and electrolytes, really has had no improvement in condition. Palliative care is consulted to discuss goals of care and do POLST form. I met with patient, her daughter Janny, and , in room 255. Patient is awake at times but mostly lethargic/somnolent during my visit. She did not verbally respond at all. She looks thin and cachectic, but in no distress and no s/s pain. Daughter, Janny, is decision maker. in room but defers all conversation and decision making to daughter. Janny states, "In my eyes, the day my mom stopped eating is the day she . We just want to take her home with hospice." Janny blames medical care and the medication Sinemet for her mothers decline. She is not interested in discussing the progression of dementia/ Parkinsonism as being the reason for this decline. We discussed POLST form, Janny declines filling it out at this time. I still went over the different parts of POLST and explained CPR/code status. Past Medical/Surgical History Medical History: Parkinsonism CVA CAD Aortocoronary bypass Dementia, advanced/end-stage HLD Htn Spondylolisthesis Social History Smoking Status: Former Smoker History of Alcohol Use: No Drug Use: none Marital Status: Housing Status: lives with family Review of Systems unable to obtain ROS due to lethargy Allergies Coded Allergies: Celecoxib (Verified Allergy, Unknown, 03/07/17) Clarithromycin (Verified Allergy, Unknown, ?, 03/07/17) Erythromycin (Verified Allergy, Unknown, MYCINS, 03/07/17) Irbesartan (Verified Allergy, Unknown, Unknown rxn, 02/03/14) Pregabalin (Verified Allergy, Unknown, Unknown rxn, 03/07/17) Propoxyphene (Verified Allergy, Unknown, Unknown - Darvocet, 03/07/17) Codeine (Verified Adverse Reaction, Mild, ACUTE NAUSEA, 03/07/17) ROJAS Inhibitors (Verified Adverse Reaction, Unknown, ?, 03/07/17) Benzonatate (Verified Adverse Reaction, Unknown, UNKNOWN, 03/07/17) Hydralazine (Verified Adverse Reaction, Unknown, ?, 03/07/17) Losartan (Verified Adverse Reaction, Unknown, ?, 03/07/17) Morphine (Unverified Adverse Reaction, Unknown, GI SYMPTOMS, 03/07/17) States morphine made her sick for months, and ask to get it added to allergy list. Tramadol (Verified Adverse Reaction, Unknown, didn't feel good, 03/07/17) Valsartan (Verified Adverse Reaction, Unknown, ?, 03/07/17) Medications Current Inpatient Medications Medications (Trade) Dose Ordered Sig/Graciela Route Start Time Stop Time Status Last Admin Dose Admin Ondansetron HCl (Zofran Inj) 4 mg Q6H PRN IV 03/07/17 23:15 04/06/17 23:14 03/12/17 19:04 4 MG Heparin Sodium (Porcine) (Heparin Sq 5000 Unit/0.5ml) 5,000 unit Q12H SQ 03/08/17 09:00 04/07/17 08:59 03/13/17 07:39 5,000 UNIT Acetaminophen 650 mg/Empty Bag 65 ml @ 260 mls/hr Q6H PRN IV 03/08/17 03:30 04/07/17 03:29 03/08/17 04:08 260 MLS/HR Hydralazine HCl (HydrALAZINE INJ) 5 mg Q6H PRN IV. 03/08/17 04:45 04/07/17 04:44 03/08/17 23:17 5 MG Acetaminophen (Tylenol Tab) 650 mg Q6 PRN PO 03/09/17 16:45 04/08/17 16:44 Amlodipine Besylate (Norvasc Tab) 2.5 mg QAM PO 03/10/17 09:00 04/09/17 08:59 03/13/17 07:39 2.5 MG Cholecalciferol (Vitamin D Tab) 1,000 inter.unit DAILY PO 03/10/17 09:00 04/09/17 08:59 03/13/17 07:39 1,000 INTER.UNIT Cyanocobalamin (Vitamin B-12 Tab) 500 mcg DAILY PO 03/10/17 09:00 04/09/17 08:59 03/13/17 07:38 500 MCG Docusate Sodium (coLACE CAP) 100 mg QAM PO 03/10/17 09:00 04/09/17 08:59 03/13/17 07:38 100 MG Fluticasone Propionate (Flonase Nasal [place]) 2 sprays DAILY RENE 03/10/17 09:00 04/09/17 08:59 03/13/17 07:38 2 SPRAYS Gabapentin (Neurontin Cap) 300 mg HS PO 03/09/17 21:00 04/08/17 20:59 03/12/17 20:52 300 MG Megestrol Acetate (Megace Susp) 400 mg QAM PO 03/10/17 09:00 04/09/17 08:59 03/13/17 07:38 400 MG Metoprolol Tartrate (Lopressor Tab) 50 mg BID PO 03/09/17 21:00 04/08/17 20:59 03/13/17 07:37 50 MG Ranitidine HCl (zANTac TAB) 150 mg DAILY PO 03/10/17 09:00 04/09/17 08:59 03/13/17 07:38 150 MG Simvastatin (Zocor Tab) 20 mg QPM PO 03/09/17 21:00 04/08/17 20:59 03/12/17 20:52 20 MG Carbidopa/Levodopa (Sinemet 25/ 100MG Tab) 1.5 tab QDL PO 03/10/17 12:00 04/09/17 11:59 03/13/17 11:31 1.5 TAB Enteral Nutritional Formula (Peptamen Intense VHP) METHOD OF ADMINISTRATION Cyc... DAILY@1900 NG 03/10/17 19:00 04/09/17 18:59 Future Hold 03/10/17 19:44 1,000 ML Miscellaneous (Stop Order) 1 ea DAILY@0700 N/A 03/11/17 07:00 04/10/17 06:59 03/11/17 00:18 1 EA Thiamine HCl 100 mg/Syringe 10 ml @ 2 mls/min BID IV 03/11/17 21:00 04/10/17 20:59 03/13/17 07:36 2 MLS/MIN Potassium Chloride/Sodium Chloride 1,000 ml @ 75 mls/hr [id number] IV 03/11/17 11:00 04/10/17 10:29 03/13/17 02:40 75 MLS/HR Clopidogrel Bisulfate (plAVix TAB) 75 mg QAM PO 03/13/17 09:00 04/12/17 08:59 03/13/17 07:37 75 MG Carbidopa/Levodopa (Sinemet 25/ 100MG Tab) 2 tab BID17 PO 03/13/17 09:00 04/12/17 08:59 03/13/17 07:37 2 TAB Physical Exam Date Time Temp Pulse Resp B/P (MAP) Pulse Ox O2 Delivery O2 Flow Rate FiO2 03/13/17 08:00 94 Room Air 03/13/17 07:27 36.8 60 18 174/82 (112) 94 Room Air 03/13/17 00:37 36.8 56 16 145/81 (102) 97 Room Air 03/13/17 00:20 96 Room Air 03/12/17 16:00 Room Air 03/12/17 15:06 37.1 66 17 114/78 (90) 95 General Appearance: no apparent distress, + cachetic, + thin ENT: hearing grossly normal Neck: no JVD Respiratory: no respiratory distress, no accessory muscle use, + pertinent finding (room air) Cardiovascular: regular rate, rhythm, no edema Abdomen: + pertinent finding (did not assess abdomen at this time) Neurologic/Psychiatric: + pertinent finding (patient tired and lethargic while I was in room. briefly woke up but did not participate in any conversation) Laboratory Results Last 24 Hours Test 03/13/17 09:14 White Blood Count 4.88 K/uL Red Blood Count 4.26 M/uL Hemoglobin 12.8 g/dL Hematocrit 37.7 % Mean Corpuscular Volume 88.5 fL Mean Corpuscular Hemoglobin 30.0 pg Mean Corpuscular Hemoglobin Concent 34.0 g/dl Platelet Count 197 K/uL Mean Platelet Volume 10.1 fL Neutrophils (%) (Auto) 66.6 % Lymphocytes (%) (Auto) 24.0 % Monocytes (%) (Auto) 7.8 % Eosinophils (%) (Auto) 1.2 % Basophils (%) (Auto) 0.0 % Neutrophils # (Auto) 3.25 K/uL Lymphocytes # (Auto) 1.17 K/uL Monocytes # (Auto) 0.38 K/uL Eosinophils # (Auto) 0.06 K/uL Basophils # (Auto) 0.00 K/uL RDW Standard Deviation 43.1 fL RDW Coefficient of Variation 13.3 % Immature Granulocyte % (Auto) 0.4 % Immature Granulocyte # (Auto) 0.02 K/uL Sodium Level 132 mmol/L Potassium Level 4.1 mmol/L Chloride Level 101 mmol/L Carbon Dioxide Level 24 mmol/L Anion Gap 7.0 mmol/L Blood Urea Nitrogen 3 mg/dl Creatinine 0.55 mg/dl Est Creatinine Clear Calc Drug Dose 47.6 ml/min Estimated GFR () 100.5 Estimated GFR (Non- 86.7 BUN/Creatinine Ratio 5.8 Random Glucose 86 mg/dl Calcium Level 9.2 mg/dl Phosphorus Level 2.2 mg/dl Magnesium Level 1.8 mg/dl Assessment & Plan Palliative Performance Scale: 20 % Problem list: Lethargy Altered mental status, dementia at baseline vs. metabolic encephalopathy Failure to thrive Severe protein/calorie malnutrition Dysphagia Dementia, advanced/end-stage Parkinsonism Electrolyte imbalance Goals of care (Z51.5) Palliative care recs: discussed with patient's daughter Janny and . -Patient is current a full code with no ventilation. I explained to the patient' s daughter, Janny, and patient's that outside of the hospital there really is no option for a limited code status such as "No vent." We discussed DNR/DNI, patient's daughter is not ready to make that decision at this time but was very adamant that patient does NOT want intubation. -Patient's daughter is still very upset about the patient not receiving a feeding tube, but also understands the risks of placing on considering patient pulled her NGT out after 2 hours. I gave education on end of life as well as advanced dementia/Parkinson's. -Janny and the confirmed that goal is home with hospice. Her terminal diagnosis is end-stage dementia, failure to thrive/severe protein/calorie malnutrition. Comorbidities include CAD, htn, CVA, and Parkinsonism. -POLST form was explained. Patient's daughter current declines filling this out. Hospice will also be addressing these issues with her, she said she will think about her decisions. She is hoping her mother will wake up enough to answer the questions herself. -Discussed morphine allergy with patient's daughter. She was unaware that patient had a morphine allergy. If the allergy is confusion, I think at this juncture it would still be worth it to give the morphine if needed for comfort. Generally PO Roxanol is tolerated better than IV morphine if confusion was the problem. Currently though, patient has no signs of pain/SOB/discomfort. -Updated family caseworker and Dr. Gregory. Patient's family prefers to take her home tomorrow, they will need patient to be transported. They already have a hospital bed. Thank you kindly for this consult. Please contact me with any further palliative care needs.
[2017-03-13 15:44] VITALS: BP 105/70; PULSE 67; TEMP 36.7; O2SAT 95
[2017-03-13] MEDS ORDERED: PROMETHAZINE HCL INJ 12.5 MG in SODIUM CHLORIDE 0.9% 50ML 50 ML IV PRN (18:15)
[2017-03-13] MEDS ORDERED: BISACODYL 10 MG SUPP PR STA (18:16)
--- NOTE | 2017-03-13 18:24 | Hospitalist Progress Note ---
Hospitalist Progress Note Date of Service Mar 13, 2017. Subjective Pt evaluation today including: conversation w/ patient, conversation w/ family , physical exam Daughter has decided to go home with Hospice but requested to stay here one more night until they are ready to bring her home. Currently, pt having nausea. Had 2 small BMs today. Denies abd pain. Is more alert today again. Did not eat today again except chocolate milk with her pills All Other Systems: Reviewed and Negative Objective Vital Signs Date Time Temp Pulse Resp B/P (MAP) Pulse Ox O2 Delivery O2 Flow Rate FiO2 03/13/17 15:44 36.7 67 18 105/70 (82) 95 Room Air 03/13/17 15:27 Room Air 03/13/17 08:00 94 Room Air 03/13/17 07:27 36.8 60 18 174/82 (112) 94 Room Air 03/13/17 00:37 36.8 56 16 145/81 (102) 97 Room Air 03/13/17 00:20 96 Room Air Physical Exam General Appearance: no apparent distress, + cachetic Eyes: normal inspection, sclerae normal ENT: hearing grossly normal Neck: trachea midline Respiratory/Chest: normal breath sounds, no respiratory distress, no accessory muscle use Cardiovascular: regular rate, rhythm, no edema, no murmur Abdomen: normal bowel sounds, non tender, soft Extremities: normal inspection, no pedal edema, no calf tenderness Neurologic/Psychiatric: alert Skin: normal color, warm/dry, no rash Laboratory Results Last 24 Hours Test 03/13/17 09:14 White Blood Count 4.88 K/uL Red Blood Count 4.26 M/uL Hemoglobin 12.8 g/dL Hematocrit 37.7 % Mean Corpuscular Volume 88.5 fL Mean Corpuscular Hemoglobin 30.0 pg Mean Corpuscular Hemoglobin Concent 34.0 g/dl Platelet Count 197 K/uL Mean Platelet Volume 10.1 fL Neutrophils (%) (Auto) 66.6 % Lymphocytes (%) (Auto) 24.0 % Monocytes (%) (Auto) 7.8 % Eosinophils (%) (Auto) 1.2 % Basophils (%) (Auto) 0.0 % Neutrophils # (Auto) 3.25 K/uL Lymphocytes # (Auto) 1.17 K/uL Monocytes # (Auto) 0.38 K/uL Eosinophils # (Auto) 0.06 K/uL Basophils # (Auto) 0.00 K/uL RDW Standard Deviation 43.1 fL RDW Coefficient of Variation 13.3 % Immature Granulocyte % (Auto) 0.4 % Immature Granulocyte # (Auto) 0.02 K/uL Sodium Level 132 mmol/L Potassium Level 4.1 mmol/L Chloride Level 101 mmol/L Carbon Dioxide Level 24 mmol/L Anion Gap 7.0 mmol/L Blood Urea Nitrogen 3 mg/dl Creatinine 0.55 mg/dl Est Creatinine Clear Calc Drug Dose 47.6 ml/min Estimated GFR () 100.5 Estimated GFR (Non- 86.7 BUN/Creatinine Ratio 5.8 Random Glucose 86 mg/dl Calcium Level 9.2 mg/dl Phosphorus Level 2.2 mg/dl Magnesium Level 1.8 mg/dl Assessment and Plan This is an 82 yo female with a h/o severe vascular dementia with Parkinsonism, previous CVAs, CAD, HTN, CVA, HLD, and GERD, that presents to us with FTT. Failure to thrive/Severe protein calorie malnutrition: very poor po intake and secondary metabolic encephalopathy- likely secondary to progressing vascular dementia. Pt and family were initially wanting enteral feeds but pt pulled out Coresafe after 2 hours. Does not want it replaced Declined PEG tube after told about risk of peritonitis if she pulled out PEG. No evidence of infection except likely asymptomatic bacteriuria, influenza negative. Received Rocephin x 4 days and then stopped Head CT with evidence of numerous old CVAs; chest x-ray w/out signs of acute infectious process - Neurology consulted- no further recommendations except Palliative consult, continue Sinemet and Plavix - had speech evaluation and is on pureed diet but has little desire to eat--> Nutrition recommended advancing diet to allow more food options -Family has met with Palliative Care today and have declined to fill out a POLST , stating "I can't make decisions until something happens." Daughter requests to dc IVFs, lab draws -dv IVFs and IV thiamine -can continue Megestrol -plan for Hospice Care at home and discharge to home tomorrow Hypophosphatemia: Replaced IV Phosphate as needed, no further labs Hypokalemia: Replace w/ IV supplement Hypomagnesemia: Replace w/ IV Mag as needed Abnormal UA/Suspected UTI: growing Proteus and E. coli pansensitive on Ur cx, unclear if symptomatic or not but given worsening status, was treated -discontinued IV Rocephin now-completed course Advanced vascular dementia and vascular parkinsonism. : Neurology consulted and said to continue Sinemet and Plavix although not much benefit typically with Sinemet in this situation. No further treatment, and recommended Palliative Care Consult -restarted Sinemet restarted Plavix as there will be no PEG tube placement CAD, HTN, CVA, HLD-stable -cont Plavix -continue Amlodipine 2.5 mg, Metoprolol 50 mg BID, Zocor 20 mg daily -dc lasix -consider stopping all meds if pt and daughter wish once enrolls in hospice GERD: continue po H2 junior Constipation/Nausea- ZOfran, phenergan prn -add Dulcolax suppos today DVT prophylaxis: dc Heparin SQ as not consistent with goal of comfort Code status: LEVEL IV, FULL NO VENT/CARDIOVERSION- daughter wishes to remain this level and will make decision about DNR if/when her heart stops Dispo: to home with Hospice tomorrow
[2017-03-13] MEDS: GABAPENTIN 300 MG CAP PO SCH (21:30)
[2017-03-13] MEDS: SIMVASTATIN 20 MG TAB PO SCH (21:30)
[2017-03-13 23:37] VITALS: BP 135/75; PULSE 58; TEMP 36.9; O2SAT 96
[2017-03-14] MEDS: [UNRECOGNIZED DRUG - REMARK] SCH (06:19)
[2017-03-14 07:12] VITALS: BP 157/81; PULSE 72; TEMP 37.6; O2SAT 95
[2017-03-14] MEDS: DOCUSATE SODIUM 100 MG CAP PO SCH (09:41)
[2017-03-14] MEDS: RANITIDINE HCL 150 MG TAB PO SCH (09:42)
[2017-03-14] MEDS: CLOPIDOGREL BISULFATE 75 MG TAB PO SCH (09:42)
[2017-03-14] MEDS: CHOLECALCIFEROL 1000 INTER.UNIT TAB PO SCH (09:42)
[2017-03-14] MEDS: MEGESTROL ACETATE SUSP 400 MG/10 ML UDC PO SCH (09:42)
[2017-03-14] MEDS: AMLODIPINE BESYLATE 5 MG TAB PO SCH (09:42)
[2017-03-14] MEDS: METOPROLOL TARTRATE 50 MG TAB PO SCH (09:42)
[2017-03-14] MEDS: CARBIDOPA/LEVODOPA 25/100MG TAB PO SCH ×2 (09:42→11:41)
[2017-03-14] MEDS: CYANOCOBALAMIN 500 MCG TAB (VIT B-12) PO SCH (09:42)
[2017-03-14] MEDS: FLUTICASONE PROPIONATE NA SPR 16 GM BTL NAE SCH (09:43)
--- NOTE | 2017-03-14 13:04 | Discharge Instructions ---
Discharge Instructions Date of Service Mar 14, 2017. Admission Reason for Admission: Failure To Thrive, Hypokalemia, Parkinson Disease Discharge Discharge Diagnosis / Problem: Failure to thrive Discharge Goals Goal(s): Decrease discomfort Activity Recommendations Activity Limitations: as noted below Lifting Limitations: gradually increase as tolerated . Instructions / Follow-Up Instructions / Follow-Up Home Hospice Current Hospital Diet Patient's current hospital diet: Regular Diet Discharge Diet Recommended Diet: Regular Diet Pending Studies Studies pending at discharge: no Laboratory Results Hemoglobin A1c Test 01/08/17 13:57 Range/Units Estimated Average Glucose 126 mg/dl Hemoglobin A1c 6.0 H 4.5-5.6 % Lipid Panel Test 03/10/17 06:59 Range/Units Triglycerides Level 98 0-150 mg/dl Cholesterol Level 141 0-200 mg/dl HDL Cholesterol 34 mg/dl Cholesterol/HDL Ratio 4.1 LDL Cholesterol, Calculated 87 mg/dl Medical Emergencies . Who to Call and When: Medical Emergencies: If at any time you feel your situation is an emergency, please call 911 immediately. . Non-Emergent Contact Non-Emergency issues call your: Specialist (hospice) Call Non-Emergent contact if: your pain is not controlled . . "Provider Documentation" section prepared by Nicholas Ramirez. . VTE Core Measure Inpt VTE Proph given/why not?: Unfractionated heparin SQ, SCD's
[2017-03-14 13:07] VITALS: BP 157/81; PULSE 72; TEMP 37.6; O2SAT 95
--- NOTE | 2017-03-14 22:43 | Discharge Summary ---
Discharge Summary Date of Service Mar 14, 2017. Discharge Summary Admission Date: Mar 07, 2017 at 23:15 Discharge Date: Mar 14, 2017 Immunizations: Have You Had Influenza Vaccine: N/A Influenza Vaccine Date: Dec 12, 2004 History of Tetanus Vaccine?: Unknown History of Pneumococcal: Yes History of Hepatitis B Vaccine: No Hospital Course This includes examination of the patient, discharge planning, medication reconciliation, and communication with other providers. Discharge Instructions Please refer to the electronic Patient Visit Report (Discharge Instructions) for additional information.
== END 2017-03-14 13:37 | disposition hospice, home (50) | DRG 689 ==
LOC: EDBD 18:23 → C.EDA 18:24 → C.MS2W 23:15 → EDBEDREQSVC 23:29 → ENRESERV 23:34
PROVIDERS: ADMIT Hospitalist; ATTEND Family Medicine
DX: N39.0 Urinary tract infection, site not specified (principal); E43 Unspecified severe protein-calorie malnutrition; G93.41 Metabolic encephalopathy; E87.1 Hypo-osmolality and hyponatremia; I69.351 Hemiplegia and hemiparesis following cerebral infarction affecting right dominant side; Z51.5 Encounter for palliative care; Z66 Do not resuscitate; R62.7 Adult failure to thrive; I25.10 Atherosclerotic heart disease of native coronary artery without angina pectoris; E78.5 Hyperlipidemia, unspecified; I10 Essential (primary) hypertension; G20 Parkinson's disease; E87.6 Hypokalemia; F32.9 Major depressive disorder, single episode, unspecified; E83.39 Other disorders of phosphorus metabolism; F01.50 Vascular dementia, unspecified severity, without behavioral disturbance, psychotic disturbance, mood disturbance, and anxiety; E83.42 Hypomagnesemia; Z91.19 Patient's noncompliance with other medical treatment and regimen; Z87.891 Personal history of nicotine dependence; Z95.1 Presence of aortocoronary bypass graft